=== PATIENT | female | born 1970 | race Caucasian/White ===

== ENCOUNTER 2020-05-24 08:58 | Emergency (ER) | payer OTHER, SELFPAY ==
[2020-05-24 08:59] VITALS: BP 192/127; PULSE 121; RESP 22; TEMP 37.3; O2SAT 96; BMI 30.4
--- NOTE | 2020-05-24 09:15 | XR_ITS ---
PROCEDURE: XR CHEST 2V CLINICAL HISTORY: SOB Shortness of breath, cough, smoker COMPARISON: No exams were available for comparison FINDINGS: The cardiomediastinal silhouette and pulmonary vascularity are within normal limits. The lungs are clear without infiltrates, suspicious nodules, or pleural effusions. No acute bony abnormalities. IMPRESSION: No acute findings. Dictated by: Rasta Wolf MD 05/24/2020 10:29 Rasta Wolf MD in [place] 05/24/2020 10:29
--- NOTE | 2020-05-24 09:21 | HMH.EDGENADL ---
ED Disposition Clinical Impression: Bronchitis, Poorly controlled diabetes mellitus Disposition: Home, Self-Care Condition on Discharge: Good Instructions: DI for Shortness of Breath Additional Instructions: You were seen on an emergency basis. It is very important that you follow up with your primary care provider and/or specialist as we discussed within 2 days. All labs and imaging were obtained and interpreted here to rule out life threatening emergencies, but your final results should be reviewed by your primary doctor at your follow up appointment. Please return to the emergency department if any of your symptoms worsen, or if they do not improve as we discussed. Prescriptions: Albuterol Sulfate [Albuterol Sulfate Hfa] 6.7 gm IH Q4-6H PRN #1 hfa.aer.ad PRN Reason: Shortness Of Breath Or Wheezing Prescription Printed Benzonatate [Tessalon Perle 100mg Cap*] 100 mg PO TID PRN #15 cap PRN Reason: Cough Prescription Printed Azithromycin [Z-William 250mg Tab] 250 mg PO DIRECTED #6 tab Prescription Printed Referrals: Mary Hair PA [Primary Care Provider] - - Critical Care Critical Care Time: No Attestation: On , the high probability of a clinically significant, sudden or life threatening deterioration of the following system(s) required my full and direct attention, intervention and personal management. The time I documented below is in addition to time spent performing reported procedures but includes the following listed in this critical care notation. Medical Decision Making - Medical Records Medical records reviewed: Yes: I reviewed the patient's medical records. - Mendoza Inquiry Pt receiving controlled substance: No Vital Signs: 05/24/20 08:59 05/24/20 10:26 Temperature 99.1 F Temperature Source Oral Pulse Rate [Radial] 121 H 87 Respiratory Rate 22 20 Blood Pressure [Right Arm] 192/127 H 158/99 H Blood Pressure Mean [Right Arm] 148 118 Blood Pressure Position [Right Arm] Sitting Sitting 02 Sat by Pulse Oximetry 96 96 Oxygen Delivery Method Room Air Room Air - Lab Data Lab results reviewed: Yes: I reviewed the patient's lab results. Lab Results 05/24/20 09:40: WBC 8.7, RBC 4.63, Hgb 14.4, Hct 41.4, MCV 89.3, MCH 31.1, MCHC 34.9, RDW 13.5, Plt Count 197, MPV 9.9, Neut % (Auto) 55.5, Lymph % (Auto) 37.2, [place] % (Auto) 3.6, Eos % (Auto) 2.9, Baso % (Auto) 0.7, Neut # (Auto) 4.8, Lymph # (Auto) 3.3, [place] # (Auto) 0.3, Eos # (Auto) 0.3, Baso # (Auto) 0.1 05/24/20 09:40: Sodium 140, Potassium 4.0, Chloride 107, Carbon Dioxide 25, Anion Gap 12.0, BUN 12, Creatinine 0.50 L, Estimated Creat Clear 169, Estimated GFR 130, Est GFR ( Amer) 157, Glucose 224 H, Calcium 9.5, Troponin I < 0.01 05/24/20 09:40: NT-Pro-B Natriuret Pep 64.3 05/24/20 09:40: D-Dimer 0.42 05/24/20 09:40: Total Bilirubin 0.2, Direct Bilirubin 0.1, Conjugated Bilirubin 0.0, Indirect Bilirubin 0.1, Unconjugated Bilirubin 0.2, AST 30, ALT 25, Alkaline Phosphatase 106, Total Protein 7.2, Albumin 4.1 Result diagrams: 05/24/20 09:40 05/24/20 09:40 Orders (Tests/Meds): ORDERS Category Date Time Status Covid-19 Nasal PCR ([facility]) Routine Lab 05/24/20 10:07 Received Troponin I Q3H Lab 05/24/20 12:15 Ordered Troponin I Q3H Lab 05/24/20 15:15 Ordered Medical Decision Narrative: 50-year-old female with heart disease, diabetes, hypertension presenting with 1 week history of cough, dyspnea and chest pain. Nontoxic, afebrile, hemodynamically stable, oxygenating well on room air. Chest x-ray negative for acute disease. EKG is normal. Troponin is undetectable. And her symptoms are a week long, so she does not require a second troponin here for rule out as her symptoms have been constant. CBC is within normal limits. CMP is nonactionable. proBNP is within normal limits. D-dimer is normal. This is not a pulmonary embolism or CHF exacerbation. No indication of pneumonia. PCR for Covid is pending. Pressure improved
--- NOTE | 2020-05-24 09:51 | ECG_ITS ---
APPROVED REPORT Exam: Resting ECG HR:93 bpm ECG Measurements Heart Rate 93 AXES OH 164 P 71 QRSd 98 QRS 61 QT 366 T 65 QTc 455 Conclusion Normal sinus rhythm Normal ECG Electronically signed by : Boby Montanez, 05/25/2020 17:01:51
[2020-05-24 09:53] LABS: Basophils # 0.1 K/mm3 (0-0.2); Basophils % 0.7 % (0.1-2.0); Eosinophils # 0.3 K/mm3 (0.0-0.4); Eosinophils % 2.9 % (0.1-12.0); Hematocrit 41.4 % (37.0-47.0); Hemoglobin 14.4 g/dL (12.2-16.2); Lymphocytes # 3.3 K/mm3 (0.7-4.5); Lymphocytes % 37.2 % (10-50); Mean Corpuscular HGB Conc 34.9 g/dL (31.8-35.4); Mean Corpuscular Hemoglobin 31.1 pg (27.0-31.2); Mean Corpuscular Volume 89.3 fl (81-99); Mean Platelet Volume 9.9 fl (7.4-10.4); Monocytes # 0.3 K/mm3 (0.1-1.0); Monocytes % 3.6 % (1.7-9.3); Neutrophils # 4.8 K/mm3 (1.8-7.8); Neutrophils % 55.5 % (37.0-80.0); Platelet Count 197 K/mm3 (142-424); Red Blood Count 4.63 M/mm3 (4.20-5.40); Red Cell Distribution Width 13.5 % (11.5-17.5); Sodium 140 mmol/L (136-145); White Blood Count 8.7 K/mm3 (4.8-10.8)
[2020-05-24 09:56] LABS: Blood Urea Nitrogen 12 mg/dl (7-17); Carbon Dioxide 25 mmol/L (22.0-30.0); Creatinine Clearance Estimated 169 mL/min (50-200); Estimated Glomerular Filt Rate 130 ml/min (>60); GFR (African American) 157 ML/MIN (>60)
[2020-05-24 09:57] LABS: Alanine Aminotransferase 25 U/L (12-78); Albumin Level 4.1 g/dl (3.5-5.0); Alkaline Phosphatase 106 U/L (38-126); Aspartate Amino Transferase 30 U/L (14-36); Bilirubin,Direct 0.1 mg/dl (0.0-0.4); Bilirubin,Indirect 0.1 mg/dL (0.0-0.9); Bilirubin,Total 0.2 mg/dl (0.2-1.3); Bilirubin,Unconjugated 0.2 mg/dL (0.0-1.1); Calcium 9.5 mg/dl (8.4-10.2); Glucose 224 mg/dl (74-100); Total Protein,Serum 7.2 g/dl (6.3-8.2)
[2020-05-24 10:02] LABS: D-Dimer 0.42 ug/mL (0.15-8.0)
[2020-05-24 10:08] LABS: NT Pro Brain Natriuretic Pep. 64.3 pg/mL (0-125)
[2020-05-24 10:09] LABS: Troponin I < 0.01 ng/ml (0.00-0.034)
[2020-05-24 10:18] LABS: Chloride 107 mmol/L (98-107)
[2020-05-24 10:26] VITALS: BP 158/99; PULSE 87; RESP 20; O2SAT 96
[2020-05-24 11:09] VITALS: BP 159/99; PULSE 100; RESP 18; TEMP 36.6; O2SAT 96
== END 2020-05-24 11:10 | disposition home or self-care (01) ==
PROVIDERS: Emergency Provider Physician Assistant; PCP Nurse Practitioner Family
DX: Z20.828 Contact with and (suspected) exposure to other viral communicable diseases (principal); J20.9 Acute bronchitis, unspecified; E11.65 Type 2 diabetes mellitus with hyperglycemia; I10 Essential (primary) hypertension; F17.210 Nicotine dependence, cigarettes, uncomplicated
CPT/HCPCS: 71046; 80048; 80076; 83880; 84484; 85025; 85378; 93005; 99283; U0003

== ENCOUNTER 2020-08-27 09:56 | Emergency (ER) | payer OTHER, SELFPAY ==
[2020-08-27 09:57] VITALS: BP 128/92; PULSE 93; RESP 20; TEMP 36.7; O2SAT 98; BMI 30.5
--- NOTE | 2020-08-27 10:01 | XR_ITS ---
PROCEDURE: XR CHEST PORTABLE CLINICAL HISTORY: sob Shortness of breath COMPARISON: CR XR CHEST 2V from 05/24/2020 FINDINGS: The cardiomediastinal silhouette and pulmonary vascularity are within normal limits. The lungs are clear without infiltrates, suspicious nodules, or pleural effusions. No acute bony abnormalities. IMPRESSION: No acute findings. Dictated by: Rasta Wolf MD 08/27/2020 10:15 Rasta Wolf MD in [place] 08/27/2020 10:15
--- NOTE | 2020-08-27 10:12 | ECG_ITS ---
APPROVED REPORT Exam: Resting ECG HR:98 bpm ECG Measurements Heart Rate 98 AXES CO 142 P 72 QRSd 90 QRS 65 QT 348 T 55 QTc 444 Conclusion Normal sinus rhythm ST abnormality, possible digitalis effect Abnormal ECG Electronically signed by : Scotty León, 08/27/2020 20:07:28
[2020-08-27 10:32] VITALS: BP 132/100; PULSE 98; O2SAT 96
[2020-08-27 10:40] LABS: Basophils # 0.1 K/mm3 (0-0.2); Basophils % 0.6 % (0.1-2.0); Eosinophils # 0.2 K/mm3 (0.0-0.4); Eosinophils % 2.6 % (0.1-12.0); Hematocrit 44.1 % (37.0-47.0); Hemoglobin 14.6 g/dL (12.2-16.2); Lymphocytes # 3.1 K/mm3 (0.7-4.5); Lymphocytes % 35.8 % (10-50); Mean Corpuscular HGB Conc 33.2 g/dL (31.8-35.4); Mean Corpuscular Hemoglobin 30.2 pg (27.0-31.2); Mean Corpuscular Volume 91.2 fl (81-99); Mean Platelet Volume 10.1 fl (7.4-10.4); Monocytes # 0.3 K/mm3 (0.1-1.0); Monocytes % 3.6 % (1.7-9.3); Neutrophils # 4.9 K/mm3 (1.8-7.8); Neutrophils % 57.4 % (37.0-80.0); Platelet Count 167 K/mm3 (142-424); Red Blood Count 4.84 M/mm3 (4.20-5.40); Red Cell Distribution Width 13.6 % (11.5-17.5); White Blood Count 8.6 K/mm3 (4.8-10.8)
--- NOTE | 2020-08-27 10:51 | HMH.EDGENADL ---
ED Disposition Clinical Impression: Exposure to COVID-19 virus Disposition: Home, Self-Care Condition on Discharge: Good Instructions: DI for Chronic Obstructive Pulmonary Disease Additional Instructions: Return to the emergency department for fever, shortness of breath, inability to stay well-hydrated. Referrals: Mary Hair PA [Primary Care Provider] - Time of Disposition: 11:43 - Critical Care Critical Care Time: No Attestation: On 08/27/20, the high probability of a clinically significant, sudden or life threatening deterioration of the following system(s) required my full and direct attention, intervention and personal management. The time I documented below is in addition to time spent performing reported procedures but includes the following listed in this critical care notation. Medical Decision Making - Medical Records Medical records reviewed: Yes: I reviewed the patient's medical records. - Mendoza Inquiry Pt receiving controlled substance: No Vital Signs: 08/27/20 09:57 08/27/20 10:32 08/27/20 11:02 Temperature 98.1 F Temperature Source Oral Pulse Rate [Left Radial] 93 H 98 H 96 H Respiratory Rate 20 Blood Pressure [Right Arm] 128/92 H 132/100 H 142/105 H Blood Pressure Mean [Right Arm] 104 110 117 Blood Pressure Source [Right Arm] Automatic Cuff Automatic Cuff Automatic Cuff Blood Pressure Position [Right Arm] Sitting Sitting Sitting 02 Sat by Pulse Oximetry 98 96 96 Oxygen Delivery Method Room Air Room Air Room Air - Lab Data Lab results reviewed: Yes: I reviewed the patient's lab results. Lab Results 08/27/20 10:30: WBC 8.6, RBC 4.84, Hgb 14.6, Hct 44.1, MCV 91.2, MCH 30.2, MCHC 33.2, RDW 13.6, Plt Count 167, MPV 10.1, Neut % (Auto) 57.4, Lymph % (Auto) 35.8, [place] % (Auto) 3.6, Eos % (Auto) 2.6, Baso % (Auto) 0.6, Neut # (Auto) 4.9, Lymph # (Auto) 3.1, [place] # (Auto) 0.3, Eos # (Auto) 0.2, Baso # (Auto) 0.1 08/27/20 10:30: Sodium 138, Potassium 4.1, Chloride 108 H, Carbon Dioxide 23, Anion Gap 11.1, BUN 11, Creatinine 0.40 L, Estimated Creat Clear 212, Estimated GFR 168, Est GFR ( Amer) 204, Glucose 150 H, Calcium 10.3 H, Total Bilirubin 0.5, AST 31, ALT 25, Alkaline Phosphatase 106, Troponin I < 0.01, Total Protein 8.2, Albumin 4.6, Globulin 3.6 H, Albumin/Globulin Ratio 1.3 08/27/20 10:30: NT-Pro-B Natriuret Pep 24.5 Result diagrams: 08/27/20 10:30 08/27/20 10:30 Orders (Tests/Meds): ORDERS Category Date Time Status Covid-19 Nasal PCR ([facility]) Routine Lab 08/27/20 10:30 Received Troponin I Q3H Lab 08/27/20 13:15 Ordered Troponin I Q3H Lab 08/27/20 16:15 Ordered ECG Request by /Linda Stat Y 08/27/20 10:00 Ordered - Radiology Data #1 Image(s): Chest Image Reviewed: Yes I reviewed the patient's radiology results, Yes I reviewed the patient's radiology image Preliminary Findings: Abnormal Mild cardiomegaly without signs of pneumonia Medical Decision Narrative: 50y F initially presenting for shortness of breath but her true concern is possible Covid. Patient is in no acute distress on initial presentation. Her vital signs are unremarkable. She has no increased work of breathing. Routine labs are unremarkable. A BNP is pending based off chest x-ray read of cardiomegaly. Patient was Covid swab but this will take several hours to result. She will be called with these results. Patient is appropriate and stable for discharge home. She is encouraged to follow-up with her PCP in the next 3 to 5 days. General Adult HPI - General Chief complaint: Shortness of Breath/Dyspnea Stated complaint: sob, aches in neck Time Seen by Provider: 08/27/20 10:30 Mode of Arrival: Ambulatory Limitations: No Limitations Description of Symptoms (Recalled from ER Triage Doc. by RN): c/o soa and cough with yellow mucus for 2 weeks. Concerned she might have covid 19 due to exposure at work. - History of Present Illness HPI narrative: 50yo F with past medical history si
[2020-08-27 10:55] LABS: Chloride 108 mmol/L (98-107); Potassium 4.1 mmoL/L (3.5-5.1); Sodium 138 mmol/L (136-145)
[2020-08-27 10:57] LABS: Alanine Aminotransferase 25 U/L (12-78); Aspartate Amino Transferase 31 U/L (14-36); Blood Urea Nitrogen 11 mg/dl (7-17); Creatinine Clearance Estimated 212 mL/min (50-200); Estimated Glomerular Filt Rate 168 ml/min (>60); GFR (African American) 204 ML/MIN (>60)
[2020-08-27 10:58] LABS: Albumin Level 4.6 g/dl (3.5-5.0); Albumin/Globulin Ratio 1.3 (1.1-1.8); Alkaline Phosphatase 106 U/L (38-126); Anion Gap 11.1 mEq/L (5-15); Bilirubin,Total 0.5 mg/dl (0.2-1.3); Calcium 10.3 mg/dl (8.4-10.2); Carbon Dioxide 23 mmol/L (22.0-30.0); Globulin 3.6 g/dL (1.3-3.2); Glucose 150 mg/dl (74-100); Total Protein,Serum 8.2 g/dl (6.3-8.2)
[2020-08-27 11:02] VITALS: BP 142/105; PULSE 96; O2SAT 96
[2020-08-27 11:11] LABS: Troponin I < 0.01 ng/ml (0.00-0.034)
[2020-08-27 11:15] LABS: NT Pro Brain Natriuretic Pep. 24.5 pg/mL (0-125)
[2020-08-27 12:11] VITALS: BP 142/105; PULSE 96; RESP 20; TEMP 36.7; O2SAT 96
--- NOTE | 2020-08-27 13:31 | PC.NURSE ---
Pt given negative results, she called.
== END 2020-08-27 12:12 | disposition home or self-care (01) ==
PROVIDERS: Emergency Provider Family Medicine; PCP Nurse Practitioner Family
DX: Z20.822 Contact with and (suspected) exposure to COVID-19 (principal); R06.02 Shortness of breath; R05 Cough; J44.9 Chronic obstructive pulmonary disease, unspecified; F17.210 Nicotine dependence, cigarettes, uncomplicated
CPT/HCPCS: 71045; 80053; 83880; 84484; 85025; 93005; 99283; U0003

== ENCOUNTER 2021-10-14 09:16 | Emergency (ER) | payer OTHER, SELFPAY ==
[2021-10-14 09:30] VITALS: BP 129/92; PULSE 113; RESP 18; TEMP 36.7; O2SAT 97; BMI 30.5
[2021-10-14 09:43] VITALS: BP 129/92; PULSE 113; RESP 18; TEMP 36.7
--- NOTE | 2021-10-14 09:48 | HMH.EDUTC ---
[facility] [place] Disposition Clinical Impression: Encounter for laboratory testing for COVID-19 virus Sinusitis Qualifiers: Sinusitis location: unspecified location Chronicity: acute Recurrence: non-recurrent Qualified Code(s): J01.90 - Acute sinusitis, unspecified Disposition: Home, Self-Care Condition on Discharge: Good Instructions: DI for Sinusitis, Preventing the Spread of Coronavirus Discharge Instructions Additional Instructions: Drink plenty of fluids. Take tylenol or ibuprofen for pain or fever. Take the medications as directed. Follow up with your regular doctor. GO TO THE ER FOR ANY WORSENING SYMPTOMS Prescriptions: Promethazine/Dextromethorphan [Promethazine-Dm Syrup] 5 ml PO Q6HP PRN #240 ml PRN Reason: Cough Transmission Status: Received by [facility] Benzonatate [Benzonatate 100mg cap] 100 mg PO TIDP PRN #30 cap PRN Reason: Cough Transmission Status: Received by [facility] Azithromycin [Z-William 250mg Tab*] 250 mg PO UD DOSE PK #6 tab Transmission Status: Received by [facility] Cetirizine HCl [Zyrtec] 10 mg PO DAILY 30 Days #30 cap Transmission Status: Received by [facility] Referrals: Sushila Mario APRN [Primary Care Provider] - Time of Disposition: 10:04 Medical Decision Making - Medical Records Medical records reviewed: No: I reviewed the patient's medical records. - Mendoza Inquiry Pt receiving controlled substance: No Vital Signs: 10/14/21 09:30 10/14/21 09:43 Temperature 98.1 F 98.1 F Temperature Source Oral Pulse Rate 113 H Pulse Rate [Left] 113 H Respiratory Rate 18 18 Blood Pressure 129/92 H Blood Pressure [Right Arm] 129/92 H Blood Pressure Mean [Right Arm] 104 02 Sat by Pulse Oximetry 97 [facility] [place] HPI - General Stated complaint: covid test Time Seen by Provider: 10/14/21 09:48 Mode of Arrival: Ambulatory Source of Information: Patient Limitations: No Limitations Description of Symptoms (Recalled from Triage Doc. by RN): pt needs a covid test to start a new job. pt also c/o bilateral ear aches. HEENT Symptoms (Recalled from RN notes): Yes Resp Symptoms (Recalled from RN notes): No Skin Symptoms (Recalled from RN notes): No MS Symptoms (Recalled from RN notes): No Functional Status (Recalled from RN notes): wnl - History of Present Illness Provider Complaint: She is here to have a covid test before she can start her new job. She does c/o sinus congestion for the past 5 days. - Related Data Previous Rx's Medication Instructions Recorded Albuterol Sulfate [Albuterol 6.7 gm IH Q4-6H PRN #1 hfa.aer.ad 05/24/20 Sulfate Hfa] Azithromycin [Z-William 250mg Tab] 250 mg PO DIRECTED #6 tab 05/24/20 Benzonatate [Tessalon Perle 100mg 100 mg PO TID PRN #15 cap 05/24/20 Cap*] Azithromycin [Z-William 250mg Tab*] 250 mg PO UD DOSE PK #6 tab 10/14/21 Benzonatate [Benzonatate 100mg 100 mg PO TIDP PRN #30 cap 10/14/21 cap] Cetirizine HCl [Zyrtec] 10 mg PO DAILY 30 Days #30 cap 10/14/21 Promethazine/Dextromethorphan 5 ml PO Q6HP PRN #240 ml 10/14/21 [Promethazine-Dm Syrup] Allergies Allergy/AdvReac Type Severity Reaction Status Date / Time No Known Allergies Allergy Verified 05/24/20 09:11 - Worker's Comp Is this a Worker's Comp case?: No [facility] History - Hepatitis A Screen Drug use history?: No High risk sexual behaviors?: No History of sexually transmitted infection?: No Currently employed?: No Childcare worker?: No Do you have indoor plumbing?: Yes Do you have electricity?: Yes Attestation statement:: This patient has been screened for Hepatitis A risk factors. I have reviewed the patient's past medical history: Yes Medical History: Reports:: Chronic Obstructive Pulmonary Disease (COPD) - Social History Smoking Status: Current every day smoker Tobacco Type: cigarettes # Packs/Day (cigarettes): 2 Alcohol Intake: never Occupational Status: other Housing: other Household Members:
== END 2021-10-14 10:10 | disposition home or self-care (01) ==
PROVIDERS: Emergency Provider Nurse Practitioner Family; PCP Nurse Practitioner Family
DX: J01.90 Acute sinusitis, unspecified (principal); Z11.52 Encounter for screening for COVID-19; F17.210 Nicotine dependence, cigarettes, uncomplicated
CPT/HCPCS: 99212; C9803; G0463; U0003; U0005

== ENCOUNTER → 2022-02-23 10:23 | Outpatient (CLI) | payer OTHER, SELFPAY ==
--- NOTE | 2022-02-23 10:25 | CA_ITS ---
APPROVED REPORT EXAM: Comprehensive 2D, Doppler, and color-flow Echocardiogram Brand Advisor: Kiah Corbett, RCS, RVS Ht: 5 ft 4 in Wt: 196lbs BSA: 1.94 BP: 169/93 mmHg Indications: CP, SOB, COPD, Smoker, HTN, DM, HLD 2D Dimensions LVDd 5.22 cm LVEF (Visual) 48.40 % LVDs 3.94 cm LA Volume 52.50 mL Aortic Root 2.88 cm LA Volume Index 27.10 mL/m2 (M/F) 16-34 Left Atrium 3.09 cm LVOT 1.93 cm (M/F) 1.5-2.5 M-Mode Dimensions RVDd 2.62 cm (0.9-2.6) LA Diam 3.49 cm (1.9-4.0) LVDd 5.88 cm (3.5-5.7) Ao Diam 3.14 cm (2.0-3.7) LVDs 4.85 cm (3.5-5.7) IVSd 0.83 cm (0.6-1.1) PWd 0.83 cm (0.6-1.1) EF (Teich) 35.90% EPSs 1.41 cm FS 17.50% EDV (Teich) 171.90 mL TAPSE 1.87 (<1.7) ESV (Teich) 110.20 mL LV Diastology E Decel Time 167.00 (160-240 msec) E/A Ratio 0.80 MED E' 7.80 (< 7 cm/sec) MED A' 9.00 cm/s E'/MED E' Ratio 7.64 (>14) LAT E' 7.40 (<10 cm/sec) LAT A' 8.60 cm/s E/LAT E' Ratio 8.05 (>14) Aortic Valve LVOT Max 75.00 (70-110 cm/s) LVOT VTI 13.76 cm AoV Peak Lalo. 118.00 (50-130 cm/s) AO Peak GR. 5.60 mmHg AO Mean GR. 2.80 (<5 mmHg) AO VTI 21.75 (18-25 cm) SUMEET (VTI) 1.85 (2.5-4.5 cm2) Mitral Valve MV A Velocity 74.00 (40-130 cm/s) E/A Ratio 0.80 MV Decel. Time 167.00 (160-240 ms) MV Mean Gr. 1.20 (<2mmHg) MV PHT 50.00 ms Pulmonary Valve PV Peak Velocity 70.00 (50-150 cm/s) Left Ventricle Left atrium is mildly enlarged, left ventricle is normal size mild concentric left ventricular hypertrophy, estimated ejection fraction approximately 50%, with no regional wall motion abnormality, endocardial surfaces are poorly visualized. Grade 1 diastolic dysfunction seen without tissue Doppler evidence of atrial atrial pressure. Right Ventricle Right atrium and right ventricle are normal size and contractility. Aortic Valve Aortic valve is minimally thickened and fibrosed there is no aortic stenosis or aortic insufficiency. Mitral Valve Mitral valve is grossly normal, there is trace mitral regurgitation. Tricuspid Valve Tricuspid valve grossly normal, there is trace tricuspid regurgitation, tricuspid regurgitation jet velocity is inadequate for calculation of the right ventricular systolic pressure. Pulmonic Valve Pulmonic valve is poorly visualized. Great Vessels Aortic root is normal size. Inferior vena cava is normal size with normal inspiratory collapse. Pericardium No significant pericardial effusion noted. Conclusion 1. Mildly enlarged left atrium, normal left ventricular size, mild concentric left ventricular hypertrophy, estimated ejection fraction approximately 50% with no obvious regional wall motion abnormality, grade 1 diastolic dysfunction seen without tissue Doppler evidence of reduced left atrial pressure. 2. Trace mitral and tricuspid regurgitation. 3. No significant pericardial effusion noted . 4. Inferior vena cava is normal size with normal inspiratory collapse. Electronically signed by : Zane Peres MD 02/24/2022 06:12:58
== END ==
PROVIDERS: PCP Nurse Practitioner Family; Visit Provider Internal Medicine Cardiovascular Disease
DX: R06.00 Dyspnea, unspecified (principal); R07.9 Chest pain, unspecified; R55 Syncope and collapse; I10 Essential (primary) hypertension; I20.9 Angina pectoris, unspecified; E11.9 Type 2 diabetes mellitus without complications; E78.5 Hyperlipidemia, unspecified; J44.9 Chronic obstructive pulmonary disease, unspecified; R61 Generalized hyperhidrosis; Z72.0 Tobacco use
CPT/HCPCS: 93306

== ENCOUNTER 2022-02-25 07:40 | Day surgery (SDC) | payer OTHER, SELFPAY ==
[2022-02-25] VITALS (12 sets, daily range): BP systolic 113–184; BP diastolic 69–138; PULSE 86–101; RESP 17–18; O2SAT 91–99; BMI 33.6
--- NOTE | 2022-02-25 | IR_ITS ---
APPROVED REPORT Patient Location: Outpatient Community Development Manager: CHARISSE Espino RT (R) PROCEDURES Left heart catheterization Left ventriculogram Selective coronary angiogram FFR to the dominant right coronary Drug-eluting stent deployment to the mid and distal dominant right coronary INDICATION Coronary artery disease, Accelerated angina pectoris, Ischemic response to adenosine with an FFR index of 0.80 Informed consent was obtained prior to the procedure. COMPLICATIONS NONE Estimated Blood Loss: LESS THAN 10 ML TECHNIQUE One percent lidocaine used to anesthetize the right anterior aspect of the wrist. The right radial artery was accessed via the Seldinger technique. A 6 [place] sheath was placed in the right radial artery. 2.5 mg of verapamil, 800 mcg of nitroglycerin, 1mg Lidocaine and 5000 U Heparin were given through the arterial sheath. The papa catheter was also used to perform left heart catheterization, left ventriculogram and selective coronary angiogram. At the end the diagnostic angiogram therapeutic heparin was administered giving a therapeutic ACT and the guide catheter was placed in the right coronary artery followed by a Choice PT extra-support wire. A nevus FFR catheter was then equalized in the ostium and placed distally with infusion of adenosine. The FFR index dropped to 0.80. At this point a 3 mm x 38 mm resolute [place] stent was deployed at 16 javier reducing the stenosis. There was still an area that required postdilatation therefore the balloon was placed back and deployed at 22 javier further reducing the stenosis to 0%. SAIDA-3 flow was present before and after the procedure. At the end of procedure the apparatus was removed the sheath was removed and hemostasis was achieved using TR banding patient was transferred to the postop putting in stable addition ANGIOGRAPHIC RESULTS The left main artery Normal The left anterior descending artery Has a proximal smooth 10 to 20% stenosis followed by a hazy mid vessel 40% smooth stenosis at an area that is no greater than 2.5 mm in diameter. The remaining LAD is small but widely patent. The circumflex artery Nondominant normal The right coronary artery Is large and dominant with an ostial smooth 10 to 20% stenosis followed by mid vessel 40% stenosis followed by tandem 50 to 60% distal stenosis followed by an additional 30 to 40% stenosis The NEGRON ventriculogram reveals Preserved at 55% The left ventricular end-diastolic pressure 15 mmHg FFR index 0.80 in the right coronary IMPRESSION Ischemic response to adenosine involving the angiographically moderate disease dominant right coronary artery Successful stenting of the distal right coronary severe disease reduced to 0% with 1 drug-eluting stent Preserved ejection fraction Borderline elevated LVEDP Persistent moderate stenosis in the LAD system PLAN 1. Dual antiplatelet therapy 2. LDL of 55 to be achieved with high intensity statin 3. Cardiac rehabilitation 4. Avoidance of tobacco products 5. At this point I favor medical management of the LAD. Should patient continue to experience angina pectoris I would consider bringing her back to the lab and proceeding with FFR to the LAD. Revascularize the LAD would require stenting both the proximal and mid segment. The proximal segment is larger in diameter than the mid segment and there would also be crossing of a large first diagonal artery. While this is not prohibitive it is less than desirable and I favor medical management 6. Maximize antianginal medications Electronically signed by : Jordy Hall MD 02/25/2022 10:35:30
[2022-02-25 07:55] LABS: Coronavirus 19, PCR Not Detected (NotDetected); Influenza A, PCR Not Detected (NotDetected); Influenza B, PCR Not Detected (NotDetected)
[2022-02-25 08:09] LABS: Basophils # 0.1 K/mm3 (0-0.2); Basophils % 0.8 % (0.1-2.0); Eosinophils # 0.2 K/mm3 (0.0-0.4); Eosinophils % 2.3 % (0.1-12.0); Hematocrit 43.1 % (37.0-47.0); Lymphocytes # 2.7 K/mm3 (0.7-4.5); Lymphocytes % 33.4 % (10-50); Mean Corpuscular HGB Conc 32.4 g/dL (31.8-35.4); Mean Corpuscular Hemoglobin 31.1 pg (27.0-31.2); Mean Corpuscular Volume 96.1 fl (81-99); Mean Platelet Volume 10.3 fl (7.4-10.4); Monocytes # 0.4 K/mm3 (0.1-1.0); Monocytes % 4.3 % (1.7-9.3); Neutrophils # 4.9 K/mm3 (1.8-7.8); Neutrophils % 59.3 % (37.0-80.0); Platelet Count 204 K/mm3 (142-424); Red Blood Count 4.49 M/mm3 (4.20-5.40); Red Cell Distribution Width 13.3 % (11.5-17.5); White Blood Count 8.2 K/mm3 (4.8-10.8)
[2022-02-25 08:34] LABS: Chloride 111 mmol/L (98-107); Potassium 4.2 mmoL/L (3.5-5.1); Sodium 140 mmol/L (136-145)
[2022-02-25 08:36] LABS: Blood Urea Nitrogen 12 mg/dl (7-17); Creatinine Clearance Estimated 228 mL/min (50-200); Estimated Glomerular Filt Rate 167 ml/min (>60); GFR (African American) 202 ML/MIN (>60)
[2022-02-25 08:37] LABS: Alanine Aminotransferase 24 U/L (12-78); Albumin Level 4.2 g/dl (3.5-5.0); Alkaline Phosphatase 99 U/L (38-126); Anion Gap 10.2 mEq/L (5-15); Aspartate Amino Transferase 29 U/L (14-36); Bilirubin,Direct 0.1 mg/dl (0.0-0.4); Calcium 9.7 mg/dl (8.4-10.2); Carbon Dioxide 23 mmol/L (22.0-30.0); Cholesterol 211 mg/dl (140-200); Glucose 171 mg/dl (74-100); Triglycerides 209 mg/dl (30-150); VLDL Cholesterol 42 mg/dL (0-40)
[2022-02-25 08:38] LABS: Chol/HDL Ratio 3.6 (1-3.5); HDL Cholesterol 58 mg/dl (40-60); Magnesium 1.7 mg/dl (1.6-2.3)
[2022-02-25 08:43] LABS: Bilirubin,Total 0.1 mg/dl (0.2-1.3)
[2022-02-25 08:54] LABS: Free T4 (Free Thyroxine) 0.94 ng/dl (0.78-2.19)
[2022-02-25 09:09] LABS: Thyroid Stimulating Hormone 2.47 uIU/mL (0.465-4.68)
[2022-02-25 10:31] LABS: CATHL Activated Clotting Time 268 SEC (74-125)
--- NOTE | 2022-02-25 10:45 | SUR.PHASEII ---
Notified pt SO of POC and when she is able to to go home. Pt became very irate and cursed about how long he has to wait on her. Explained to patient that is our policy of recovery, pts SO continued to scream and curse and state Well Im sicker than her what am I suppose to do. Explained to him that if he is feeling unwell i can escort him to the ED, pt refused and stated he would be back and left.
--- NOTE | 2022-02-25 12:58 | SUR.PHASEII ---
Pt continues to use right arm to do things, educated multiple times not to use right arm or wrist d/t access site for the cath. Bruising noted to right wrist.
--- NOTE | 2022-02-25 13:01 | HMH.PHACLD ---
Karen Reed has received discharge medication counseling on the following medications: -BRILINTA (BLOOD THINNER, TWICE DAILY, BLEED/BRUISE RISK, BUMP HEAD = GO TO ER, MAY CAUSE SOB) -ASPIRIN (BLOOD THINNER, DAILY, BLEED/BRUISE RISK) -ATORVASTATIN -METOPROLOL -LISINOPRIL
[2022-02-26 09:57] LABS: Direct LDL Cholesterol 122 mg/dL (100-129)
== END 2022-02-25 13:12 | disposition home or self-care (01) ==
LOC: CATHLAB 07:43
PROVIDERS: Internal Medicine Cardiovascular Disease; PCP Nurse Practitioner Family; Visit Provider Internal Medicine
DX: I25.118 Atherosclerotic heart disease of native coronary artery with other forms of angina pectoris (principal); E11.9 Type 2 diabetes mellitus without complications; E78.5 Hyperlipidemia, unspecified; I10 Essential (primary) hypertension; J44.9 Chronic obstructive pulmonary disease, unspecified; Z79.84 Long term (current) use of oral hypoglycemic drugs; Z79.899 Other long term (current) drug therapy; Z20.822 Contact with and (suspected) exposure to COVID-19
CPT/HCPCS: 36415; 80048; 80061; 80076; 83735; 84439; 84443; 85025; 85347; 92928; 93458; 93571; 99152; C1725; C1769; C1876; C9600; C9803; J0153; J1644; Q9967; U0003; U0005

== ENCOUNTER 2022-03-15 19:12 | Observation (INO) | payer OTHER, SELFPAY ==
--- NOTE | 2022-03-15 19:05 | ECG_ITS ---
APPROVED REPORT Exam: Resting ECG HR:101 bpm ECG Measurements Heart Rate 101 AXES [place] 140 P 77 QRSd 97 QRS 72 QT 353 T 65 QTc 411 Conclusion SINUS TACHYCARDIA ABNORMAL RHYTHM ECG UNCONFIRMED REPORT Electronically signed by : Scotty León MD 03/16/2022 16:49:28
[2022-03-15 19:13] VITALS: BP 169/100; PULSE 105; RESP 163; TEMP 36.8; O2SAT 98; BMI 33.6
--- NOTE | 2022-03-15 19:20 | XR_ITS ---
PROCEDURE INFORMATION: Exam: XR Chest Exam date and time: 03/15/2022 7:34 PM Age: 52 years old Clinical indication: Pain; Chest pressure; Additional info: Cp TECHNIQUE: Imaging protocol: Radiologic exam of the chest. Views: 1 view. COMPARISON: CR XR CHEST PORTABLE 08/27/2020 10:18 AM FINDINGS: Lungs: No consolidation. Pleural spaces: No pneumothorax. Heart/Mediastinum: No cardiomegaly. Bones/joints: Widening of the right AC joint which appears stable. IMPRESSION: No acute findings.
--- NOTE | 2022-03-15 19:26 | PC.NURSE ---
patient assisted to bathroom, given warm blanket and ice chips
[2022-03-15 19:30] LABS: Basophils % 0.4 % (0.1-2.0); Eosinophils # 0.2 K/mm3 (0.0-0.4); Eosinophils % 1.9 % (0.1-12.0); Hematocrit 38.8 % (37.0-47.0); Hemoglobin 12.8 g/dL (12.2-16.2); Lymphocytes # 3.5 K/mm3 (0.7-4.5); Lymphocytes % 36.5 % (10-50); Mean Corpuscular HGB Conc 32.9 g/dL (31.8-35.4); Mean Corpuscular Hemoglobin 30.8 pg (27.0-31.2); Mean Corpuscular Volume 93.4 fl (81-99); Mean Platelet Volume 9.9 fl (7.4-10.4); Monocytes # 0.4 K/mm3 (0.1-1.0); Monocytes % 3.9 % (1.7-9.3); Neutrophils # 5.5 K/mm3 (1.8-7.8); Neutrophils % 57.4 % (37.0-80.0); Platelet Count 185 K/mm3 (142-424); Red Blood Count 4.15 M/mm3 (4.20-5.40); Red Cell Distribution Width 12.8 % (11.5-17.5); White Blood Count 9.5 K/mm3 (4.8-10.8)
[2022-03-15 19:33] LABS: Alanine Aminotransferase 33 U/L (12-78); Albumin/Globulin Ratio 1.4 (1.1-1.8); Alkaline Phosphatase 99 U/L (38-126); Anion Gap 11.8 mEq/L (5-15); Aspartate Amino Transferase 31 U/L (14-36); Blood Urea Nitrogen 16 mg/dl (7-17); Calcium 10.2 mg/dl (8.4-10.2); Carbon Dioxide 23 mmol/L (22.0-30.0); Chloride 111 mmol/L (98-107); Creatinine Clearance Estimated 152 mL/min (50-200); Estimated Glomerular Filt Rate 105 ml/min (>60); GFR (African American) 127 ML/MIN (>60); Globulin 2.8 g/dL (1.3-3.2); Glucose 184 mg/dl (74-100); Potassium 3.8 mmoL/L (3.5-5.1); Sodium 142 mmol/L (136-145); Total Protein,Serum 6.8 g/dl (6.3-8.2)
[2022-03-15 19:44] LABS: Bilirubin,Total < 0.1 mg/dl (0.2-1.3); Troponin I < 0.01 ng/ml (0.00-0.034)
--- NOTE | 2022-03-15 20:01 | ECG_ITS ---
APPROVED REPORT Exam: Resting ECG HR:91 bpm ECG Measurements Heart Rate 91 AXES TN 168 P 75 QRSd 96 QRS 69 QT 361 T 65 QTc 410 Conclusion SINUS RHYTHM MODERATE ST DEPRESSION [0.05+ mV ST DEPRESSION] ABNORMAL ECG UNCONFIRMED REPORT Electronically signed by : Scotty León MD 03/16/2022 16:49:06
--- NOTE | 2022-03-15 22:00 | PC.NURSE ---
Patient admitted to [address] Cabez[address] to Dr[address] Tobar.
--- NOTE | 2022-03-15 22:46 | PC.NURSE ---
report called to Zhanna
[2022-03-15 22:47] VITALS: BP 163/87; PULSE 89; RESP 18; TEMP 36.8; O2SAT 98
[2022-03-15 22:55] LABS: Coronavirus 19, PCR Not Detected (NotDetected); Influenza A, PCR Not Detected (NotDetected); Influenza B, PCR Not Detected (NotDetected)
--- NOTE | 2022-03-15 23:30 | HMH.EDCP ---
Discharge Plan Disposition Patient Disposition: Admitted as Observation Chief Complaint: Chest Pain Clinical Impressions Clinical Impression: Chest pain, COPD (chronic obstructive pulmonary disease), DM2 (diabetes mellitus, type 2), CAD (coronary artery disease), Angina at rest, Tobacco use, Obesity (BMI 30-39.9) Discharge ED Provider: Jayy Cabezas Chest Pain HPI General Chief Complaint: Chest Pain Stated Complaint: CP Time Seen by Provider: 03/15/22 21:30 Mode of Arrival: EMS Source of Information: Patient Limitations: No Limitations Description of Symptoms (Recalled from ER Triage Doc. by RN): to ed per squad pt c/o chest pain, sob pt with hx of stents 02/25/22 pt given 324mg asa and 1 nitro by squad which relieved pain. pt denies any c/o at present History of Present Illness HPI narrative: recent stents on 02/25 and doing ok and has been compliant with meds - pt with sev episode of pain tonight which was different from prev and pos relief with ntg per ems MD complaint: chest pain indicative of cardiac Onset (ago): hour(s) Duration: now resolved Activity at onset: during rest Pain location: left chest Severity: severe Quality: sharp Relieving factors: nitroglycerin Risk Factors for CAD: Hypertension, Family Hx of CAD, Diabetes and Smoking Treatments prior to or on arrival for Cardiac Chest Pain: nitroglycerin VICK Score for Non-Stemi Age of Patient: 50-59 years old Heart Rate: 90-109 bpm Systolic Blood Pressure: 160-199 mmHg Serum Creatinine: 0.40-0.79 mg/dl CHF [place] Class: I-No CHF Other Risk Factors: None Non-Stemi Risk Score: 70 Related Data Prior Cardiac Testing/Procedures: Stenting Home Medications Medication Instructions Recorded Confirmed aripiprazole 5 mg tablet 5 mg PO DAILY . 02/19/22 03/15/22 atorvastatin 40 mg tablet 40 mg PO DAILY High cholesterol 02/19/22 03/15/22 buspirone 10 mg tablet 10 mg PO DAILY . 02/19/22 03/15/22 cyanocobalamin (vitamin B-12) 1,000 mcg PO DAILY . 02/19/22 03/15/22 1,000 mcg tablet duloxetine 60 mg capsule,delayed 60 mg PO DAILY . 02/19/22 03/15/22 release fenofibrate 160 mg tablet 160 mg PO DAILY . 02/19/22 03/15/22 fenofibrate nanocrystallized 48 mg 48 mg PO DAILY . 02/19/22 03/15/22 tablet fluticasone propionate 50 50 mcg intranasal POSTTR Breathing 02/19/22 03/15/22 mcg/actuation nasal problems spray,suspension gabapentin 400 mg capsule 400 mg PO TID Pain 02/19/22 03/15/22 glipizide 10 mg tablet 10 mg PO DAILY Diabetes 02/19/22 03/15/22 lancets 33 gauge (MoniqueGopirenee Delelina #100 ea 02/19/22 03/15/22 Plus Lancet) lisinopril 30 mg tablet 30 mg PO DAILY High blood pressure 02/19/22 03/15/22 montelukast 10 mg tablet 10 mg PO DAILY Breathing problems 02/19/22 03/15/22 omeprazole 40 mg capsule,delayed 40 mg PO DAILY GERD 02/19/22 03/15/22 release quetiapine 50 mg tablet 50 mg PO DIRECTED sleep 02/19/22 03/15/22 thiamine mononitrate (vit B1) 100 100 mg PO DAILY Supplement 02/19/22 03/15/22 mg tablet bupropion HCl (smoking deter) 150 150 mg PO DAILY . 03/15/22 03/15/22 mg tablet,12 hr sustained-release(smoking deterrent) cetirizine 10 mg capsule 10 mg PO DAILY . 03/15/22 03/15/22 metoprolol succinate 100 mg 100 mg PO DAILY High blood pressure 03/15/22 03/15/22 tablet,extended release 24 hr (Toprol XL) nicotine 1 patch transdermal Q24H . 03/15/22 03/15/22 21mg/24hr-14mg/24hr-7mg/24hr daily transderm patches,sequentl Previous Rx's Medication Instructions Recorded albuterol sulfate 90 mcg/actuation 6.7 gm inhalation Q4-6H PRN 05/24/20 aerosol inhaler Shortness Of Breath Or Wheezing ##1 aspirin 81 mg chewable tablet 81 mg PO DAILY DAPT #30 tabs 03/10/22 nitroglycerin 0.4 mg sublingual 0.4 mg sublingual Q5M PRN chest 03/10/22 tablet pain #25 tabs ticagrelor 90 mg tablet 90 mg PO BID DAPT #60 tabs 03/10/22 Allergies Allergy/AdvReac Type Severity Reaction Status Date / Time Penicillins Allergy Mild Verified 03/05/22 13:06 Alejandre
[2022-03-15 23:41] LABS: Troponin I < 0.01 ng/ml (0.00-0.034)
[2022-03-16] VITALS (20 sets, daily range): BP systolic 98–172; BP diastolic 59–100; PULSE 76–101; RESP 15–20; TEMP 36.7–37.1; O2SAT 95–99
--- NOTE | 2022-03-16 | IR_ITS ---
APPROVED REPORT Patient Location: Inpatient Director Of Accounts Payable: CHARISSE Bower RT (R) PROCEDURES Left heart catheterization Left ventriculogram Selective coronary angiogram FFR to the LAD Drug-eluting stent deployment to the LAD Drug-eluting stent deployment to the first diagonal artery FFR to the circumflex artery Intravascular ultrasound of the right coronary Drug-eluting stent deployment to the ostial proximal dominant right coronary INDICATION Coronary artery disease, Recurrent and recalcitrant angina pectoris, Ischemic response to adenosine with FFR index of 0.80, Intravascular ultrasound evidence of ostial dissection involving the right coronary Informed consent was obtained prior to the procedure. COMPLICATIONS NONE Estimated Blood Loss: LESS THAN 10 ML TECHNIQUE One percent lidocaine used to anesthetize the right anterior aspect of the wrist. The right radial artery was accessed via the Seldinger technique. A 6 [place] sheath was placed in the right radial artery. 2.5 mg of verapamil, 800 mcg of nitroglycerin, 1mg Lidocaine and 5000 U Heparin were given through the arterial sheath. The papa catheter was also used to perform selective coronary angiogram. At the end the diagnostic angiogram therapeutic heparin was administered giving a therapeutic ACT. The guide catheter was placed in the left main artery followed by a Choice PT extra-support wire down the LAD. An FFR nevus catheter was advanced to the left main artery and equalized. The FFR catheter was then advanced and adenosine was infused per protocol. The FFR index dropped to 0.80 making this a hemodynamically significant lesion. A 3 mm x 38 mm resolute [place] stent was placed in the proximal to mid LAD and deployed at 15 javier. There was jailing of a large first diagonal artery therefore an additional wire was placed in the diagonal artery followed by 2 mm x 8 mm balloon opening the struts into the diagonal artery. A 2.25 x 12 mm resolute Jimmy stent was then placed in the ostium of the first diagonal artery and deployed at 20 javier. An additional 3 mm x 8 mm noncompliant balloon was then placed in the proximal portion of the LAD stent which was adjacent from the first diagonal artery and deployed at 20 javier to post dilate. SAIDA-3 flow was present down the LAD and diagonal artery before and after the procedure. At the end of this procedure the diagonal wire was placed into the circumflex artery where the FFR index was repeated. The FFR index dropped to 0.84 making this a hemodynamically insignificant lesion. The apparatus was removed. At this point the catheter was placed into the dominant right coronary artery. There was difficulty with the wire passing and it appeared to easily passed into a dissected area. Eventually the wire was prolapsed and advanced into the distal right coronary artery where an intravascular ultrasound probe was advanced. Although the MLA was greater than 4 mm??? the plaque burden exceeded 70% as calculated and measured as well as there appeared to be an ostial dissection. Because of this a 5 mm x 12 mm resolute [place] stent was deployed at 15 javier in the ostium of the right coronary reducing the stenosis to 0%. SAIDA-3 flow was present before and after the procedure. The end of the procedure the apparatus was removed the sheath was removed good hemostasis was achieved using TR banding patient was transferred to the postop putting in stable condition ANGIOGRAPHIC RESULTS The left main artery Normal The left anterior descending artery Has a proximal smooth 10 to 20% stenosis followed by a mid vessel concentric 40 to 50% stenosis followed by a long hazy 30 to 40% stenosis. A large first diagonal artery has a
--- NOTE | 2022-03-16 00:37 | PC.NURSE ---
PT ARRIVED TO FLOOR VIA W/C FROM ED W/STAFF [id number]
[2022-03-16 02:40] LABS: Troponin I < 0.01 ng/ml (0.00-0.034)
[2022-03-16 05:44] LABS: POC Glucose,Bedside 150 (70-110)
--- NOTE | 2022-03-16 07:46 | EXP.PHA.VTE ---
[facility] Pharmacy VTE Monitoring Patient Demographics Admission date: 03/15/22 Report Date: 03/16/22 Time: 07:46 Patient Allergies Penicillins Allergy (Mild, Verified 03/05/22 13:06) Sulfa (Sulfonamide Antibiotics) Allergy (Mild, Verified 03/05/22 13:06) isosorbide Adverse Reaction (Verified 03/05/22 13:08) headache Height: 1.63 m Weight: 88.904 kg Current Active Problems (Updated 03/16/22 @ 00:46 by Jayy Cabezas MD) Chest pain (Acute) Angina at rest (Acute) Tobacco use (Acute) Obesity (BMI 30-39.9) (Acute) CAD (coronary artery disease) (Chronic) DM2 (diabetes mellitus, type 2) (Chronic) COPD (chronic obstructive pulmonary disease) (Chronic) VTE Risk Labs: VTE Related Lab Results Hgb 12.8 g/dL (12.2-16.2) 03/15/22 19:13 Hct 38.8 % (37.0-47.0) 03/15/22 19:13 Plt Count 185 K/mm3 (142-424) 03/15/22 19:13 BUN 16 mg/dl (7-17) 03/15/22 19:13 Creatinine 0.60 mg/dl (0.52-1.04) 03/15/22 19:13 Estimated Creat Clear 152 mL/min (50-200) 03/15/22 19:13 Prophylaxis VTE Prophylaxis Ordered?: Yes Types of VTE Prophylaxis: TEDS Knee High Location of Applied Device: Bilateral Lower Extremeties
--- NOTE | 2022-03-16 08:40 | EXP.CARD.CON ---
History of Present Illness History of Present Illness Consult date: 03/16/22 Requesting physician: Krish Tobar Consult reason: chest pain Chief complaint: chest pain Additional Medical History:: Past medical hx CAD ANGIOGRAPHIC RESULTS- 02/25/2022 The left main artery Normal The left anterior descending artery Has a proximal smooth 10 to 20% stenosis followed by a hazy mid vessel 40% smooth stenosis at an area that is no greater than 2.5 mm in diameter.? The remaining LAD is small but widely patent. The circumflex artery Nondominant normal The right coronary artery Is large and dominant with an ostial smooth 10 to 20% stenosis followed by mid vessel 40% stenosis followed by tandem 50 to 60% distal stenosis followed by an additional 30 to 40% stenosis The NEGRON ventriculogram reveals Preserved at 55% The left ventricular end-diastolic pressure 15 mmHg FFR index 0.80 in the right coronary IMPRESSION Ischemic response to adenosine involving the angiographically moderate disease dominant right coronary artery Successful stenting of the distal right coronary severe disease reduced to 0% with 1 drug-eluting stent Preserved ejection fraction Borderline elevated LVEDP Persistent moderate stenosis in the LAD system PLAN 1. Dual antiplatelet therapy 2. LDL of 55 to be achieved with high intensity statin 3. Cardiac rehabilitation 4. Avoidance of tobacco products 5. At this point I favor medical management of the LAD.? Should patient continue to experience angina pectoris I would consider bringing her back to the lab and proceeding with FFR to the LAD.? Revascularize the LAD would require stenting both the proximal and mid segment.? The proximal segment is larger in diameter than the mid segment and there would also be crossing of a large first diagonal artery.? While this is not prohibitive it is less than desirable and I favor medical management 6. Maximize antianginal medications Echo 02/2022 Conclusion 1.? Mildly enlarged left atrium, normal left ventricular size, mild concentric left ventricular hypertrophy, estimated ejection fraction approximately 50% with no obvious regional wall motion abnormality, grade 1 diastolic dysfunction seen without tissue Doppler evidence of reduced left atrial pressure. 2.? Trace mitral and tricuspid regurgitation. 3.? No significant pericardial effusion noted . 4.? Inferior vena cava is normal size with normal inspiratory collapse. Current Smoker HTN HLD COPD History of present illness: 52 year old female with the above hx presented to ED with complaint of ongoing, progressive and worsening midsternal chest pressure since [facility] on 02/25/2022. Patient reports pain started again last night when she was sitting on bed at rest. Reports pain was an intense pressure 02/24 associated with soa. Last cath on 02/25/2022 patient received stent to distal RCA. Medical management was preferred for LAD at that time and if symptoms persist patient would be brought back to have FFR done to LAD. Upon presentation to ED, troponins were negative. EKG negative for acute stemi. Patient was admitted for C today. PFSH PFSH Medical History (Updated 03/16/22 @ 00:46 by Jayy Cabezas MD) Asthma CAD (coronary artery disease) Chest pain COPD (chronic obstructive pulmonary disease) Diaphoresis DM2 (diabetes mellitus, type 2) Dyspnea HLD (hyperlipidemia) HTN (hypertension) Near syncope Social History (Updated 03/16/22 @ 00:46 by Jayy Cabezas MD) Smoking Status: Former smoker alcohol intake: never current occupational status: unemployed Travel in the last 8 weeks: None household members: significant other and other housing: house Review of Systems Review of Systems Review of systems:: pertinent systems reviewed and negative unless documented below Constitutional Constitutional: Reports system reviewed and no additional complaints, except as documented *Cardiovascular Cardiovascular: Reports chest pain
--- NOTE | 2022-03-16 09:30 | EXP.HP ---
History of Present Illness *Admission Date: 03/15/22 *Reason for visit:: Chest Pain *History of present illness: 52 year old female with the above hx presented to ED with complaint of ongoing, progressive and worsening midsternal chest pressure since [facility] on 02/25/2022. Patient reports pain started again last night when she was sitting on bed at rest. Reports pain was an intense pressure 02/24 associated with soa. Last cath on 02/25/2022 patient received stent to distal RCA. Medical management was preferred for LAD at that time and if symptoms persist patient would be brought back to have FFR done to LAD. Upon presentation to ED, troponins were negative. EKG negative for acute stemi. Patient was admitted for [facility] today (Per Masood Hernandez APRN).? PFSH PFS Medical History Asthma CAD (coronary artery disease) Chest pain COPD (chronic obstructive pulmonary disease) Diaphoresis DM2 (diabetes mellitus, type 2) Dyspnea HLD (hyperlipidemia) HTN (hypertension) Near syncope Social History Smoking Status: Former smoker alcohol intake: never current occupational status: unemployed household members: significant other and other housing: house Review of Systems Constitutional Constitutional: Reports fatigue and Reports lethargy Eyes Eyes: Reports system reviewed and no additional complaints, except as documented, Denies blurry vision and Denies change in vision ENT Ears, Nose, Mouth, and Throat: Reports system reviewed and no additional complaints, except as documented, Denies epistaxis and Denies mouth pain *Cardiovascular Cardiovascular: Reports chest pain at rest *Respiratory Respiratory: Reports system reviewed and no additional complaints, except as documented *Gastrointestinal Gastrointestinal: Reports system reviewed and no additional complaints, except as documented, Denies coffee ground emesis and Denies constipation *Musculoskeletal Musculoskeletal: Reports system reviewed and no additional complaints, except as documented, Denies abnormal gait and Denies back pain *Neurologic Neurologic: Reports system reviewed and no additional complaints, except as documented, Denies abnormal gait and Denies confusion Psychiatric Psychiatric: Denies confusion Endocrine Endocrine: Reports fatigue Meds Home Medications and Allergies Home Medications Medication Instructions Recorded Confirmed Type aripiprazole 5 mg tablet 5 mg PO DAILY MOOD 02/19/22 03/15/22 History atorvastatin 40 mg tablet 40 mg PO DAILY High cholesterol 02/19/22 03/15/22 History buspirone 10 mg tablet 10 mg PO TID Anxiety 02/19/22 03/16/22 History cyanocobalamin (vitamin B-12) 1,000 mcg PO DAILY Supplement 02/19/22 03/15/22 History 1,000 mcg tablet duloxetine 60 mg capsule,delayed 60 mg PO DAILY MOOD 02/19/22 03/15/22 History release fenofibrate 160 mg tablet 160 mg PO DAILY TRIGLYCERIDES 02/19/22 03/15/22 History fluticasone propionate 50 1 spray intranasal DAILY Allergy 02/19/22 03/16/22 History mcg/actuation nasal symptoms spray,suspension gabapentin 400 mg capsule 400 mg PO TID Pain 02/19/22 03/15/22 History glipizide 10 mg tablet 10 mg PO BID Diabetes 02/19/22 03/16/22 History lisinopril 30 mg tablet 30 mg PO DAILY High blood pressure 02/19/22 03/15/22 History montelukast 10 mg tablet 10 mg PO PM Breathing problems 02/19/22 03/16/22 History omeprazole 40 mg capsule,delayed 40 mg PO DAILY GERD 02/19/22 03/15/22 History release quetiapine 50 mg tablet 50 mg PO HS MOOD 02/19/22 03/16/22 History thiamine mononitrate (vit B1) 100 100 mg PO DAILY Supplement 02/19/22 03/15/22 History mg tablet aspirin 81 mg chewable tablet 81 mg PO DAILY DAPT #30 tabs 03/10/22 03/15/22 Rx nitroglycerin 0.4 mg sublingual 0.4 mg sublingual Q5M PRN chest 03/10/22 03/15/22 Rx tablet pain #25 tabs ticagrelor 90 mg tablet 90 mg PO BID DAPT #60 tabs 03/10/22 03/15/22 Rx bupr
--- NOTE | 2022-03-16 10:27 | PC.NURSE ---
Pt down for heart cath at this time.
--- NOTE | 2022-03-16 10:56 | HMH.PHAINT1 ---
Pharmacy Intervention Comments: MEDICATION RECONCILIATION COMPLETED ON PATIENT USING EXTERNAL FILL HISTORY FROM PHARMACY AND LIST FROM CARDIOLOGY OFFICE. -MANUEL RED, [facility]
--- NOTE | 2022-03-16 14:09 | PC.NURSE ---
Rounded on pt and she has no c/o's at this time in re: to her stay. CB in reach.
[2022-03-16 16:51] LABS: POC Glucose,Bedside 191 (70-110)
--- NOTE | 2022-03-16 18:32 | PC.NURSE ---
TR band able to successfully be taken off with no complications. Gauze and tegaderm placed. Patient kept taking blood pressure cuff off despite education about keeping it on. VS stable, patient remained on room air and no complaints of chest pain.
[2022-03-16 20:24] LABS: POC Glucose,Bedside 175 (70-110)
[2022-03-17] VITALS: BP 140/84; PULSE 70; PULSE 80; RESP 16; TEMP 36.9; O2SAT 97
[2022-03-17 04:00] VITALS: BP 148/87; PULSE 70; PULSE 73; RESP 17; TEMP 37.3; O2SAT 98
--- NOTE | 2022-03-17 04:28 | PC.NURSE ---
PT HAS RESTED INTERMITTENTLY THIS SHIFT. REMAINS ALERT AND ORIENTED X4. INSPIRATORY RONCHI/COURSE CRACKELS BILATERALY. TOLERATING ROOM AIR WELL. AMBULATING INDEPENDENTLY IN ROOM. REMAINS NSR ON TELE. PT HAS VOICED HER DESIRE TO GO HOME. VSS. DRESSING IN PLACE ON RIGHT RADIAL CATH SITE. C/D/I. NO C/O N/V/D OR SOB. PT DOES SAY THAT HER RIGHT WRIST IS TENDER. CALL LEROY WITHIN REACH.
[2022-03-17 05:55] LABS: POC Glucose,Bedside 143 (70-110)
[2022-03-17 06:40] LABS: Basophils # 0.1 K/mm3 (0-0.2); Basophils % 0.6 % (0.1-2.0); Eosinophils # 0.2 K/mm3 (0.0-0.4); Eosinophils % 2.4 % (0.1-12.0); Hematocrit 38.1 % (37.0-47.0); Hemoglobin 12.1 g/dL (12.2-16.2); Lymphocytes # 3.1 K/mm3 (0.7-4.5); Lymphocytes % 37.2 % (10-50); Mean Corpuscular HGB Conc 31.7 g/dL (31.8-35.4); Mean Corpuscular Hemoglobin 30.2 pg (27.0-31.2); Mean Corpuscular Volume 95.2 fl (81-99); Mean Platelet Volume 10.2 fl (7.4-10.4); Monocytes # 0.5 K/mm3 (0.1-1.0); Monocytes % 5.6 % (1.7-9.3); Neutrophils # 4.5 K/mm3 (1.8-7.8); Neutrophils % 54.2 % (37.0-80.0); Platelet Count 187 K/mm3 (142-424); Red Blood Count 4.01 M/mm3 (4.20-5.40); Red Cell Distribution Width 13.2 % (11.5-17.5); White Blood Count 8.3 K/mm3 (4.8-10.8)
[2022-03-17 06:48] LABS: Chloride 108 mmol/L (98-107); Potassium 4.4 mmoL/L (3.5-5.1)
[2022-03-17 06:51] LABS: Blood Urea Nitrogen 9 mg/dl (7-17); Creatinine Clearance Estimated 183 mL/min (50-200); Estimated Glomerular Filt Rate 129 ml/min (>60); GFR (African American) 156 ML/MIN (>60); Sodium 139 mmol/L (136-145)
[2022-03-17 06:52] LABS: Anion Gap 10.4 mEq/L (5-15); Calcium 9.4 mg/dl (8.4-10.2); Carbon Dioxide 25 mmol/L (22.0-30.0); Glucose 155 mg/dl (74-100)
[2022-03-17 07:34] VITALS: BP 121/78; PULSE 76; RESP 18; TEMP 37.1; O2SAT 98
[2022-03-17 07:56] VITALS: RESP 19
[2022-03-17 08:00] VITALS: PULSE 90
--- NOTE | 2022-03-17 09:00 | EXP.CARD.PN ---
Subjective Subjective Date: 03/17/22 Time: 08:00 Principal diagnosis: unstable angina Interval history: S/p [facility] yesterday, see note below. Doing well, denies chest pain or soa. Patient ambulatory this am states felt great. No bleeding, swelling, or warmth present at radial site. TECHNIQUE One percent lidocaine used to anesthetize the right anterior aspect of the wrist. The right radial artery was accessed via the Seldinger technique.? A 6 [place] sheath was placed in the right radial artery. 2.5 mg of verapamil, 800 mcg of nitroglycerin, 1mg Lidocaine and 5000 U Heparin were given through the arterial sheath.? The papa catheter was also used to perform selective coronary angiogram.? At the end the diagnostic angiogram therapeutic heparin was administered giving a therapeutic ACT.? The guide catheter was placed in the left main artery followed by a Choice PT extra-support wire down the LAD.? An FFR nevus catheter was advanced to the left main artery and equalized.? The FFR catheter was then advanced and adenosine was infused per protocol.? The FFR index dropped to 0.80 making this a hemodynamically significant lesion.? A 3 mm x 38 mm resolute [place] stent was placed in the proximal to mid LAD and deployed at 15 javier.? There was jailing of a large first diagonal artery therefore an additional wire was placed in the diagonal artery followed by 2 mm x 8 mm balloon opening the struts into the diagonal artery.? A 2.25 x 12 mm resolute Jimmy stent was then placed in the ostium of the first diagonal artery and deployed at 20 javier.? An additional 3 mm x 8 mm noncompliant balloon was then placed in the proximal portion of the LAD stent which was adjacent from the first diagonal artery and deployed at 20 javier to post dilate.? SAIDA-3 flow was present down the LAD and diagonal artery before and after the procedure.? At the end of this procedure the diagonal wire was placed into the circumflex artery where the FFR index was repeated.? The FFR index dropped to 0.84 making this a hemodynamically insignificant lesion.? The apparatus was removed.? At this point the catheter was placed into the dominant right coronary artery.? There was difficulty with the wire passing and it appeared to easily passed into a dissected area.? Eventually the wire was prolapsed and advanced into the distal right coronary artery where an intravascular ultrasound probe was advanced. ?Although the MLA was greater than 4 mm??? the plaque burden exceeded 70% as calculated and measured as well as there appeared to be an ostial dissection.? Because of this a 5 mm x 12 mm resolute Jimmy stent was deployed at 15 javier in the ostium of the right coronary reducing the stenosis to 0%.? SAIDA-3 flow was present before and after the procedure.? The end of the procedure the apparatus was removed the sheath was removed good hemostasis was achieved using TR banding patient was transferred to the postop putting in stable condition? ANGIOGRAPHIC RESULTS The left main artery Normal The left anterior descending artery Has a proximal smooth 10 to 20% stenosis followed by a mid vessel concentric 40 to 50% stenosis followed by a long hazy 30 to 40% stenosis.? A large first diagonal artery has an ostial eccentric 90% stenosis The circumflex artery Is nondominant yet still large and has a long mid vessel 50 to 60% stenosis and a 3 mm segment The right coronary artery Is a large dominant and has an ostial hazy area which creates what appears to be a 50% stenosis.? The mid portion of the right coronary artery has a hazy area which on IVUS was widely patent with minimal luminal plaque.? The stent in the distal right coronary is widely patent The NEGRON ventriculogram reveals Not performed The left ventricular end-diastolic pressure Not measured IMPRESSION Severe two-vessel coronary disease as described above with successful stenting of the proximal to mid LAD with stents bifurcating off into the first large diagonal artery F
--- NOTE | 2022-03-17 11:18 | EXP.DC.SUM ---
General Admission date:: 03/16/22 Discharge date: 03/17/22 HPI HPI HPI: 52 year old female with the above hx presented to ED with complaint of ongoing, progressive and worsening midsternal chest pressure since [facility] on 02/25/2022. Patient reports pain started again last night when she was sitting on bed at rest. Reports pain was an intense pressure /10 associated with soa. Last cath on 02/25/2022 patient received stent to distal RCA. Medical management was preferred for LAD at that time and if symptoms persist patient would be brought back to have FFR done to LAD. Upon presentation to ED, troponins were negative. EKG negative for acute stemi. 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 Hospital Course Hospital Course Hospital Course: 03/16/2022 cardiac catheterization: ANGIOGRAPHIC RESULTS The left main artery Normal The left anterior descending artery Has a proximal smooth 10 to 20% stenosis followed by a mid vessel concentric 40 to 50% stenosis followed by a long hazy 30 to 40% stenosis.? A large first diagonal artery has an ostial eccentric 90% stenosis The circumflex artery Is nondominant yet still large and has a long mid vessel 50 to 60% stenosis and a 3 mm segment The right coronary artery Is a large dominant and has an ostial hazy area which creates what appears to be a 50% stenosis.? The mid portion of the right coronary artery has a hazy area which on IVUS was widely patent with minimal luminal plaque.? The stent in the distal right coronary is widely patent The NEGRON ventriculogram reveals Not performed The left ventricular end-diastolic pressure Not measured IMPRESSION Severe two-vessel coronary disease as described above with successful stenting of the proximal to mid LAD with stents bifurcating off into the first large diagonal artery FFR index of 0.84 involving a large nondominant circumflex artery Angiographic evidence of dissection in the ostial dominant right coronary with successful stenting reducing lesion to the 0% PLAN 1. Dual antiplatelet therapy 2. Add Imdur 30 mg daily 3. Aggressive medical management 4. LDL less than 55 but she at high intensity statin 5. Cardiac rehabilitation 6. Avoidance of tobacco products Electronically signed by : Jordy Hall MD Cardiology has seen and recommends: Assessment and Plan Assessment and Plan for All Diagnoses:: CAD with unstable angina ccs3 -[facility] yesterday, see note again -Continue Aspirin 81mg QD, Brilinta 90mg BID, Atorvastatin 40mg QD, Toprol 100mg QD HTN -Continue lisinopril 30mg QD and Toprol 100mg QD HLD -Continue atorvastatin 40mg QD and fenofribrate 160mg ? Current smoker -Reports trying to quit, currently wearing nicotine patch DM -Continue current treatment, add ozempic prior to dc home. cv stable for dc. Please send home on below cardiac meds. Office follow up in 2 week. Aspirin 81mg QD Brilinta 90mg BID Atrovastatin 40mg QD Toprol 100mg QD Lisinopril 30mg QD Atorvastatin 40mg QD Fenofibrate 160mg QD Ozempic 0.25mg SubQ once weekly x 4 weeks- dose will need increased afterwards. 52-year-old female patient sitting up in bed resting quietly with eyes open. She denies any chest pain or shortness of breath during the night. She will be discharged today, she is in agreement with this and will have follow-up appointments with PCP and cardiology scheduled. Exam Data for Last 24 hours Vital signs and Labs for Last 24 Hours: Temp Pulse Resp BP Pulse Ox 98.8 F 76 19 121/78 98 03/17/22 07:34 03/17/22 07:34 03/17/22 07:56 03/17/22 07:34 03/17/22 07:34 Laboratory Results - last 24 hr 03/16/22 16:42: POC Glucose 191 H 03/16/22 20:13: POC Glucose 175 H 03/17/22 05:45: POC Glucose 143 H 03/17/22 05:53: WBC 8.3, RBC 4.01 L, Hgb 12.1 L, Hct 38.1, MCV 95.2, MCH 30.2, MCHC 31.7 L, RDW 13.2, Plt Count 187, MPV 10.2, Neut % (Auto) 54.2, Lymph % (Auto) 37.2, [place] % (Auto) 5.6, Eos % (Auto) 2.4, Baso % (Auto) 0.6, Grisel
[2022-03-17 11:22] VITALS: BP 114/67; PULSE 71; RESP 17; TEMP 37; O2SAT 98
--- NOTE | 2022-03-17 13:53 | HMH.PHACL ---
[facility] Supervisor Composing Room Discharge Med Airline Flight Attendant: Karen Reed has received discharge medication counseling on the following medications: Patient is currently taking aspirin 81 mg daily, atorvastatin 40 mg HS, lisinopril 30 mg daily, metoprolol succinate 100 mg daily, and Brilinta 90 mg bid. No new cardiac meds started at time of discharge.
--- NOTE | 2022-03-18 13:44 | CARE MANAGER ---
CM called and spoke with Karen r/t post discharge status. Patient states that she is doing ok . She states that the pharmacy is supposed to deliver her new medication for DM today. She confirmed f/u appts, but inquired as to cardiac rehab. States that she requested cardiac rehab be transferred to [facility], but has not heard from them. I explained that if she didn't hear anything soon, she may need to call them or change back to [facility].
== END 2022-03-17 14:59 | disposition home or self-care (01) ==
LOC: ER 22:28 → 2ND 03-16 00:03
PROVIDERS: Emergency Medicine; Internal Medicine; Admitting Provider Emergency Medicine; Emergency Provider Emergency Medicine; PCP Nurse Practitioner Family; Visit Provider Family Medicine
DX: I25.110 Atherosclerotic heart disease of native coronary artery with unstable angina pectoris (principal); E78.5 Hyperlipidemia, unspecified; I10 Essential (primary) hypertension; E11.9 Type 2 diabetes mellitus without complications; F17.210 Nicotine dependence, cigarettes, uncomplicated; Z95.5 Presence of coronary angioplasty implant and graft; Z79.899 Other long term (current) drug therapy; J44.9 Chronic obstructive pulmonary disease, unspecified; Z79.84 Long term (current) use of oral hypoglycemic drugs; Z88.8 Allergy status to other drugs, medicaments and biological substances; Z20.822 Contact with and (suspected) exposure to COVID-19
CPT/HCPCS: 36415; 71045; 80048; 80053; 82962; 84484; 85025; 85347; 92928; 92978; 93005; 93458; 93571; 93572; 99152; 99153; 99285; C1725; C1769; C1874; C1876; C9600; C9803; G0378; J1644; Q9967; U0003; U0005

== ENCOUNTER 2022-07-29 11:39 | Emergency (ER) | payer OTHER, SELFPAY ==
--- NOTE | 2022-07-29 11:39 | ECG_ITS ---
APPROVED REPORT Exam: Resting ECG HR:110 bpm ECG Measurements Heart Rate [address] 128 P 74 QRSd 94 QRS 78 QT 319 T 49 QTc 384 Conclusion SINUS TACHYCARDIA MODERATE ST DEPRESSION [0.05+ mV ST DEPRESSION] ABNORMAL ECG UNCONFIRMED REPORT Electronically signed by : Scotty León MD 07/30/2022 10:08:43
[2022-07-29 11:49] VITALS: BP 135/98; PULSE 109; RESP 20; TEMP 37; O2SAT 97; BMI 30.5
[2022-07-29 11:53] VITALS: PULSE 109
--- NOTE | 2022-07-29 11:55 | XR_ITS ---
FINAL REPORT CLINICAL HISTORY: chest pain COMPARISON: March 15, 2022 FINDINGS: Two views of the chest were obtained. The heart size and pulmonary vascularity are within normal limits. The mediastinum is normal. No acute pulmonary abnormality is identified. There is no pneumothorax. The bony thorax is intact. IMPRESSION: No active cardiopulmonary disease. Reviewed, Interpreted and Dictated by Kirby Gutierrez III, MD Transcribed by Shaylee Chowdhury Authenticated and [facility]
[2022-07-29 12:10] LABS: Basophils # 0.1 K/mm3 (0-0.2); Basophils % 1.8 % (0.1-2.0); Chloride 105 mmol/L (98-107); Eosinophils # 0.1 K/mm3 (0.0-0.4); Eosinophils % 1.7 % (0.1-12.0); Hematocrit 46.6 % (37.0-47.0); Hemoglobin 14.8 g/dL (12.2-16.2); Lymphocytes # 2.4 K/mm3 (0.7-4.5); Lymphocytes % 34.1 % (10-50); Mean Corpuscular HGB Conc 31.8 g/dL (31.8-35.4); Mean Corpuscular Hemoglobin 30.6 pg (27.0-31.2); Mean Corpuscular Volume 96.1 fl (81-99); Mean Platelet Volume 10.3 fl (7.4-10.4); Monocytes # 0.3 K/mm3 (0.1-1.0); Monocytes % 4.6 % (1.7-9.3); Neutrophils # 4.1 K/mm3 (1.8-7.8); Neutrophils % 57.8 % (37.0-80.0); Platelet Count 210 K/mm3 (142-424); Potassium 4.1 mmoL/L (3.5-5.1); Red Blood Count 4.84 M/mm3 (4.20-5.40); Red Cell Distribution Width 13.5 % (11.5-17.5); Sodium 137 mmol/L (136-145); White Blood Count 7.1 K/mm3 (4.8-10.8)
[2022-07-29 12:13] LABS: Anion Gap 16.1 mEq/L (5-15); Blood Urea Nitrogen 15 mg/dl (7-17); Carbon Dioxide 20 mmol/L (22.0-30.0); Creatinine Clearance Estimated 166 mL/min (50-200); Estimated Glomerular Filt Rate 129 ml/min (>60); GFR (African American) 156 ML/MIN (>60)
[2022-07-29 12:14] LABS: Calcium 9.6 mg/dl (8.4-10.2); Glucose 274 mg/dl (74-100)
--- NOTE | 2022-07-29 12:31 | HMH.EDGENADL ---
Discharge Plan Disposition Patient Disposition: Home, Self-Care Condition: Good Prescriptions Prescriptions: New azithromycin 500 mg tablet 500 mg PO DAILY 3 Days Qty: 3 0RF No Action fenofibrate 160 mg tablet 160 mg PO DAILY montelukast 10 mg tablet 10 mg PO PM Label Comments: TAKE ONE TABLET BY MOUTH ONCE DAILY gabapentin 400 mg capsule 400 mg PO TID Label Comments: TAKE ONE CAPSULE BY MOUTH THREE TIMES DAILY quetiapine 50 mg tablet 50 mg PO HS glipizide 10 mg tablet 10 mg PO BID Label Comments: TAKE ONE TABLET BY MOUTH TWICE DAILY duloxetine 60 mg capsule,delayed release(DR/EC) 60 mg PO DAILY aripiprazole 5 mg tablet 5 mg PO DAILY fluticasone propionate 50 mcg/actuation spray,suspension 1 spray NS DAILY Label Comments: PLACE 1 spray in each nostril Nasally Once a day FOR 30 day(s) lisinopril 30 mg tablet 30 mg PO DAILY Label Comments: TAKE ONE TABLET BY MOUTH ONCE DAILY buspirone 10 mg tablet 10 mg PO TID Label Comments: take 1 tablet BY MOUTH THREE TIMES A DAY for ANXIETY omeprazole 40 mg capsule,delayed release(DR/EC) 40 mg PO DAILY Label Comments: TAKE 1 capsule 30 minutes before morning meal Once a day cyanocobalamin (vitamin B-12) 1,000 mcg tablet 1,000 mcg PO DAILY Label Comments: take 1 tablet Once a day for 30 days atorvastatin 40 mg tablet 40 mg PO DAILY Label Comments: take 1 tablet at bedtime Once a day for 30 day(s) thiamine mononitrate (vit B1) 100 mg tablet 100 mg PO DAILY Label Comments: TAKE ONE TABLET BY MOUTH ONCE DAILY ticagrelor 90 mg tablet 90 mg PO BID Qty: 60 11RF aspirin 81 mg tablet,chewable 81 mg PO DAILY Qty: 30 11RF escitalopram oxalate 10 mg tablet 10 mg PO DAILY metoprolol succinate [Toprol XL] 100 mg tablet extended release 24 hr 100 mg PO BID Qty: 60 5RF nitroglycerin 0.4 mg tablet, sublingual 0.4 mg SL Q5M PRN (Reason: chest pain) Qty: 25 0RF Rx Instructions: do not exceed 3 doses per episode Ozempic 0.25 mg or 0.5 mg(2 mg/1.5 mL) pen injector See Rx Instructions .ROUTE .COMPLEX Qty: 1.5 1RF Dose Instruction: INJECT 0.25 mg (0.2 mL) subcutaneously weekly for 4 doses Rx Instructions: INJECT 0.25 mg (0.2 mL) subcutaneously weekly for 4 doses bupropion HCl 150 mg tablet sustained-release 12 hr 150 mg PO DIRECTED Qty: 90 0RF isosorbide mononitrate 30 mg tablet extended release 24 hr 30 mg PO DAILY Qty: 30 2RF nicotine 21-14-7 mg/24 hr patch, TD daily, sequential 1 patch TD Q24H cetirizine 10 MG capsule 10 mg PO DAILY fluticasone propion-salmeterol [Advair Diskus] 250-50 mcg/dose blister with device 1 inh INHALATION BID Label Comments: inhale 1 puff Twice a day for 30 days trazodone 50 mg tablet 50 mg PO HSP PRN (Reason: Sleep) Label Comments: take 1 tablet by mouth once a day at bedtime as needed for 30 day(s) Clinical Impressions Clinical Impression: COPD (chronic obstructive pulmonary disease) Qualifiers: COPD type: COPD with acute exacerbation Qualified Code(s): J44.1 - Chronic obstructive pulmonary disease with (acute) exacerbation Discharge ED Provider: Kevin Ghosh General Adult HPI General Chief complaint: Chest Pain Stated complaint: chest pain Time Seen by Provider: 07/29/22 11:50 Mode of Arrival: Ambulatory Source of Information: Patient Limitations: No Limitations Description of Symptoms (Recalled from ER Triage Doc. by RN): pt to ed c/o shortness of air and left sided chest pain. pt states she has a hx of 3 cardiac srtents placed by dr blanca. pt states the pain is intermittent. History of Present Illness HPI narrative: This is a 52-year-old female with history of CAD status post stenting, currently on Brilinta, tachycardic syndrome on metoprolol, type 2 diabetes, COPD, hyperlipidemia
[2022-07-29 12:33] VITALS: BP 133/78; PULSE 90; RESP 20; O2SAT 98
[2022-07-29 12:34] LABS: Troponin I < 0.01 ng/ml (0.00-0.034)
[2022-07-29 12:51] LABS: D-Dimer 0.62 ug/mL (0.0-0.5)
[2022-07-29 12:52] LABS: ABG Base Excess -1.4 mmol/L (-2.4-2.3); ABG HCO3 22.9 mmhg (22.0-26.0); ABG Oxygen Saturation 97 % (90-100); ABG PCO2 35.2 mmhg (35.0-45.0); ABG PH 7.43 mmol/L (7.35-7.45); ABG PO2 85.2 mmhg (80-100)
[2022-07-29 12:54] LABS: Allen's Test acceptable; Oxygen room air %; Source Left Radial
[2022-07-29 12:55] LABS: NT Pro Brain Natriuretic Pep. 79.6 pg/mL (0-125)
[2022-07-29 13:48] VITALS: BP 150/72; PULSE 102; RESP 22; TEMP 37.2; O2SAT 95
== END 2022-07-29 13:48 | disposition home or self-care (01) ==
PROVIDERS: Emergency Provider Emergency Medicine; PCP Nurse Practitioner Family
DX: J44.1 Chronic obstructive pulmonary disease with (acute) exacerbation (principal); I25.10 Atherosclerotic heart disease of native coronary artery without angina pectoris; E11.9 Type 2 diabetes mellitus without complications; R07.89 Other chest pain; E78.5 Hyperlipidemia, unspecified; I10 Essential (primary) hypertension; F17.210 Nicotine dependence, cigarettes, uncomplicated
CPT/HCPCS: 71046; 80048; 82803; 83880; 84484; 85025; 85378; 93005; 96361; 96374; 99285

== ENCOUNTER 2022-09-01 09:54 | Emergency (ER) | payer OTHER, SELFPAY ==
[2022-09-01 09:55] VITALS: BP 155/100; PULSE 96; RESP 18; TEMP 36.8; O2SAT 98; BMI 34.0
--- NOTE | 2022-09-01 10:22 | PC.NURSE ---
DR LOPEZ AT BEDSIDE
--- NOTE | 2022-09-01 10:28 | PC.NURSE ---
ED MD AT BEDSIDE
--- NOTE | 2022-09-01 10:33 | HMH.EDGENADL ---
Discharge Plan Disposition Patient Disposition: Home, Self-Care Condition: Good Prescriptions Prescriptions: New doxycycline monohydrate 100 mg capsule 100 mg PO BID 10 Days Qty: 20 0RF tramadol 100 mg tablet 100 mg PO Q8H PRN (Reason: pain) Qty: 7 0RF No Action fenofibrate 160 mg tablet 160 mg PO DAILY montelukast 10 mg tablet 10 mg PO PM Label Comments: TAKE ONE TABLET BY MOUTH ONCE DAILY gabapentin 400 mg capsule 400 mg PO TID Label Comments: TAKE ONE CAPSULE BY MOUTH THREE TIMES DAILY quetiapine 50 mg tablet 50 mg PO HS glipizide 10 mg tablet 10 mg PO BID Label Comments: TAKE ONE TABLET BY MOUTH TWICE DAILY duloxetine 60 mg capsule,delayed release(DR/EC) 60 mg PO DAILY aripiprazole 5 mg tablet 5 mg PO DAILY fluticasone propionate 50 mcg/actuation spray,suspension 1 spray NS DAILY Label Comments: PLACE 1 spray in each nostril Nasally Once a day FOR 30 day(s) lisinopril 30 mg tablet 30 mg PO DAILY Label Comments: TAKE ONE TABLET BY MOUTH ONCE DAILY buspirone 10 mg tablet 10 mg PO TID Label Comments: take 1 tablet BY MOUTH THREE TIMES A DAY for ANXIETY omeprazole 40 mg capsule,delayed release(DR/EC) 40 mg PO DAILY Label Comments: TAKE 1 capsule 30 minutes before morning meal Once a day cyanocobalamin (vitamin B-12) 1,000 mcg tablet 1,000 mcg PO DAILY Label Comments: take 1 tablet Once a day for 30 days atorvastatin 40 mg tablet 40 mg PO DAILY Label Comments: take 1 tablet at bedtime Once a day for 30 day(s) thiamine mononitrate (vit B1) 100 mg tablet 100 mg PO DAILY Label Comments: TAKE ONE TABLET BY MOUTH ONCE DAILY ticagrelor 90 mg tablet 90 mg PO BID Qty: 60 11RF aspirin 81 mg tablet,chewable 81 mg PO DAILY Qty: 30 11RF escitalopram oxalate 10 mg tablet 10 mg PO DAILY metoprolol succinate [Toprol XL] 100 mg tablet extended release 24 hr 100 mg PO BID Qty: 60 5RF nitroglycerin 0.4 mg tablet, sublingual 0.4 mg SL Q5M PRN (Reason: chest pain) Qty: 25 0RF Rx Instructions: do not exceed 3 doses per episode bupropion HCl 150 mg tablet sustained-release 12 hr 150 mg PO DIRECTED Qty: 90 0RF isosorbide mononitrate 30 mg tablet extended release 24 hr 30 mg PO DAILY Qty: 30 2RF Ozempic 0.25 mg or 0.5 mg(2 mg/1.5 mL) pen injector See Rx Instructions .ROUTE .COMPLEX Qty: 1.5 1RF Dose Instruction: INJECT 0.25 mg (0.2 mL) subcutaneously weekly for 4 doses Rx Instructions: INJECT 0.25 mg (0.2 mL) subcutaneously weekly for 4 doses nicotine 21-14-7 mg/24 hr patch, TD daily, sequential 1 patch TD Q24H cetirizine 10 MG capsule 10 mg PO DAILY fluticasone propion-salmeterol [Advair Diskus] 250-50 mcg/dose blister with device 1 inh INHALATION BID Label Comments: inhale 1 puff Twice a day for 30 days trazodone 50 mg tablet 50 mg PO HSP PRN (Reason: Sleep) Label Comments: take 1 tablet by mouth once a day at bedtime as needed for 30 day(s) azithromycin 500 mg tablet 500 mg PO DAILY 3 Days Qty: 3 0RF Referrals Follow up/Referrals: Sushila Mario APRN [Primary Care Provider] - See instructions Activity Restrictions/Add. Instructions Additional Instructions/Restrictions: Apply warm compresses to the area 4-5 times daily. Return for fever worsening redness or other concerns. Clinical Impressions Clinical Impression: Folliculitis Instructions Patient Instructions: DI for Skin Abscess Discharge ED Provider: Kevin Navas General Adult HPI General Chief complaint: Skin/Abscess/Foreign Body Stated complaint: knot under left arm Time Seen by Provider: 09/01/22 10:18 Mode of Arrival: Ambulatory Source of Information: Patient Limitations: No Limitations Description of Symptoms (Recalled from ER Triage Doc. by RN): PT REPORTS RED LUMP TO
[2022-09-01 10:36] VITALS: BP 176/98; PULSE 105; RESP 17; TEMP 36.7; O2SAT 96
== END 2022-09-01 10:40 | disposition home or self-care (01) ==
PROVIDERS: Emergency Provider Emergency Medicine; PCP Nurse Practitioner Family
DX: L73.9 Follicular disorder, unspecified (principal); J45.909 Unspecified asthma, uncomplicated; I25.10 Atherosclerotic heart disease of native coronary artery without angina pectoris; J44.9 Chronic obstructive pulmonary disease, unspecified; I10 Essential (primary) hypertension; E11.9 Type 2 diabetes mellitus without complications; E78.5 Hyperlipidemia, unspecified; F17.210 Nicotine dependence, cigarettes, uncomplicated
CPT/HCPCS: 99283; 99284

== ENCOUNTER 2022-09-27 08:54 | Day surgery (SDC) | payer OTHER, SELFPAY ==
[2022-09-27] VITALS (15 sets, daily range): BP systolic 122–194; BP diastolic 75–117; PULSE 81–114; RESP 16–20; TEMP 36.8; O2SAT 94–98; BMI 33.6
--- NOTE | 2022-09-27 08:52 | ECG_ITS ---
APPROVED REPORT Exam: Resting ECG HR:113 bpm ECG Measurements Heart Rate 113 AXES MN 140 P 73 QRSd 97 QRS 71 QT 326 T 64 QTc 393 Conclusion SINUS TACHYCARDIA ABNORMAL RHYTHM ECG UNCONFIRMED REPORT Electronically signed by : Scotty León MD 09/27/2022 19:26:44
--- NOTE | 2022-09-27 09:03 | PC.NURSE ---
yuridia landa sent blood cultures to lab
--- NOTE | 2022-09-27 09:04 | HMH.EDGENADL ---
Discharge Plan Disposition Chief Complaint: Chest Pain Prescriptions Prescriptions: No Action fenofibrate 160 mg tablet 160 mg PO DAILY montelukast 10 mg tablet 10 mg PO PM Label Comments: TAKE ONE TABLET BY MOUTH ONCE DAILY gabapentin 400 mg capsule 400 mg PO TID Label Comments: TAKE ONE CAPSULE BY MOUTH THREE TIMES DAILY quetiapine 50 mg tablet 50 mg PO HS glipizide 10 mg tablet 10 mg PO BID Label Comments: TAKE ONE TABLET BY MOUTH TWICE DAILY duloxetine 60 mg capsule,delayed release(DR/EC) 60 mg PO DAILY aripiprazole 5 mg tablet 5 mg PO DAILY fluticasone propionate 50 mcg/actuation spray,suspension 1 spray NS DAILY Label Comments: PLACE 1 spray in each nostril Nasally Once a day FOR 30 day(s) lisinopril 30 mg tablet 30 mg PO DAILY Label Comments: TAKE ONE TABLET BY MOUTH ONCE DAILY buspirone 10 mg tablet 10 mg PO TID Label Comments: take 1 tablet BY MOUTH THREE TIMES A DAY for ANXIETY omeprazole 40 mg capsule,delayed release(DR/EC) 40 mg PO DAILY Label Comments: TAKE 1 capsule 30 minutes before morning meal Once a day cyanocobalamin (vitamin B-12) 1,000 mcg tablet 1,000 mcg PO DAILY Label Comments: take 1 tablet Once a day for 30 days atorvastatin 40 mg tablet 40 mg PO DAILY Label Comments: take 1 tablet at bedtime Once a day for 30 day(s) thiamine mononitrate (vit B1) 100 mg tablet 100 mg PO DAILY Label Comments: TAKE ONE TABLET BY MOUTH ONCE DAILY ticagrelor 90 mg tablet 90 mg PO BID Qty: 60 11RF aspirin 81 mg tablet,chewable 81 mg PO DAILY Qty: 30 11RF escitalopram oxalate 10 mg tablet 10 mg PO DAILY metoprolol succinate [Toprol XL] 100 mg tablet extended release 24 hr 100 mg PO BID Qty: 60 5RF nitroglycerin 0.4 mg tablet, sublingual 0.4 mg SL Q5M PRN (Reason: chest pain) Qty: 25 0RF Rx Instructions: do not exceed 3 doses per episode bupropion HCl 150 mg tablet sustained-release 12 hr 150 mg PO DIRECTED Qty: 90 0RF isosorbide mononitrate 30 mg tablet extended release 24 hr 30 mg PO DAILY Qty: 30 2RF Ozempic 0.25 mg or 0.5 mg(2 mg/1.5 mL) pen injector See Rx Instructions .ROUTE .COMPLEX Qty: 1.5 1RF Dose Instruction: INJECT 0.25 mg (0.2 mL) subcutaneously weekly for 4 doses Rx Instructions: INJECT 0.25 mg (0.2 mL) subcutaneously weekly for 4 doses nicotine 21-14-7 mg/24 hr patch, TD daily, sequential 1 patch TD Q24H cetirizine 10 MG capsule 10 mg PO DAILY fluticasone propion-salmeterol [Advair Diskus] 250-50 mcg/dose blister with device 1 inh INHALATION BID Label Comments: inhale 1 puff Twice a day for 30 days trazodone 50 mg tablet 50 mg PO HSP PRN (Reason: Sleep) Label Comments: take 1 tablet by mouth once a day at bedtime as needed for 30 day(s) azithromycin 500 mg tablet 500 mg PO DAILY 3 Days Qty: 3 0RF doxycycline monohydrate 100 mg capsule 100 mg PO BID 10 Days Qty: 20 0RF tramadol 100 mg tablet 100 mg PO Q8H PRN (Reason: pain) Qty: 7 0RF Referrals Follow up/Referrals: Provider,Referral, MD [Referring] - See instructions Discharge ED Provider: Ramírez Phillips General Adult HPI General Chief complaint: Chest Pain Stated complaint: chest pain Time Seen by Provider: 09/27/22 09:04 Mode of Arrival: Ambulatory Source of Information: Patient Limitations: No Limitations Description of Symptoms (Recalled from ER Triage Doc. by RN): pt to ED with intermitten SOB x 1 month and left arm numbness and midsternal chest pain that started last night. pt denies any pain at this time but has a cardiac history including 4 stents History of Present Illness HPI narrative: Patient is a 52-year-old female with known history of coronary artery disease followed by Dr. Hall presents today with dyspnea over the past month but chest pa
--- NOTE | 2022-09-27 09:06 | XR_ITS ---
FINAL REPORT TECHNIQUE: Single view chest CLINICAL HISTORY: dyspnea COMPARISON: 07/29/2022 FINDINGS: A single view of the chest was obtained. The heart and mediastinum are within normal limits. The lungs are clear. There is no pneumothorax. Osseous structures are unremarkable. IMPRESSION: No acute cardiopulmonary process. Reviewed, Interpreted and Dictated by Kirby Gutierrez III, MD Transcribed by Kaila Peterson Authenticated and [facility]
--- NOTE | 2022-09-27 09:13 | PC.NURSE ---
Dr Phillips speaking with Dr Hall
--- NOTE | 2022-09-27 09:13 | PC.NURSE ---
on the phone with cardiology
[2022-09-27 09:20] LABS: Basophils # 0.1 K/mm3 (0-0.2); Basophils % 1.4 % (0.1-2.0); Chloride 107 mmol/L (98-107); Eosinophils # 0.2 K/mm3 (0.0-0.4); Eosinophils % 2.7 % (0.1-12.0); Hematocrit 44.7 % (37.0-47.0); Hemoglobin 14.7 g/dL (12.2-16.2); Lymphocytes # 2.8 K/mm3 (0.7-4.5); Lymphocytes % 39.5 % (10-50); Mean Corpuscular HGB Conc 32.9 g/dL (31.8-35.4); Mean Corpuscular Hemoglobin 31.1 pg (27.0-31.2); Mean Corpuscular Volume 94.6 fl (81-99); Mean Platelet Volume 10.4 fl (7.4-10.4); Monocytes # 0.3 K/mm3 (0.1-1.0); Monocytes % 3.8 % (1.7-9.3); Neutrophils # 3.7 K/mm3 (1.8-7.8); Neutrophils % 52.5 % (37.0-80.0); Platelet Count 194 K/mm3 (142-424); Potassium 4.3 mmoL/L (3.5-5.1); Red Blood Count 4.73 M/mm3 (4.20-5.40); Red Cell Distribution Width 13.6 % (11.5-17.5); Sodium 137 mmol/L (136-145); White Blood Count 7.1 K/mm3 (4.8-10.8)
[2022-09-27 09:22] LABS: Blood Urea Nitrogen 15 mg/dl (7-17); Creatinine Clearance Estimated 228 mL/min (50-200); Estimated Glomerular Filt Rate 167 ml/min (>60); GFR (African American) 202 ML/MIN (>60)
[2022-09-27 09:23] LABS: Alanine Aminotransferase 29 U/L (12-78); Albumin Level 4.4 g/dl (3.5-5.0); Albumin/Globulin Ratio 1.5 (1.1-1.8); Alkaline Phosphatase 113 U/L (38-126); Anion Gap 11.3 mEq/L (5-15); Aspartate Amino Transferase 26 U/L (14-36); Bilirubin,Total 0.5 mg/dl (0.2-1.3); Calcium 9.3 mg/dl (8.4-10.2); Carbon Dioxide 23 mmol/L (22.0-30.0); Globulin 2.9 g/dL (1.3-3.2); Glucose 299 mg/dl (74-100); Total Protein,Serum 7.3 g/dl (6.3-8.2)
[2022-09-27 09:31] LABS: D-Dimer 0.65 ug/mL (0.0-0.5)
[2022-09-27 09:37] LABS: Activated Partial Thrombo Time 25.7 seconds (22.8-30.6); INR 0.89 (0.9-1.1); Prothrombin Time 9.7 seconds (10.1-12.5); Troponin I < 0.01 ng/ml (0.00-0.034)
--- NOTE | 2022-09-27 09:39 | PC.NURSE ---
khalif for cardiology is @ [facility]
--- NOTE | 2022-09-27 09:53 | IR_ITS ---
APPROVED REPORT Patient Location: Emergent Basket Turner: CHARISSE Santo RT (R) PROCEDURES Selective coronary angiogram Drug-eluting stent deployment to the mid LAD Drug-eluting stent deployment to the ostial proximal mid circumflex artery Bilateral selective renal angiography Catheter placed in the left subclavian artery Left subclavian artery selective angiogram INDICATION Unstable angina, Known coronary artery disease, New onset regional wall motion abnormality per ER physician, Malignant hypertension, Suspected renovascular hypertension, 50 mm gradient between intra-aortic pressure in left brachial artery suspect left subclavian artery stenosis Informed consent was obtained prior to the procedure. COMPLICATIONS None Estimated Blood Loss: Less than 10 mls TECHNIQUE One percent lidocaine used to anesthetize the right anterior aspect of the wrist. The right radial artery was accessed via the Seldinger technique. A 6 Taiwanese sheath was placed in the right radial artery. 2.5 mg of verapamil, 800 mcg of nitroglycerin, 1mg Lidocaine and 5000 U Heparin were given through the arterial sheath. The papa catheter was also used to perform selective coronary angiography. At the end the diagnostic angiogram therapeutic heparin was administered giving a therapeutic ACT and the guide catheter was placed in left main artery followed by Choice PT extra-support wire being placed down the LAD. A 3 mm x 12 mm resolute Morenci stent was deployed at 20 and then 22 javier within the mid LAD. Excellent angiograph results were obtained. The end of the procedure after SAIDA-3 flow was present before and after the procedure the wire was pulled back and placed in the circumflex artery where a 2.5 x 26 mm resolute Morenci stent was then deployed in the proximal through mid to distal segment and deployed at 20 javier. A 2.75 x 12 mm noncompliant balloon was then deployed at 22 javier at the proximal segment and mid segment to post dilate. At the end of the procedure there was a significant edge stenosis of the proximal segment which did not respond to 800 mcg of intracoronary nitroglycerin. A 2.75 x 15 mm resolute Morenci stent was then placed proximal to this for stent yet still overlapping it and deployed at 20 javier. The balloon was advanced and deployed at 20 and 22 javier. SAIDA-3 flow was present before and after the procedure. After achieving excellent angiographic results the apparatus was removed and the Poppa catheter was then placed in the left subclavian artery where selective left subclavian artery angiography was performed. Following this the bilateral selective renal angiography was performed using the same catheter. At the end the procedure the apparatus was removed the sheath was removed and hemostasis was achieved using TR banding patient was transferred to the postop putting in stable condition ANGIOGRAPHIC RESULTS The left main artery Normal The left anterior descending artery Has proximal 10 to 20% stenoses followed by a stent in the proximal to mid segment. The proximal portion is widely patent while the distal portion of the stent has a concentric hazy at least 70% stenosis. A large first diagonal artery bifurcates from the proximal LAD stent and also has a stent in its proximal segment which is widely patent and also free of in-stent restenosis The circumflex artery Is nondominant yet still large vessel with a proximal concentric 80% stenosis along a tortuous bend The right coronary artery Is a dominant vessel and has an ostial stent which is widely patent with minimal in-stent restenosis. The mid right coronary artery has a 30% stenosis followed by a distal stent which is widely patent with 30% concentric mid v
--- NOTE | 2022-09-27 10:20 | PC.NURSE ---
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
--- NOTE | 2022-09-27 10:49 | PC.NURSE ---
Patient wheeled to [facility] skilled labor by staff, per discussed and agreed plan, and ED registration notified
--- NOTE | 2022-09-27 10:51 | EXP.CARD.CON ---
History of Present Illness History of Present Illness Consult date: 09/27/22 Consult reason: chest pain Chief complaint: chest pain Additional Medical History:: 1. CAD A. [facility], 02/25/2022, ischemic response to adenosine involving angiographically moderate dominant RCA. Successful RICARDO to RCA. Persistent moderate stenosis in the LAD B. [facility], 03/16/2022, RICARDO to proximal to mid LAD with stents bifurcating off into the first large diagonal. RICARDO to ostial dominant RCA due to dissection. FFR index of 0.84 involving the large nondominant circumflex artery. 2. Diabetes mellitus type 2 3. COPD with continued tobacco use 4. Hyperlipidemia 5. Hypertension A. Echocardiogram, 02/24/2022, mild LAE, normal LV size, mild concentric LVH, EF 50% with no obvious regional wall motion abnormality, grade 1 DD, trace MR/TR History of present illness: Patient is a 52-year-old female with known history of coronary artery disease followed by Dr. Hall presents today with dyspnea over the past month but chest pain that began last night has been intermittent and currently experiencing chest pressure.? States that she has 4 stents in the past most recently was cath in [address] Hall.? From chart review that also when she had her most recent echo which showed no regional wall motion abnormalities and an ejection fraction of 50%.? Patient states her pain is substernal in nature and she does have some associated left arm numbness and she describes her discomfort as some mild pressure currently.? This morning she took an 81 mg baby aspirin is also on Brilinta and took that this morning.? Denies any lower extremity swelling any orthopnea or PND.? No fevers chills.? No recent immobilizations or unilateral leg swelling.? No history of PE or DVT. The above per SAMUEL Gipson MD. Patient was given additional aspirin and IV and oral metoprolol with improvement in chest discomfort. Bedside echocardiogram performed in the ER reportedly showed some septal hypokinesis which is new compared with prior echocardiogram from last year. Due to continued discomfort Dr. Hall was consulted for urgent consideration of cath. Blood pressure has been labile in the ER. Patient relates prior angina symptoms resolved after coronary stenting in February of last year. Symptoms have returned over the last 3 to 4 weeks including chest pain and shortness of breath. Initial troponin is normal and EKG shows sinus tachycardia with no acute ST segment changes. PFSH PFSH Disclaimer: The information contained in this section may have been updated after the patient was seen, as this information can be updated by other users. Medical History Asthma Bronchitis CAD (coronary artery disease) Chest pain COPD (chronic obstructive pulmonary disease) Diaphoresis DM2 (diabetes mellitus, type 2) Dyspnea Encounter for laboratory testing for COVID-19 virus Exposure to COVID-19 virus HLD (hyperlipidemia) HTN (hypertension) Near syncope Poorly controlled diabetes mellitus Sinusitis Typical angina Family History (Updated 09/01/22 @ 10:34 by Carole Soni RN) No significant family history Social History (Updated 09/01/22 @ 10:34 by Carole Soni RN) Smoking Status: Current every day smoker tobacco type: cigarettes packs per day: 1 alcohol intake: never current occupational status: unemployed Travel in the last 8 weeks: None household members: significant other and other housing: house Review of Systems Review of Systems Review of systems:: pertinent systems reviewed and negative unless documented below *Cardiovascular Cardiovascular: Reports chest pain and Reports dyspnea *Respiratory Respiratory: Reports dyspnea Exam Data for Last 24 hours Vital signs and Labs for Last 24 Hours: Temp Pulse Resp BP Pulse Ox 98.3 F 84 18 152/92 H 98 09/27/22 08:55 09/27/22 10:00 09/27/22 09:30 09/27/22 10:00 09/27/22 10:00 L
[2022-09-27 13:34] LABS: CATHL Activated Clotting Time 286 SEC (74-125)
--- NOTE | 2022-09-27 14:12 | HMH.PHACL ---
PHA Supervisor [employer] Discharge Med Director Motion Picture: Karen Reed has received discharge medication counseling on the following medications: -ASPIRIN (PATIENT PREVIOUSLY TAKING, NO QUESTIONS) -ATORVASTATIN (PATIENT PREVIOUSLY TAKING, NO QUESTIONS) -LISINOPRIL (PATIENT PREVIOUSLY TAKING, NO QUESTIONS) -METOPROLOL (PATIENT PREVIOUSLY TAKING, NO QUESTIONS) -BRILINTA (PATIENT PREVIOUSLY TAKING, NO QUESTIONS)
== END 2022-09-27 14:53 | disposition home or self-care (01) ==
LOC: ER 10:55 → CATHLAB 11:03
PROVIDERS: Emergency Provider Student in an Organized Health Care Education/Training Program; PCP Nurse Practitioner Family; Visit Provider Internal Medicine
DX: I25.110 Atherosclerotic heart disease of native coronary artery with unstable angina pectoris (principal); F17.210 Nicotine dependence, cigarettes, uncomplicated; R00.0 Tachycardia, unspecified; E11.9 Type 2 diabetes mellitus without complications; J44.1 Chronic obstructive pulmonary disease with (acute) exacerbation; E78.5 Hyperlipidemia, unspecified; I10 Essential (primary) hypertension; Z79.899 Other long term (current) drug therapy; Z79.84 Long term (current) use of oral hypoglycemic drugs
CPT/HCPCS: 36225; 36252; 71045; 80053; 84484; 85025; 85347; 85378; 85610; 85730; 92928; 93005; 93454; 99152; 99153; C1725; C1769; C1876; C9600; J1644; Q9967

== ENCOUNTER 2022-10-03 09:48 | Emergency (ER) | payer OTHER, SELFPAY ==
[2022-10-03] VITALS (9 sets, daily range): BP systolic 145–183; BP diastolic 79–109; PULSE 81–94; RESP 15–20; TEMP 36.6–36.8; O2SAT 95–100; BMI 27.3
--- NOTE | 2022-10-03 09:49 | ECG_ITS ---
APPROVED REPORT Exam: Resting ECG HR:89 bpm ECG Measurements Heart Rate 89 AXES WI 154 P 77 QRSd 102 QRS 76 QT 381 T 52 QTc 427 Conclusion SINUS RHYTHM NORMAL ECG UNCONFIRMED REPORT Electronically signed by : Scotty León MD 10/04/2022 17:29:10
--- NOTE | 2022-10-03 09:51 | HMH.EDGENADL ---
Discharge Plan Disposition Patient Disposition: Home, Self-Care Condition: Good Prescriptions Prescriptions: New ondansetron 4 mg tablet,disintegrating 4 mg PO Q8H PRN (Reason: nausea and vomiting) Qty: 7 0RF No Action fenofibrate 160 mg tablet 160 mg PO DAILY montelukast 10 mg tablet 10 mg PO PM Label Comments: TAKE ONE TABLET BY MOUTH ONCE DAILY gabapentin 400 mg capsule 400 mg PO TID Label Comments: TAKE ONE CAPSULE BY MOUTH THREE TIMES DAILY quetiapine 50 mg tablet 50 mg PO HS glipizide 10 mg tablet 10 mg PO BID Label Comments: TAKE ONE TABLET BY MOUTH TWICE DAILY duloxetine 60 mg capsule,delayed release(DR/EC) 60 mg PO DAILY aripiprazole 5 mg tablet 5 mg PO DAILY fluticasone propionate 50 mcg/actuation spray,suspension 1 spray NS DAILY Label Comments: PLACE 1 spray in each nostril Nasally Once a day FOR 30 day(s) lisinopril 30 mg tablet 30 mg PO DAILY Label Comments: TAKE ONE TABLET BY MOUTH ONCE DAILY buspirone 10 mg tablet 10 mg PO TID Label Comments: take 1 tablet BY MOUTH THREE TIMES A DAY for ANXIETY omeprazole 40 mg capsule,delayed release(DR/EC) 40 mg PO DAILY Label Comments: TAKE 1 capsule 30 minutes before morning meal Once a day cyanocobalamin (vitamin B-12) 1,000 mcg tablet 1,000 mcg PO DAILY Label Comments: take 1 tablet Once a day for 30 days atorvastatin 40 mg tablet 40 mg PO DAILY Label Comments: take 1 tablet at bedtime Once a day for 30 day(s) thiamine mononitrate (vit B1) 100 mg tablet 100 mg PO DAILY Label Comments: TAKE ONE TABLET BY MOUTH ONCE DAILY ticagrelor 90 mg tablet 90 mg PO BID Qty: 60 11RF aspirin 81 mg tablet,chewable 81 mg PO DAILY Qty: 30 11RF escitalopram oxalate 10 mg tablet 10 mg PO DAILY metoprolol succinate [Toprol XL] 100 mg tablet extended release 24 hr 100 mg PO BID Qty: 60 5RF bupropion HCl 150 mg tablet sustained-release 12 hr 150 mg PO DIRECTED Qty: 90 0RF isosorbide mononitrate 30 mg tablet extended release 24 hr 30 mg PO DAILY Qty: 30 2RF Ozempic 0.25 mg or 0.5 mg(2 mg/1.5 mL) pen injector See Rx Instructions .ROUTE .COMPLEX Qty: 1.5 1RF Dose Instruction: INJECT 0.25 mg (0.2 mL) subcutaneously weekly for 4 doses Rx Instructions: INJECT 0.25 mg (0.2 mL) subcutaneously weekly for 4 doses nitroglycerin 0.4 mg tablet, sublingual 0.4 mg SL Q5M PRN (Reason: chest pain) Qty: 25 0RF Rx Instructions: do not exceed 3 doses per episode nicotine 21-14-7 mg/24 hr patch, TD daily, sequential 1 patch TD Q24H cetirizine 10 MG capsule 10 mg PO DAILY fluticasone propion-salmeterol [Advair Diskus] 250-50 mcg/dose blister with device 1 inh INHALATION BID Label Comments: inhale 1 puff Twice a day for 30 days trazodone 50 mg tablet 50 mg PO HSP PRN (Reason: Sleep) Label Comments: take 1 tablet by mouth once a day at bedtime as needed for 30 day(s) azithromycin 500 mg tablet 500 mg PO DAILY 3 Days Qty: 3 0RF doxycycline monohydrate 100 mg capsule 100 mg PO BID 10 Days Qty: 20 0RF tramadol 100 mg tablet 100 mg PO Q8H PRN (Reason: pain) Qty: 7 0RF Referrals Follow up/Referrals: Provider,Referral, MD [Referring] - See instructions Activity Restrictions/Add. Instructions Additional Instructions/Restrictions: Zofran as needed for nausea. Follow-up with primary care provider this week, call tomorrow to make appointment. You have a small spot on your pancreas seen on the CT scan that you had today. Radiologist recommends repeat scanning every year for 5 years. Arrange this with your primary care provider. Clinical Impressions Clinical Impression: Shortness of breath, Nausea vomiting and diarrhea, Acute hyperglycemia Instructions Patient Instructions: DI for Shortness of Breath, DI for V
--- NOTE | 2022-10-03 10:00 | PC.NURSE ---
gave pt a remote and warm blanket,call light @ bs
--- NOTE | 2022-10-03 10:13 | PC.NURSE ---
pt given cup of coffee, and saloni mist per her request
[2022-10-03 10:20] LABS: Basophils # 0.1 K/mm3 (0-0.2); Eosinophils # 0.1 K/mm3 (0.0-0.4); Eosinophils % 0.9 % (0.1-12.0); Hematocrit 41.7 % (37.0-47.0); Hemoglobin 14.1 g/dL (12.2-16.2); Lymphocytes # 1.6 K/mm3 (0.7-4.5); Lymphocytes % 21.9 % (10-50); Mean Corpuscular HGB Conc 33.7 g/dL (31.8-35.4); Mean Corpuscular Hemoglobin 31.2 pg (27.0-31.2); Mean Corpuscular Volume 92.4 fl (81-99); Mean Platelet Volume 10.5 fl (7.4-10.4); Monocytes # 0.3 K/mm3 (0.1-1.0); Monocytes % 3.6 % (1.7-9.3); Neutrophils # 5.1 K/mm3 (1.8-7.8); Neutrophils % 72.6 % (37.0-80.0); Platelet Count 191 K/mm3 (142-424); Red Blood Count 4.52 M/mm3 (4.20-5.40); Red Cell Distribution Width 13.4 % (11.5-17.5); White Blood Count 7.1 K/mm3 (4.8-10.8)
[2022-10-03 10:24] LABS: Alanine Aminotransferase 32 U/L (12-78); Albumin Level 4.1 g/dl (3.5-5.0); Albumin/Globulin Ratio 1.5 (1.1-1.8); Alkaline Phosphatase 103 U/L (38-126); Anion Gap 12.9 mEq/L (5-15); Aspartate Amino Transferase 33 U/L (14-36); Bilirubin,Total 0.7 mg/dl (0.2-1.3); Blood Urea Nitrogen 12 mg/dl (7-17); Calcium 9.1 mg/dl (8.4-10.2); Carbon Dioxide 25 mmol/L (22.0-30.0); Chloride 99 mmol/L (98-107); Creatinine Clearance Estimated 280 mL/min (50-200); Estimated Glomerular Filt Rate 233 ml/min (>60); GFR (African American) 282 ML/MIN (>60); Globulin 2.7 g/dL (1.3-3.2); Glucose 255 mg/dl (74-100); Potassium 3.9 mmoL/L (3.5-5.1); Sodium 133 mmol/L (136-145); Total Protein,Serum 6.8 g/dl (6.3-8.2)
[2022-10-03 10:25] LABS: VBG Base Excess -2.5 mmol/L (-2.4-2.3); VBG HCO3 22.6 mmol/L (23-30); VBG Oxygen Saturation 96.1 % (50-70); VBG PCO2 39.1 mmol/L (35-51); VBG PH 7.38 mmol/L (7.31-7.41); VBG PO2 87.5 mmol/L (28-40); VBG Total CO2 23.8 mmol/L (23-27)
[2022-10-03 10:29] LABS: D-Dimer 0.77 ug/mL (0.0-0.5)
[2022-10-03 10:29] LABS: Coronavirus 19, PCR Not Detected (NotDetected); Influenza A, PCR Not Detected (NotDetected); Influenza B, PCR Not Detected (NotDetected)
[2022-10-03 10:30] LABS: Acetone, Serum (Rapid) None Detected (None Detect)
--- NOTE | 2022-10-03 10:30 | PC.NURSE ---
Answered call light patient needed to go to the bathroom. Patient walked back to bed hooked patient back up. Call light within reach
[2022-10-03 10:33] LABS: Lipase 418 U/L (23-300)
[2022-10-03 10:38] LABS: NT Pro Brain Natriuretic Pep. 181 pg/mL (0-125); Troponin I 0.02 ng/ml (0.00-0.034)
--- NOTE | 2022-10-03 10:39 | CT_ITS ---
PROCEDURE INFORMATION: Exam: CTA Chest With Contrast Exam date and time: 10/03/2022 11:05 AM Age: 52 years old Clinical indication: Shortness of breath; Additional info: SOA, elev d-dimer TECHNIQUE: Imaging protocol: Computed tomographic angiography of the chest with contrast. 3D rendering (Not supervised by radiologist): MIP and/or 3D reconstructed images were created by the technologist. Radiation optimization: All CT scans at this facility use at least one of these dose optimization techniques: automated exposure control; mA and/or kV adjustment per patient size (includes targeted exams where dose is matched to clinical indication); or iterative reconstruction. Contrast material: ISOVUE; Contrast volume: 70 ml; Contrast route: INTRAVENOUS (IV); REPORTING DATA: Count of CT and Cardiac NM exams in prior 12 months: This patient has received [address] and 0 known cardiac nuclear medicine studies in the 12 months prior to the current study. COMPARISON: CR XR CHEST PORTABLE 09/27/2022 9:34 AM FINDINGS: Pulmonary arteries: No evidence of filling defects to suggest pulmonary emboli. Aorta: Aorta is nonaneurysmal. Other arteries: Hyperattenuating material in the coronary tree likely a combination of vascular stents and atherosclerosis. Lungs: There are scattered pulmonary granulomas. No evidence of airspace opacity or interlobular septal thickening. There is a 5 mm right middle lobe nodule with possible punctate internal calcification (series 5, image 54). Pleural spaces: No pneumothorax. No pleural effusion. Heart: No cardiomegaly or pericardial effusion. The left atrial appendage is normal. Heart RV/LV ratio: The RV: LV ratio is less than 1. Lymph nodes: No evidence of retroperitoneal or mesenteric lymphadenopathy. No evidence of mediastinal or hilar lymphadenopathy. Pancreas: There is a 0.8 cm hypodensity in the distal pancreatic body. For follow-up recommendations, please refer to the separately dictated abdomen and pelvis CT report under a separate accession number. Bones/joints: Unremarkable. No acute fracture. Soft tissues: Unremarkable. IMPRESSION: 1. No pulmonary embolus. 2. No airspace or interstitial lung disease 3. There is a 5 mm right middle lobe nodule with possible punctate internal calcification (series 5, image 54). For patients at low risk (minimal or absent history of smoking and of other known risk factors), no routine follow-up is indicated. For patients at high risk (history of smoking or of other known risk factors), consider optional CT Chest at 12 months. (Reference: Estela) REFERENCES: Estela Ferreira, et al. Guidelines for Management of Incidental Pulmonary Nodules Detected on CT Images: From the Fleischner Society 2017. Radiology. 2017;284(1):228-243.
[2022-10-03 10:43] LABS: Microscopic, Urine URINE MICROSCOPIC (MICROSCOPIC)
[2022-10-03 10:47] LABS: Appearance,Urine CLEAR (Clear); Bilirubin,Urine Negative (Negative); Blood, Urine Negative (Negative); Color,Urine YELLOW (Yellow); Glucose,Urine (UA) 2+ (Negative); Ketones,Urine Negative (Negative); Leukocyte Esterase,Urine Negative (Negative); Nitrate,Urine Negative (Negative); PH,Urine 6.5 (5.0-8.5); Protein,Urine Negative (Negative); Specific Gravity, Urine <= 1.005 (1.005-1.030); Urobilinogen,Urine 0.2 EU/dl (0.2)
--- NOTE | 2022-10-03 10:57 | PC.NURSE ---
Patient going to CT
[2022-10-03 11:10] LABS: Bacteria,Urine Trace /lpf; Squamous Epithelial Cell,Urine Occasional #/hpf (0-5)
--- NOTE | 2022-10-03 11:11 | CT_ITS ---
PROCEDURE INFORMATION: Exam: CT Abdomen And Pelvis Without Contrast Exam date and time: 10/03/2022 11:21 AM Age: 52 years old Clinical indication: Abdominal pain; Generalized; Additional info: Elev lipase abdo pain TECHNIQUE: Imaging protocol: Computed tomography of the abdomen and pelvis without contrast. Radiation optimization: All CT scans at this facility use at least one of these dose optimization techniques: automated exposure control; mA and/or kV adjustment per patient size (includes targeted exams where dose is matched to clinical indication); or iterative reconstruction. REPORTING DATA: Count of CT and Cardiac NM exams in prior 12 months: This patient has received [address] and 0 known cardiac nuclear medicine studies in the 12 months prior to the current study. COMPARISON: CT ANGIO CHEST PE PROTOCOL 10/03/2022 11:05 AM FINDINGS: Lungs: Punctate right lower lobe granuloma. Lung bases are otherwise unremarkable. Liver: Hepatic steatosis noted. No focal hepatic lesions. Gallbladder and bile ducts: Gallbladder is distended without radiopaque cholelithiasis. No biliary ductal dilation. Pancreas: No peripancreatic fluid stranding. No main pancreatic ductal dilation. Subcentimeter hypodensity in the distal pancreas is better characterized on concurrent chest CT PE Spleen: No splenomegaly. Adrenal glands: The adrenal glands are normal. Kidneys and ureters: Nephrograms are symmetric. Excreted contrast material obscures the assessment for nonobstructive nephrolithiasis. No hydroureteronephrosis on either side. No solid lesions Stomach and bowel: No bowel wall thickening or distention. Appendix: A normal appendix is identified. Intraperitoneal space: There is no evidence of free intraperitoneal or pelvic fluid. Vasculature: Hyperattenuating material in the coronary tree likely a combination of vascular stents and atherosclerosis. Aorta is nonaneurysmal. Lymph nodes: No evidence of retroperitoneal or mesenteric lymphadenopathy. Urinary bladder: Urinary bladder is unremarkable. Reproductive: Status post bilateral tubal ligation. Bones/joints: No acute osseous abnormality. Soft tissues: Unremarkable. IMPRESSION: 1. No acute abnormality in the abdomen or pelvis. However, in cases of mild pancreatitis the pancreas might be normal. 2. Subcentimeter hypodensity in the distal pancreatic body, statistically a side branch IPMN. Reimaging every 1 year for 5 years is recommended. (Reference: Edi, 2017) REFERENCES: Edi PONCE, et al. Management of Incidental Pancreatic Cysts: A White Paper of the ACR Incidental Findings Committee. J Am Gwyn Radiol. 2017;14(7):911-923.
--- NOTE | 2022-10-03 11:19 | PC.NURSE ---
Patient going to CT via wheelchair
--- NOTE | 2022-10-03 11:20 | PC.NURSE ---
pt to rad
--- NOTE | 2022-10-03 11:24 | PC.NURSE ---
pt arrived back from rad
--- NOTE | 2022-10-03 11:53 | PC.NURSE ---
pt resting in bed watching tv,call light @ bs
--- NOTE | 2022-10-03 12:32 | PC.NURSE ---
called for meal tray
== END 2022-10-03 12:55 | disposition home or self-care (01) ==
PROVIDERS: Emergency Provider Emergency Medicine; PCP Nurse Practitioner Family
DX: R07.9 Chest pain, unspecified (principal); R50.9 Fever, unspecified; R11.0 Nausea
CPT/HCPCS: 71275; 74176; 80053; 81001; 82009; 82803; 83690; 83880; 84484; 85025; 85378; 93005; 96360; 99285; C9803; Q9967; U0003; U0005

== ENCOUNTER 2022-12-14 09:11 | Emergency (ER) | payer OTHER, SELFPAY ==
[2022-12-14 09:12] VITALS: BP 170/103; PULSE 103; RESP 18; TEMP 36.7; O2SAT 99; BMI 34.0
--- NOTE | 2022-12-14 09:23 | PC.NURSE ---
DR LOPEZ AT BEDSIDE
--- NOTE | 2022-12-14 09:25 | XR_ITS ---
FINAL REPORT CLINICAL HISTORY: trauma, twisted left ankle COMPARISON: None FINDINGS: LEFT ANKLE: 3 views of the left ankle were obtained. There is an intramedullary hannah present in the distal tibia as well as a healed fracture deformity. There is no acute fracture or dislocation. The joint spaces are intact. Moderate soft tissue swelling is present. IMPRESSION: No acute fracture Reviewed, Interpreted and Dictated by Erick Rodirguez MD Transcribed by Josefa Roman Authenticated and [facility]
--- NOTE | 2022-12-14 09:29 | HMH.EDGENADL ---
Discharge Plan Disposition Patient Disposition: Home, Self-Care Condition: Good Prescriptions Prescriptions: No Action fenofibrate 160 mg tablet 160 mg PO DAILY montelukast 10 mg tablet 10 mg PO PM Label Comments: TAKE ONE TABLET BY MOUTH ONCE DAILY gabapentin 400 mg capsule 400 mg PO TID Label Comments: TAKE ONE CAPSULE BY MOUTH THREE TIMES DAILY quetiapine 50 mg tablet 50 mg PO HS glipizide 10 mg tablet 10 mg PO BID Label Comments: TAKE ONE TABLET BY MOUTH TWICE DAILY duloxetine 60 mg capsule,delayed release(DR/EC) 60 mg PO DAILY aripiprazole 5 mg tablet 5 mg PO DAILY fluticasone propionate 50 mcg/actuation spray,suspension 1 spray NS DAILY Label Comments: PLACE 1 spray in each nostril Nasally Once a day FOR 30 day(s) lisinopril 30 mg tablet 30 mg PO DAILY Label Comments: TAKE ONE TABLET BY MOUTH ONCE DAILY buspirone 10 mg tablet 10 mg PO TID Label Comments: take 1 tablet BY MOUTH THREE TIMES A DAY for ANXIETY omeprazole 40 mg capsule,delayed release(DR/EC) 40 mg PO DAILY Label Comments: TAKE 1 capsule 30 minutes before morning meal Once a day cyanocobalamin (vitamin B-12) 1,000 mcg tablet 1,000 mcg PO DAILY Label Comments: take 1 tablet Once a day for 30 days atorvastatin 40 mg tablet 40 mg PO DAILY Label Comments: take 1 tablet at bedtime Once a day for 30 day(s) thiamine mononitrate (vit B1) 100 mg tablet 100 mg PO DAILY Label Comments: TAKE ONE TABLET BY MOUTH ONCE DAILY sennosides-docusate sodium [Senna Plus] 8.6-50 mg tablet 1 tab-cap PO DAILY nicotine 21-14-7 mg/24 hr patch, TD daily, sequential 1 patch transdermal Q24H Qty: 56 0RF Rx Instructions: Start with the 21 mg Nicotine Patch for 14 Days 14 mg patch for 14 days 7 mg patch for 7 days lisinopril 40 mg tablet 40 mg PO DAILY Qty: 30 5RF ticagrelor 90 mg tablet 90 mg PO BID Qty: 60 11RF aspirin 81 mg tablet,chewable 81 mg PO DAILY Qty: 30 11RF escitalopram oxalate 10 mg tablet 10 mg PO DAILY bupropion HCl 150 mg tablet sustained-release 12 hr 150 mg PO DIRECTED Qty: 90 0RF isosorbide mononitrate 30 mg tablet extended release 24 hr 30 mg PO DAILY Qty: 30 2RF Ozempic 0.25 mg or 0.5 mg(2 mg/1.5 mL) pen injector See Rx Instructions .ROUTE .COMPLEX Qty: 1.5 1RF Dose Instruction: INJECT 0.25 mg (0.2 mL) subcutaneously weekly for 4 doses Rx Instructions: INJECT 0.25 mg (0.2 mL) subcutaneously weekly for 4 doses nitroglycerin 0.4 mg tablet, sublingual 0.4 mg SL Q5M PRN (Reason: chest pain) Qty: 25 0RF Rx Instructions: do not exceed 3 doses per episode metoprolol succinate 100 mg tablet extended release 24 hr See Rx Instructions .ROUTE .COMPLEX Qty: 60 5RF Dose Instruction: TAKE ONE TABLET BY MOUTH TWICE DAILY FOR hypertension Rx Instructions: TAKE ONE TABLET BY MOUTH TWICE DAILY FOR hypertension hydrochlorothiazide 12.5 mg tablet 12.5 mg PO DAILY Qty: 90 3RF nicotine 21-14-7 mg/24 hr patch, TD daily, sequential 1 patch TD Q24H cetirizine 10 MG capsule 10 mg PO DAILY fluticasone propion-salmeterol [Advair Diskus] 250-50 mcg/dose blister with device 1 inh INHALATION BID Label Comments: inhale 1 puff Twice a day for 30 days trazodone 50 mg tablet 50 mg PO HSP PRN (Reason: Sleep) Label Comments: take 1 tablet by mouth once a day at bedtime as needed for 30 day(s) doxycycline monohydrate 100 mg capsule 100 mg PO BID 10 Days Qty: 20 0RF tramadol 100 mg tablet 100 mg PO Q8H PRN (Reason: pain) Qty: 7 0RF ondansetron 4 mg tablet,disintegrating 4 mg PO Q8H PRN (Reason: nausea and vomiting) Qty: 7 0RF Referrals Follow up/Referrals: Sushila Mario APRN [Primary Care Provider] - See instructions Activity Restrictions/Add. Instructions
[2022-12-14 09:30] VITALS: BP 135/93; PULSE 99; O2SAT 98
--- NOTE | 2022-12-14 09:42 | PC.NURSE ---
PT TO XR
--- NOTE | 2022-12-14 09:46 | PC.NURSE ---
PT RETURNED FROM XR
[2022-12-14 10:00] VITALS: BP 137/85; PULSE 96; O2SAT 98
[2022-12-14 10:30] VITALS: BP 137/86; PULSE 94; O2SAT 98
--- NOTE | 2022-12-14 10:39 | PC.NURSE ---
contacted rad staff to check on status of xray order, rad staff reports she is checking on it.
--- NOTE | 2022-12-14 10:39 | PC.NURSE ---
pt ambulated to bathroom independently at this time. tolerated well
--- NOTE | 2022-12-14 10:42 | PC.NURSE ---
rad staff reports xrays are in locked status
--- NOTE | 2022-12-14 10:48 | PC.NURSE ---
pt updated at this time
--- NOTE | 2022-12-14 10:49 | PC.NURSE ---
Checked up nothing needed at this time
--- NOTE | 2022-12-14 11:03 | PC.NURSE ---
dr leonardo at bedside to update pt on poc
--- NOTE | 2022-12-14 11:07 | PC.NURSE ---
SAMUEL PRIETO at
[2022-12-14 11:13] VITALS: BP 136/78; PULSE 88; RESP 18; TEMP 36.6; O2SAT 98
== END 2022-12-14 11:14 | disposition home or self-care (01) ==
PROVIDERS: Emergency Provider Emergency Medicine; PCP Nurse Practitioner Family
DX: S93.402A Sprain of unspecified ligament of left ankle, initial encounter (principal); W01.0XXA Fall on same level from slipping, tripping and stumbling without subsequent striking against object, initial encounter; F17.210 Nicotine dependence, cigarettes, uncomplicated
CPT/HCPCS: 73600; 99283; 99284

== ENCOUNTER → 2023-02-09 12:49 | Outpatient (CLI) | payer OTHER, SELFPAY ==
--- NOTE | 2023-02-09 12:49 | US_ITS ---
FINAL REPORT CLINICAL HISTORY: sore throat-- smpoker COMPARISON: None FINDINGS: Thyroid ultrasound: The right thyroid gland measures 3.4 x 1.1 x 1.5 cm in size. There is a hypoechoic 7 mm nodule noted along the posterior surface of the mid right thyroid lobe. This could represent an exophytic nodule, a parathyroid gland, or a small lymph node. No other nodules are identified in the right lobe of the thyroid. The left lobe of the thyroid measures 2.8 x 1.4 x 1.6 cm in size. The echogenicity is normal and no masses are identified. The isthmus of the thyroid gland is normal in appearance and measures 3.5 mm in thickness. IMPRESSION: Hypoechoic 7 mm nodule along the posterior surface of the right mid thyroid gland. This could represent an exophytic nodule, a parathyroid gland, or a small lymph node. This is a TI-RADS 4 nodule, and by size criteria no follow-up is recommended at this time. Would correlate with parathyroid function tests if clinically indicated. Reviewed, Interpreted and Dictated by Barbara Salazar MD Transcribed by Josefa Roman Authenticated and [facility]
== END ==
PROVIDERS: PCP Nurse Practitioner Family; Visit Provider Nurse Practitioner
DX: E04.9 Nontoxic goiter, unspecified (principal); M54.2 Cervicalgia
CPT/HCPCS: 76536

== ENCOUNTER 2023-03-30 09:37 | Emergency (ER) | payer OTHER, SELFPAY ==
[2023-03-30] VITALS (8 sets, daily range): BP systolic 137–190; BP diastolic 87–160; PULSE 99–102; RESP 16–18; TEMP 36.7; O2SAT 97–99; BMI 33.6
--- NOTE | 2023-03-30 09:35 | ECG_ITS ---
APPROVED REPORT Exam: Resting ECG HR:104 bpm ECG Measurements Heart Rate 104 AXES AR 146 P 80 QRSd 101 QRS 70 QT 348 T 60 QTc 409 Conclusion SINUS TACHYCARDIA MODERATE ST DEPRESSION [0.05+ mV ST DEPRESSION] ABNORMAL ECG UNCONFIRMED REPORT Electronically signed by : Scotty León MD 04/01/2023 16:08:40
--- NOTE | 2023-03-30 09:42 | XR_ITS ---
FINAL REPORT CLINICAL HISTORY: Precordial chest pain COMPARISON: 09/27/2022 FINDINGS: A single portable view of the chest was obtained. The heart size and pulmonary vascularity are within normal limits. The mediastinum is within normal limits. No acute pulmonary abnormality is identified. The bony thorax is intact. IMPRESSION: No active cardiopulmonary disease. Reviewed, Interpreted and Dictated by Kirby Gutierrez III, MD Transcribed by Graciela Machado Authenticated and [facility]
--- NOTE | 2023-03-30 09:51 | PC.NURSE ---
pt reports after triage, has hx of pancreatitis, states has drank a 5th of fireball of the past 2 days, states this may have contributed to her drinking.
[2023-03-30 09:52] LABS: Basophils # 0.1 K/mm3 (0-0.2); Basophils % 0.8 % (0.1-2.0); Eosinophils # 0.2 K/mm3 (0.0-0.4); Hematocrit 50.5 % (37.0-47.0); Hemoglobin 16.3 g/dL (12.2-16.2); Lymphocytes # 2.3 K/mm3 (0.7-4.5); Mean Corpuscular HGB Conc 32.2 g/dL (31.8-35.4); Mean Corpuscular Hemoglobin 30.5 pg (27.0-31.2); Mean Corpuscular Volume 94.6 fl (81-99); Mean Platelet Volume 10.4 fl (7.4-10.4); Monocytes # 0.3 K/mm3 (0.1-1.0); Monocytes % 4.1 % (1.7-9.3); Neutrophils # 4.7 K/mm3 (1.8-7.8); Neutrophils % 62.1 % (37.0-80.0); Platelet Count 191 K/mm3 (142-424); Red Blood Count 5.34 M/mm3 (4.20-5.40); White Blood Count 7.5 K/mm3 (4.8-10.8)
--- NOTE | 2023-03-30 09:55 | PC.NURSE ---
rounded on patient; no other needs at this time. Call emery within reach
[2023-03-30 10:00] LABS: Alanine Aminotransferase 40 U/L (12-78); Albumin Level 4.8 g/dl (3.5-5.0); Albumin/Globulin Ratio 1.4 (1.1-1.8); Alkaline Phosphatase 135 U/L (38-126); Anion Gap 17.1 mEq/L (5-15); Aspartate Amino Transferase 33 U/L (14-36); Bilirubin,Total 0.6 mg/dl (0.2-1.3); Blood Urea Nitrogen 17 mg/dl (7-17); Carbon Dioxide 24 mmol/L (22.0-30.0); Chloride 101 mmol/L (98-107); Creatinine Clearance Estimated 181 mL/min (50-200); Estimated Glomerular Filt Rate 129 ml/min (>60); GFR (African American) 156 ML/MIN (>60); Globulin 3.4 g/dL (1.3-3.2); Glucose 393 mg/dl (74-100); Potassium 4.1 mmoL/L (3.5-5.1); Sodium 138 mmol/L (136-145); Total Protein,Serum 8.2 g/dl (6.3-8.2)
[2023-03-30 10:05] LABS: Lipase 210 U/L (23-300)
[2023-03-30 10:19] LABS: Troponin I < 0.01 ng/ml (0.00-0.034)
--- NOTE | 2023-03-30 10:38 | HMH.EDGENADL ---
Discharge Plan Disposition Patient Disposition: Home, Self-Care Chief Complaint: Chest Pain Prescriptions Prescriptions: No Action fenofibrate 160 mg tablet 160 mg PO DAILY montelukast 10 mg tablet 10 mg PO PM Patient Comments: TAKE ONE TABLET BY MOUTH ONCE DAILY gabapentin 400 mg capsule 400 mg PO TID Patient Comments: TAKE ONE CAPSULE BY MOUTH THREE TIMES DAILY quetiapine 50 mg tablet 50 mg PO HS glipizide 10 mg tablet 10 mg PO BID Patient Comments: TAKE ONE TABLET BY MOUTH TWICE DAILY duloxetine 60 mg capsule,delayed release(DR/EC) 60 mg PO DAILY aripiprazole 5 mg tablet 5 mg PO DAILY fluticasone propionate 50 mcg/actuation spray,suspension 1 spray NS DAILY Patient Comments: PLACE 1 spray in each nostril Nasally Once a day FOR 30 day(s) lisinopril 30 mg tablet 30 mg PO DAILY Patient Comments: TAKE ONE TABLET BY MOUTH ONCE DAILY buspirone 10 mg tablet 10 mg PO TID Patient Comments: take 1 tablet BY MOUTH THREE TIMES A DAY for ANXIETY omeprazole 40 mg capsule,delayed release(DR/EC) 40 mg PO DAILY Patient Comments: TAKE 1 capsule 30 minutes before morning meal Once a day cyanocobalamin (vitamin B-12) 1,000 mcg tablet 1,000 mcg PO DAILY Patient Comments: take 1 tablet Once a day for 30 days atorvastatin 40 mg tablet 40 mg PO DAILY Patient Comments: take 1 tablet at bedtime Once a day for 30 day(s) thiamine mononitrate (vit B1) 100 mg tablet 100 mg PO DAILY Patient Comments: TAKE ONE TABLET BY MOUTH ONCE DAILY sennosides-docusate sodium [Senna Plus] 8.6-50 mg tablet 1 tab-cap PO DAILY nicotine 21-14-7 mg/24 hr patch, TD daily, sequential 1 patch transdermal Q24H Qty: 56 0RF Rx Instructions: Start with the 21 mg Nicotine Patch for 14 Days 14 mg patch for 14 days 7 mg patch for 7 days lisinopril 40 mg tablet 40 mg PO DAILY Qty: 30 5RF ticagrelor 90 mg tablet 90 mg PO BID Qty: 60 11RF escitalopram oxalate 10 mg tablet 10 mg PO DAILY ranolazine 500 mg tablet extended release 12 hr 500 mg PO BID Qty: 60 3RF bupropion HCl 150 mg tablet sustained-release 12 hr 150 mg PO DIRECTED Qty: 90 0RF isosorbide mononitrate 30 mg tablet extended release 24 hr 30 mg PO DAILY Qty: 30 2RF Ozempic 0.25 mg or 0.5 mg(2 mg/1.5 mL) pen injector See Rx Instructions .ROUTE .COMPLEX Qty: 1.5 1RF Dose Instruction: INJECT 0.25 mg (0.2 mL) subcutaneously weekly for 4 doses Rx Instructions: INJECT 0.25 mg (0.2 mL) subcutaneously weekly for 4 doses metoprolol succinate 100 mg tablet extended release 24 hr See Rx Instructions .ROUTE .COMPLEX Qty: 60 5RF Dose Instruction: TAKE ONE TABLET BY MOUTH TWICE DAILY FOR hypertension Rx Instructions: TAKE ONE TABLET BY MOUTH TWICE DAILY FOR hypertension hydrochlorothiazide 12.5 mg tablet 12.5 mg PO DAILY Qty: 90 3RF aspirin 81 mg tablet,chewable 81 mg PO DAILY Qty: 30 11RF nitroglycerin 0.4 mg tablet, sublingual 0.4 mg SL Q5M PRN (Reason: chest pain) Qty: 25 0RF Rx Instructions: do not exceed 3 doses per episode nicotine 21-14-7 mg/24 hr patch, TD daily, sequential 1 patch TD Q24H cetirizine 10 MG capsule 10 mg PO DAILY fluticasone propion-salmeterol [Advair Diskus] 250-50 mcg/dose blister with device 1 inh INHALATION BID Patient Comments: inhale 1 puff Twice a day for 30 days trazodone 50 mg tablet 50 mg PO HSP PRN (Reason: Sleep) Patient Comments: take 1 tablet by mouth once a day at bedtime as needed for 30 day(s) doxycycline monohydrate 100 mg capsule 100 mg PO BID 10 Days Qty: 20 0RF tramadol 100 mg tablet 100 mg PO Q8H PRN (Reason: pain) Qty: 7 0RF ondansetron 4 mg tablet,disintegrating 4 mg PO Q8H PRN (Reason: nausea and vomiting) Qty: 7 0RF Referrals Follow up
[2023-03-30 10:50] LABS: T4 (Thyroxine) 13.7 ug/dl (5.53-11.0)
[2023-03-30 11:03] LABS: Thyroid Stimulating Hormone 1.67 uIU/mL (0.465-4.68)
--- NOTE | 2023-03-30 12:04 | PC.NURSE ---
rounded on patient, fixed IV and fluid drip. also answered call light multiple times.
== END 2023-03-30 12:14 | disposition home or self-care (01) ==
PROVIDERS: Emergency Provider Emergency Medicine; PCP Family Medicine
DX: R07.9 Chest pain, unspecified (principal); K29.70 Gastritis, unspecified, without bleeding; R00.0 Tachycardia, unspecified; I25.119 Atherosclerotic heart disease of native coronary artery with unspecified angina pectoris; J44.9 Chronic obstructive pulmonary disease, unspecified; E11.9 Type 2 diabetes mellitus without complications; I10 Essential (primary) hypertension; E78.5 Hyperlipidemia, unspecified; K86.1 Other chronic pancreatitis; J45.909 Unspecified asthma, uncomplicated; F17.210 Nicotine dependence, cigarettes, uncomplicated
CPT/HCPCS: 71045; 80053; 83690; 84436; 84443; 84484; 85025; 93005; 96361; 96374; 96375; 99285

== ENCOUNTER 2023-05-14 10:04 | Emergency (ER) | payer OTHER, SELFPAY ==
--- NOTE | 2023-05-14 10:10 | PC.NURSE ---
patient changed into gown for exam. Call emery within reach. Pillow and blanket given for comfort
--- NOTE | 2023-05-14 10:14 | PC.NURSE ---
Dr. Canas at [facility] for pt eval
[2023-05-14 10:22] VITALS: BP 131/93; PULSE 89; RESP 19; TEMP 36.6; O2SAT 96; BMI 34.3
--- NOTE | 2023-05-14 10:23 | HMH.EDGENADL ---
Discharge Plan Disposition Patient Disposition: Home, Self-Care Prescriptions Prescriptions: New clindamycin HCl 300 mg capsule 300 mg PO Q6H 7 Days Qty: 28 0RF No Action fenofibrate 160 mg tablet 160 mg PO DAILY montelukast 10 mg tablet 10 mg PO PM Patient Comments: TAKE ONE TABLET BY MOUTH ONCE DAILY gabapentin 400 mg capsule 400 mg PO TID Patient Comments: TAKE ONE CAPSULE BY MOUTH THREE TIMES DAILY quetiapine 50 mg tablet 50 mg PO HS glipizide 10 mg tablet 10 mg PO BID Patient Comments: TAKE ONE TABLET BY MOUTH TWICE DAILY duloxetine 60 mg capsule,delayed release(DR/EC) 60 mg PO DAILY aripiprazole 5 mg tablet 5 mg PO DAILY fluticasone propionate 50 mcg/actuation spray,suspension 1 spray NS DAILY Patient Comments: PLACE 1 spray in each nostril Nasally Once a day FOR 30 day(s) lisinopril 30 mg tablet 30 mg PO DAILY Patient Comments: TAKE ONE TABLET BY MOUTH ONCE DAILY buspirone 10 mg tablet 10 mg PO TID Patient Comments: take 1 tablet BY MOUTH THREE TIMES A DAY for ANXIETY omeprazole 40 mg capsule,delayed release(DR/EC) 40 mg PO DAILY Patient Comments: TAKE 1 capsule 30 minutes before morning meal Once a day cyanocobalamin (vitamin B-12) 1,000 mcg tablet 1,000 mcg PO DAILY Patient Comments: take 1 tablet Once a day for 30 days atorvastatin 40 mg tablet 40 mg PO DAILY Patient Comments: take 1 tablet at bedtime Once a day for 30 day(s) thiamine mononitrate (vit B1) 100 mg tablet 100 mg PO DAILY Patient Comments: TAKE ONE TABLET BY MOUTH ONCE DAILY sennosides-docusate sodium [Senna Plus] 8.6-50 mg tablet 1 tab-cap PO DAILY nicotine 21-14-7 mg/24 hr patch, TD daily, sequential 1 patch transdermal Q24H Qty: 56 0RF Rx Instructions: Start with the 21 mg Nicotine Patch for 14 Days 14 mg patch for 14 days 7 mg patch for 7 days lisinopril 40 mg tablet 40 mg PO DAILY Qty: 30 5RF escitalopram oxalate 10 mg tablet 10 mg PO DAILY ranolazine 500 mg tablet extended release 12 hr 500 mg PO BID Qty: 60 3RF bupropion HCl 150 mg tablet sustained-release 12 hr 150 mg PO DIRECTED Qty: 90 0RF isosorbide mononitrate 30 mg tablet extended release 24 hr 30 mg PO DAILY Qty: 30 2RF Ozempic 0.25 mg or 0.5 mg(2 mg/1.5 mL) pen injector See Rx Instructions .ROUTE .COMPLEX Qty: 1.5 1RF Dose Instruction: INJECT 0.25 mg (0.2 mL) subcutaneously weekly for 4 doses Rx Instructions: INJECT 0.25 mg (0.2 mL) subcutaneously weekly for 4 doses metoprolol succinate 100 mg tablet extended release 24 hr See Rx Instructions .ROUTE .COMPLEX Qty: 60 5RF Dose Instruction: TAKE ONE TABLET BY MOUTH TWICE DAILY FOR hypertension Rx Instructions: TAKE ONE TABLET BY MOUTH TWICE DAILY FOR hypertension hydrochlorothiazide 12.5 mg tablet 12.5 mg PO DAILY Qty: 90 3RF aspirin 81 mg tablet,chewable 81 mg PO DAILY Qty: 30 11RF nitroglycerin 0.4 mg tablet, sublingual 0.4 mg SL Q5M PRN (Reason: chest pain) Qty: 25 0RF Rx Instructions: do not exceed 3 doses per episode ticagrelor 90 mg tablet 90 mg PO BID Qty: 60 11RF nicotine 21-14-7 mg/24 hr patch, TD daily, sequential 1 patch TD Q24H cetirizine 10 MG capsule 10 mg PO DAILY fluticasone propion-salmeterol [Advair Diskus] 250-50 mcg/dose blister with device 1 inh INHALATION BID Patient Comments: inhale 1 puff Twice a day for 30 days trazodone 50 mg tablet 50 mg PO HSP PRN (Reason: Sleep) Patient Comments: take 1 tablet by mouth once a day at bedtime as needed for 30 day(s) doxycycline monohydrate 100 mg capsule 100 mg PO BID 10 Days Qty: 20 0RF tramadol 100 mg tablet 100 mg PO Q8H PRN (Reason: pain) Qty: 7 0RF ondansetron 4 mg tablet,disintegrating 4 mg PO Q8H PRN (Reason: nausea
[2023-05-14 10:53] VITALS: BP 131/93; PULSE 89; RESP 16; TEMP 36.6
== END 2023-05-14 10:54 | disposition home or self-care (01) ==
PROVIDERS: Emergency Provider Emergency Medicine; PCP Emergency Medicine
DX: L02.211 Cutaneous abscess of abdominal wall (principal); E11.9 Type 2 diabetes mellitus without complications; F17.210 Nicotine dependence, cigarettes, uncomplicated; J44.9 Chronic obstructive pulmonary disease, unspecified; I25.10 Atherosclerotic heart disease of native coronary artery without angina pectoris; I11.9 Hypertensive heart disease without heart failure; E78.5 Hyperlipidemia, unspecified; Z79.84 Long term (current) use of oral hypoglycemic drugs
CPT/HCPCS: 10060

== ENCOUNTER 2023-05-16 13:53 | Inpatient (IN) | payer OTHER, SELFPAY ==
[2023-05-16] VITALS (11 sets, daily range): BP systolic 104–130; BP diastolic 53–98; PULSE 66–90; RESP 14–26; TEMP 36.8; O2SAT 94–100; BMI 32.4
--- NOTE | 2023-05-16 13:51 | ECG_ITS ---
APPROVED REPORT Exam: Resting ECG HR:93 bpm ECG Measurements Heart Rate 93 AXES MI 162 P 88 QRSd 106 QRS 84 QT 364 T 74 QTc 415 Conclusion SINUS RHYTHM NORMAL ECG UNCONFIRMED REPORT Electronically signed by : Scotty León MD 05/16/2023 20:17:44
--- NOTE | 2023-05-16 14:01 | XR_ITS ---
FINAL REPORT CLINICAL HISTORY: SOA, orthopnea COMPARISON: 03/30/2023 FINDINGS: Two views of the chest were obtained. The heart size and pulmonary vascularity are within normal limits. The mediastinum is normal. No acute pulmonary abnormality is identified. There is no pneumothorax. The bony thorax is intact. IMPRESSION: No active cardiopulmonary disease. Reviewed, Interpreted and Dictated by Kirby Gutierrez III, MD Transcribed by Josefa Roman Authenticated and [facility]
[2023-05-16 14:16] LABS: Chloride 101 mmol/L (98-107); Potassium 3.7 mmoL/L (3.5-5.1); Sodium 136 mmol/L (136-145)
[2023-05-16 14:19] LABS: Alanine Aminotransferase 41 U/L (12-78); Albumin Level 4.9 g/dl (3.5-5.0); Albumin/Globulin Ratio 1.5 (1.1-1.8); Alkaline Phosphatase 110 U/L (38-126); Anion Gap 11.7 mEq/L (5-15); Aspartate Amino Transferase 39 U/L (14-36); Bilirubin,Total 0.4 mg/dl (0.2-1.3); Blood Urea Nitrogen 19 mg/dl (7-17); Calcium 9.8 mg/dl (8.4-10.2); Carbon Dioxide 27 mmol/L (22.0-30.0); Creatinine Clearance Estimated 145 mL/min (50-200); Estimated Glomerular Filt Rate 104 ml/min (>60); GFR (African American) 126 ML/MIN (>60); Globulin 3.2 g/dL (1.3-3.2); Total Protein,Serum 8.1 g/dl (6.3-8.2)
[2023-05-16 14:21] LABS: Glucose 416 mg/dl (74-100)
[2023-05-16 14:32] LABS: Troponin I 0.04 ng/ml (0.00-0.034)
[2023-05-16 14:36] LABS: Basophils % 0.6 % (0.1-2.0); Eosinophils # 0.2 K/mm3 (0.0-0.4); Eosinophils % 2.2 % (0.1-12.0); Hematocrit 47.5 % (37.0-47.0); Hemoglobin 16.2 g/dL (12.2-16.2); Lymphocytes # 3.1 K/mm3 (0.7-4.5); Mean Corpuscular HGB Conc 34.1 g/dL (31.8-35.4); Mean Corpuscular Hemoglobin 32.3 pg (27.0-31.2); Mean Corpuscular Volume 94.8 fl (81-99); Mean Platelet Volume 10.7 fl (7.4-10.4); Monocytes # 0.4 K/mm3 (0.1-1.0); Monocytes % 5.2 % (1.7-9.3); Neutrophils # 3.5 K/mm3 (1.8-7.8); Neutrophils % 49.1 % (37.0-80.0); Platelet Count 226 K/mm3 (142-424); Red Blood Count 5.01 M/mm3 (4.20-5.40); Red Cell Distribution Width 13.1 % (11.5-17.5); White Blood Count 7.1 K/mm3 (4.8-10.8)
--- NOTE | 2023-05-16 14:58 | HMH.EDGENADL ---
Discharge Plan Disposition Patient Disposition: Admitted Chief Complaint: Chest Pain Prescriptions Prescriptions: No Action fenofibrate 160 mg tablet 160 mg PO DAILY montelukast 10 mg tablet 10 mg PO PM Patient Comments: TAKE ONE TABLET BY MOUTH ONCE DAILY gabapentin 400 mg capsule 400 mg PO TID Patient Comments: TAKE ONE CAPSULE BY MOUTH THREE TIMES DAILY quetiapine 50 mg tablet 50 mg PO HS glipizide 10 mg tablet 10 mg PO BID Patient Comments: TAKE ONE TABLET BY MOUTH TWICE DAILY duloxetine 60 mg capsule,delayed release(DR/EC) 60 mg PO DAILY aripiprazole 5 mg tablet 5 mg PO DAILY fluticasone propionate 50 mcg/actuation spray,suspension 1 spray NS DAILY Patient Comments: PLACE 1 spray in each nostril Nasally Once a day FOR 30 day(s) lisinopril 30 mg tablet 30 mg PO DAILY Patient Comments: TAKE ONE TABLET BY MOUTH ONCE DAILY buspirone 10 mg tablet 10 mg PO TID Patient Comments: take 1 tablet BY MOUTH THREE TIMES A DAY for ANXIETY omeprazole 40 mg capsule,delayed release(DR/EC) 40 mg PO DAILY Patient Comments: TAKE 1 capsule 30 minutes before morning meal Once a day cyanocobalamin (vitamin B-12) 1,000 mcg tablet 1,000 mcg PO DAILY Patient Comments: take 1 tablet Once a day for 30 days atorvastatin 40 mg tablet 40 mg PO DAILY Patient Comments: take 1 tablet at bedtime Once a day for 30 day(s) thiamine mononitrate (vit B1) 100 mg tablet 100 mg PO DAILY Patient Comments: TAKE ONE TABLET BY MOUTH ONCE DAILY sennosides-docusate sodium [Senna Plus] 8.6-50 mg tablet 1 tab-cap PO DAILY nicotine 21-14-7 mg/24 hr patch, TD daily, sequential 1 patch transdermal Q24H Qty: 56 0RF Rx Instructions: Start with the 21 mg Nicotine Patch for 14 Days 14 mg patch for 14 days 7 mg patch for 7 days lisinopril 40 mg tablet 40 mg PO DAILY Qty: 30 5RF escitalopram oxalate 10 mg tablet 10 mg PO DAILY ranolazine 500 mg tablet extended release 12 hr 500 mg PO BID Qty: 60 3RF bupropion HCl 150 mg tablet sustained-release 12 hr 150 mg PO DIRECTED Qty: 90 0RF isosorbide mononitrate 30 mg tablet extended release 24 hr 30 mg PO DAILY Qty: 30 2RF Ozempic 0.25 mg or 0.5 mg(2 mg/1.5 mL) pen injector See Rx Instructions .ROUTE .COMPLEX Qty: 1.5 1RF Dose Instruction: INJECT 0.25 mg (0.2 mL) subcutaneously weekly for 4 doses Rx Instructions: INJECT 0.25 mg (0.2 mL) subcutaneously weekly for 4 doses metoprolol succinate 100 mg tablet extended release 24 hr See Rx Instructions .ROUTE .COMPLEX Qty: 60 5RF Dose Instruction: TAKE ONE TABLET BY MOUTH TWICE DAILY FOR hypertension Rx Instructions: TAKE ONE TABLET BY MOUTH TWICE DAILY FOR hypertension hydrochlorothiazide 12.5 mg tablet 12.5 mg PO DAILY Qty: 90 3RF aspirin 81 mg tablet,chewable 81 mg PO DAILY Qty: 30 11RF nitroglycerin 0.4 mg tablet, sublingual 0.4 mg SL Q5M PRN (Reason: chest pain) Qty: 25 0RF Rx Instructions: do not exceed 3 doses per episode ticagrelor 90 mg tablet 90 mg PO BID Qty: 60 11RF nicotine 21-14-7 mg/24 hr patch, TD daily, sequential 1 patch TD Q24H cetirizine 10 MG capsule 10 mg PO DAILY fluticasone propion-salmeterol [Advair Diskus] 250-50 mcg/dose blister with device 1 inh INHALATION BID Patient Comments: inhale 1 puff Twice a day for 30 days trazodone 50 mg tablet 50 mg PO HSP PRN (Reason: Sleep) Patient Comments: take 1 tablet by mouth once a day at bedtime as needed for 30 day(s) doxycycline monohydrate 100 mg capsule 100 mg PO BID 10 Days Qty: 20 0RF tramadol 100 mg tablet 100 mg PO Q8H PRN (Reason: pain) Qty: 7 0RF ondansetron 4 mg tablet,disintegrating 4 mg PO Q8H PRN (Reason: nausea and vomiting) Qty: 7 0RF clindamycin HCl 300 mg caps
--- NOTE | 2023-05-16 15:09 | ECG_ITS ---
APPROVED REPORT Exam: Resting ECG HR:79 bpm ECG Measurements Heart Rate 79 AXES NM 173 P 84 QRSd 105 QRS 80 QT 395 T 79 QTc 429 Conclusion SINUS RHYTHM NORMAL ECG UNCONFIRMED REPORT Electronically signed by : Scotty León MD 05/16/2023 20:16:55
--- NOTE | 2023-05-16 15:11 | CT_ITS ---
FINAL REPORT CLINICAL HISTORY: chest pain, SOA, presyncope COMPARISON: 10/03/2022 FINDINGS: Thin section axial CT images of the chest were obtained with contrast. 3D reformatted images were also obtained. This study was performed with techniques to keep radiation doses as low as reasonably achievable (ALARA). Individualized dose reduction techniques using automated exposure control or adjustment of mA and/or kV according to the patient's size were employed. There is no evidence of pulmonary embolism. There is no evidence of thoracic aortic aneurysm or dissection. There is no evidence of mediastinal or hilar mass or adenopathy. There is a right middle lobe nodule that was seen on the prior CTA of September 2022, which on today's examination measures 5 mm in size and is best seen on image #54, stable. Multiple calcified granulomas are present bilaterally. No new masses or nodules are visualized. No localized inflammatory process is seen within the lungs. Limited images of the upper abdomen are unremarkable. IMPRESSION: No evidence of pulmonary embolism. Previously noted right middle lobe nodule seen on the prior CTA of the chest in September 2022 is stable. No new masses or nodules are identified. Reviewed, Interpreted and Dictated by Kirby Gutierrez III, MD Transcribed by Josefa Roman Authenticated and [facility]
--- NOTE | 2023-05-16 15:45 | PC.NURSE ---
Rounded on patient; call light within reach of patient. nothing needed at this time
[2023-05-16 15:50] LABS: NT Pro Brain Natriuretic Pep. < 20.0 pg/mL (0-125)
--- NOTE | 2023-05-16 16:40 | PC.NURSE ---
Rounded on patient and family member. Warm blankets provided to both patient and family. Call light within reach of patient
--- NOTE | 2023-05-16 18:00 | PC.NURSE ---
MD EULALIO lima PO. Called for a diabetic tray for patient and regular tray for support person.
--- NOTE | 2023-05-16 18:19 | PC.NURSE ---
pt ambulated up to bathroom , no diarrhea but did give a urine sample
[2023-05-16 18:21] LABS: Troponin I 0.06 ng/ml (0.00-0.034)
--- NOTE | 2023-05-16 18:30 | PC.NURSE ---
Dietary @ [facility] with ernesto for patient and support person.
--- NOTE | 2023-05-16 18:35 | PC.NURSE ---
Rounded on patient call light within reach of patient
--- NOTE | 2023-05-16 18:37 | PC.NURSE ---
called HS for admission, HS states he needs to call me back in a minute
--- NOTE | 2023-05-16 19:33 | PC.NURSE ---
Attempted to call reports. Carlos COSME will call back
--- NOTE | 2023-05-16 19:59 | PC.NURSE ---
Patient arrived to floor via wheelchair at 20:00.
[2023-05-16 20:41] LABS: POC Glucose,Bedside 384 (70-110)
[2023-05-16 21:29] LABS: Troponin I 0.21 ng/ml (0.00-0.034)
--- NOTE | 2023-05-16 21:36 | EXP.HP ---
History of Present Illness *Admission Date: 05/16/23 *Reason for visit:: NSTEMI *History of present illness: 53 year old female presented to the ED for c/o SOB. She states that she has had progressive SOB that is worse with laying flat and intermittent CP located in the center of her chest for the past three months. She states that the SOB was worse today and that is why she presented to the ED. PMHX of CAD, HTN, HLD, COPD, DM, gastritis, anxiety, obesity, and tobacco abuse. Her ED workup is reviewed by me and reveals elevated troponins 0.04-0.06-0.21. I reviewed her EKG and reveals sinus rhythm with T wave inversions in leads V1 and v2 and her chest xray reveals normal cardiac silhouette. She was given ASA in the ED. Her last cardiac cath was 09/28/22. The ED physician spoke with the hospitalist team for further medical management. I admitted the pt to the medical surgical floor. I placed a cardiac consult for the morning. Upon receiving her third troponin, I consulted Dr. Hall, who plans to take pt to the cardiac parking lot laborer in the morning. She will receive sub q heparin, her home ticagrelor, and aspirin. [facility] Disclaimer: The information contained in this section may have been updated after the patient was seen, as this information can be updated by other users. Medical History (Updated 05/17/23 @ 08:39 by ALMA DELIA Jerry) Asthma Bronchitis CAD (coronary artery disease) Chest pain COPD (chronic obstructive pulmonary disease) Diaphoresis DM2 (diabetes mellitus, type 2) Dyspnea Encounter for laboratory testing for COVID-19 virus Enlarged thyroid Exposure to COVID-19 virus HLD (hyperlipidemia) HTN (hypertension) Near syncope Non-ST elevation IA (NSTEMI) Pancreatitis Poorly controlled diabetes mellitus Sinusitis Typical angina Family History Other No significant family history Social History (Updated 05/16/23 @ 21:28 by Leonor Machuca RN) Smoking Status: Current every day smoker tobacco type: cigarettes packs per day: 1 alcohol intake: never current occupational status: unemployed Travel in the last 8 weeks: None household members: significant other and other housing: house Review of Systems *Cardiovascular Cardiovascular: Reports dyspnea *Respiratory Respiratory: Reports dyspnea *Gastrointestinal Gastrointestinal: Reports system reviewed and no additional complaints, except as documented *Genitourinary Genitourinary: Reports system reviewed and no additional complaints, except as documented *Musculoskeletal Musculoskeletal: Reports system reviewed and no additional complaints, except as documented *Neurologic Neurologic: Reports system reviewed and no additional complaints, except as documented Meds Home Medications and Allergies Home Medications Medication Instructions Recorded Confirmed Type gabapentin 400 mg capsule 400 mg PO TID Pain 02/19/22 05/16/23 History trazodone 50 mg tablet 50 mg PO HSP PRN Sleep 03/16/22 05/16/23 History nicotine 1 patch transdermal Q24H #56 10/11/22 05/16/23 Rx 21mg/24hr-14mg/24hr-7mg/24hr daily patches transderm patches,sequentl sennosides 8.6 mg-docusate sodium 1 tab-cap PO NEEDED PRN 10/11/22 05/16/23 History 50 mg tablet (Senna Plus) constipatin ranolazine 500 mg tablet,extended 500 mg PO BID #60 tabs 02/02/23 05/16/23 Rx release,12 hr aspirin 81 mg chewable tablet 81 mg PO DAILY DAPT #30 tabs 03/15/23 05/16/23 Rx nitroglycerin 0.4 mg sublingual 0.4 mg sublingual Q5M PRN chest 03/15/23 05/16/23 Rx tablet pain #25 tabs ticagrelor 90 mg tablet 90 mg PO BID DAPT #60 tabs 04/22/23 05/16/23 Rx atorvastatin 80 mg tablet 80 mg PO HS 05/17/23 05/17/23 History cetirizine 10 mg tablet 10 mg PO DAILY 05/17/23 05/17/23 History cyanocobalamin (vitamin B-12) 1,000 mcg PO DAILY 05/17/23 05/17/23 History 1,000 mcg tablet empagliflozin 10 mg tablet 10 mg PO DAILY 05/17/23 05/17/23 History (Jardiance)
[2023-05-16 22:51] LABS: Hemoglobin A1C 10.8 % (4.0-6.0)
[2023-05-17] VITALS (24 sets, daily range): BP systolic 93–144; BP diastolic 44–84; PULSE 70–91; RESP 16–24; TEMP 36.1–36.8; O2SAT 93–99
--- NOTE | 2023-05-17 | IR_ITS ---
APPROVED REPORT Patient Location: Inpatient PROCEDURES Left heart catheterization Left ventriculogram Selective coronary angiogram INDICATION Acute non-ST elevation myocardial infarction, Known coronary disease Informed consent was obtained prior to the procedure. COMPLICATIONS None Estimated Blood Loss: Less than 10 ml TECHNIQUE One percent lidocaine was used to anesthetize the right groin. The right femoral artery was accessed via the Seldinger technique. A 4-Australian sheath was placed in the right femoral artery. The JL-4 and JR-4 catheter was also used to perform left heart catheterization left ventriculogram and selective coronary angiogram. At the end of the procedure the patient was transferred to the post-op holding area in stable condition for arterial sheath removal. ANGIOGRAPHIC RESULTS The left main artery Has an ostial 10 to 20% stenosis The left anterior descending artery Has a stent in the proximal to mid segment which the proximal portion of the stent is patent with mild to moderate in-stent restenosis however the midportion has a focal concentric 90% stenosis followed by an additional concentric 70% stenosis. The remaining LAD is widely patent. First diagonal artery has a stent which originates off the LAD. The stent is widely patent and has excellent distal transitioning into a moderate-sized first diagonal artery The circumflex artery Is nondominant and has an ostial concentric 70% stenosis followed by an additional 60% concentric stenosis The right coronary artery Is a dominant vessel and has a stent in the ostial segment which has 30 to 40% mostly eccentric in-stent restenosis. There is additional 20 to 30% mid vessel stenoses with a stent in the distal portion which is widely patent with mild diffuse concentric in-stent restenosis The NEGRON ventriculogram reveals Reduced ejection fraction estimated at 40% with anterior wall hypokinesis The left ventricular end-diastolic pressure 20 mmHg IMPRESSION Severe two-vessel coronary disease as described above Reduced ejection fraction with regional wall motion abnormality Evaded LVEDP PLAN 1. Recommend surgical revascularization 2. Avoidance of tobacco products 3. LDL less than 55 to be achieved with high intensity statin 4. Transfer to [facility] for coronary bypass surgery Electronically signed by : Jordy Hall MD 05/17/2023 13:52:50
[2023-05-17 06:27] LABS: Chloride 104 mmol/L (98-107)
[2023-05-17 06:28] LABS: Potassium 4.1 mmoL/L (3.5-5.1); Sodium 136 mmol/L (136-145)
[2023-05-17 06:30] LABS: Alanine Aminotransferase 33 U/L (12-78); Alkaline Phosphatase 105 U/L (38-126); Anion Gap 10.1 mEq/L (5-15); Aspartate Amino Transferase 32 U/L (14-36); Bilirubin,Total 0.3 mg/dl (0.2-1.3); Blood Urea Nitrogen 15 mg/dl (7-17); Carbon Dioxide 26 mmol/L (22.0-30.0); Creatinine Clearance Estimated 164 mL/min (50-200); Estimated Glomerular Filt Rate 129 ml/min (>60); GFR (African American) 156 ML/MIN (>60)
[2023-05-17 06:31] LABS: Albumin Level 4.1 g/dl (3.5-5.0); Albumin/Globulin Ratio 1.5 (1.1-1.8); Calcium 9.1 mg/dl (8.4-10.2); Globulin 2.8 g/dL (1.3-3.2); Glucose 231 mg/dl (74-100); Total Protein,Serum 6.9 g/dl (6.3-8.2)
[2023-05-17 06:33] LABS: POC Glucose,Bedside 268 (70-110)
[2023-05-17 06:58] LABS: Basophils % 0.6 % (0.1-2.0); Eosinophils # 0.1 K/mm3 (0.0-0.4); Eosinophils % 2.1 % (0.1-12.0); Hematocrit 42.2 % (37.0-47.0); Lymphocytes % 49.4 % (10-50); Mean Corpuscular HGB Conc 34.2 g/dL (31.8-35.4); Mean Corpuscular Hemoglobin 31.7 pg (27.0-31.2); Mean Corpuscular Volume 92.5 fl (81-99); Mean Platelet Volume 10.3 fl (7.4-10.4); Monocytes # 0.4 K/mm3 (0.1-1.0); Monocytes % 5.9 % (1.7-9.3); Neutrophils # 2.5 K/mm3 (1.8-7.8); Platelet Count 166 K/mm3 (142-424); Red Blood Count 4.56 M/mm3 (4.20-5.40); Red Cell Distribution Width 13.1 % (11.5-17.5)
[2023-05-17 07:01] LABS: Hemoglobin 14.4 g/dL (12.2-16.2)
--- NOTE | 2023-05-17 08:21 | HMH.PHAINT1 ---
Pharmacy Intervention Comments: HOME MEDICATION LIST VERIFIED USING LIST FROM OUTPATIENT PHARMACY
--- NOTE | 2023-05-17 08:28 | EXP.CARD.CON ---
History of Present Illness History of Present Illness Consult date: 05/17/23 Requesting physician: Janes Rocha Consult reason: shortness of breath Chief complaint: SOA, fatigue, NSTEMI Additional Medical History:: 1. CAD A. [facility], 02/25/2022, ischemic response to adenosine involving angiographically moderate dominant RCA. Successful RICARDO to RCA. Persistent moderate stenosis in the LAD B. [facility], 03/16/2022, RICARDO to proximal to mid LAD with stents bifurcating off into the first large diagonal. RICARDO to ostial dominant RCA due to dissection. FFR index of 0.84 involving the large nondominant circumflex artery. C. [facility], 09/27/2022, 1 RICARDO to mid LAD, 2 RICARDO to ostial proximal mid circumflex. Normal left subclavian artery. Normal renal arteries bilaterally. D. Non-STEMI, 05/16/2023 2. Diabetes mellitus type 2 A. Hemoglobin A1c 10.8, 05/16/2023 3. COPD with continued tobacco use A. CTA of the chest, 05/16/2023, no evidence of PE. Right middle lobe nodule stable compared to CT of the chest September 2022. 4. Hyperlipidemia A. Statin therapy 5. Hypertension A. Echocardiogram, 02/24/2022, mild LAE, normal LV size, mild concentric LVH, EF 50% with no obvious regional wall motion abnormality, grade 1 DD, trace MR/TR 6. Thyroid nodule A. Thyroid ultrasound, 02/09/2023, hypoechoic 7 mm nodule along the posterior surface of the right mid thyroid gland. History of present illness: 53 year old female presented to the ED for c/o SOB. She states that she has had progressive SOB that is worse with laying flat and intermittent CP located in the center of her chest for the past three months. She states that the SOB was worse today and that is why she presented to the ED. PMHX of CAD, HTN, HLD, COPD, DM, gastritis, anxiety, obesity, and tobacco abuse. Her ED workup is reviewed by me and reveals elevated troponins 0.04-0.06-0.21. I reviewed her EKG and reveals sinus rhythm with T wave inversions in leads V1 and v2 and her chest xray reveals normal cardiac silhouette. She was given ASA in the ED. Her last cardiac cath was 09/28/22. The ED physician spoke with the hospitalist team for further medical management. I admitted the pt to the medical surgical floor. I placed a cardiac consult for the morning. Upon receiving her third troponin, I consulted Dr. Hall, who plans to take pt to the cardiac lab tester in the morning. She will receive sub q heparin, her home ticagrelor, and aspirin. The above per OZZY [place] Above events confirmed with the patient. Symptoms are reminiscent to those that she had prior to stenting earlier this year. She does continue to smoke and her diabetes is poorly controlled with recent hemoglobin A1c of 10.8. Explained recommendation of proceeding with repeat cardiac catheterization today, risk, benefits and procedure explained that she agrees to proceed [facility] Disclaimer: The information contained in this section may have been updated after the patient was seen, as this information can be updated by other users. Medical History (Updated 05/17/23 @ 08:39 by ALMA DELIA Jerry) Asthma Bronchitis CAD (coronary artery disease) Chest pain COPD (chronic obstructive pulmonary disease) Diaphoresis DM2 (diabetes mellitus, type 2) Dyspnea Encounter for laboratory testing for COVID-19 virus Enlarged thyroid Exposure to COVID-19 virus HLD (hyperlipidemia) HTN (hypertension) Near syncope Non-ST elevation DC (NSTEMI) Pancreatitis Poorly controlled diabetes mellitus Sinusitis Typical angina Family History Other No significant family history Social History (Updated 05/16/23 @ 21:28 by Leonor Machuca RN) Smoking Status: Current every day smoker tobacco type: cigarettes packs per day: 1 alcohol intake: never current occupational status: unemployed Travel in the last 8 weeks: None household members: significant other and other housing: house Review of Systems Re
--- NOTE | 2023-05-17 08:34 | CA_ITS ---
APPROVED REPORT EXAM: Comprehensive 2D, Doppler, and color-flow Echocardiogram Relations Specialist: Taty López RT(R) Ht: 5 ft 4 in Wt: 188lbs BSA: 1.91 BP: 94/56 mmHg Indications: NSTEMI, CAD, hx stents, CP, COPD, smoker, DM, HTN, SOB, hyperlipidemia 2D Dimensions LVOT 2.06 cm (M/F) 1.5-2.5 LVEF (Snog's) 31.80 % F: 54 - 74 LV Volume 116.90 mL F: 46 - 106 LV Volume Index 61.20 mL/m2 F: 29 - 61 LA Volume 14.80 mL LA Volume Index 7.75 mL/m2 (M/F) 16-34 M-Mode Dimensions RVDd 2.53 cm (0.9-2.6) LA Diam 2.73 cm (1.9-4.0) LVDd 5.15 cm (3.5-5.7) Ao Diam 2.82 cm (2.0-3.7) LVDs 4.14 cm (3.5-5.7) IVSd 0.76 cm (0.6-1.1) PWd 0.76 cm (0.6-1.1) EF (Teich) 40.00% FS 19.60% EDV (Teich) 126.60 mL ESV (Teich) 75.90 mL LV Diastology E Decel Time 247.00 (160-240 msec) E/A Ratio 0.7 MED E' 6.30 (< 7 cm/sec) E'/MED E' Ratio 8.22 (>14) LAT E' 6.40 (<10 cm/sec) E/LAT E' Ratio 8.09 (>14) Mitral Valve MV E Max Lalo. 52.00 (40-130 cm/s) MV A Velocity 76.00 (40-130 cm/s) E/A Ratio 0.68 MV Decel. Time 247.00 (160-240 ms) MV PHT 72.00 ms Left Ventricle The left ventricle is normal size. Left ventricular systolic function is moderate to severely decreased. There is increased left ventricular wall thickness. There is near-akinesis of the septal and anteroseptal LV harrison. Grade 1 diastolic dysfunction is present. LVEF is 30%. Right Ventricle The right ventricle is normal size. Right ventricle is mildly hypokinetic. Atria The left atrium size is normal. The right atrium size is normal. There is no Doppler evidence of interatrial shunt. Aortic Valve The aortic valve opens well. There is no aortic valvular stenosis. No aortic regurgitation is present. Mitral Valve The mitral valve is normal in structure. No evidence of mitral valve stenosis. Trace mitral regurgitation. Tricuspid Valve The tricuspid valve leaflets are thin and pliable. Trace tricuspid regurgitation. There is insufficient TR jet to estimate RVSP. Pulmonic Valve The pulmonary valve is normal in structure. Trace pulmonic regurgitation. Great Vessels The aortic root is normal in size. The ascending aorta is normal in size. IVC is normal in size and collapses >50% with inspiration. Pericardium There is no pericardial effusion. Other Information Study Quality: Technically Difficult Conclusion This is a technically difficult study due to poor acoustic windows. Moderate to severe reduction in LV systolic function (LVEF 30%). Near-akinesis of the septal and anteroseptal LV harrison. Mild reduction in RV systolic function. No significant valvular stenosis or regurgitation. Electronically signed by : Ju Saeed MD 05/17/2023 11:33:21
[2023-05-17 08:51] LABS: Chol/HDL Ratio 3.5 (1-3.5); Cholesterol 102 mg/dl (140-200); HDL Cholesterol 29 mg/dl (40-60); Triglycerides 234 mg/dl (30-150); VLDL Cholesterol 47 mg/dL (0-40)
[2023-05-17 09:02] LABS: Direct LDL Cholesterol 51.42 mg/dL (100-129)
[2023-05-17 12:11] LABS: POC Glucose,Bedside 197 (70-110)
--- NOTE | 2023-05-17 16:23 | PC.NURSE ---
pt can stand at 1715. per cardiology, [facility]. pts vss,
--- NOTE | 2023-05-17 16:50 | PC.NURSE ---
pt used bedpan. pt ref v/s at this time. pt states the bp cuff must of fell off. its too tight, i just want to take a nap . pt also requesting to remove iv. educated pt on the need for the iv and frequent v/s post cath, pt cont to ref stating pt wants to nap. vss. dsg cdi to rt groin.
[2023-05-17 17:05] LABS: POC Glucose,Bedside 407 (70-110)
[2023-05-17 19:46] LABS: POC Glucose,Bedside 263 (70-110)
--- NOTE | 2023-05-17 23:13 | EXP.PN ---
Subjective *Date: 05/18/23 *Time: 07:58 Interval history: Patient was seen and evaluated at the bedside. denies chest pain, shortness of breath, nausea, vomiting, abdominal pain. Patient does not have any complaints at this time. feels better overall, waiting for cardiac cath Exam Data for Last 24 hours Vital signs and Labs for Last 24 Hours: Temp Pulse Resp BP Pulse Ox O2 Del Method 97.8 F 80 16 117/58 L 95 Room Air 05/17/23 20:25 05/17/23 21:25 05/17/23 21:25 05/17/23 21:25 05/17/23 21:25 05/17/23 21:25 Laboratory Results - last 24 hr 05/17/23 06:00: WBC 6.0, RBC 4.56, Hgb 14.4 D, Hct 42.2, MCV 92.5, MCH 31.7 H, MCHC 34.2, RDW 13.1, Plt Count 166 D, MPV 10.3, Neut % (Auto) 42.0, Lymph % (Auto) 49.4, [place] % (Auto) 5.9, Eos % (Auto) 2.1, Baso % (Auto) 0.6, Neut # (Auto) 2.5, Lymph # (Auto) 3.0, [place] # (Auto) 0.4, Eos # (Auto) 0.1, Baso # (Auto) 0.0, Sodium 136, Potassium 4.1, Chloride 104, Carbon Dioxide 26, Anion Gap 10.1, BUN 15, Creatinine 0.50 L, Estimated Creat Clear 164, Estimated GFR 129, Est GFR ( Amer) 156 D, Glucose 231 H D, Calcium 9.1, Magnesium 2.0, Total Bilirubin 0.3, AST 32, ALT 33, Alkaline Phosphatase 105, Troponin I 0.30 H, Total Protein 6.9, Albumin 4.1 D, Globulin 2.8, Albumin/Globulin Ratio 1.5, Triglycerides 234 H, Cholesterol 102 L, LDL Cholesterol Direct 51.42 L, VLDL Cholesterol 47 H, HDL Cholesterol 29 L, Cholesterol/HDL Ratio 3.5 05/17/23 06:26: POC Glucose 268 H 05/17/23 11:57: POC Glucose 197 H 05/17/23 16:40: POC Glucose 407 H* 05/17/23 19:39: POC Glucose 263 H I & O for Last 24 hours: Intake & Output 05/14/23 05/15/23 05/16/23 05/17/23 23:59 23:59 23:59 23:59 Intake Total 420 / 420 Output Total Balance 417 / 417 Weight 1.63 kg 80.91 kg Constitutional Constitutional: no acute distress *Routine HEENT Exam Head: Present normocephalic Eye: Present EOMI and PERRL ENT: Present mucous membranes moist *Routine Neck Exam Neck: Present supple; Absent lymphadenopathy *Routine Respiratory Exam Respiratory: Present CTA bilaterally *Routine Cardiovascular Exam Cardiovascular: Present RRR *Routine Abdominal Exam Abdominal: Present soft and normoactive bowel sounds; Absent tenderness *Routine Extremities Exam Extremities: Absent cyanosis, clubbing or edema *Routine Skin Exam Skin: Present warm; Absent rash *Routine Neurological Exam Neurological: Present alert and oriented X3 Assessment and Plan *Assessment and plan (1) Non-ST elevation [place] (NSTEMI): Status: Acute Category: Medical Code(s): I21.4 - Non-ST elevation (NSTEMI) myocardial infarction (2) Chest pain: Status: Acute Category: Medical Code(s): R07.9 - Chest pain, unspecified (3) Angina at rest: Status: Acute Category: Medical Code(s): I20.8 - Other forms of angina pectoris (4) Tobacco use: Status: Acute Category: Social Hx Code(s): Z72.0 - Tobacco use (5) Obesity (BMI 30-39.9): Status: Acute Category: Medical Code(s): E66.9 - Obesity, unspecified Plan Patient is a 33-year-old female who presented to hospital for shortness of breath. Patient has past medical history of CAD hypertension hyperlipidemia COPD, diabetes mellitus, tobacco use. Assessment Shortness of breath NSTEMI CAD COPD Diabetes mellitus Tobacco abuse Obesity Plan Plan for cardiac cath per cardiology Sliding scale Nicotine patch Aspirin, statin, Coreg HCTZ, Ranexa, Brilinta DVT prophylaxis-heparin Follow-up on cardiology recommendations postcardiac
--- NOTE | 2023-05-17 23:33 | PC.NURSE ---
PATIENT WOULD NOT KEEP BP AND OXIMETER ON. REMOVED FREQUENTLY. FROM 5PM TO 2200 EVERY 15-30 MINS PATIENT CALLED OUT TO SEE IF [facility] CALLED WITH AVAILABLE BED. WAS TOLD REPEATEDLY THAT HAS NOT CALLED AND SHE WOULD BE THE FIRST TO KNOW IF [facility] CALLED. PATIENT SAID SHE HAD THINGS TO DO AND BILLS TO PAY ETC....
[2023-05-18] VITALS (7 sets, daily range): BP systolic 96–151; BP diastolic 62–95; PULSE 64–96; RESP 18; TEMP 36.4–37; O2SAT 92–98; BMI 25.8
--- NOTE | 2023-05-18 02:45 | PC.NURSE ---
NPO AFTER MN
--- NOTE | 2023-05-18 03:39 | PC.NURSE ---
CONTINUES TO CALL OUT FREQUENTLY ABOUT [facility] BED AVAILABILITY. VSS/AFEBRILE. DRSG C/D/I TO R GROIN. NO CIRCULATION DEFICITS DETECTED. NPO INSTRUCTED.
[2023-05-18 05:01] LABS: POC Glucose,Bedside 294 (70-110)
--- NOTE | 2023-05-18 10:53 | EXP.CARD.PN ---
Subjective Subjective Date: 05/18/23 Time: 10:54 Principal diagnosis: CAD Interval history: 53-year-old white female in bed in no acute distress. She is anxious about going for CABG. Multiple questions answered by myself and Dr. Saeed. Exam Data for Last 24 hours Vital signs and Labs for Last 24 Hours: Temp Pulse Resp BP Pulse Ox O2 Del Method 97.5 F L 80 18 121/72 97 Room Air 05/18/23 07:41 05/18/23 08:00 05/18/23 07:41 05/18/23 07:41 05/18/23 07:41 05/18/23 08:00 Laboratory Results - last 24 hr 05/17/23 11:57: POC Glucose 197 H 05/17/23 16:40: POC Glucose 407 H* 05/17/23 19:39: POC Glucose 263 H 05/18/23 04:50: POC Glucose 294 H I & O for Last 24 hours: Intake & Output 05/15/23 05/16/23 05/17/23 05/18/23 11:59 11:59 11:59 11:59 Intake Total 870 / 870 Output Total 0 / 0 3 / 3 Balance 0 / 0 867 / 867 Weight 178 lb 6 oz 180 lb 8.655 oz Constitutional Constitutional: no acute distress *Routine Respiratory Exam Respiratory: Present CTA bilaterally *Routine Cardiovascular Exam Cardiovascular: Present RRR Progress Note: A&P Assessment and plan (1) Non-ST elevation OR (NSTEMI): Status: Acute (2) Chest pain: Status: Acute (3) Angina at rest: Status: Acute (4) Tobacco use: Status: Acute (5) Obesity (BMI 30-39.9): Status: Acute Assessment and Plan Assessment and Plan for All Diagnoses:: 1. Non-STEMI Left heart catheterization showed severe two-vessel CAD with recommendation for CABG continue aspirin, ranolazine, coreg and isosorbide Stop brilinta 2. Diabetes mellitus, poorly controlled Patient is on Jardiance Management per Dr. Garza 3. Hyperlipidemia LDL 51 Continue atorvastatin 4. Hypertension Meds switched to Coreg and Entresto Echo this admission shows EF 30% with near akinesis of the septal and anteroseptal LV harrison. 5. Tobacco use Continue nicotine patch 6. New onset cardiomyopathy, ischemic Medications changed to carvedilol, Entresto with addition of Aldactone. Will use Lasix as needed but clinically not in CHF. Chest x-ray negative for acute cardiopulmonary disease. CTA of the chest negative for PE 7. CAD RICARDO to RCA and LAD, 02/2022 RICARDO to mid LAD, 09/2022 Awaiting transfer to [facility] for CABG
[2023-05-18 11:47] LABS: POC Glucose,Bedside 501 (70-110)
[2023-05-18 12:02] LABS: Glucose,Random 389 mg/dL (74-100)
--- NOTE | 2023-05-18 14:25 | DIET.NUTRFU ---
RD visited patient today to review therapeutic diet, she requested handouts for cardiac and diabetic and seemed receptive when reviewed them. 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 For dinner she did request tossed salad/fresh fruit and RD had to encourage her to eat protein. Provided contact information for any followup questions.
--- NOTE | 2023-05-18 15:00 | PC.NURSE ---
CALLED [facility] FOR AN UPDATE ON PTS BED. PER [facility], THE PTS BED SHOULD BE READY WITHIN THE NEXT FEW HRS.
--- NOTE | 2023-05-18 17:07 | PC.NURSE ---
Addendum entered by Kathy Gerardo RN 05/18/23 18:11: atempted to give report again to [facility], [facility] unable to take report at this time. Original Note: called [facility] to give report. unable to take report at this time. left this nurses number and ext for call back.
[2023-05-18 17:10] LABS: POC Glucose,Bedside 287 (70-110)
--- NOTE | 2023-05-18 18:36 | EXP.DC.SUM ---
General Admission date:: 05/16/23 Discharge date: 05/18/23 HPI HPI HPI: 53 year old female presented to the ED for c/o SOB. She states that she has had progressive SOB that is worse with laying flat and intermittent CP located in the center of her chest for the past three months. She states that the SOB was worse today and that is why she presented to the ED. PMHX of CAD, HTN, HLD, COPD, DM, gastritis, anxiety, obesity, and tobacco abuse. Her ED workup is reviewed by me and reveals elevated troponins 0.04-0.06-0.21. I reviewed her EKG and reveals sinus rhythm with T wave inversions in leads V1 and v2 and her chest xray reveals normal cardiac silhouette. She was given ASA in the ED. Her last cardiac cath was 09/28/22. The ED physician spoke with the hospitalist team for further medical management. I admitted the pt to the medical surgical floor. I placed a cardiac consult for the morning. Upon receiving her third troponin, I consulted Dr. Hall, who plans to take pt to the cardiac geotechnical laboratory technician in the morning. She will receive sub q heparin, her home ticagrelor, and aspirin. Hospital Course Hospital Course Hospital Course: Patient was seen and evaluated at the bedside on the day of discharge. Patient is stable for discharge. Patient wishes to be discharged. All patient questions were answered and patient was given time to ask questions. Patient was discharged in stable condition. patient had cardiac cath, patient was noticed to have severe CAD, was recommended to transfer to [facility], patient is stable for discharge, patient agreed with the transfer process Exam Data for Last 24 hours Vital signs and Labs for Last 24 Hours: Temp Pulse Resp BP Pulse Ox O2 Del Method 97.8 F 90 18 151/95 H 97 Room Air 05/18/23 15:13 05/18/23 16:00 05/18/23 15:13 05/18/23 15:13 05/18/23 15:13 05/18/23 18:13 Laboratory Results - last 24 hr 05/17/23 19:39: POC Glucose 263 H 05/18/23 04:50: POC Glucose 294 H 05/18/23 11:27: POC Glucose 501 H* 05/18/23 11:30: Random Glucose 389 H 05/18/23 17:00: POC Glucose 287 H I & O for Last 24 hours: Intake & Output 05/15/23 05/16/23 05/17/23 05/18/23 23:59 23:59 23:59 23:59 Intake Total 420 / 870 1050 / 1050 Output Total 0 / 0 Balance 417 / 867 1050 / 1050 Weight 1.63 kg 80.91 kg 81.89 kg Constitutional Constitutional: no acute distress *Routine HEENT Exam Head: Present normocephalic Eye: Present EOMI and PERRL ENT: Present mucous membranes moist *Routine Neck Exam Neck: Present supple; Absent lymphadenopathy *Routine Respiratory Exam Respiratory: Present CTA bilaterally *Routine Cardiovascular Exam Cardiovascular: Present RRR *Routine Abdominal Exam Abdominal: Present soft and normoactive bowel sounds; Absent tenderness *Routine Extremities Exam Extremities: Absent cyanosis, clubbing or edema *Routine Skin Exam Skin: Present warm; Absent rash *Routine Neurological Exam Neurological: Present alert and oriented X3 Results Data Completed and Pending Labs on day of discharge: Labs from last 24 hours 05/18/23 05/18/23 05/18/23 17:00 11:30 11:27 POC Glucose 287 H 501 H* Random Glucose 389 H 05/18/23 05/17/23 04:50 19:39 POC Glucose 294 H 263 H Random Glucose DS: Diagnosis Discharge Diagnosis (1) Non-ST elevation RI (NSTEMI): Status: Acute Code(s): I21.4 - Non-ST elevation (NSTEMI) myocardial infarction (2) Elevated troponin: Status: Acute Code(s): R79.89 - Other specified abnormal findings of blood chemistry (3) DM2 (diabetes mellitus, type 2): Status: Chronic Code(s): E11.9 - Type 2 diabetes mellitus without complications Qualifiers: 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
--- NOTE | 2023-05-18 18:46 | PC.NURSE ---
gave report to adela at . ems notified for transport.
--- NOTE | 2023-05-18 19:16 | PC.NURSE ---
pt discharged off floor @19:13 via EMS
== END 2023-05-18 19:14 | disposition short-term general hospital (02) | DRG 281 ==
LOC: ER 18:34 → 2ND 19:35
PROVIDERS: Internal Medicine; Nurse Practitioner Critical Care Medicine; Physician Assistant; Admitting Provider Internal Medicine Adolescent Medicine; Emergency Provider Emergency Medicine; Visit Provider Internal Medicine Adolescent Medicine
PROC: 4A023N7 Measurement of Cardiac Sampling and Pressure, Left Heart, Percutaneous Approach (ICD-10-PCS; principal; 2023-05-17 12:30)
DX: I21.4 Non-ST elevation (NSTEMI) myocardial infarction (principal); T82.855A Stenosis of coronary artery stent, initial encounter; I25.10 Atherosclerotic heart disease of native coronary artery without angina pectoris; E11.65 Type 2 diabetes mellitus with hyperglycemia; I10 Essential (primary) hypertension; E78.5 Hyperlipidemia, unspecified; J44.9 Chronic obstructive pulmonary disease, unspecified; Z95.5 Presence of coronary angioplasty implant and graft; R07.9 Chest pain, unspecified; G89.29 Other chronic pain; Z79.84 Long term (current) use of oral hypoglycemic drugs; F17.210 Nicotine dependence, cigarettes, uncomplicated; F41.9 Anxiety disorder, unspecified; E66.9 Obesity, unspecified; Z68.26 Body mass index [BMI] 26.0-26.9, adult; Y83.1 Surgical operation with implant of artificial internal device as the cause of abnormal reaction of the patient, or of later complication, without mention of misadventure at the time of the procedure; Z79.899 Other long term (current) drug therapy
CPT/HCPCS: 36415; 71046; 71275; 80053; 80061; 82947; 82962; 83036; 83735; 83880; 84484; 85025; 93005; 93306; 93458; 99152; 99291; C1725; C1769; J1644; Q9967

== ENCOUNTER 2023-06-03 01:09 | Emergency (ER) | payer OTHER, SELFPAY ==
--- NOTE | 2023-06-03 01:23 | XR_ITS ---
PROCEDURE INFORMATION: Exam: XR Chest Exam date and time: 06/03/2023 1:23 AM Age: 53 years old Clinical indication: Pain; Left-sided; Prior surgery; Surgery date: <1 month; Surgery type: Cabg May 18; Additional info: Postop wound check, recent cabg, pain TECHNIQUE: Imaging protocol: Radiologic exam of the chest. Views: 2 views. COMPARISON: CT ANGIO CHEST PE PROTOCOL 05/16/2023 3:51 PM FINDINGS: Lungs: No evidence of acute pulmonary disease or infiltrates; lung pop appear clear. Pleural spaces: No evidence of pleural effusion, pneumothorax, or pleural thickening in the visualized pleural spaces. Heart/Mediastinum: There are surgical clips in the region of the mediastinum. Bones/joints: The patient is status post median sternotomy. Other findings: Eight no IMPRESSION: No dense parenchymal consolidation, pleural effusion, or pneumothorax.
[2023-06-03 01:25] VITALS: RESP 18; TEMP 37; O2SAT 97; BMI 32.4
--- NOTE | 2023-06-03 01:25 | HMH.EDGENADL ---
Discharge Plan Disposition Patient Disposition: Home, Self-Care Condition: Good Prescriptions Prescriptions: No Action gabapentin 400 mg capsule 400 mg PO TID Patient Comments: TAKE ONE CAPSULE BY MOUTH THREE TIMES DAILY sennosides-docusate sodium [Senna Plus] 8.6-50 mg tablet 1 tab-cap PO NEEDED PRN (Reason: constipatin) nicotine 21-14-7 mg/24 hr patch, TD daily, sequential 1 patch transdermal Q24H Qty: 56 0RF Rx Instructions: Start with the 21 mg Nicotine Patch for 14 Days 14 mg patch for 14 days 7 mg patch for 7 days ranolazine 500 mg tablet extended release 12 hr 500 mg PO BID Qty: 60 3RF aspirin 81 mg tablet,chewable 81 mg PO DAILY Qty: 30 11RF nitroglycerin 0.4 mg tablet, sublingual 0.4 mg SL Q5M PRN (Reason: chest pain) Qty: 25 0RF Rx Instructions: do not exceed 3 doses per episode ticagrelor 90 mg tablet 90 mg PO BID Qty: 60 11RF trazodone 50 mg tablet 50 mg PO HSP PRN (Reason: Sleep) Patient Comments: take 1 tablet by mouth once a day at bedtime as needed for 30 day(s) furosemide 40 mg tablet 40 mg PO DAILY acetaminophen 325 mg tablet 325 mg PO Q6 PRN (Reason: Pain (Scale Score 1-3)) hydrocodone-acetaminophen 5-325 mg tablet 1 tab PO Q6 PRN (Reason: Pain (Scale Score 4-6)) omeprazole 40 mg capsule,delayed release(DR/EC) 40 mg PO DAILY Patient Comments: TAKE 1 capsule 30 minutes before morning meal Once a day buspirone 10 mg tablet 10 mg PO DAILY insulin lispro 100 unit/mL insulin pen See Protocol SQ ACHS Protocol: Insulin Corrective Med-Dose Regimen Condition: Fingerstick Blood Glucose Dose/Route: Insulin Units Condition: 151-200 mg/dl Dose/Route: 2 units/SQ Condition: 201-250 mg/dl Dose/Route: 5 units/SQ Condition: 251-300 mg/dl Dose/Route: 8 units/SQ Condition: 301-350 mg/dl Dose/Route: 10 units/SQ Condition: 351-400 mg/dl Dose/Route: 12 units/SQ Condition: 401-450 mg/dl Dose/Route: 15 units/SQ Condition: > 450 mg/dl Dose/Route: CALL MD Protocol Text: Medium Intensity Sliding Scale Insulin tiotropium bromide [Spiriva with HandiHaler] 18 mcg capsule, w/inhalation device 18 mcg INHALATION POSTTR duloxetine 60 mg capsule,delayed release(DR/EC) 60 mg PO DAILY fenofibrate nanocrystallized 48 mg tablet 48 mg PO DAILY insulin glargine [Lantus Solostar U-100 Insulin] 100 unit/mL (3 mL) insulin pen See Rx Instructions .ROUTE .COMPLEX Rx Instructions: unknown Dulera 200-5 mcg/actuation HFA aerosol inhaler 1 puff INHALATION DAILY Brilinta 90 mg tablet 90 mg PO BID Patient Comments: take 1 tablet (90 MG) orally twice a day for DAPT guaifenesin [Mucus Relief ER] 600 mg tablet extended release 12hr 600 mg PO DAILY fluticasone propion-salmeterol [Advair Diskus] 250-50 mcg/dose blister with device 1 inh INHALATION BID atorvastatin 80 mg tablet 80 mg PO HS Patient Comments: Take 1 tablet every day by oral route. cetirizine 10 mg tablet 10 mg PO DAILY glipizide 10 mg tablet 10 mg PO BID cyanocobalamin (vitamin B-12) 1,000 mcg tablet 1,000 mcg PO DAILY olanzapine 10 mg tablet 10 mg PO HS omeprazole 40 mg capsule,delayed release(DR/EC) 40 mg PO DAILY lamotrigine 25 mg tablet 50 mg PO HS Patient Comments: Take two (2) tablets by mouth at bedtime fluoxetine 10 mg capsule 10 mg PO DAILY lisinopril-hydrochlorothiazide 20-25 mg tablet 1 tab PO DAILY Patient Comments: Take 1 tablet every day by oral route. Jardiance 10 mg tablet 10 mg PO DAILY Patient Comments: Take 1 tablet every day by oral route. Ozempic 2 mg/dose (8 mg/3 mL) pen injector 0.25 mg SQ WEEKLY metoprolol succinate 100 mg Tablet Extended Release 24 Hr 100 mg PO DAILY Qty: 3 0RF spironolactone 25 mg Tablet 25 mg PO
[2023-06-03 01:30] VITALS: BP 119/100; PULSE 96; RESP 18; TEMP 37; O2SAT 97
[2023-06-03 01:39] LABS: Basophils % 0.8 % (0.1-2.0); Eosinophils # 0.1 K/mm3 (0.0-0.4); Eosinophils % 2.4 % (0.1-12.0); Hematocrit 36.7 % (37.0-47.0); Hemoglobin 12.7 g/dL (12.2-16.2); Lymphocytes # 1.6 K/mm3 (0.7-4.5); Lymphocytes % 31.6 % (10-50); Mean Corpuscular HGB Conc 34.7 g/dL (31.8-35.4); Mean Corpuscular Volume 92.3 fl (81-99); Mean Platelet Volume 8.9 fl (7.4-10.4); Monocytes # 0.4 K/mm3 (0.1-1.0); Monocytes % 7.7 % (1.7-9.3); Neutrophils # 2.9 K/mm3 (1.8-7.8); Neutrophils % 57.5 % (37.0-80.0); Platelet Count 362 K/mm3 (142-424); Red Blood Count 3.98 M/mm3 (4.20-5.40); Red Cell Distribution Width 13.7 % (11.5-17.5)
[2023-06-03 01:40] LABS: Chloride 95 mmol/L (98-107); Potassium 3.4 mmoL/L (3.5-5.1); Sodium 131 mmol/L (136-145)
[2023-06-03 01:42] LABS: Blood Urea Nitrogen 17 mg/dl (7-17); Creatinine Clearance Estimated 174 mL/min (50-200); Estimated Glomerular Filt Rate 129 ml/min (>60); GFR (African American) 156 ML/MIN (>60)
[2023-06-03 01:43] LABS: Alanine Aminotransferase 35 U/L (12-78); Albumin Level 4.3 g/dl (3.5-5.0); Albumin/Globulin Ratio 1.2 (1.1-1.8); Alkaline Phosphatase 104 U/L (38-126); Anion Gap 12.4 mEq/L (5-15); Aspartate Amino Transferase 39 U/L (14-36); Bilirubin,Total 0.5 mg/dl (0.2-1.3); Calcium 9.3 mg/dl (8.4-10.2); Carbon Dioxide 27 mmol/L (22.0-30.0); Globulin 3.5 g/dL (1.3-3.2); Glucose 165 mg/dl (74-100); Total Protein,Serum 7.8 g/dl (6.3-8.2)
[2023-06-03 01:55] LABS: C-Reactive Protein 29.6 mg/L (0-4)
--- NOTE | 2023-06-03 02:13 | PC.NURSE ---
assisted to bathroom
[2023-06-03 02:24] LABS: Procalcitonin 0.156 ng/mL (0.0-2.0)
[2023-06-03 02:48] VITALS: BP 111/91; PULSE 78; RESP 18; TEMP 37
== END 2023-06-03 02:55 | disposition home or self-care (01) ==
PROVIDERS: Emergency Provider Emergency Medicine; PCP Emergency Medicine
DX: T81.30XA Disruption of wound, unspecified, initial encounter (principal); E87.1 Hypo-osmolality and hyponatremia; E87.6 Hypokalemia; I25.119 Atherosclerotic heart disease of native coronary artery with unspecified angina pectoris; E78.5 Hyperlipidemia, unspecified; E11.9 Type 2 diabetes mellitus without complications; J44.9 Chronic obstructive pulmonary disease, unspecified; Z48.812 Encounter for surgical aftercare following surgery on the circulatory system; Z79.4 Long term (current) use of insulin; Z95.5 Presence of coronary angioplasty implant and graft; Z87.891 Personal history of nicotine dependence
CPT/HCPCS: 71046; 80053; 84145; 85025; 86140; 99283

== ENCOUNTER 2023-06-10 09:45 | Emergency (ER) | payer OTHER, SELFPAY ==
--- NOTE | 2023-06-10 | ECG_ITS ---
APPROVED REPORT Exam: Resting ECG HR:107 bpm ECG Measurements Heart Rate 107 AXES IA 128 P 83 QRSd 105 QRS 87 QT 355 T 90 QTc 418 Conclusion SINUS TACHYCARDIA WITH OCCASIONAL VENTRICULAR PREMATURE COMPLEXES ST DEVIATION AND MODERATE T-WAVE ABNORMALITY, CONSIDER INFERIOR ISCHEMIA [-0.1+ mV T-WAVE IN II/aVF] ABNORMAL ECG UNCONFIRMED REPORT Electronically signed by : Scotty León MD 06/11/2023 12:41:06
[2023-06-10 09:46] VITALS: BP 165/101; PULSE 111; RESP 18; TEMP 36.6; O2SAT 98; BMI 34.0
[2023-06-10 09:51] VITALS: PULSE 111
--- NOTE | 2023-06-10 09:51 | XR_ITS ---
FINAL REPORT CLINICAL HISTORY: recent cardiac surgery concern for wire dehiscence COMPARISON: 05/16/2023 FINDINGS: Two views of the chest were obtained. The heart size and pulmonary vascularity are within normal limits. There is evidence of prior median sternotomy. There is no acute abnormality of the bony thorax. No acute pulmonary abnormality is identified. There is no pneumothorax. The bony thorax is intact. IMPRESSION: No active cardiopulmonary disease. No acute abnormality of the bony thorax identified. CT may be a more sensitive exam Reviewed, Interpreted and Dictated by Kirby Gutierrez III, MD Transcribed by Graciela Machado Authenticated and [facility]
--- NOTE | 2023-06-10 09:53 | PC.NURSE ---
Dr. Ghosh at BS for pt eval
--- NOTE | 2023-06-10 10:00 | PC.NURSE ---
Pt gone to RAD via wheelchair
--- NOTE | 2023-06-10 10:03 | PC.NURSE ---
pt returned from radiology.
--- NOTE | 2023-06-10 10:04 | PC.NURSE ---
Pt returned from RAD
--- NOTE | 2023-06-10 10:15 | HMH.EDGENADL ---
Discharge Plan Disposition Patient Disposition: Home, Self-Care Chief Complaint: Chest Pain Prescriptions Prescriptions: No Action gabapentin 400 mg capsule 400 mg PO TID Patient Comments: TAKE ONE CAPSULE BY MOUTH THREE TIMES DAILY sennosides-docusate sodium [Senna Plus] 8.6-50 mg tablet 1 tab-cap PO NEEDED PRN (Reason: constipatin) nicotine 21-14-7 mg/24 hr patch, TD daily, sequential 1 patch transdermal Q24H Qty: 56 0RF Rx Instructions: Start with the 21 mg Nicotine Patch for 14 Days 14 mg patch for 14 days 7 mg patch for 7 days ranolazine 500 mg tablet extended release 12 hr 500 mg PO BID Qty: 60 3RF aspirin 81 mg tablet,chewable 81 mg PO DAILY Qty: 30 11RF nitroglycerin 0.4 mg tablet, sublingual 0.4 mg SL Q5M PRN (Reason: chest pain) Qty: 25 0RF Rx Instructions: do not exceed 3 doses per episode ticagrelor 90 mg tablet 90 mg PO BID Qty: 60 11RF trazodone 50 mg tablet 50 mg PO HSP PRN (Reason: Sleep) Patient Comments: take 1 tablet by mouth once a day at bedtime as needed for 30 day(s) furosemide 40 mg tablet 40 mg PO DAILY acetaminophen 325 mg tablet 325 mg PO Q6 PRN (Reason: Pain (Scale Score 1-3)) hydrocodone-acetaminophen 5-325 mg tablet 1 tab PO Q6 PRN (Reason: Pain (Scale Score 4-6)) omeprazole 40 mg capsule,delayed release(DR/EC) 40 mg PO DAILY Patient Comments: TAKE 1 capsule 30 minutes before morning meal Once a day buspirone 10 mg tablet 10 mg PO DAILY insulin lispro 100 unit/mL insulin pen See Protocol SQ ACHS Protocol: Insulin Corrective Med-Dose Regimen Condition: Fingerstick Blood Glucose Dose/Route: Insulin Units Condition: 151-200 mg/dl Dose/Route: 2 units/SQ Condition: 201-250 mg/dl Dose/Route: 5 units/SQ Condition: 251-300 mg/dl Dose/Route: 8 units/SQ Condition: 301-350 mg/dl Dose/Route: 10 units/SQ Condition: 351-400 mg/dl Dose/Route: 12 units/SQ Condition: 401-450 mg/dl Dose/Route: 15 units/SQ Condition: > 450 mg/dl Dose/Route: CALL MD Protocol Text: Medium Intensity Sliding Scale Insulin tiotropium bromide [Spiriva with HandiHaler] 18 mcg capsule, w/inhalation device 18 mcg INHALATION POSTTR duloxetine 60 mg capsule,delayed release(DR/EC) 60 mg PO DAILY fenofibrate nanocrystallized 48 mg tablet 48 mg PO DAILY insulin glargine [Lantus Solostar U-100 Insulin] 100 unit/mL (3 mL) insulin pen See Rx Instructions .ROUTE .COMPLEX Rx Instructions: unknown Dulera 200-5 mcg/actuation HFA aerosol inhaler 1 puff INHALATION DAILY Brilinta 90 mg tablet 90 mg PO BID Patient Comments: take 1 tablet (90 MG) orally twice a day for DAPT guaifenesin [Mucus Relief ER] 600 mg tablet extended release 12hr 600 mg PO DAILY fluticasone propion-salmeterol [Advair Diskus] 250-50 mcg/dose blister with device 1 inh INHALATION BID atorvastatin 80 mg tablet 80 mg PO HS Patient Comments: Take 1 tablet every day by oral route. cetirizine 10 mg tablet 10 mg PO DAILY glipizide 10 mg tablet 10 mg PO BID cyanocobalamin (vitamin B-12) 1,000 mcg tablet 1,000 mcg PO DAILY olanzapine 10 mg tablet 10 mg PO HS omeprazole 40 mg capsule,delayed release(DR/EC) 40 mg PO DAILY lamotrigine 25 mg tablet 50 mg PO HS Patient Comments: Take two (2) tablets by mouth at bedtime fluoxetine 10 mg capsule 10 mg PO DAILY lisinopril-hydrochlorothiazide 20-25 mg tablet 1 tab PO DAILY Patient Comments: Take 1 tablet every day by oral route. Jardiance 10 mg tablet 10 mg PO DAILY Patient Comments: Take 1 tablet every day by oral route. Ozempic 2 mg/dose (8 mg/3 mL) pen injector 0.25 mg SQ WEEKLY metoprolol succinate 100 mg Tablet Extended Release 24 Hr 100 mg PO DAILY Qty: 3 0RF spironolactone 25 mg Tablet
[2023-06-10 10:30] VITALS: BP 155/78; PULSE 99; O2SAT 97
--- NOTE | 2023-06-10 10:51 | CT_ITS ---
FINAL REPORT TECHNIQUE: Axial images were obtained from the lung apex to the mid abdomen by computed tomography. Coronal reformatted images were obtained. This study was performed with techniques to keep radiation doses as low as reasonably achievable, (ALARA). Individualized dose reduction techniques using automated exposure control or adjustment of mA and/or kV according to the patient''s size were employed. CLINICAL HISTORY: concern for sternal wire movement COMPARISON: 05/16/2023 FINDINGS: There is no axillary adenopathy. There is no hilar or mediastinal adenopathy. Heart size is normal. Interval postoperative change from median sternotomy. There is no evidence of dehiscence of the sternum. There is a small amount of air and fluid in the anterior mediastinum consistent with postoperative change. There is no pericardial or pleural effusion. There is mild left lung atelectasis. No pneumothorax. There there are multiple small calcified granulomas. Limited images of the upper abdomen demonstrate no acute findings. IMPRESSION: No acute process. Postoperative change from median sternotomy with no acute abnormality. Reviewed, Interpreted and Dictated by Kirby Gutierrez III, MD Transcribed by Graciela Machado Authenticated and [facility]
--- NOTE | 2023-06-10 11:05 | PC.NURSE ---
pt returned from radiology.
[2023-06-10 11:30] VITALS: BP 137/95; PULSE 108; RESP 20; O2SAT 96
--- NOTE | 2023-06-10 11:34 | PC.NURSE ---
Dr. Ghosh at BS to update pt on POC
--- NOTE | 2023-06-10 11:37 | PC.NURSE ---
Spoke with Lilly in RAD to have images power shared to [facility]
[2023-06-10 11:49] VITALS: BP 137/95; PULSE 108; RESP 20; TEMP 36.6; O2SAT 96
== END 2023-06-10 11:50 | disposition home or self-care (01) ==
PROVIDERS: Emergency Provider Emergency Medicine
DX: R07.2 Precordial pain (principal); R07.1 Chest pain on breathing; T81.32XA Disruption of internal operation (surgical) wound, not elsewhere classified, initial encounter; R05.8 Other specified cough; J44.9 Chronic obstructive pulmonary disease, unspecified; I25.119 Atherosclerotic heart disease of native coronary artery with unspecified angina pectoris; I11.9 Hypertensive heart disease without heart failure; E11.9 Type 2 diabetes mellitus without complications; E78.5 Hyperlipidemia, unspecified; Z79.4 Long term (current) use of insulin; Z79.84 Long term (current) use of oral hypoglycemic drugs; Z79.85 Long-term (current) use of injectable non-insulin antidiabetic drugs; Z95.5 Presence of coronary angioplasty implant and graft; Z87.891 Personal history of nicotine dependence; R00.0 Tachycardia, unspecified; G89.18 Other acute postprocedural pain
CPT/HCPCS: 71046; 71250; 93005; 99285

== ENCOUNTER 2023-06-25 22:12 | Emergency (ER) | payer OTHER, SELFPAY ==
[2023-06-25 22:12] VITALS: BP 146/98; PULSE 107; RESP 18; TEMP 36.6; O2SAT 96; BMI 29.3
--- NOTE | 2023-06-25 22:12 | ECG_ITS ---
APPROVED REPORT Exam: Resting ECG HR:99 bpm ECG Measurements Heart Rate 99 AXES DE 128 P 153 QRSd 107 QRS 140 QT 367 T 149 QTc 424 Conclusion ECTOPIC ATRIAL RHYTHM POSSIBLE LEFT ATRIAL ENLARGEMENT [-0.1mV P-WAVE IN V1/V2] LEFT POSTERIOR FASCICULAR BLOCK [QRS AXIS > 109, INFERIOR Q] NONSPECIFIC ST & T-WAVE ABNORMALITY ABNORMAL ECG UNCONFIRMED REPORT Electronically signed by : Scotty León MD 06/26/2023 14:17:15
--- NOTE | 2023-06-25 22:14 | CT_ITS ---
PROCEDURE INFORMATION: Exam: CT Chest Without Contrast; Diagnostic Exam date and time: 06/25/2023 10:24 PM Age: 53 years old Clinical indication: Pain; Chest pressure; Additional info: Repeat acute cp S/P cabg, recent hardware failure TECHNIQUE: Imaging protocol: Diagnostic computed tomography of the chest without contrast. Radiation optimization: All CT scans at this facility use at least one of these dose optimization techniques: automated exposure control; mA and/or kV adjustment per patient size (includes targeted exams where dose is matched to clinical indication); or iterative reconstruction. REPORTING DATA: Count of CT and Cardiac NM exams in prior 12 months: This patient has received 4 known CTs and 0 known cardiac nuclear medicine studies in the 12 months prior to the current study. COMPARISON: CT CHEST WO CON 06/10/2023 11:01 AM FINDINGS: Lungs: Stable fissural based 5 mm right upper lobe nodule. This may contain a tiny central calcification. No consolidation or acute pulmonary finding. Small area of scarring anteromedial left upper lobe. Numerous small calcified granulomas are noted within both lungs. Pleural spaces: Unremarkable. No pneumothorax. No pleural effusion. Heart: Post CABG. No cardiomegaly. No pericardial effusion. Lymph nodes: Unremarkable. No enlarged lymph nodes. Vasculature: Unremarkable. No aortic aneurysm. Bones/joints: Evidence of prior median sternotomy. There is fracture of the posterior proximal loop of the superior most sternal wire similar to the prior CT. Soft tissues: There is stranding of the anterior mediastinal fat and overlying soft tissues along the median sternotomy consistent with recent surgery. The small focus of air noted within the anterior mediastinal soft tissues on the prior study has resolved. No discrete focal fluid collection is evident. IMPRESSION: 1. There are no acute findings within the chest. 2. Findings consistent with recent CABG. 3. Fracture of the posterior proximal loop of the superior sternal wire. 4. Stable fissural based right upper lobe nodule. Numerous calcified granulomata are present as well.
--- NOTE | 2023-06-25 22:18 | HMH.EDGENADL ---
Discharge Plan Disposition Patient Disposition: Home, Self-Care Condition: Good Prescriptions Prescriptions: No Action gabapentin 400 mg capsule 400 mg PO TID Patient Comments: TAKE ONE CAPSULE BY MOUTH THREE TIMES DAILY sennosides-docusate sodium [Senna Plus] 8.6-50 mg tablet 1 tab-cap PO NEEDED PRN (Reason: constipatin) nicotine 21-14-7 mg/24 hr patch, TD daily, sequential 1 patch transdermal Q24H Qty: 56 0RF Rx Instructions: Start with the 21 mg Nicotine Patch for 14 Days 14 mg patch for 14 days 7 mg patch for 7 days aspirin 81 mg tablet,chewable 81 mg PO DAILY Qty: 30 11RF nitroglycerin 0.4 mg tablet, sublingual 0.4 mg SL Q5M PRN (Reason: chest pain) Qty: 25 0RF Rx Instructions: do not exceed 3 doses per episode ticagrelor 90 mg tablet 90 mg PO BID Qty: 60 11RF ranolazine 500 mg tablet extended release 12 hr 500 mg PO BID Qty: 180 1RF trazodone 50 mg tablet 50 mg PO HSP PRN (Reason: Sleep) Patient Comments: take 1 tablet by mouth once a day at bedtime as needed for 30 day(s) furosemide 40 mg tablet 40 mg PO DAILY acetaminophen 325 mg tablet 325 mg PO Q6 PRN (Reason: Pain (Scale Score 1-3)) hydrocodone-acetaminophen 5-325 mg tablet 1 tab PO Q6 PRN (Reason: Pain (Scale Score 4-6)) omeprazole 40 mg capsule,delayed release(DR/EC) 40 mg PO DAILY Patient Comments: TAKE 1 capsule 30 minutes before morning meal Once a day buspirone 10 mg tablet 10 mg PO DAILY insulin lispro 100 unit/mL insulin pen See Protocol SQ ACHS Protocol: Insulin Corrective Med-Dose Regimen Condition: Fingerstick Blood Glucose Dose/Route: Insulin Units Condition: 151-200 mg/dl Dose/Route: 2 units/SQ Condition: 201-250 mg/dl Dose/Route: 5 units/SQ Condition: 251-300 mg/dl Dose/Route: 8 units/SQ Condition: 301-350 mg/dl Dose/Route: 10 units/SQ Condition: 351-400 mg/dl Dose/Route: 12 units/SQ Condition: 401-450 mg/dl Dose/Route: 15 units/SQ Condition: > 450 mg/dl Dose/Route: CALL MD Protocol Text: Medium Intensity Sliding Scale Insulin tiotropium bromide [Spiriva with HandiHaler] 18 mcg capsule, w/inhalation device 18 mcg INHALATION POSTTR duloxetine 60 mg capsule,delayed release(DR/EC) 60 mg PO DAILY fenofibrate nanocrystallized 48 mg tablet 48 mg PO DAILY insulin glargine [Lantus Solostar U-100 Insulin] 100 unit/mL (3 mL) insulin pen See Rx Instructions .ROUTE .COMPLEX Rx Instructions: unknown Dulera 200-5 mcg/actuation HFA aerosol inhaler 1 puff INHALATION DAILY Brilinta 90 mg tablet 90 mg PO BID Patient Comments: take 1 tablet (90 MG) orally twice a day for DAPT guaifenesin [Mucus Relief ER] 600 mg tablet extended release 12hr 600 mg PO DAILY fluticasone propion-salmeterol [Advair Diskus] 250-50 mcg/dose blister with device 1 inh INHALATION BID atorvastatin 80 mg tablet 80 mg PO HS Patient Comments: Take 1 tablet every day by oral route. cetirizine 10 mg tablet 10 mg PO DAILY glipizide 10 mg tablet 10 mg PO BID cyanocobalamin (vitamin B-12) 1,000 mcg tablet 1,000 mcg PO DAILY olanzapine 10 mg tablet 10 mg PO HS omeprazole 40 mg capsule,delayed release(DR/EC) 40 mg PO DAILY lamotrigine 25 mg tablet 50 mg PO HS Patient Comments: Take two (2) tablets by mouth at bedtime fluoxetine 10 mg capsule 10 mg PO DAILY lisinopril-hydrochlorothiazide 20-25 mg tablet 1 tab PO DAILY Patient Comments: Take 1 tablet every day by oral route. Jardiance 10 mg tablet 10 mg PO DAILY Patient Comments: Take 1 tablet every day by oral route. Ozempic 2 mg/dose (8 mg/3 mL) pen injector 0.25 mg SQ WEEKLY metoprolol succinate 100 mg Tablet Extended Release 24 Hr 100 mg PO DAILY Qty: 3 0RF spironolactone 25 mg Tablet 25 mg P
[2023-06-25 22:31] VITALS: BP 135/85; PULSE 95; RESP 249; O2SAT 97
[2023-06-25 22:35] LABS: Basophils # 0.1 K/mm3 (0-0.2); Basophils % 0.6 % (0.1-2.0); Eosinophils # 0.3 K/mm3 (0.0-0.4); Eosinophils % 3.6 % (0.1-12.0); Hematocrit 42.3 % (37.0-47.0); Hemoglobin 13.9 g/dL (12.2-16.2); Lymphocytes # 3.8 K/mm3 (0.7-4.5); Lymphocytes % 53.4 % (10-50); Mean Corpuscular Hemoglobin 31.5 pg (27.0-31.2); Mean Corpuscular Volume 95.5 fl (81-99); Mean Platelet Volume 10.2 fl (7.4-10.4); Monocytes # 0.4 K/mm3 (0.1-1.0); Monocytes % 6.2 % (1.7-9.3); Neutrophils # 2.5 K/mm3 (1.8-7.8); Platelet Count 221 K/mm3 (142-424); Red Blood Count 4.43 M/mm3 (4.20-5.40); Red Cell Distribution Width 14.6 % (11.5-17.5); White Blood Count 7.1 K/mm3 (4.8-10.8)
[2023-06-25 22:37] LABS: MANUAL DIFFERENTIAL MANUAL DIFFERENTIAL (MANUAL DIFF)
[2023-06-25 22:38] LABS: Alanine Aminotransferase 26 U/L (12-78); Albumin Level 4.5 g/dl (3.5-5.0); Albumin/Globulin Ratio 1.4 (1.1-1.8); Alkaline Phosphatase 103 U/L (38-126); Anion Gap 18.4 mEq/L (5-15); Aspartate Amino Transferase 35 U/L (14-36); Bilirubin,Total 0.3 mg/dl (0.2-1.3); Blood Urea Nitrogen 19 mg/dl (7-17); Calcium 9.3 mg/dl (8.4-10.2); Carbon Dioxide 15 mmol/L (22.0-30.0); Chloride 107 mmol/L (98-107); Creatinine Clearance Estimated 157 mL/min (50-200); Estimated Glomerular Filt Rate 129 ml/min (>60); GFR (African American) 156 ML/MIN (>60); Globulin 3.2 g/dL (1.3-3.2); Glucose 299 mg/dl (74-100); Potassium 4.4 mmoL/L (3.5-5.1); Sodium 136 mmol/L (136-145); Total Protein,Serum 7.7 g/dl (6.3-8.2)
[2023-06-25 22:50] LABS: Eosinophils % 3 % (0-3); Lymphocytes % 57 % (10-50); Macrocytosis 1+; Monocytes % 7 % (2-9); Neutrophils % 33 % (42-76); Platelet Estimate Normal; Total Cells Counted 100
[2023-06-25 22:56] LABS: T4 (Thyroxine) 11.6 ug/dl (5.53-11.0)
[2023-06-25 22:58] LABS: Troponin I < 0.01 ng/ml (0.00-0.034)
[2023-06-25 23:00] VITALS: BP 115/70; PULSE 92; RESP 21; O2SAT 97
[2023-06-25 23:09] LABS: Thyroid Stimulating Hormone 1.21 uIU/mL (0.465-4.68)
[2023-06-25 23:30] VITALS: BP 112/72; PULSE 89; RESP 19; O2SAT 93
--- NOTE | 2023-06-25 23:35 | PC.NURSE ---
Rounded on patient; call light within reach of patient
[2023-06-26] VITALS (9 sets, daily range): BP systolic 100–119; BP diastolic 55–79; PULSE 87–99; RESP 16–24; TEMP 36.8; O2SAT 94–96
--- NOTE | 2023-06-26 00:10 | PC.NURSE ---
Rounded on patient call light within reach of patient
--- NOTE | 2023-06-26 00:52 | PC.NURSE ---
Handed off report to Evette COSME
--- NOTE | 2023-06-26 02:57 | PC.NURSE ---
pt ambulates to bathroom and received dr vargas. pt attempted to call boyfriend but no answer
--- NOTE | 2023-06-26 05:55 | PC.NURSE ---
attempted to contact boy friend x3, unable to make contact
== END 2023-06-26 06:30 | disposition home or self-care (01) ==
PROVIDERS: Emergency Provider Emergency Medicine; PCP Emergency Medicine
DX: R07.9 Chest pain, unspecified (principal); F10.90 Alcohol use, unspecified, uncomplicated; I11.9 Hypertensive heart disease without heart failure; I25.119 Atherosclerotic heart disease of native coronary artery with unspecified angina pectoris; E11.9 Type 2 diabetes mellitus without complications; E78.5 Hyperlipidemia, unspecified; F17.210 Nicotine dependence, cigarettes, uncomplicated; J44.9 Chronic obstructive pulmonary disease, unspecified; Z79.4 Long term (current) use of insulin; Z79.84 Long term (current) use of oral hypoglycemic drugs; Z79.85 Long-term (current) use of injectable non-insulin antidiabetic drugs
CPT/HCPCS: 71250; 80053; 84436; 84443; 84484; 85007; 85025; 93005; 96374; 96375; 99285; J2405

== ENCOUNTER 2023-07-21 11:06 | Outpatient (CLI) | payer OTHER, SELFPAY ==
--- NOTE | 2023-07-21 11:10 | XR_ITS ---
FINAL REPORT CLINICAL HISTORY: Shortness of breath. Left sided chest pain. Concern for fluid. Open heart sx May 2023. COMPARISON: 06/10/2023 FINDINGS: Two views of the chest were obtained. The heart size and pulmonary vascularity are within normal limits. Prior median sternotomy. No acute pulmonary abnormality is identified. There is no pneumothorax. The bony thorax is intact. IMPRESSION: No active cardiopulmonary disease. Reviewed, Interpreted and Dictated by Kirby Gutierrez III, MD Transcribed by Graciela Machado Authenticated and [facility]
== END 2023-07-21 23:59 ==
LOC: RAD 11:06
PROVIDERS: PCP Emergency Medicine; Visit Provider Internal Medicine
DX: I25.10 Atherosclerotic heart disease of native coronary artery without angina pectoris (principal); I42.9 Cardiomyopathy, unspecified; I50.20 Unspecified systolic (congestive) heart failure; R06.00 Dyspnea, unspecified; R94.31 Abnormal electrocardiogram [ECG] [EKG]; Z72.0 Tobacco use
CPT/HCPCS: 71046

== ENCOUNTER 2023-08-11 10:52 | Outpatient (CLI) | payer OTHER, SELFPAY ==
--- NOTE | 2023-08-11 11:32 | CT_ITS ---
FINAL REPORT TECHNIQUE: The patient was injected with IV contrast. Axial images were obtained through the chest in a PE protocol. 3-D reconstruction images were also performed. Individualized dose reduction techniques using automated exposure control or adjustment of the MA and/or KV according to patient's size were employed. CLINICAL HISTORY: tachycardia, chest pain, dyspnea COMPARISON: 06/25/2023 CT chest FINDINGS: There are postoperative changes from prior median sternotomy. Pulmonary artery vasculature is suboptimally opacified. No definite pulmonary artery filling defects are identified to suggest PE. There is no axillary adenopathy. There is no hilar or mediastinal adenopathy. The heart size is normal. There is no pericardial or pleural effusion. There are moderate changes of centrilobular emphysema. Scattered calcified granulomas are noted. Limited images of the upper abdomen demonstrate the stomach is distended with ingested material. IMPRESSION: No definite pulmonary embolism identified on this suboptimal exam. Reviewed, Interpreted and Dictated by Erick Rodriguez MD Transcribed by Graciela Machado Authenticated and [facility]
[2023-08-11 11:39] LABS: Basophils # 0.1 K/mm3 (0-0.2); Eosinophils # 0.1 K/mm3 (0.0-0.4); Eosinophils % 2.2 % (0.1-12.0); Hematocrit 41.7 % (37.0-47.0); Hemoglobin 13.8 g/dL (12.2-16.2); Lymphocytes # 2.1 K/mm3 (0.7-4.5); Lymphocytes % 38.4 % (10-50); Mean Corpuscular Hemoglobin 31.5 pg (27.0-31.2); Mean Corpuscular Volume 95.5 fl (81-99); Mean Platelet Volume 9.7 fl (7.4-10.4); Monocytes # 0.3 K/mm3 (0.1-1.0); Monocytes % 5.2 % (1.7-9.3); Neutrophils # 2.9 K/mm3 (1.8-7.8); Neutrophils % 53.2 % (37.0-80.0); Platelet Count 176 K/mm3 (142-424); Red Blood Count 4.37 M/mm3 (4.20-5.40); White Blood Count 5.5 K/mm3 (4.8-10.8)
[2023-08-11 11:57] LABS: Chloride 107 mmol/L (98-107); Potassium 4.5 mmoL/L (3.5-5.1); Sodium 138 mmol/L (136-145)
[2023-08-11 11:59] LABS: Blood Urea Nitrogen 18 mg/dl (7-17); Estimated Glomerular Filt Rate 87 ml/min (>60); GFR (African American) 106 ML/MIN (>60)
[2023-08-11 12:00] LABS: Alanine Aminotransferase 30 U/L (12-78); Albumin Level 3.7 g/dl (3.5-5.0); Alkaline Phosphatase 134 U/L (38-126); Anion Gap 10.5 mEq/L (5-15); Aspartate Amino Transferase 26 U/L (14-36); Calcium 9.8 mg/dl (8.4-10.2); Carbon Dioxide 25 mmol/L (22.0-30.0); Cholesterol 172 mg/dl (140-200); Glucose 360 mg/dl (74-100); Magnesium 1.7 mg/dl (1.6-2.3); Total Protein,Serum 6.3 g/dl (6.3-8.2); Triglycerides 398 mg/dl (30-150); VLDL Cholesterol 80 mg/dL (0-40)
[2023-08-11 12:01] LABS: HDL Cholesterol 58 mg/dl (40-60)
[2023-08-11 12:12] LABS: Bilirubin,Direct 0.1 mg/dl (0.0-0.4); Bilirubin,Indirect 0.1 mg/dL (0.0-0.9); Bilirubin,Total 0.2 mg/dl (0.2-1.3); Bilirubin,Unconjugated 0.1 mg/dL (0.0-1.1)
[2023-08-11 12:18] LABS: Direct LDL Cholesterol 83.84 mg/dL (100-129)
--- NOTE | 2023-08-11 12:19 | CA_ITS ---
APPROVED REPORT EXAM: Comprehensive 2D, Doppler, and color-flow Echocardiogram Manager Of International: Kristen Melgoza CRT Ht: 5 ft 4 in Wt: 179lbs BSA: 1.87 BP: 152/103 mmHg Indications: CP,CM, EF 30% 05/09, CABG 06/09, STENTS, SOB, DM, HTN,HLD, SMOKER 2D Dimensions EF AP4 65.50 % GL Strain -18.5 % M-Mode Dimensions RVDd 2.74 cm (0.9-2.6) LA Diam 3.37 cm (1.9-4.0) LVDd 6.04 cm (3.5-5.7) LVDs 4.71 cm (3.5-5.7) IVSd 1.25 cm (0.6-1.1) PWd 0.68 cm (0.6-1.1) EF (Teich) 43.70% FS 22.00% EDV (Teich) 182.80 mL TAPSE 1.32 (<1.7) ESV (Teich) 102.90 mL LV Diastology E Decel Time 90 (160-240 msec) E/A Ratio 0.81 MED A' 10.10 cm/s LAT A' 11.60 cm/s Aortic Valve AO Peak GR. 7.90 mmHg Mitral Valve MV A Velocity 83.0 (40-130 cm/s) E/A Ratio 0.81 Pulmonary Valve PV Peak Velocity 161.0 (50-150 cm/s) Tricuspid Valve TR P. Velocity 183.00 cm/s RAP Estimate 10.00 mmHg RVSP 23.30 mmHg Left Ventricle The left ventricle is normal size. The left ventricular systolic function is normal. The left ventricular ejection fraction is within the normal range. There is normal left ventricular wall thickness. There is normal LV segmental wall motion. The left ventricular diastolic function is normal. LVEF is 55%. Right Ventricle The right ventricle is normal size. The right ventricular systolic function is normal. Atria The left atrium size is normal. The right atrium size is normal. There is no Doppler evidence of interatrial shunt. Aortic Valve The aortic valve opens well. There is no aortic valvular stenosis. No aortic regurgitation is present. Mitral Valve The mitral valve is normal in structure. No evidence of mitral valve stenosis. Mild mitral regurgitation. Tricuspid Valve The tricuspid valve leaflets are thin and pliable. Trace tricuspid regurgitation. There is insufficient TR jet to estimate RVSP. Pulmonic Valve The pulmonary valve is normal in structure. Trace pulmonic regurgitation. Great Vessels The aortic root is normal in size. The ascending aorta is normal in size. IVC is normal in size and collapses >50% with inspiration. Pericardium There is no pericardial effusion. Other Information Study Quality: Adequate Conclusion Normal biventricular systolic function. Mild MR. Electronically signed by : Ju Saeed MD 08/12/2023 19:38:40
[2023-08-11 12:20] LABS: Free T4 (Free Thyroxine) 1.25 ng/dl (0.78-2.19)
[2023-08-11] MEDS: 0.9 % SODIUM CHLORIDE 50 ML VIAL IV (12:20)
[2023-08-11] MEDS: IOPAMIDOL-370 (76%);100ML BOTTLE 70 ML IV (12:20)
[2023-08-11 12:31] LABS: Thyroid Stimulating Hormone 1.48 uIU/mL (0.465-4.68)
== END 2023-08-11 23:59 ==
PROVIDERS: PCP Emergency Medicine; Visit Provider Nurse Practitioner
DX: R06.00 Dyspnea, unspecified (principal); R07.9 Chest pain, unspecified; R94.31 Abnormal electrocardiogram [ECG] [EKG]; R00.0 Tachycardia, unspecified; I42.8 Other cardiomyopathies; I50.20 Unspecified systolic (congestive) heart failure; I25.10 Atherosclerotic heart disease of native coronary artery without angina pectoris; Z72.0 Tobacco use
CPT/HCPCS: 36415; 71275; 80048; 80061; 80076; 83735; 84439; 84443; 85025; 93306; Q9967

== ENCOUNTER 2023-09-23 07:45 | Day surgery (SDC) | payer OTHER, SELFPAY ==
[2023-09-23] VITALS (21 sets, daily range): BP systolic 104–164; BP diastolic 57–100; PULSE 63–89; RESP 16–20; TEMP 36.4–36.6; O2SAT 95–98
--- NOTE | 2023-09-23 07:04 | IR_ITS ---
APPROVED REPORT Patient Location: Outpatient [place]: CHARISSE Bower RT (R) PROCEDURES Right heart catheterization Left heart catheterization Left ventriculogram Selective coronary angiogram Left internal mammary angiography Selective engagement of the saphenous vein graft to the circumflex artery INDICATION Pulmonary hypertension, Dyspnea, Coronary artery disease, History of coronary bypass surgery, Worsening angina pectoris, Informed consent was obtained prior to the procedure. COMPLICATIONS NONE Estimated Blood Loss: LESS THAN 10 ML TECHNIQUE One percent lidocaine was used to anesthetize the right groin. The right femoral artery was accessed via the Seldinger technique. A 5-Telugu and 7 maori sheath was placed in the right femoral artery and vein respectfully. A 7 Telugu sheath was introduced and a [place] catheter was floated using hemodynamic waveforms in the pulmonary artery, right ventricle , and right atrium. Saturations were obtained in the pulmonary artery and the right atrium. The JR-4 and JL-4 catheter was also used to perform left heart catheterization, left ventriculography and selective coronary angiogram. The JR4 catheter was used to perform left internal mammary angiography as well as selective engagement of the saphenous vein graft to the obtuse marginal artery. At the end of the procedure the patient was transferred to the post-op holding area in stable condition for arterial sheath removal. ANGIOGRAPHIC RESULTS The left main artery Is small but patent The left anterior descending artery Is proximally patent and then has severe mid vessel subtotal occlusions. Competitive flow is identified from the left internal mammary artery. The LAD does give rise to a small to medium sized patent diagonal artery with a mid vessel 80% stenosis however the vessel is smaller than 2 mm in diameter The circumflex artery Is occluded at mid vessel The right coronary artery Is dominant and has a stent in the ostial segment which is widely patent with minimal in-stent restenosis. The entire vessel has diffuse 20 to 30% calcified stenoses The NEGRON ventriculogram reveals Preserved at 55% with mild anterior and inferior hypokinesis The left ventricular end-diastolic pressure 17 mmHg [place] to LAD patent Saphenous to small first obtuse marginal artery patent Right atrial pressure 14 mmHg Pulmonary artery pressure 35/20 mmHg Pulmonary occlusion pressure 16 mmHg Hemoglobin 16.4 Right atrial saturation 79% Pulmonary artery saturation 79% Aortic saturation 100% IMPRESSION Coronary artery disease as described above Regional wall motion abnormality with preserved ejection fraction Mild pulmonary hypertension Elevated left-sided filling pressures consistent with diastolic dysfunction PLAN 1. Medical management for coronary disease 2. Patient would likely benefit from increased diuresis 3. Aggressive risk factor modification Electronically signed by : Jordy Hall MD 09/23/2023 10:57:21
[2023-09-23 08:23] LABS: Basophils # 0.1 K/mm3 (0-0.2); Basophils % 0.9 % (0.1-2.0); Eosinophils # 0.2 K/mm3 (0.0-0.4); Eosinophils % 1.4 % (0.1-12.0); Hematocrit 49.8 % (37.0-47.0); Hemoglobin 16.4 g/dL (12.2-16.2); Lymphocytes # 3.6 K/mm3 (0.7-4.5); Lymphocytes % 31.8 % (10-50); Mean Corpuscular HGB Conc 32.9 g/dL (31.8-35.4); Mean Corpuscular Hemoglobin 31.8 pg (27.0-31.2); Mean Corpuscular Volume 96.9 fl (81-99); Mean Platelet Volume 9.7 fl (7.4-10.4); Monocytes # 0.6 K/mm3 (0.1-1.0); Monocytes % 5.8 % (1.7-9.3); Neutrophils # 6.7 K/mm3 (1.8-7.8); Neutrophils % 60.1 % (37.0-80.0); Platelet Count 247 K/mm3 (142-424); Red Blood Count 5.14 M/mm3 (4.20-5.40); Red Cell Distribution Width 14.3 % (11.5-17.5); White Blood Count 11.2 K/mm3 (4.8-10.8)
[2023-09-23 08:34] LABS: Anion Gap 14.8 mEq/L (5-15); Blood Urea Nitrogen 16 mg/dl (7-17); Calcium 9.9 mg/dl (8.4-10.2); Carbon Dioxide 24 mmol/L (22.0-30.0); Chloride 100 mmol/L (98-107); Creatinine Clearance Estimated 161 mL/min (50-200); Estimated Glomerular Filt Rate 129 ml/min (>60); GFR (African American) 156 ML/MIN (>60); Glucose 249 mg/dl (74-100); Potassium 3.8 mmoL/L (3.5-5.1); Sodium 135 mmol/L (136-145)
[2023-09-23] MEDS: 0.9 % SODIUM CHLORIDE 500 ML 25 ML IV (09:42)
[2023-09-23] MEDS: HEPARIN 1,000 UNITS/500ML NS (CATH LAB) 3000 UNIT IV (09:42)
[2023-09-23] MEDS: LIDOCAINE 1% 10ML MDV 20 ML IJ (09:42)
[2023-09-23] MEDS: diphenhydrAMINE 50MG/ML VIAL 50 MG IV (09:42)
[2023-09-23] MEDS: MIDAZOLAM HCL 1MG/1ML 5ML VIAL 1 MG IV (10:16)
[2023-09-23] MEDS: FENTANYL 100MCG/2ML VIAL 50 MCG IV (10:16)
[2023-09-23] MEDS: IOPAMIDOL-370 (76%);100ML BOTTLE 40 ML IV (10:42)
[2023-09-23 10:45] LABS: CATHL Arterial O2 SAT 79.1 % (90-100)
== END 2023-09-23 14:21 | disposition home or self-care (01) ==
PROVIDERS: PCP Emergency Medicine; Visit Provider Internal Medicine
DX: I25.118 Atherosclerotic heart disease of native coronary artery with other forms of angina pectoris (principal); F17.210 Nicotine dependence, cigarettes, uncomplicated; I27.20 Pulmonary hypertension, unspecified; Z95.1 Presence of aortocoronary bypass graft; Z79.899 Other long term (current) drug therapy; Z79.4 Long term (current) use of insulin; I50.23 Acute on chronic systolic (congestive) heart failure; I25.5 Ischemic cardiomyopathy; I11.0 Hypertensive heart disease with heart failure; E11.9 Type 2 diabetes mellitus without complications
CPT/HCPCS: 80048; 82810; 85025; 93461; 99152; C1725; C1769; C1894; J1644; Q9967

== ENCOUNTER 2023-11-28 20:57 | Emergency (ER) | payer OTHER, SELFPAY ==
[2023-11-28] VITALS (8 sets, daily range): BP systolic 89–138; BP diastolic 43–78; PULSE 105–112; RESP 18–27; TEMP 36.7; O2SAT 93–96; BMI 25.7
--- NOTE | 2023-11-28 21:01 | ECG_ITS ---
APPROVED REPORT Exam: Resting ECG HR:104 bpm ECG Measurements Heart Rate 104 AXES ID 155 P 70 QRSd 106 QRS 64 QT 361 T 76 QTc 422 Conclusion SINUS TACHYCARDIA NONSPECIFIC T-WAVE ABNORMALITY ABNORMAL RHYTHM ECG UNCONFIRMED REPORT Electronically signed by : SARA WELLS, 11/28/2023 23:50:48
--- NOTE | 2023-11-28 21:14 | PC.NURSE ---
pt voided 450 ml
--- NOTE | 2023-11-28 21:44 | ED_ITS ---
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 infection. Patient is not requiring oxygen and ambulates with good oxygen saturation. Patient did report feelings of depression to me, however she adamantly denies suicidal or homicidal ideation. She is appropriate for discharge at this time. No prescriptions are necessary. Patient was given instructions on symptomatic management, follow up instructions, and return precautions for the emergency department. Patient indicated understanding and was discharged in stable condition. I was consulted by the GENET, and we discussed the complexity of problems being addressed. I approved the treatment and management plan for this patient's care in the emergency department, thus performing a substantial portion of the medical decision making. Marry Dotson MD
--- NOTE | 2023-11-28 22:00 | XR_ITS ---
PROCEDURE INFORMATION: Exam: XR Chest Exam date and time: 11/28/2023 10:06 PM Age: 53 years old Clinical indication: Dyspnea TECHNIQUE: Imaging protocol: Radiologic exam of the chest. Views: 1 view. COMPARISON: CT ANGIO CHEST PE PROTOCOL 08/11/2023 12:07 PM FINDINGS: Lungs: Unremarkable. No consolidation. Pleural spaces: Unremarkable. No pleural effusion. No pneumothorax. Heart/Mediastinum: Midline sternotomy. No cardiomegaly. Bones/joints: Unremarkable. IMPRESSION: No acute findings.
[2023-11-28 22:10] LABS: Microscopic, Urine URINE MICROSCOPIC (MICROSCOPIC)
[2023-11-28 22:13] LABS: Appearance,Urine CLEAR (Clear); Bilirubin,Urine Negative (Negative); Blood, Urine Negative (Negative); Color,Urine YELLOW (Yellow); Glucose,Urine (UA) 3+ (Negative); Ketones,Urine Negative (Negative); Leukocyte Esterase,Urine Negative (Negative); Nitrate,Urine Negative (Negative); PH,Urine 5.5 (5.0-8.5); Protein,Urine Negative (Negative); Urobilinogen,Urine 0.2 EU/dl (0.2)
[2023-11-28 22:13] LABS: Basophils # 0.1 K/mm3 (0-0.2); Basophils % 1.3 % (0.1-2.0); Chloride 108 mmol/L (98-107); Eosinophils # 0.2 K/mm3 (0.0-0.4); Eosinophils % 2.6 % (0.1-12.0); Hematocrit 42.8 % (37.0-47.0); Hemoglobin 14.1 g/dL (12.2-16.2); Lymphocytes # 3.8 K/mm3 (0.7-4.5); Lymphocytes % 46.8 % (10-50); Mean Platelet Volume 10.7 fl (7.4-10.4); Monocytes # 0.4 K/mm3 (0.1-1.0); Monocytes % 4.5 % (1.7-9.3); Neutrophils # 3.7 K/mm3 (1.8-7.8); Neutrophils % 44.8 % (37.0-80.0); Platelet Count 209 K/mm3 (142-424); Red Blood Count 4.41 M/mm3 (4.20-5.40); Red Cell Distribution Width 13.6 % (11.5-17.5); Sodium 140 mmol/L (136-145); White Blood Count 8.2 K/mm3 (4.8-10.8)
[2023-11-28 22:14] LABS: Potassium 4.4 mmoL/L (3.5-5.1)
[2023-11-28 22:16] LABS: Alanine Aminotransferase 25 U/L (12-78); Albumin Level 4.2 g/dl (3.5-5.0); Albumin/Globulin Ratio 1.4 (1.1-1.8); Alkaline Phosphatase 92 U/L (38-126); Anion Gap 19.4 mEq/L (5-15); Aspartate Amino Transferase 40 U/L (14-36); Bilirubin,Total 0.6 mg/dl (0.2-1.3); Blood Urea Nitrogen 19 mg/dl (7-17); Calcium 9.6 mg/dl (8.4-10.2); Carbon Dioxide 17 mmol/L (22.0-30.0); Creatinine Clearance Estimated 99 mL/min (50-200); Estimated Glomerular Filt Rate 87 ml/min (>60); GFR (African American) 106 ML/MIN (>60); Glucose 243 mg/dl (74-100); Lipase 220 U/L (23-300); Total Protein,Serum 7.2 g/dl (6.3-8.2)
[2023-11-28 22:17] LABS: Magnesium 2.2 mg/dl (1.6-2.3)
[2023-11-28] MEDS: LACTATED RINGERS 1000ML 1,000 ML 999 ML IV (22:17)
[2023-11-28 22:18] LABS: Prothrombin Time 9.8 seconds (10.1-12.5)
[2023-11-28] MEDS: DEXAMETHASONE 4MG/ML 5ML MDV 10 MG IV (22:18)
[2023-11-28] MEDS: KETOROLAC 30MG/ML VIAL 15 MG IV (22:18)
[2023-11-28] MEDS: ACETAMINOPHEN 1,000MG/100ML VIAL 1000 MG IV (22:18)
[2023-11-28 22:25] LABS: Benzodiazepines Screen,Urine Negative ng/ml (<200)
[2023-11-28] MEDS: IPRATROPIUM/ALBUTEROL 3 ML NEB IH (22:25)
[2023-11-28 22:26] LABS: Amphetamine/Metha Screen,Urine Negative ng/ml (<1000); Barbiturates Screen,Urine Negative ng/ml (<200)
[2023-11-28 22:28] LABS: Bacteria,Urine Trace /lpf; Cannabinoid Screen,Urine Negative ng/ml (<50); Cocaine Screen,Urine Negative ng/ml (<300); Yeast,Urine 1+ /lpf
[2023-11-28 22:29] LABS: Methadone Screen,Urine Negative ng/ml (<300)
[2023-11-28 22:29] LABS: Troponin I < 0.01 ng/ml (0.00-0.034)
[2023-11-28 22:30] LABS: Opiate Screen,Urine Negative ng/ml (<300)
[2023-11-28 22:31] LABS: Phencyclidine Screen,Urine Negative ng/ml (<25)
[2023-11-28 22:32] LABS: Ethyl Alcohol 206 mg/dl (0-10)
[2023-11-28 22:44] LABS: D-Dimer 0.32 ug/mL (0.0-0.5)
[2023-11-28 22:45] LABS: Lactic Acid 3.7 mmol/L (0.7-2.1)
--- NOTE | 2023-11-28 23:18 | PC.NURSE ---
rt at bedside
[2023-11-28] MEDS: IPRATROPIUM/ALBUTEROL 3 ML NEB 6 ML IH (23:20)
--- NOTE | 2023-11-28 23:33 | PC.NURSE ---
pt tolerated ambulation well
[2023-11-28] MEDS: FLUCONAZOLE 100MG TABLET 200 MG PO (23:46)
== END 2023-11-28 23:50 | disposition home or self-care (01) ==
PROVIDERS: Physician Assistant; Emergency Provider Emergency Medicine
DX: R07.9 Chest pain, unspecified (principal); R06.02 Shortness of breath; R00.0 Tachycardia, unspecified; F10.929 Alcohol use, unspecified with intoxication, unspecified; F39 Unspecified mood [affective] disorder; F41.1 Generalized anxiety disorder; E11.65 Type 2 diabetes mellitus with hyperglycemia; I11.9 Hypertensive heart disease without heart failure; I25.119 Atherosclerotic heart disease of native coronary artery with unspecified angina pectoris; E78.5 Hyperlipidemia, unspecified; F17.210 Nicotine dependence, cigarettes, uncomplicated; J44.9 Chronic obstructive pulmonary disease, unspecified; Z79.4 Long term (current) use of insulin; Z79.84 Long term (current) use of oral hypoglycemic drugs; Z95.1 Presence of aortocoronary bypass graft; Y90.7 Blood alcohol level of 200-239 mg/100 ml
CPT/HCPCS: 71045; 80053; 80307; 81001; 83605; 83690; 83735; 84484; 85025; 85378; 85610; 93005; 96361; 96374; 96375; 99285; J0131

== ENCOUNTER 2024-01-30 11:30 | Outpatient (CLI) | payer OTHER, SELFPAY ==
[2024-01-30 12:11] LABS: Basophils # 0.1 K/mm3 (0-0.2); Basophils % 0.8 % (0.1-2.0); Eosinophils # 0.3 K/mm3 (0.0-0.4); Eosinophils % 4.2 % (0.1-12.0); Hematocrit 44.1 % (37.0-47.0); Hemoglobin 14.2 g/dL (12.2-16.2); Lymphocytes # 2.5 K/mm3 (0.7-4.5); Mean Corpuscular HGB Conc 32.2 g/dL (31.8-35.4); Mean Corpuscular Hemoglobin 32.1 pg (27.0-31.2); Mean Corpuscular Volume 99.6 fl (81-99); Mean Platelet Volume 10.1 fl (7.4-10.4); Monocytes # 0.3 K/mm3 (0.1-1.0); Neutrophils # 3.1 K/mm3 (1.8-7.8); Platelet Count 215 K/mm3 (142-424); Red Blood Count 4.42 M/mm3 (4.20-5.40); Red Cell Distribution Width 13.5 % (11.5-17.5); White Blood Count 6.1 K/mm3 (4.8-10.8)
[2024-01-30 12:43] LABS: Alanine Aminotransferase 21 U/L (12-78); Alkaline Phosphatase 82 U/L (38-126); Anion Gap 9.5 mEq/L (5-15); Aspartate Amino Transferase 24 U/L (14-36); Bilirubin,Indirect 0.3 mg/dL (0.0-0.9); Bilirubin,Total 0.3 mg/dl (0.2-1.3); Bilirubin,Unconjugated 0.4 mg/dL (0.0-1.1); Blood Urea Nitrogen 20 mg/dl (7-17); Calcium 10.1 mg/dl (8.4-10.2); Carbon Dioxide 26 mmol/L (22.0-30.0); Chloride 110 mmol/L (98-107); Chol/HDL Ratio 3.5 (1-3.5); Cholesterol 188 mg/dl (140-200); Estimated Glomerular Filt Rate 75 ml/min (>60); GFR (African American) 90 ML/MIN (>60); Glucose 165 mg/dl (74-100); HDL Cholesterol 53 mg/dl (40-60); Potassium 4.5 mmoL/L (3.5-5.1); Sodium 141 mmol/L (136-145); Total Protein,Serum 6.8 g/dl (6.3-8.2); Triglycerides 379 mg/dl (30-150); VLDL Cholesterol 76 mg/dL (0-40)
[2024-01-30 12:54] LABS: Direct LDL Cholesterol 89.86 mg/dL (100-129)
[2024-01-30 12:59] LABS: Free T4 (Free Thyroxine) 1.03 ng/dl (0.78-2.19)
[2024-01-30 13:14] LABS: Thyroid Stimulating Hormone 1.65 uIU/mL (0.465-4.68)
== END 2024-01-30 23:59 | disposition home or self-care (01) ==
LOC: LAB 11:31
PROVIDERS: PCP Emergency Medicine; Visit Provider Nurse Practitioner
DX: R00.0 Tachycardia, unspecified (principal); I50.20 Unspecified systolic (congestive) heart failure; R94.31 Abnormal electrocardiogram [ECG] [EKG]; I25.5 Ischemic cardiomyopathy; I25.10 Atherosclerotic heart disease of native coronary artery without angina pectoris; R06.00 Dyspnea, unspecified; R07.9 Chest pain, unspecified; I50.23 Acute on chronic systolic (congestive) heart failure; Z72.0 Tobacco use
CPT/HCPCS: 36415; 80048; 80061; 80076; 83735; 84439; 84443; 85025

== ENCOUNTER 2024-02-13 09:17 | Outpatient (CLI) | payer OTHER, SELFPAY ==
[2024-02-13 09:53] LABS: Basophils # 0.1 K/mm3 (0-0.2); Basophils % 0.9 % (0.1-2.0); Eosinophils # 0.2 K/mm3 (0.0-0.4); Eosinophils % 1.8 % (0.1-12.0); Hematocrit 46.7 % (37.0-47.0); Hemoglobin 15.7 g/dL (12.2-16.2); Lymphocytes # 2.1 K/mm3 (0.7-4.5); Lymphocytes % 25.8 % (10-50); Mean Corpuscular HGB Conc 33.6 g/dL (31.8-35.4); Mean Corpuscular Hemoglobin 31.8 pg (27.0-31.2); Mean Corpuscular Volume 94.6 fl (81-99); Mean Platelet Volume 9.5 fl (7.4-10.4); Monocytes # 0.4 K/mm3 (0.1-1.0); Monocytes % 5.1 % (1.7-9.3); Neutrophils # 5.5 K/mm3 (1.8-7.8); Neutrophils % 66.4 % (37.0-80.0); Platelet Count 242 K/mm3 (142-424); Red Blood Count 4.94 M/mm3 (4.20-5.40); Red Cell Distribution Width 13.6 % (11.5-17.5); White Blood Count 8.3 K/mm3 (4.8-10.8)
[2024-02-13 10:19] LABS: Albumin Level 4.4 g/dl (3.5-5.0); Chloride 107 mmol/L (98-107); Sodium 140 mmol/L (136-145)
[2024-02-13 10:20] LABS: Potassium 3.6 mmoL/L (3.5-5.1)
[2024-02-13 10:22] LABS: Alanine Aminotransferase 27 U/L (12-78); Alkaline Phosphatase 97 U/L (38-126); Amylase 95 U/L (30-110); Anion Gap 13.6 mEq/L (5-15); Aspartate Amino Transferase 23 U/L (14-36); Bilirubin,Indirect 0.4 mg/dL (0.0-0.9); Bilirubin,Total 0.4 mg/dl (0.2-1.3); Bilirubin,Unconjugated 0.4 mg/dL (0.0-1.1); Blood Urea Nitrogen 9 mg/dl (7-17); Calcium 10.3 mg/dl (8.4-10.2); Carbon Dioxide 23 mmol/L (22.0-30.0); Estimated Glomerular Filt Rate 104 ml/min (>60); GFR (African American) 126 ML/MIN (>60); Glucose 151 mg/dl (74-100); Magnesium 1.8 mg/dl (1.6-2.3); Total Protein,Serum 7.1 g/dl (6.3-8.2)
[2024-02-13 10:33] LABS: NT Pro Brain Natriuretic Pep. 480 pg/mL (0-125)
[2024-02-13 10:39] LABS: Free T4 (Free Thyroxine) 1.55 ng/dl (0.78-2.19)
[2024-02-13 10:54] LABS: Thyroid Stimulating Hormone 3.87 uIU/mL (0.465-4.68)
[2024-02-13 11:00] LABS: Lipase 1080 U/L (23-300)
== END 2024-02-13 23:59 | disposition home or self-care (01) ==
LOC: LAB 09:23
PROVIDERS: PCP Emergency Medicine; Visit Provider Physician Assistant
DX: R06.00 Dyspnea, unspecified (principal); R11.2 Nausea with vomiting, unspecified; R00.0 Tachycardia, unspecified; R94.31 Abnormal electrocardiogram [ECG] [EKG]; I25.5 Ischemic cardiomyopathy; Z72.0 Tobacco use; R07.9 Chest pain, unspecified; I50.23 Acute on chronic systolic (congestive) heart failure; I25.10 Atherosclerotic heart disease of native coronary artery without angina pectoris; K21.9 Gastro-esophageal reflux disease without esophagitis
CPT/HCPCS: 36415; 80048; 80076; 82150; 83690; 83735; 83880; 84439; 84443; 85025

== ENCOUNTER 2024-02-14 09:12 | Emergency (ER) | payer OTHER, SELFPAY ==
[2024-02-14] VITALS (8 sets, daily range): BP systolic 113–151; BP diastolic 75–90; PULSE 88–109; RESP 18–20; TEMP 36.6–36.7; O2SAT 94–97; BMI 30.9
--- NOTE | 2024-02-14 09:21 | CT_ITS ---
FINAL REPORT TECHNIQUE: After the administration of intravenous contrast, axial images were obtained through the abdomen and pelvis by computed tomography. The study was performed with techniques to keep radiation dose as low as reasonably achievable, (ALARA). Individual dose reduction techniques using automated exposure control or adjustment of mA and/or kV according to the patient's size were employed. CLINICAL HISTORY: abd pain, hx pancreatitis, eval for choledocho COMPARISON: 02/13/2024 FINDINGS: Abdomen: The lung bases are clear. The liver parenchyma is homogeneous. There is mild hepatomegaly. The gallbladder is present. There is mild perihepatic inflammation, may be due to mild pancreatitis. This is less evident than previous exam. There is a 1.3 cm cystic focus in the tail of the pancreas well seen on image 27 of series 3. Stable since previous exam 1 day prior. The spleen, adrenals and kidneys appear unremarkable. The aorta is normal in caliber. There is no free fluid or adenopathy. Pelvis: The appendix is not identified. The urinary bladder is incompletely distended. Streak artifact is seen from coils in the fallopian tubes bilaterally. There is no free fluid or adenopathy. IMPRESSION: Interval improvement in the pancreatic inflammation consistent with resolving pancreatitis. Cystic focus in the tail of the pancreas which could be related to pseudocyst, epithelial cyst, or cystic neoplasm. Recommend follow-up in 6 months. Reviewed, Interpreted and Dictated by Erick Rodriguez MD Transcribed by Erin Leach Authenticated and [facility]
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
[2024-02-14 09:27] LABS: Microscopic, Urine URINE MICROSCOPIC (MICROSCOPIC)
[2024-02-14 09:30] LABS: Appearance,Urine CLEAR (Clear); Bilirubin,Urine Negative (Negative); Blood, Urine Negative (Negative); Color,Urine YELLOW (Yellow); Glucose,Urine (UA) 3+ (Negative); Ketones,Urine Negative (Negative); Leukocyte Esterase,Urine TRACE (Negative); Nitrate,Urine Negative (Negative); Protein,Urine Negative (Negative); Specific Gravity, Urine 1.015 (1.005-1.030); Urobilinogen,Urine 0.2 EU/dl (0.2)
--- NOTE | 2024-02-14 09:30 | PC.NURSE ---
pt to ct scan
[2024-02-14] MEDS: MORPHINE 4MG/ML SYRINGE 4 MG IV (09:32)
[2024-02-14] MEDS: LACTATED RINGERS 1000ML 1,000 ML 999 ML IV (09:33)
[2024-02-14] MEDS: ONDANSETRON 4MG/2ML VIAL 4 MG IV (09:33)
[2024-02-14] MEDS: IOPAMIDOL-370 (76%);100ML BOTTLE 75 ML IV (09:37)
[2024-02-14] MEDS: SODIUM CHLORIDE 0.9% 10ML SYR (RAD ONLY) 10 ML IV (09:37)
[2024-02-14 09:38] LABS: Basophils # 0.1 K/mm3 (0-0.2); Basophils % 1.2 % (0.1-2.0); Eosinophils # 0.2 K/mm3 (0.0-0.4); Eosinophils % 2.3 % (0.1-12.0); Hemoglobin 15.4 g/dL (12.2-16.2); Lymphocytes # 2.8 K/mm3 (0.7-4.5); Lymphocytes % 32.1 % (10-50); Mean Corpuscular HGB Conc 33.5 g/dL (31.8-35.4); Mean Corpuscular Hemoglobin 31.8 pg (27.0-31.2); Mean Platelet Volume 9.3 fl (7.4-10.4); Monocytes # 0.3 K/mm3 (0.1-1.0); Monocytes % 3.9 % (1.7-9.3); Neutrophils # 5.2 K/mm3 (1.8-7.8); Neutrophils % 60.5 % (37.0-80.0); Platelet Count 244 K/mm3 (142-424); Red Blood Count 4.84 M/mm3 (4.20-5.40); Red Cell Distribution Width 13.8 % (11.5-17.5); White Blood Count 8.6 K/mm3 (4.8-10.8)
[2024-02-14 09:40] LABS: Albumin Level 4.3 g/dl (3.5-5.0); Chloride 108 mmol/L (98-107); Potassium 3.8 mmoL/L (3.5-5.1); Sodium 141 mmol/L (136-145)
--- NOTE | 2024-02-14 09:42 | PC.NURSE ---
pt back to room via wheelchair from ct scan
[2024-02-14 09:43] LABS: Alanine Aminotransferase 25 U/L (12-78); Albumin/Globulin Ratio 1.4 (1.1-1.8); Alkaline Phosphatase 94 U/L (38-126); Anion Gap 10.8 mEq/L (5-15); Aspartate Amino Transferase 26 U/L (14-36); Bilirubin,Total 0.4 mg/dl (0.2-1.3); Blood Urea Nitrogen 11 mg/dl (7-17); Calcium 10.1 mg/dl (8.4-10.2); Carbon Dioxide 26 mmol/L (22.0-30.0); Creatinine Clearance Estimated 137 mL/min (50-200); Estimated Glomerular Filt Rate 104 ml/min (>60); GFR (African American) 126 ML/MIN (>60); Glucose 157 mg/dl (74-100); Total Protein,Serum 7.3 g/dl (6.3-8.2)
[2024-02-14 09:44] LABS: Lactic Acid 0.9 mmol/L (0.7-2.1); Lipase 404 U/L (23-300)
[2024-02-14 09:54] LABS: Bacteria,Urine Trace /lpf; RBC,Urine Occasional #/hpf (0-3); WBC,Urine 20-50 #/hpf (0-3)
--- NOTE | 2024-02-14 11:44 | PC.NURSE ---
Calling radiology to check on state of ct scan results. There is a preliminary read and is sending it to us.
--- NOTE | 2024-02-14 11:51 | PC.NURSE ---
Dr. Dotson given prelim report
== END 2024-02-14 12:11 | disposition home or self-care (01) ==
PROVIDERS: Emergency Provider Emergency Medicine; PCP Emergency Medicine
DX: R10.13 Epigastric pain (principal); K85.90 Acute pancreatitis without necrosis or infection, unspecified; K86.1 Other chronic pancreatitis; K86.2 Cyst of pancreas; B96.89 Other specified bacterial agents as the cause of diseases classified elsewhere; R11.2 Nausea with vomiting, unspecified; E78.5 Hyperlipidemia, unspecified; Z95.1 Presence of aortocoronary bypass graft; F17.210 Nicotine dependence, cigarettes, uncomplicated; E11.9 Type 2 diabetes mellitus without complications; Z79.4 Long term (current) use of insulin; Z79.84 Long term (current) use of oral hypoglycemic drugs; J44.9 Chronic obstructive pulmonary disease, unspecified; I11.9 Hypertensive heart disease without heart failure; I25.119 Atherosclerotic heart disease of native coronary artery with unspecified angina pectoris
CPT/HCPCS: 74177; 80053; 81001; 83605; 83690; 85025; 87086; 96361; 96374; 96375; 99285; J2270; J2405; J7120; Q9967

== ENCOUNTER 2024-03-20 09:34 | Emergency (ER) | payer OTHER, SELFPAY ==
[2024-03-20 09:35] VITALS: BP 170/104; PULSE 100; RESP 18; TEMP 36.8; O2SAT 99; BMI 30.7
--- NOTE | 2024-03-20 09:35 | ECG_ITS ---
APPROVED REPORT Exam: Resting ECG HR:94 bpm ECG Measurements Heart Rate 94 AXES RI 140 P 74 QRSd 102 QRS 57 QT 348 T 53 QTc 400 Conclusion SINUS RHYTHM POSSIBLE LEFT ATRIAL ENLARGEMENT [-0.1mV P-WAVE IN V1/V2] BORDERLINE ECG Electronically signed by : GERRY SEO, 03/20/2024 16:26:50
--- NOTE | 2024-03-20 09:41 | XR_ITS ---
FINAL REPORT CLINICAL HISTORY: Nonspecific chest pain COMPARISON: 11/28/2023 FINDINGS: A single portable view of the chest was obtained. The heart size and pulmonary vascularity are within normal limits. Median sternotomy wires are present; otherwise, the mediastinum is within normal limits. No acute pulmonary abnormality is identified. The bony thorax is intact. IMPRESSION: No active cardiopulmonary disease. Reviewed, Interpreted and Dictated by Kirby Gutierrez III, MD Transcribed by Candy Bond Authenticated and [facility]
--- NOTE | 2024-03-20 09:49 | PC.NURSE ---
Dr. Augustine at [facility] for patient eval
[2024-03-20 09:50] LABS: Basophils # 0.1 K/mm3 (0-0.2); Basophils % 0.8 % (0.1-2.0); Eosinophils # 0.2 K/mm3 (0.0-0.4); Eosinophils % 2.3 % (0.1-12.0); Hematocrit 45.7 % (37.0-47.0); Hemoglobin 14.6 g/dL (12.2-16.2); Lymphocytes # 2.7 K/mm3 (0.7-4.5); Lymphocytes % 39.2 % (10-50); Mean Corpuscular Hemoglobin 30.9 pg (27.0-31.2); Mean Corpuscular Volume 96.7 fl (81-99); Mean Platelet Volume 10.7 fl (7.4-10.4); Monocytes # 0.3 K/mm3 (0.1-1.0); Monocytes % 4.9 % (1.7-9.3); Neutrophils # 3.6 K/mm3 (1.8-7.8); Neutrophils % 52.8 % (37.0-80.0); Platelet Count 176 K/mm3 (142-424); Red Blood Count 4.73 M/mm3 (4.20-5.40); Red Cell Distribution Width 13.6 % (11.5-17.5); White Blood Count 6.8 K/mm3 (4.8-10.8)
--- NOTE | 2024-03-20 09:51 | PC.NURSE ---
portable cxr at [facility]
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
--- NOTE | 2024-03-20 09:54 | PC.NURSE ---
PT ASSISTED TO BR
[2024-03-20 09:59] LABS: Alanine Aminotransferase 28 U/L (12-78); Albumin Level 4.2 g/dl (3.5-5.0); Albumin/Globulin Ratio 1.3 (1.1-1.8); Alkaline Phosphatase 111 U/L (38-126); Anion Gap 9.9 mEq/L (5-15); Aspartate Amino Transferase 30 U/L (14-36); Bilirubin,Total 0.8 mg/dl (0.2-1.3); Blood Urea Nitrogen 11 mg/dl (7-17); Calcium 9.9 mg/dl (8.4-10.2); Carbon Dioxide 24 mmol/L (22.0-30.0); Chloride 107 mmol/L (98-107); Creatinine Clearance Estimated 204 mL/min (50-200); Estimated Glomerular Filt Rate 166 ml/min (>60); GFR (African American) 201 ML/MIN (>60); Globulin 3.3 g/dL (1.3-3.2); Glucose 225 mg/dl (74-100); Lipase 144 U/L (23-300); Potassium 3.9 mmoL/L (3.5-5.1); Sodium 137 mmol/L (136-145); Total Protein,Serum 7.5 g/dl (6.3-8.2)
[2024-03-20 10:09] LABS: D-Dimer 0.52 ug/mL (0.0-0.5)
[2024-03-20] MEDS: ASPIRIN 81MG CHEWABLE TABLET 324 MG PO (10:12)
[2024-03-20] MEDS: BELLADONNA ALKALOIDS 60 ML ML PO (10:12)
[2024-03-20] MEDS: ACETAMINOPHEN 500MG TAB 1000 MG PO (10:12)
[2024-03-20] MEDS: IPRATROPIUM/ALBUTEROL 3 ML NEB IH (10:12)
[2024-03-20 10:17] LABS: Troponin I < 0.01 ng/ml (0.00-0.034)
[2024-03-20 10:18] VITALS: BP 156/101; PULSE 84; RESP 19; O2SAT 100
--- NOTE | 2024-03-20 10:26 | PC.NURSE ---
Covid/flu swab sent to lab
[2024-03-20 10:27] LABS: Coronavirus 19, PCR Not Detected (NotDetected); Influenza A, PCR Not Detected (NotDetected); Influenza B, PCR Not Detected (NotDetected)
--- NOTE | 2024-03-20 10:45 | PC.NURSE ---
DR SEO AT BEDSIDE TO UPDATE PT
[2024-03-20 10:53] VITALS: BP 162/99; PULSE 84; RESP 16; TEMP 36.6; O2SAT 100
== END 2024-03-20 10:53 | disposition home or self-care (01) ==
PROVIDERS: Emergency Provider Emergency Medicine; PCP Emergency Medicine
DX: J44.0 Chronic obstructive pulmonary disease with (acute) lower respiratory infection (principal); J44.1 Chronic obstructive pulmonary disease with (acute) exacerbation; J18.9 Pneumonia, unspecified organism; R07.89 Other chest pain; I11.0 Hypertensive heart disease with heart failure; I50.20 Unspecified systolic (congestive) heart failure; I25.110 Atherosclerotic heart disease of native coronary artery with unstable angina pectoris; E11.9 Type 2 diabetes mellitus without complications; E78.5 Hyperlipidemia, unspecified; I25.2 Old myocardial infarction; R68.84 Jaw pain; F17.210 Nicotine dependence, cigarettes, uncomplicated; Z79.4 Long term (current) use of insulin
CPT/HCPCS: 71045; 80053; 83690; 84484; 85025; 85378; 87636; 93005; 99285; J7620

== ENCOUNTER 2024-05-15 00:05 | Emergency (ER) | payer OTHER, SELFPAY ==
[2024-05-15 00:05] VITALS: BP 136/92; PULSE 117; RESP 18; TEMP 37.1; O2SAT 95; BMI 30.5
--- NOTE | 2024-05-15 00:18 | XR_ITS ---
PROCEDURE INFORMATION: Exam: XR Left Foot Exam date and time: 05/15/2024 12:18 AM Age: 54 years old Clinical indication: Pain; Foot; Left; Additional info: Fall pain TECHNIQUE: Imaging protocol: Radiologic exam of the left foot. Views: 3 or more views. COMPARISON: CR XR ANKLE LT MIN 3V 05/15/2024 12:18 AM FINDINGS: Bones/joints: Medial and lateral malleolar fractures. No additional fracture or dislocation. No aggressive osseous lesion. Soft tissues: Soft tissues otherwise within normal limits. IMPRESSION: Medial and lateral malleolar fractures.
--- NOTE | 2024-05-15 00:18 | XR_ITS ---
PROCEDURE INFORMATION: Exam: XR Left Tibia and Fibula Exam date and time: 05/15/2024 12:18 AM Age: 54 years old Clinical indication: Pain; Lower leg; Left; Additional info: Fall, ankle pain TECHNIQUE: Imaging protocol: Radiologic exam of the left tibia and fibula. Views: 2 views. COMPARISON: CR XR ANKLE LT MIN 3V 05/15/2024 12:18 AM FINDINGS: Bones/joints: Old fibular fracture. Surgical hardware in the tibia. Partially visualized medial and lateral malleolar fracture. Soft tissues: Normal. IMPRESSION: Partially visualized medial and lateral malleolar fracture.
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
--- NOTE | 2024-05-15 00:18 | XR_ITS ---
PROCEDURE INFORMATION: Exam: XR Left Ankle Exam date and time: 05/15/2024 12:18 AM Age: 54 years old Clinical indication: Pain; Ankle; Left; Additional info: Fall, ankle pain TECHNIQUE: Imaging protocol: Radiologic exam of the left ankle. Views: 3 or more views. COMPARISON: CR XR ANKLE LT 2V 12/14/2022 9:33 AM FINDINGS: Bones/joints: Surgical hardware traverses the tibia with an intramedullary hannah and screws. There is an acute appearing fracture of the medial malleolus with slight displacement. There is a nondisplaced fracture of the lateral malleolus. No additional fracture or dislocation. No aggressive osseous lesion. Soft tissues: There is diffuse soft tissue swelling. Soft tissues otherwise within normal limits. IMPRESSION: 1. There is an acute appearing fracture of the medial malleolus with slight displacement. 2. There is a nondisplaced fracture of the lateral malleolus.
[2024-05-15 01:00] VITALS: PULSE 101; O2SAT 96
[2024-05-15] MEDS: KETOROLAC 30MG/ML VIAL 30 MG IM (01:15)
[2024-05-15] MEDS: ACETAMINOPHEN 500MG TAB 1000 MG PO (01:15)
[2024-05-15 02:00] VITALS: BP 120/73; PULSE 111; O2SAT 96
[2024-05-15] MEDS: FENTANYL 100MCG/2ML VIAL 100 MCG IV (02:54)
--- NOTE | 2024-05-15 03:14 | XR_ITS ---
PROCEDURE INFORMATION: Exam: XR Left Ankle Exam date and time: 05/15/2024 3:19 AM Age: 54 years old Clinical indication: Pain; Ankle; Left; Additional info: Post splint TECHNIQUE: Imaging protocol: Radiologic exam of the left ankle. Views: 3 or more views. COMPARISON: CR XR ANKLE LT MIN 3V 05/15/2024 12:18 AM FINDINGS: Bones/joints: Status post ORIF of the tibia. The ankle is now splinted. No significant interval changes identified. Soft tissues: Normal. IMPRESSION: Status post ORIF of the tibia. The ankle is now splinted. No significant interval changes identified.
[2024-05-15 06:27] VITALS: BP 138/66; PULSE 102; RESP 16; TEMP 36.9; O2SAT 96
== END 2024-05-15 06:30 | disposition home or self-care (01) ==
PROVIDERS: Emergency Provider Emergency Medicine
DX: S82.842A Displaced bimalleolar fracture of left lower leg, initial encounter for closed fracture (principal); M25.572 Pain in left ankle and joints of left foot; W01.0XXA Fall on same level from slipping, tripping and stumbling without subsequent striking against object, initial encounter; Y93.89 Activity, other specified; Y92.9 Unspecified place or not applicable
CPT/HCPCS: 29515; 73590; 73610; 73630; 96372; 96374; 99283; J1885; J3010

== ENCOUNTER 2024-05-17 13:04 | Outpatient (CLI) | payer OTHER, SELFPAY ==
--- NOTE | 2024-05-17 13:06 | CT_ITS ---
PROCEDURE INFORMATION: Exam: CT Left Lower Extremity, Ankle Exam date and time: 05/17/2024 1:08 PM Age: 54 years old Clinical indication: Pain; Ankle; Left; Additional info: FX f/u TECHNIQUE: Imaging protocol: CT of the left lower extremity without contrast was performed. Exam focused on the ankle. Radiation optimization: All CT scans at this facility use at least one of these dose optimization techniques: automated exposure control; mA and/or kV adjustment per patient size (includes targeted exams where dose is matched to clinical indication); or iterative reconstruction. COMPARISON: CR XR ANKLE LT MIN 3V 05/15/2024 3:19 AM FINDINGS: Bones/joints: The screws through the distal tibia. . Comminuted minimally displaced fracture in the distal fibula is in good alignment. Soft tissues: Soft tissue swelling. Splint in place IMPRESSION: 1. The screws through the distal tibia. . 2. Comminuted minimally displaced fracture in the distal fibula is in good alignment.
== END 2024-05-17 23:59 | disposition home or self-care (01) ==
LOC: RAD 13:05
PROVIDERS: PCP Physician Assistant Surgical; Visit Provider Physician Assistant Surgical
DX: S82.842A Displaced bimalleolar fracture of left lower leg, initial encounter for closed fracture (principal)
CPT/HCPCS: 73700

== ENCOUNTER 2024-05-21 08:47 | Emergency (ER) | payer OTHER, SELFPAY ==
[2024-05-21 08:49] VITALS: BP 164/94; PULSE 113; RESP 20; TEMP 36.6; O2SAT 98; BMI 30.7
[2024-05-21 09:09] VITALS: BP 165/90; PULSE 105; RESP 18; TEMP 36.6; O2SAT 98
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
== END 2024-05-21 09:10 | disposition home or self-care (01) ==
PROVIDERS: Emergency Provider Emergency Medicine; PCP Emergency Medicine
DX: Z00.8 Encounter for other general examination (principal); M25.572 Pain in left ankle and joints of left foot; M79.675 Pain in left toe(s)
CPT/HCPCS: 99281

== ENCOUNTER 2024-05-25 18:42 | Emergency (ER) | payer OTHER, SELFPAY ==
[2024-05-25] VITALS (8 sets, daily range): BP systolic 111–175; BP diastolic 62–113; PULSE 98–111; RESP 17–26; TEMP 37.2–37.3; O2SAT 94–98; BMI 30.7
--- NOTE | 2024-05-25 18:33 | ECG_ITS ---
APPROVED REPORT Exam: Resting ECG HR:110 bpm ECG Measurements Heart Rate 110 AXES NE 149 P 67 QRSd 103 QRS 78 QT 353 T 87 QTc 418 Conclusion SINUS TACHYCARDIA Electronically signed by : EMELIA SERNA, 05/26/2024 15:04:55
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
--- NOTE | 2024-05-25 18:51 | XR_ITS ---
PROCEDURE INFORMATION: Exam: XR Chest Exam date and time: 05/25/2024 6:59 PM Age: 54 years old Clinical indication: Cough and shortness of breath; Additional info: SOA cough TECHNIQUE: Imaging protocol: Radiologic exam of the chest. Views: 1 view. COMPARISON: No relevant prior studies available. FINDINGS: Lungs: Unremarkable. No consolidation. Pleural spaces: Unremarkable. No pleural effusion. No pneumothorax. Heart/Mediastinum: Unremarkable. No cardiomegaly. Bones/joints: Sternotomy wires in place. Otherwise unremarkable. IMPRESSION: No acute findings.
[2024-05-25 19:00] LABS: Basophils % 0.5 % (0.1-2.0); Eosinophils # 0.1 K/mm3 (0.0-0.4); Eosinophils % 1.6 % (0.1-12.0); Hematocrit 41.8 % (37.0-47.0); Hemoglobin 14.4 g/dL (12.2-16.2); Lymphocytes # 1.1 K/mm3 (0.7-4.5); Mean Corpuscular HGB Conc 34.4 g/dL (31.8-35.4); Mean Corpuscular Hemoglobin 31.7 pg (27.0-31.2); Mean Platelet Volume 9.6 fl (7.4-10.4); Monocytes # 0.4 K/mm3 (0.1-1.0); Monocytes % 4.9 % (1.7-9.3); Neutrophils # 5.9 K/mm3 (1.8-7.8); Platelet Count 188 K/mm3 (142-424); Red Blood Count 4.54 M/mm3 (4.20-5.40); White Blood Count 7.4 K/mm3 (4.8-10.8)
[2024-05-25 19:06] LABS: Activated Partial Thrombo Time 26.9 seconds (22.8-30.6)
--- NOTE | 2024-05-25 19:16 | PC.NURSE ---
RT notified of vbg order and blood in the lab
[2024-05-25] MEDS: METHYLPREDNISOLONE SOD SUCC 125MG VIAL 125 MG IV (19:19)
[2024-05-25] MEDS: DOXYCYCLINE HYCL 100 MG TABLET PO (19:19)
[2024-05-25 19:22] LABS: Chloride 106 mmol/L (98-107)
[2024-05-25 19:23] LABS: Albumin Level 4.1 g/dl (3.5-5.0); Potassium 3.8 mmoL/L (3.5-5.1); Sodium 135 mmol/L (136-145)
[2024-05-25 19:25] LABS: Blood Urea Nitrogen 12 mg/dl (7-17); Creatinine Clearance Estimated 272 mL/min (50-200); Estimated Glomerular Filt Rate 231 ml/min (>60); GFR (African American) 279 ML/MIN (>60)
[2024-05-25 19:26] LABS: Alanine Aminotransferase 24 U/L (12-78); Albumin/Globulin Ratio 1.2 (1.1-1.8); Alkaline Phosphatase 110 U/L (38-126); Anion Gap 7.8 mEq/L (5-15); Aspartate Amino Transferase 25 U/L (14-36); Bilirubin,Total 0.6 mg/dl (0.2-1.3); Calcium 9.9 mg/dl (8.4-10.2); Carbon Dioxide 25 mmol/L (22.0-30.0); Globulin 3.3 g/dL (1.3-3.2); Glucose 190 mg/dl (74-100); Total Protein,Serum 7.4 g/dl (6.3-8.2)
[2024-05-25 19:28] LABS: Lactate Venous 1.8 mmol/L (0.4-2.0); VBG HCO3 21.9 mmol/L (23-30); VBG Oxygen Saturation 97.5 % (50-70); VBG PH 7.45 mmol/L (7.31-7.41); VBG PO2 93.1 mmol/L (28-40); VBG Total CO2 22.9 mmol/L (23-27)
[2024-05-25 19:33] LABS: D-Dimer 0.81 ug/mL (0.0-0.5)
[2024-05-25] MEDS: IPRATROPIUM/ALBUTEROL 3 ML NEB 9 ML IH (19:36)
[2024-05-25 19:37] LABS: NT Pro Brain Natriuretic Pep. 87.2 pg/mL (0-125)
[2024-05-25 19:50] LABS: Troponin I < 0.01 ng/ml (0.00-0.034)
--- NOTE | 2024-05-25 19:57 | CT_ITS ---
PROCEDURE INFORMATION: Exam: CTA Chest With Contrast Exam date and time: 05/25/2024 8:24 PM Age: 54 years old Clinical indication: Shortness of breath; Additional info: SOA, acute, new dimer TECHNIQUE: Imaging protocol: Computed tomographic angiography of the chest with contrast. Exam focused on the arteries. 3D rendering (Not supervised by radiologist): MIP and/or 3D reconstructed images were created by the technologist. Radiation optimization: All CT scans at this facility use at least one of these dose optimization techniques: automated exposure control; mA and/or kV adjustment per patient size (includes targeted exams where dose is matched to clinical indication); or iterative reconstruction. Contrast material: ISOVUE; Contrast volume: 70 ml; Contrast route: INTRAVENOUS (IV); COMPARISON: CT ANGIO CHEST PE PROTOCOL 08/11/2023 12:07 PM FINDINGS: Pulmonary arteries: Study limited by poor contrast opacification of the pulmonary arteries. No evidence of pulmonary embolus. Aorta: Unremarkable. No aortic aneurysm. No aortic dissection. Lungs: Stable calcified and partially calcified nodules compatible with a benign granulomas in the right mid lung. No active pulmonary infiltrate. Pleural spaces: Unremarkable. No pneumothorax. No pleural effusion. Heart: Unremarkable. No cardiomegaly. No pericardial effusion. Lymph nodes: Unremarkable. No enlarged lymph nodes. Bones/joints: Old post sternotomy changes noted. Mild degenerative disc changes throughout the thoracic spine. No vertebral body compression or acute fracture. Soft tissues: Unremarkable. IMPRESSION: Limited study as described. No definite evidence of pulmonary embolus or other acute abnormality in the chest. Stable chronic findings as noted.
[2024-05-25] MEDS: IOPAMIDOL-370 (76%);100ML BOTTLE 70 ML IV (20:25)
[2024-05-25] MEDS: 0.9 % SODIUM CHLORIDE 50 ML VIAL IV (20:25)
[2024-05-25] MEDS: SODIUM CHLORIDE 0.9% 10ML SYR (RAD ONLY) 10 ML IV (20:25)
== END 2024-05-25 22:13 | disposition home or self-care (01) ==
PROVIDERS: Emergency Provider Emergency Medicine; PCP Emergency Medicine
DX: J44.1 Chronic obstructive pulmonary disease with (acute) exacerbation (principal); R06.02 Shortness of breath; R06.00 Dyspnea, unspecified; R05.9 Cough, unspecified; Z72.0 Tobacco use
CPT/HCPCS: 71045; 71275; 80053; 82803; 83880; 84484; 85025; 85378; 85730; 93005; 96374; 99285; J2919; J7620; Q9967

== ENCOUNTER 2024-05-31 12:55 | Outpatient (CLI) | payer OTHER, SELFPAY ==
--- NOTE | 2024-05-31 12:59 | XR_ITS ---
FINAL REPORT CLINICAL HISTORY: fx on 05/17, no surgery from this fx. COMPARISON: None FINDINGS: LEFT ANKLE: Three views of the left ankle were obtained. Postoperative change is present in the distal tibia with an intramedullary hannah. There is a healed distal tibial fracture noted. There is cast material overlying the ankle and foot. There is an oblique subacute fracture of the distal fibular metaphysis. There is a nondisplaced fracture of the inferior medial malleolus of uncertain age. The joint spaces and mortise are otherwise intact. There is no soft tissue abnormality. IMPRESSION: Oblique subacute fracture of the distal fibular metaphysis. Nondisplaced fracture of the inferior medial malleolus of uncertain age. Postoperative change with an intramedullary hannah in the distal tibia, with a healed distal tibial fracture noted. Reviewed, Interpreted and Dictated by Kirby Gutierrez III, MD Transcribed by Josefa Roman Authenticated and [facility]
== END 2024-05-31 23:59 | disposition home or self-care (01) ==
LOC: RAD 12:56
PROVIDERS: PCP Emergency Medicine; Visit Provider Orthopaedic Surgery
DX: M25.572 Pain in left ankle and joints of left foot (principal)
CPT/HCPCS: 73610

== ENCOUNTER 2024-06-21 11:58 | Outpatient (CLI) | payer OTHER, SELFPAY ==
--- NOTE | 2024-06-21 12:02 | XR_ITS ---
FINAL REPORT CLINICAL HISTORY: Left ankle fx COMPARISON: 05/31/2024 FINDINGS: LEFT ANKLE: Three views of the left ankle were obtained. A cast is present, which obscures bony detail. There is postoperative change of an intramedullary hannah, which is stable since the prior exam of 05/31. The joint spaces and mortise are intact. There is no soft tissue abnormality. IMPRESSION: Stable examination, with an intramedullary hannah in the distal tibia. No acute bony abnormality identified. Reviewed, Interpreted and Dictated by Kirby Gutierrez III, MD Transcribed by Josefa Roman Authenticated and [facility]
== END 2024-06-21 23:59 | disposition home or self-care (01) ==
LOC: RAD 11:59
PROVIDERS: Visit Provider Orthopaedic Surgery
DX: M25.572 Pain in left ankle and joints of left foot (principal)
CPT/HCPCS: 73610

== ENCOUNTER 2024-06-25 11:13 | Emergency (ER) | payer OTHER, SELFPAY ==
[2024-06-25 11:14] VITALS: BP 155/95; PULSE 112; RESP 18; TEMP 36.7; O2SAT 98; BMI 30.7
--- NOTE | 2024-06-25 11:19 | XR_ITS ---
FINAL REPORT CLINICAL HISTORY: LEFT ANKLE PAIN COMPARISON: None FINDINGS: Two views of the left tibia/fibula were obtained. There are postoperative changes of the tibia with an intramedullary hannah present. A lucency in the distal lateral fibula metaphysis is worrisome for nondisplaced fracture. There is irregularity of the medial meniscus, also worrisome for nondisplaced fracture. There are chronic fractures of the proximal fibula and distal tibia. Mild degenerative changes are seen in the knee and ankle. There is no acute soft tissue abnormality. IMPRESSION: Findings worrisome for fractures of the lateral fibular metaphysis and medial malleolus. Reviewed, Interpreted and Dictated by Kirby Gutierrez III, MD Transcribed by Graciela Machado Authenticated and [facility]
[2024-06-25] MEDS: ACETAMINOPHEN 500MG TAB 1000 MG PO (11:23)
[2024-06-25] MEDS: IBUPROFEN 600 MG TABLET PO (11:24)
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
[2024-06-25 13:15] VITALS: BP 160/100; PULSE 90; RESP 18; TEMP 36.7; O2SAT 97
== END 2024-06-25 13:15 | disposition home or self-care (01) ==
PROVIDERS: Emergency Provider Student in an Organized Health Care Education/Training Program
DX: M25.572 Pain in left ankle and joints of left foot (principal)
CPT/HCPCS: 73590; 99283

== ENCOUNTER 2024-07-26 12:47 | Outpatient (CLI) | payer OTHER, SELFPAY ==
--- NOTE | 2024-07-26 12:50 | XR_ITS ---
FINAL REPORT CLINICAL HISTORY: Left Ankle Fx COMPARISON: 06/25/2024 FINDINGS: LEFT ANKLE Three views demonstrate an IM hannah securing a healed fracture deformity of the distal tibial diaphysis. There is narrowing of the lateral ankle mortise. Healed fracture deformity is seen of an oblique fracture of the distal fibula. There is moderate soft tissue edema about the ankle. IMPRESSION: IM hannah distal tibial diaphysis. Healed fracture deformity lateral malleolus. Narrowing of the lateral ankle mortise. Reviewed, Interpreted and Dictated by Erick Rodriguez MD Transcribed by Graciela Machado Authenticated and [facility]
== END 2024-07-26 23:59 | disposition home or self-care (01) ==
LOC: RAD 12:48
PROVIDERS: PCP Emergency Medicine; Visit Provider Orthopaedic Surgery
DX: M25.572 Pain in left ankle and joints of left foot (principal)
CPT/HCPCS: 73610

== ENCOUNTER 2024-09-11 07:21 | Day surgery (SDC) | payer OTHER, SELFPAY ==
[2024-09-11] VITALS (19 sets, daily range): BP systolic 103–155; BP diastolic 59–95; PULSE 59–102; RESP 16–20; O2SAT 93–97; BMI 30.7
--- NOTE | 2024-09-11 07:11 | IR_ITS ---
APPROVED REPORT Patient Location: Outpatient Male Infertility Specialist: Jayy Burleson, RT (R) PROCEDURES Left heart catheterization Left ventriculogram Selective coronary angiogram Selective engagement into the left internal mammary artery to the LAD Selective engagement of the saphenous vein graft to the obtuse marginal artery INDICATION Coronary artery disease, History of coronary bypass surgery, Worsening angina pectoris, Informed consent was obtained prior to the procedure. COMPLICATIONS NONE Estimated Blood Loss: LESS THAN 10 ML TECHNIQUE One percent lidocaine used to anesthetize the right groin. The right femoral artery was accessed via the Seldinger technique and a 5 Greek sheath was placed in the right femoral artery. A JL 4, JR4 catheter were used to perform left heart catheterization, left ventriculogram selective coronary angiography as well as selective engagement of the solitary vein graft and the left internal mammary artery. At the end of the procedure the patient was transferred to the postop holding area in stable condition for sheath removal. ANGIOGRAPHIC RESULTS The left main artery Normal The left anterior descending artery Is a stent in the proximal segment which originates from the left main artery. Proximally the stent is patent. It then gives rise to a large bifurcating first diagonal artery. Distal to the first diagonal artery there is 70 to 80% in-stent restenosis within the stents. Competitive flow from the left internal mammary artery is identified. The large bifurcating diagonal artery has proximal 20 and 30% stenosis and otherwise is patent The circumflex artery Nondominant proximally occluded The right coronary artery Is large and dominant has a stent in the ostial proximal segment which is mild 30% concentric in-stent restenosis. The remaining mid and distal vessel are widely patent with diffuse 20% stenoses The NEGRON ventriculogram reveals Preserved at 50 to 55% The left ventricular end-diastolic pressure 10 mmHg MARROQUIN to LAD widely patent Saphenous to obtuse marginal artery has a proximal 20 to 30% graft stenosis IMPRESSION Patent coronary arteries as described above Preserved ejection fraction Normal coronary arteries PLAN 1. Medical management 2. Risk factor modification Electronically signed by : Jordy Hall MD 09/11/2024 10:19:53
[2024-09-11 08:21] LABS: Basophils % 0.2 % (0.1-2.0); Eosinophils % 0.1 % (0.1-12.0); Hematocrit 42.1 % (37.0-47.0); Hemoglobin 14.5 g/dL (12.2-16.2); Lymphocytes # 1.3 K/mm3 (0.7-4.5); Lymphocytes % 10.1 % (10-50); Mean Corpuscular HGB Conc 34.4 g/dL (31.8-35.4); Mean Corpuscular Hemoglobin 30.9 pg (27.0-31.2); Mean Corpuscular Volume 89.8 fl (81-99); Mean Platelet Volume 10.8 fl (7.4-10.4); Monocytes # 0.3 K/mm3 (0.1-1.0); Monocytes % 2.2 % (1.7-9.3); Neutrophils # 10.9 K/mm3 (1.8-7.8); Neutrophils % 86.6 % (37.0-80.0); Platelet Count 273 K/mm3 (142-424); Red Blood Count 4.69 M/mm3 (4.20-5.40); Red Cell Distribution Width 13.3 % (11.5-17.5); White Blood Count 12.5 K/mm3 (4.8-10.8)
[2024-09-11 08:24] LABS: Chloride 105 mmol/L (98-107); Sodium 141 mmol/L (136-145)
[2024-09-11 08:25] LABS: Potassium 4.1 mmoL/L (3.5-5.1)
[2024-09-11 08:27] LABS: Blood Urea Nitrogen 17 mg/dl (7-17); Creatinine Clearance Estimated 163 mL/min (50-200); Estimated Glomerular Filt Rate 128 ml/min (>60); GFR (African American) 155 ML/MIN (>60)
[2024-09-11 08:28] LABS: Anion Gap 17.1 mEq/L (5-15); Calcium 10.3 mg/dl (8.4-10.2); Carbon Dioxide 23 mmol/L (22.0-30.0); Glucose 260 mg/dl (74-100)
[2024-09-11] MEDS: diphenhydrAMINE 50MG/ML VIAL 50 MG IV (09:36)
[2024-09-11] MEDS: HEPARIN 1,000 UNITS/500ML NS (CATH LAB) 3000 UNIT IV (09:37)
[2024-09-11] MEDS: LIDOCAINE 1% 10ML MDV 20 ML IJ (09:37)
[2024-09-11] MEDS: 0.9 % SODIUM CHLORIDE 500 ML 25 ML IV (09:37)
[2024-09-11] MEDS: FENTANYL 100MCG/2ML VIAL 50 MCG IV (09:38)
[2024-09-11] MEDS: MIDAZOLAM HCL 1MG/ML 5ML VIAL 1 MG IV (09:38)
[2024-09-11] MEDS: IOPAMIDOL-370 (76%);100ML BOTTLE 50 ML IV (13:21)
== END 2024-09-11 13:08 | disposition home or self-care (01) ==
PROVIDERS: PCP Emergency Medicine; Visit Provider Internal Medicine
DX: I25.110 Atherosclerotic heart disease of native coronary artery with unstable angina pectoris (principal); I11.0 Hypertensive heart disease with heart failure; E11.9 Type 2 diabetes mellitus without complications; I25.2 Old myocardial infarction; Z95.1 Presence of aortocoronary bypass graft; R06.02 Shortness of breath; Z79.4 Long term (current) use of insulin; Z79.899 Other long term (current) drug therapy; F17.210 Nicotine dependence, cigarettes, uncomplicated; J44.9 Chronic obstructive pulmonary disease, unspecified
CPT/HCPCS: 80048; 85025; 93459; 99152; C1725; C1769; C1894; J1200; J1644; J3010; Q9967

== ENCOUNTER 2024-10-21 13:22 | Emergency (ER) | payer OTHER, SELFPAY ==
[2024-10-21 13:39] VITALS: BP 196/106; PULSE 105; RESP 20; TEMP 36.6; O2SAT 98; BMI 30.7
[2024-10-21 14:00] VITALS: BP 180/99; PULSE 90; RESP 20; TEMP 36.6; O2SAT 96
[2024-10-21 14:02] VITALS: BP 196/106; PULSE 80; RESP 20; TEMP 36.8; O2SAT 96
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
--- OUTSIDE RECORDS SUMMARY | 2024-10-25 20:01 | XMS_ITS | Continuity of Care Document ---
Author Organization Formerly [facility]. If a dditional information is needed, contact Health Information Management at [phone] [place] [address] Phone Care Team Providers Care Thai Masseur Name Role Phone Unavailable Unavailable Unavailable Unavailable Unavailable Unavailable Unavailable Unavailable Unavailable Problems Acute exacerbation of chroni c obstructive pulmonary disease Onset:08-May-2021 Dwaine Leon Status:Acute Hyperglycemia Onset:08-May-2021 Dwaine Leon Status:Acute Functional Status Functional finding 08-May-2021 Functional finding 08-May-2021 Functional finding 08-May-2021 Allergies and Adverse Reactions moxifloxacin HCl From Avelox (Allergy) Onset: 08-May-2021 Reaction:face swelling Penicillins(Allergy) Onset: 08-May-2021 Reaction:FACIAL SWELLING Sulfa (Sulfonamide Antibioti cs)(Allergy) Onset: 08-May-2021 Reaction:face swelling carisoprodol(Allergy) Onset: 08-May-2021 Reaction:Anaphylaxis carisoprodol(Allergy) Onset: 03-Oct-2014 Reaction:Anaphylaxis moxifloxacin HCl From Avelox (Allergy) Onset: 22-May-2013 Reaction:face swelling Penicillins(Allergy) Onset: 22-May-2013 Reaction:FACIAL SWELLING Sulfa (Sulfonamide Antibioti cs)(Allergy) Onset: 22-May-2013 Reaction:face swelling Medications azithromycin 250 MG Oral Tab let;250 MG ORAL Daily Start:08-May-2021 Comments:250 mg PO DAILY predniSONE 20 MG Oral Tablet ;3 TAB ORAL Daily Start:08-May-2021 Comments:3 tab PO DAILY ProAir;2 PUFF Inhalation Q6H Start:08-May-2021 Comments:2 puff INHALATION Q6H As Needed for Wheezing Trulicity;0.75 MG subcut Onc e Start:08-May-2021 Comments:0.75 mg SUBCUT ONCE [place] [id number];1 - 2 ORAL Every 6 Hours as Needed Start:03-Oct-2014 Comments:1 - 2 TAB PO Q6H PRN As Needed for Pain / Cramps [place] [id number];1 - 2 ORAL Every 6 Hours as Needed Start:03-Oct-2014 Status:Aborted Comments:1 - 2 TAB PO Q6H PRN As Needed for Pain / Cramps [id number];10 M G ORAL Daily Start:22-May-2013 Comments:10 MG PO DAILY [id number];20 M G ORAL Daily Start:22-May-2013 Comments:20 MG PO DAILY [id number];400 MG ORAL Three Times a Day Start:22-May-2013 Comments:400 MG PO TID Albuterol Sulfate [id number];2 PUFF INHALATION As Needed Start:22-May-2013 Comments:2 PUFF INH PRN As Needed for ASTHMA
--- OUTSIDE RECORDS SUMMARY | 2024-10-25 20:01 | XMS_ITS | Continuity of Care Document ---
Author Organization [facility] Address [address] [place] [address] Care Team Providers Care Level Vial Sealer Name Role Phone ART WALKER Primary Care Provider Assessment Encounter Date Assessment Date Assessment LastModified by Organization Details LastModified Time 10/16/2024 10/16/2024 Medicaid first pair of aids, difficulty with test reliability, very interested in amplification ?? LEFT RIGHT Aids ??Widex Moment 330 sheer Li Widex Moment 330 Sheer Li?? Fit Date ??10/16/2024 10/16/2024?? Warranty Expiration ??10/17/2027 10/17/2027?? L&D ? Filters ??cerustop cerustop?? Receivers ??2M 2M?? Domes ??medium open ??small tulip Hearing aid and service end date ??Medicaid Medicaid?? Karen returned today to be fit with Widex Moment 330 behind the ear hearing aids bilaterally. Aids are fit to audiogram and patient comfort with the volume control enabled. Aided testing indicates excellent aided benefit. Of note, she turned the hearing aids down before leaving the clinic. Data logging will be investigated at her follow up. Counseled on care, use, charging, insertion, and removal. Karen is able to insert, remove, charge, and maintain the aids without assistance. Proper use and expectations were discussed today. We also discussed warranty period, trial period, included services, and loss and damage policy. Karen is scheduled to return for the real world customization of the hearing aids. Not available 10/17/2024 09:27:08 Plan of Treatment Reminders Order Date Submit Date Provider Last Modified By Organization Details Last Modified Time Details Appointments OV EST 15 02/12/ 025 08:30AM Art Walker MD Not available Not available Not available Lab None record ed. Referral None record ed. Procedures None record ed. Surgeries None record ed. Imaging None record ed. Medication Orders None record ed. Patient TargetsNo targets recorded. Patient InstructionsNo instructions recorded. Reason for Referral None Reported. Problems Name Problem SNOMED Code Status Onset Date Resolution Date Notes Provider Name and Address Organization Details Recorded Time Mixed conductive AND sensorineural hearing loss 57549058 Active 2024 JORGE OLIVARES MD [address] [place] [address], [address], [place], [address] , [place] [facility] [place] & [place] 5 11:54:42 History of polyp of colon 927056678 Active 2022 Karolyn Pardini null, [place] [facility] [place] & [place] 3 09:16:45 Acute pancreatitis 977195100 Active Karolyn Pardini [place] [facility] [place] & [place] 3 09:16:15 Gastroenterit is 39044823 Active Karolyn Pard[place] [facility] [place] & [place] 3 09:16:18 Nausea, vomiting and diarrhea 4424224 Active Karolyn Pardini null, [place] [facility] & [place] 3 09:15:06 Alcohol intoxication 24146802 Active Karolyn Pardini null, [place] [facility] [place] & [place] 3 09:14:59 Pancreatitis 57038703 Active Karolyn Pardini null, [place] [facility] & [place] 3 09:15:12 Hyperlipidemi a 85774604 Active 2022 Karolyn Pardini null[place] [facility] & [place] 3 09:15:23 Mixed anxiety and depressive disorder 475535167 Active 2022 Karolyn Pardini null, [place] [facility] [place] & [place] 3 09:15:30 Essential hypertension 06510995 Active 2022 Karolyn Henry [place] [facility] [place] & [place] 3 09:15:41 Coronary arteriosclero sis 40027646 Active 2022 Karolyn Henry null, [place] [facility] & [place] 3 09:16:52 Uncontrolled type 2 diabetes mellitus 369387508 Active 2023 Art Walker MD [address] [place] [address], [id number] [facility] [place] [facility] & [place] 4 08:25:22 Problem Notes None recorded. Procedures Surgical History Date Name Laterality Status Provider Name and Address Organization Details Recorded Time 2022 Cabg vein two completed Karolyn Henry [place] [facility] [place] & [place] 4 09:35:36 2014 colonoscopy completed Carole Ruiz [place] [facility] [place] & [place] 3 08:10:15 2014 colonoscopy completed Caroleher Ruiz [place] [facility] [place] & [place] 3 08:10:27 2013 colonoscopy completed Carole Ruiz [place] [facility] [place] & [place] 3 08:01:59 esophagogastroduodenoscopy completed Carole Ruiz [place] [facility] [place] & [place] 3 08:02:13 section completed Carole Ruiz [place] [facility] [place] & [place] 3 08:02:21 Tubal Ligation completed Carole Ruiz [place] [facility] [place] & [place] 3 08:04:11 arthroscopic repair of rotator cuff completed Caroleher Ruiz [place] [facility] [place] & [place] 3 08:05:34 placement of stent i n cardiac conduit completed Karolyn Henry [place] [facility] [place] & [place] 3 09:17:11 repair of stress incontinence by suprapubic sling completed Neida Poe [place] [facility] [place] & [place] 4 12:18:43 Imaging Results None recorded. Procedure Notes None recorded. Medical Equipment None Reported. Allergies Allergen ID Allergen Name Allergen Category Reaction Reaction Severity Criticality Documentation Date Start Date Code Code System Note Provider Name and Address Organization Details Recorded Time [id number] varenicli ne Not available other severe high 11/03/2023 46407 2 RxNorm psych osis, SI, [facility] 08:36[facility]33 08121 Product containin g penicilli n (product) medicatio n Not available Not available Not available 04/25/2023 27255 8001 SNOMED Other react ions and sever ities : 'Anap hylax is due to subst ance' . Carole mesa [facility] 3 07:46:16 16038 Substance with sulfonami de structure and antibacte rial mechanism of action (substanc e) medicatio n Not available Not available Not available 04/25/2023 33452 8003 SNOMED Other react ions and sever ities : 'Adve rse react ion to subst ance' . Carole mesa [facility] 3 07:46:16 37677 carisopro dol medicatio n Not available Not available Not available 04/25/2023 2101 RxNorm Other react ions and sever ities : 'Adve rse react ion to subst ance' . Carole mesa [facility] 3 07:46:16 41122 moxifloxa ilya medicatio n Not available Not available Not available 04/25/2023 01500 2 RxNorm Other react ions and sever ities : 'Anap hylax is due to subst ance' . Carole mesa [facility] 3 07:46:16 Medications Name Sig Start Date Stop Date Status Note LastModified by Organization Details LastModified Time quetiapine 25 mg tablet 50 mg by oral route. 11/10 completed Not Available Not Available Not Available furosemide 40 mg tablet take 1 tablet(40 mg) orally daily 2024 active Not Available Not Available Not Avai lable atorvastati n 40 mg tablet take 1 tablet(40 Milligram ) BY MOUTH AT BEDTIME 11/02 completed Not Available Not Available Not Available methocarbam ol 500 mg tablet Take 1 tablet (500 mg total) by mouth 3 (three) times a day if needed for muscle spasms. 04/22 completed Not Available Not Available Not Available buspirone 5 mg tablet Take one (1) tablet by mouth twice a day 05/10 completed Not Available Not Available Not Available bupropion HCl SR 150 mg tablet,12 hr sustained-r elease Take 150 mg by oral route. 05/10 completed Not Available Not Available Not Available promethazin e-DM 6.25 mg-15 mg/5 mL oral syrup Take 5 mL( 1 TEASPOONF UL) every 4 hours by oral route. 05/10 completed Not Available Not Available Not Available atorvastati n 80 mg tablet take 1 tablet(80 mg) orally at bedtime nightly active Not Available Not Available No t Available venlafaxine ER 37.5 mg capsule,ext ended release 24 hr Take 37.5 mg by oral route. 05/10 completed Not Available Not Available Not Available acetaminoph en 325 mg tablet 650 mg by oral route. active Not Available Not Available No t Available doxycycline hyclate 100 mg capsule Take 1 capsule twice a day by oral route for 10 days. 05/10 completed Not Available Not Available Not Available nicotine 14 mg/24 hr daily transdermal patch apply PATCH daily FOR 14 DAYS AFTER finishing THE 21 MG box 04/22 completed Not Available Not Available Not Available ipratropium 0.5 mg-albutero l 3 mg (2.5 mg base)/3 mL nebulizatio n soln Inhale 3 mL 4 times a day by nebulizat ion route as needed. 2024 active Not Available Not Available Not Avai lable bumetanide 2 mg tablet take 1 tablet(2 mg) orally daily 08/15 completed Not Available Not Available Not Available clindamycin HCl 300 mg capsule TAKE 1 CAPSULE BY MOUTH EVERY 6 HOURS FOR 7 DAYS 08/02 completed Not Available Not Available Not Available albuterol sulfate 2.5 mg/3 mL (0.083 %) solution for nebulizatio n 2.5 mg by inhalatio n route. 11/10 completed Not Available Not Available Not Available loperamide 2 mg capsule Take 2 mg by oral route. 05/10 completed Not Available Not Available Not Available trazodone 50 mg tablet take 1 tablet(50 Milligram ) BY MOUTH AT BEDTIME NEEDED for INSOMNIA, SLEEP active Not Available Not Available No t Available cetirizine 10 mg tablet TAKE ONE TABLET BY MOUTH ONCE DAILY 11/02 completed Not Available Not Available Not Available Stool Softener 100 mg capsule take 1 capsule(1 00 Milligram ) BY MOUTH TWICE A DAY for CONSTIPAT ION active Not Available Not Available No t Available azithromyci n 250 mg tablet TAKE ONE TABLET BY MOUTH ONCE DAILY FOR FOUR DAYS active Not Available Not Available No t Available ibuprofen 800 mg tablet TAKE 1 TABLET(80 0 mg) orally three times a day for pain 08/15 completed Not Available Not Available Not Available Glucagon Emergency Kit 1 mg solution for injection active Not Available Not Available No t Available metoprolol tartrate 100 mg tablet Take 1 tablet by oral route. 05/10 completed Not Available Not Available Not Available fluconazole 150 mg tablet Take 1 tablet by mouth every day for 3 days. active Not Available Not Available No t Available metoprolol succinate ER 50 mg tablet,exte nded release 24 hr take 1 tablet(50 Milligram ) BY MOUTH ONCE DAILY for HYPERTENS ION active Not Available Not Available No t Available hydrocodone 5 mg-acetamin ophen 325 mg tablet take 1 tab orally every 4 hours As Needed for fracture pain 08/15 completed Not Available Not Available Not Available lorazepam 2 mg/mL injection solution 2 mg by injection route. 11/10 completed Not Available Not Available Not Available glipizide ER 10 mg tablet, extended release 24 hr Take 10 mg by oral route. 08/02 completed Not Available Not Available Not Available meloxicam 15 mg tablet Take 1 tablet (15 mg total) by mouth 1 (one) time each day. 04/22 completed Not Available Not Available Not Available naltrexone 50 mg tablet Take one (1) tablet by mouth at bedtime 04/22 completed Not Available Not Available Not Available ondansetron HCl 4 mg tablet TAKE ONE TABLET BY MOUTH EVERY 8 HOURS NEEDED FOR NAUSEA AND VOMITING 02/22 completed Not Available Not Available Not Available glipizide 10 mg tablet take 1 tablet(10 Milligram ) BY MOUTH TWICE A DAY WITH MEALS for HYPERGLYC EMIA 02/22 completed Not Available Not Available Not Available prednisone 20 mg tablet TAKE ONE TABLET BY MOUTH DAILY FOR FIVE DAYS 08/15 completed Not Available Not Available Not Available isosorbide mononitrate ER 30 mg tablet,exte nded release 24 hr Take 30 mg by oral route. 05/10 completed Not Available Not Available Not Available sennosides 8.6 mg-docusate sodium 50 mg tablet 2 tablets by oral route. 11/10 completed Not Available Not Available Not Available metoprolol succinate ER 100 mg tablet,exte nded release 24 hr Take 100 mg by oral route. 11/02 completed Not Available Not Available Not Available gabapentin 400 mg capsule TAKE ONE CAPSULE BY MOUTH THREE TIMES DAILY 2024 active Not Available Not Available Not Avai lable olanzapine 5 mg tablet TAKE 1 TABLET(5 mg) orally every day at bedtime 08/15 completed Not Available Not Available Not Available pantoprazol e 40 mg intravenous solution 40 mg by intraven. route. 11/10 completed Not Available Not Available Not Available cyanocobala min (vit B-12) 1,000 mcg tablet take 1 tablet by mouth once a day 02/22 completed Not Available Not Available Not Available thiamine HCl (vitamin B1) 100 mg tablet take 1 tablet(10 0 Milligram ) BY MOUTH ONCE DAILY 02/22 completed Not Available Not Available Not Available olanzapine 10 mg tablet TAKE ONE TABLET BY MOUTH DAILY AT BEDTIME 08/02 completed Not Available Not Available Not Available Aspir-Low 81 mg tablet,yoni yed release Take 81 mg by oral route. 05/10 completed Not Available Not Available Not Available divalproex 500 mg tablet,yoni yed release take 1 tablet(50 0 Milligram ) BY MOUTH TWICE A DAY active Not Available Not Available No t Available ciprofloxac in 500 mg tablet TAKE ONE TABLET BY MOUTH TWICE DAILY FOR INFECTION 08/02 completed Not Available Not Available Not Available omeprazole 40 mg capsule,del ayed release TAKE 1 capsule 30 minutes before morning meal Once a day 02/22 completed Not Available Not Available Not Available tramadol 50 mg tablet TAKE TWO TABLETS BY MOUTH EVERY EIGHT HOURS NEEDED FOR PAIN 04/22 completed Not Available Not Available Not Available spironolact one 25 mg tablet take 1 tablet(25 mg) orally daily 2024 active Not Available Not Available Not Avai lable hydralazine 20 mg/mL injection solution 10 mg by injection route. 11/10 completed Not Available Not Available Not Available guaifenesin 200 mg tablet take 1 tablet(20 0 mg) orally four times a day As Needed for congestio n 08/02 completed Not Available Not Available Not Available lamotrigine 25 mg tablet Take two (2) tablets by mouth at bedtime 04/28 completed Not Available Not Available Not Available potassium chloride 20 mEq/15 mL oral liquid 20 milliequi valents by oral route. 11/10 completed Not Available Not Available Not Available risperidone 2 mg tablet TAKE ONE TABLET BY MOUTH TWICE DAILY WITH FOOD active Not Available Not Available No t Available ofloxacin 0.3 % ear drops INSTILL 10 DROPS INTO AFFECTED EAR(S) BY OTIC ROUTE ONCE DAILY 04/22 completed Not Available Not Available Not Available prednisolon e acetate 1 % eye drops,suspe nsion INSTILL ONE DROP BY INTO AFFECTED EYE(S) FOUR TIMES DAILY DIRECTED 04/22 completed Not Available Not Available Not Available magnesium oxide 400 mg (241.3 mg magnesium) tablet TAKE ONE TABLET BY MOUTH DAILY EVERY MORNING TIL GONE 04/22 completed Not Available Not Available Not Available temazepam 15 mg capsule 15 mg by oral route. 10/07 completed Not Available Not Available Not Available Pulmicort 0.5 mg/2 mL suspension for nebulizatio n 0.5 mg by inhalatio n route. 11/10 completed Not Available Not Available Not Available nicotine (polacrilex ) 4 mg gum CHEW 1 piece for 30 minute as needed Mouth/Thr oat EVERY 2 TO 4 HOURS 04/22 completed Not Available Not Available Not Available dicyclomine 20 mg tablet TAKE 1/2 TABLET BY MOUTH EVERY SIX HOURS NEEDED for ABDOMINAL CRAMPS 05/03 completed Not Available Not Available Not Available Humalog U-100 Insulin 100 unit/mL subcutaneou s solution 1 unt by sub-q route. 11/10 completed Not Available Not Available Not Available OneToDraker Ultra Test strips Check blood sugar TWICE DAILY 08/15 completed Not Available Not Available Not Available benzonatate 100 mg capsule TAKE ONE CAPSULE BY MOUTH EVERY 8 HOURS NEEDED active Not Available Not Available No t Available doxycycline monohydrate 100 mg capsule TAKE ONE CAPSULE BY MOUTH TWICE DAILY FOR FIVE DAYS 08/15 completed Not Available Not Available Not Available insulin aspart U-100 100 unit/mL subcutaneou s solution inject 100 UNITS PER DAY THROUGH VGO active Not Available Not Available No t Available cephalexin 500 mg capsule Take 1 capsule every 6 hours by oral route. 08/02 completed Not Available Not Available Not Available Humulin R Regular U-100 Insulin 100 unit/mL injection solution 5 unts by injection route. 11/10 completed Not Available Not Available Not Available pantoprazol e 40 mg tablet,yoni yed release take 1 tablet(40 mg) orally daily active Not Available Not Available No t Available nystatin 100,000 unit/gram topical cream apply 1 Applicati on TOPICAL TWICE A DAY Apply to bilateral breast area 08/02 completed Not Available Not Available Not Available dexamethaso ne 4 mg tablet TAKE ONE TABLET BY MOUTH EVERY TWELVE HOURS 11/02 completed Not Available Not Available Not Available buspirone 10 mg tablet Take 10 mg by oral route. 02/22 completed Not Available Not Available Not Available Gentle Laxative (bisacodyl) 5 mg tablet,yoni yed release Take 2 tablets by oral route as directed for 1 day as directed for bowel prep. 04/22 completed Not Available Not Available Not Available lisinopril 10 mg tablet TAKE 1 TABLET(10 Milligram ) BY MOUTH ONCE DAILY for HYPERTENS ION active Not Available Not Available No t Available prednisone 50 mg tablet TAKE 1 Tablet BY MOUTH ONCE DAILY 04/22 completed Not Available Not Available Not Available promethazin e 25 mg tablet TAKE 1 Tablet BY MOUTH EVERY SIX HOURS NEEDED for NAUSEA/VO MITING 04/22 completed Not Available Not Available Not Available ibuprofen 400 mg tablet take 1 tablet(40 0 mg) orally every 6 hours As Needed for pain 08/15 completed Not Available Not Available Not Available Advair Diskus 250 mcg-50 mcg/dose powder for inhalation inhale 1 puff Twice a day for 30 days 08/15 completed Not Available Not Available Not Available metoprolol tartrate 50 mg tablet 100 mg by oral route. 10/07 completed Not Available Not Available Not Available nicotine 21 mg/24 hr daily transdermal patch APPLY ONE PATCH DAILY EACH MORNING AND REMOVE AT BEDTIME DIRECTED 08/02 completed Not Available Not Available Not Available potassium chloride 20 mEq/L in 0.9 % sodium chloride intravenous 1000 mL by intraven. route. 11/10 completed Not Available Not Available Not Available fluoxetine 10 mg capsule TAKE ONE CAPSULE BY MOUTH DAILY EVERY MORNING 08/02 completed Not Available Not Available Not Available nitroglycer in 0.4 mg sublingual tablet take 1 tablet(0. 4 MG) sublingua lly every 5 minutes As Needed for chest pain; do not exceed 3 doses per episode active Not Available Not Available No t Available lisinopril 30 mg tablet Take 30 mg by oral route. 05/03 completed Not Available Not Available Not Available lisinopril 20 mg-hydrochl orothiazide 25 mg tablet TAKE ONE TABLET BY MOUTH DAILY 02/22 completed Not Available Not Available Not Available aspirin 81 mg chewable tablet chew and swallow 1 tablet(81 MG) orally daily for DAPT 2024 active Not Available Not Available Not Avai lable bumetanide 1 mg tablet TAKE ONE TABLET BY MOUTH DAILY 08/15 completed Not Available Not Available Not Available folic acid 1 mg tablet take 1 tablet BY MOUTH ONCE DAILY 02/22 completed Not Available Not Available Not Available montelukast 10 mg tablet Take 10 mg by oral route. 05/10 completed Not Available Not Available Not Available alcohol swabs USE as directed to check sugar 3 times daily active Not Available Not Available No t Available hydrochloro thiazide 25 mg tablet 12.5 mg by oral route. 11/10 completed Not Available Not Available Not Available mupirocin 2 % topical ointment apply 1 Applicati on TOPICAL TWICE A DAY apply to chest wall open area 08/02 completed Not Available Not Available Not Available ziprasidone 40 mg capsule Take one (1) capsule by mouth twice a day 04/22 completed Not Available Not Available Not Available mirtazapine 15 mg tablet take 1 tablet BY MOUTH AT BEDTIME active Not Available Not Available No t Available polyethylen e glycol 3350 17 gram/dose oral powder DISSOLVE 1 CAPFUL(17 Grams) IN 8 OUNCES OF LIQUID AND DRINK ONCE DAILY NEEDED for CONSTIPAT ION active Not Available Not Available No t Available methylpredn isolone 4 mg tablets in a dose pack TAKE DIRECTED DAILY ON package FOR SIX DAYS active Not Available Not Available No t Available lisinopril 40 mg tablet take 1 tablet(40 mg) orally daily 01/01 completed Not Available Not Available Not Available ondansetron 4 mg disintegrat ing tablet DISSOLVE ONE TABLET ON TONGUE EVERY EIGHT HOURS NEEDED FOR NAUSEA AND VOMITING 04/22 completed Not Available Not Available Not Available cefdinir 300 mg capsule TAKE ONE CAPSULE BY MOUTH TWICE DAILY FOR 10 DAYS 10/06 completed Not Available Not Available Not Available fluticasone propionate 50 mcg/actuati on nasal spray,suspe nsion USE 1 spray in each nostril Nasally Once a day active Not Available Not Available No t Available doxycycline hyclate 100 mg tablet 08/15 completed Not Available Not Available Not Available dicyclomine 10 mg capsule Take 10 mg by oral route. 08/15 completed Not Available Not Available Not Available loratadine 10 mg tablet 10 mg by oral route. 11/10 completed Not Available Not Available Not Available risperidone 0.5 mg tablet TAKE 1 TABLET BY MOUTH TWICE A DAY for BIPOLAR DISORDER 11/02 completed Not Available Not Available Not Available nicotine 7 mg/24 hr daily transdermal patch apply ONE PATCH DAILY FOR SEVEN DAYS AFTER finishing THE 14 MG box 05/03 completed Not Available Not Available Not Available Ventolin HFA 90 mcg/actuati on aerosol inhaler inhale 2 puffs INHALATIO N route every 4 hours As needed active Not Available Not Available No t Available oxycodone 5 mg tablet take 1 tablet(5 mg) orally every 8 hours As Needed for pain 08/15 completed Not Available Not Available Not Available hydroxyzine pamoate 25 mg capsule TAKE 1 CAPSULE(2 5 mg) orally three times a day As Needed for for increased anxiety 02/22 completed Not Available Not Available Not Available insulin lispro (U-100) 100 unit/mL subcutaneou s pen 08/15 completed Not Available Not Available Not Available dextrose 50 % in water (D50W) intravenous syringe 50 mL by intraven. route. 11/10 completed Not Available Not Available Not Available hydromorpho ne 1 mg/mL injection syringe 1 mg by injection route. 11/10 completed Not Available Not Available Not Available azithromyci n 500 mg tablet TAKE ONE TABLET BY MOUTH DAILY FOR THREE DAYS 10/06 completed Not Available Not Available Not Available escitalopra m 10 mg tablet Take 10 mg by oral route. 05/10 completed Not Available Not Available Not Available Novolog FlexPen U-100 Insulin aspart 100 unit/mL (3 mL) subcutaneou s Inject 15 Units under the skin into the appropria te area as directed 3 (Three) Times a Day With Meals. 08/15 completed Not Available Not Available Not Available aripiprazol e 5 mg tablet Take 5 mg by oral route. 02/22 completed Not Available Not Available Not Available metoprolol tartrate 25 mg tablet 08/02 completed Not Available Not Available Not Available Mag-Al Plus 200 mg-200 mg-20 mg/5 mL oral suspension 30 mL by oral route. 10/06 completed Not Available Not Available Not Available Spiriva with HandiHaler 18 mcg and inhalation capsules 11/02 completed Not Available Not Available Not Available nitrofurant oin monohydrate /macrocryst als 100 mg capsule take 1 capsule(1 00 Milligram ) BY MOUTH TWICE A DAY for UTI active Not Available Not Available No t Available duloxetine 30 mg capsule,del ayed release 60 mg by oral route. 11/10 completed Not Available Not Available Not Available duloxetine 60 mg capsule,del ayed release TAKE ONE CAPSULE BY MOUTH DAILY 11/02 completed Not Available Not Available Not Available BD Ultra-Fine Mini Pen Needle 31 gauge x 3/16 use as directed with insulin pen 08/15 completed Not Available Not Available Not Available [facility] 100,000 unit/gram topical powder APPLY TO THE AFFECTED AREA(S) BY TOPICAL ROUTE 2 TIMES PER DAY 08/02 completed Not Available Not Available Not Available fenofibrate 160 mg tablet Take 160 mg by oral route. 05/10 completed Not Available Not Available Not Available ranolazine ER 500 mg tablet,exte nded release,12 hr take 1 tablet(50 0 mg) orally twice a day active Not Available Not Available No t Available varenicline tartrate 0.5 mg (11)-1 mg (42) tablets in a dose pack USE DIRECTED ON package 02/22 completed Not Available Not Available Not Available BD Ultra-Fine Original Pen Needle 29 gauge x 1/2 USE DIRECTED DAILY 08/15 completed Not Available Not Available Not Available Monoject Prefill Advanced 0.9 % Sodium Chloride injection syringe 10 mL by injection route. 11/10 completed Not Available Not Available Not Available quetiapine 50 mg tablet Take 50 mg by oral route. 05/10 completed Not Available Not Available Not Available fenofibrate nanocrystal lized 48 mg tablet take 1 tablet(48 mg) orally daily 02/22 completed Not Available Not Available Not Available Januvia 100 mg tablet TAKE 1 TABLET BY MOUTH ONCE DAILY diabetis ,home med 04/22 completed Not Available Not Available Not Available ondansetron HCl (PF) 4 mg/2 mL injection solution 4 mg by injection route. 11/10 completed Not Available Not Available Not Available hydrochloro thiazide 12.5 mg tablet Take 12.5 mg by oral route. 05/10 completed Not Available Not Available Not Available Lantus Solostar U-100 Insulin 100 unit/mL (3 mL) subcutaneou s pen Inject 50 Units under the skin into the appropria te area as directed Daily. 08/15 completed Not Available Not Available Not Available famotidine (PF) 20 mg/2 mL intravenous solution 20 mg by intraven. route. 10/06 completed Not Available Not Available Not Available fenofibrate 54 mg tablet TAKE 1 TABLET BY MOUTH ONCE DAILY 2024 active Not Available Not Available Not Avai lable Stool Softener 100 mg tablet 08/02 completed Not Available Not Available Not Available Mucus Relief ER 600 mg tablet, extended release 08/02 completed Not Available Not Available Not Available Dulera 200 mcg-5 mcg/actuati on HFA aerosol inhaler 11/02 completed Not Available Not Available Not Available thiamine mononitrate (vitamin B1) 100 mg tablet take 1 tablet BY MOUTH ONCE DAILY 02/22 completed Not Available Not Available Not Available Brilinta 90 mg tablet take 1 tablet(90 MG) orally twice a day for DAPT 2024 active Not Available Not Available Not Avai lable labetalol 20 mg/4 mL (5 mg/mL) intravenous syringe 10 mg by intraven. route. 11/10 completed Not Available Not Available Not Available V-GO 40 device Use 1 each Daily. active Not Available Not Available No t Available morphine 2 mg/mL intravenous syringe 2 mg by intraven. route. 10/07 completed Not Available Not Available Not Available Jardiance 10 mg tablet take 1 tablet(10 mg) orally daily 08/15 completed Not Available Not Available Not Available Jardiance 25 mg tablet Take 1 tablet by mouth Daily. active Not Available Not Available No t Available Trulicity 0.75 mg/0.5 mL subcutaneou s pen injector use 1 injection once a week Subcutane ous for 30 days 10/08 completed Not Available Not Available Not Available Vraylar 1.5 mg capsule take 1 capsule(1 .5 Milligram ) BY MOUTH ONCE DAILY for BIPOLAR DISORDER 08/02 completed Not Available Not Available Not Available Ozempic 0.25 mg or 0.5 mg (2 mg/1.5 mL) subcutaneou s pen injector medicatio n:Ozempic (0.25 or 0.5 MG/DOSE) Subcutane ous Solution Pen-injec tor 2 MG/1.5ML dose:0.0 route:GONSALES BCUT freq uency:QWE EK 05/03 completed Not Available Not Available Not Available Dexcom G6 In Flight Refueling Manager 08/02 completed Not Available Not Available Not Available Dexcom G6 Transmitter device 08/02 completed Not Available Not Available Not Available OneTouch Delica Plus Lancet 33 gauge Check blood sugar TWICE DAILY 08/15 completed Not Available Not Available Not Available FreeStyle Carlee 2 Sensor kit Use 1 each Every 14 (Fourteen ) Days. active Not Available Not Available No t Available FreeStyle Carlee 2 [place] Use 1 each 1 (One) Time for 1 dose. active Not Available Not Available No t Available Hycodan 5 mg-1.5 mg/5 mL (5 mL) oral solution Take 5 mL 4 times a day by oral route as needed. 05/10 completed Not Available Not Available Not Available Ozempic 1 mg/dose (4 mg/3 mL) subcutaneou s pen injector Inject 1 mg every week by subcutane ous route. 08/02 completed Not Available Not Available Not Available Flowflex COVID-19 Antigen Home Test kit 10/06 completed Not Available Not Available Not Available Ozempic 2 mg/dose (8 mg/3 mL) subcutaneou s pen injector Inject 2 mg every week by subcutane ous route. 08/02 completed Not Available Not Available Not Available Ozempic 0.25 mg or 0.5 mg (2 mg/3 mL) subcutaneou s pen injector INJECT 0.25 mg (0.2 mL) subcutane ously weekly for 4 doses 04/22 completed Not Available Not Available Not Available FreeStyle Carlee 3 Plus Sensor device Use Every 14 (Fourteen ) Days. 08/15 completed Not Available Not Available Not Available Vitals None Recorded Social History Question Answer Notes LastModified by Organizat ion Details LastModified Time Tobacco Smoking Status Current Every Day Smoker [place]ole [place], [place] - [facility] - [place] & [place] 04/25/2023 08:13:12 Do You Have An Advance Directive? No Information n ot available 02/23/2024 What Is Your Level Of Alcohol Consumption? Heavy Information not available 02/23/2024 Do You Wear A Helmet When Biking? Yes Information not available 02/23/2024 Are You Blind Or Do You Have Difficulty Seeing? No Information n ot available 02/23/2024 What Is Your Level Of Caffeine Consumption? Moderate Information not available 02/23/2024 In The 14 Days Before Symptom Onset, Have You Had Close Contact With A Laboratory-confirm ed COVID-19 While That Case Was Ill? No Information n ot available 02/23/2024 In The 14 Days Before Symptom Onset, Have You Had Close Contact With A Person Who Is Under Investigation For COVID-19 While That Person Was Ill? No Information not available 02/23/2024 Have You Been To An Area Known To Be High Risk For COVID-19? No Information not available 02/23/2024 Are You Currently Employed? No Information not available 02/23/2024 Are You Deaf Or Do You Have Serious Difficulty Hearing? No Information not available 02/23/2024 What Type Of Diet Are You Following? REGULAR Information n ot available 02/23/2024 Have You Processed Blood Or Body Fluids From An Ebola Virus Disease Patient Without Appropriate PPE? No Information not available 02/23/2024 Do You Reside In Or Have You Traveled To An Area Where Ebola Virus Transmission Is Active? No Information not available 02/23/2024 Have There Been Any Changes To Your Family Or Social Situation? No Information no t available 02/23/2024 What Is The Fluoride Status Of Your Home? Unknown Information not available 02/23/2024 Are There Any Guns Present In Your Home? No Information not available 02/23/2024 Have You Recently Or Are You Planning To Travel To An Area With Zika Virus? No Information not available 02/23/2024 Do You Use Insect Repellent Routinely? No Information not available 02/23/2024 Do You Have A Medical Power Of Deputy Director Of Finance? No Information not available 02/23/2024 What Is Your Current Pack Years? 30ormorepacky ears Information not available 02/23/2024 Do You Have Any Pets? No Information not available 02/23/2024 What Is Your Relationship Status? Single Information not available 02/23/2024 Do You Use Your Seat Belt Or Car Seat Routinely? Yes Information not available 02/23/2024 Do You Have Smoke And Carbon Monoxide Detectors In Your Home? Yes Information not available 02/23/2024 Are You Passively Exposed To Smoke? Yes Information no t available 02/23/2024 How Much Tobacco Do You Smoke? 0.5 PPD [email or web address] Information not available 04/25/2023 Do You Feel Stressed (tense, Restless, Nervous, Or Anxious, Or Unable To Sleep At Night)? [id number] Information not available 02/23/2024 Do You Use Any Illicit Or Recreational Drugs? Yes Information not available 02/23/2024 Do You Use Sunscreen Routinely? Yes Information not available 02/23/2024 Has Tobacco Cessation Counseling Been Provided? No Information not available 09/28/2024 Are You Currently In School? No Information not available 02/23/2024 Do You Or Have You Ever Used Any Other Forms Of Tobacco Or Nicotine? No Information not available 09/28/2024 Sex: Unknown Functional Status Question Answer Note LastModified by Organizat ion Details LastModified Time Do you have difficulty walking or climbing stairs? No Information not available 02/23/2024 Do you have transportation difficulties? No Information not available 02/23/2024 Are you able to walk? YESWOREST Information not available 02/23/2024 Do you have difficulty doing errands alone? No Information not available 02/23/2024 Are you able to care for yourself? Yes Information not available 02/23/2024 Do you have difficulty dressing or bathing? No Information not available 02/23/2024 What is your exercise level? None Information not available 02/23/2024 Mental Status Question Answer Note LastModified by Organization D etails LastModified Time Do you have difficulty concentrating, remembering or making decisions? No Information no t available 02/23/2024 Family History Relationship Description Onset Age of this Age Resolved Age Notes LastModified by Organization Details LastModified Time Mother Mother lupus, HTN, Cancer [email or web address] Not available 04/25/2023 08:13:46 Mother Hypertensive disorder [email or web address] Not available 2023 12:20:07 Mother Heart disease [email or web address] Not available 2023 12:27:54 Mother Malignant tumor of colon [email or web address] Not available 2023 12:27:38 Mother Lupus erythematosu s [email or web address] Not available 2023 12:19:58 Mother Malignant neoplastic disease [email or web address] Not available 2023 12:17:18 Mother Alcohol abuse [email or web address] Not available 2023 12:21:54 Mother Diabetes mellitus [email or web address] Not available 2023 12:28:21 Father Father aneury sm Not available 04/25/2023 08:14:10 Father Aneurysm [email or web address] Not available 02/13/2024 12:17:34 Father Alcohol abuse [email or web address] Not available 2023 12:21:54 Maternal Aunt Diabetes mellitus [email or web address] Not available 2023 12:28:18 Unspecified Relation Disorder of thyroid gland [email or web address] Not available 2023 12:21:08 Brother Alcohol abuse [email or web address] Not available 2023 12:21:54 Medical History Condition Response Diabetes Y Anxiety Disorder Y Allergies/Hayfever Y ADD/ADHD Y Other Y Reflux/GERD Y Hypertension Y Depression Y Asthma Y Gynecological HistoryNo gynecological history recorded. Obstetrics History GPAL:G 0 P 0 0 0 0 Immunizations Vaccine Type Date Status Note Provider Nam e and Address Organization Details Recorded Time COVID-19, mRNA, LNP-S, PF, 30 mcg/0.3 mL dose 1 completed Not Available [facility] 11/15/2022 12:39:02 COVID-19, mRNA, LNP-S, PF, 30 mcg/0.3 mL dose 1 completed Not Available [facility] 11/15/2022 12:39:02 pneumococcal polysaccharide PPV23 1 completed Not Available [facility] 11/15/2022 12:39:02 Td(adult) unspecified formulation 7 completed Not Available [facility] 11/15/2022 12:39:02 Influenza, split virus, trivalent, preservative 1 completed Not Available [facility] 11/15/2022 12:39:02 Past Encounters Encounter ID Performer Location Encounter Start Date Encounter Closed Date Diagnosis/Indication Diagnosis SNOMED-CT Code Diagnosis ICD10 Code Diagnosis Note [id number] JORGE OLIVARES MD [facility] ENT [address] [place] [address] 10/01/2024 11:00:57 10/01/2024 11:52:27 Mixed conductive AND sensorineural hearing loss 03364140 H90.A31 - Audiogram was reviewed and explained to the patient. Small conductive component on the right likely secondary to prior tympanopla sty. - Causes of sensorineu ral hearing loss were discussed with the patient- Recommend MRI for further evaluation of asymmetry to evaluate for possible retrocochl ear causes - The treatment options include observatio n vs hearing aids. - Cleared for hearing aids evaluation - Hearing protection measures were discussed. - Recommend follow-up audiogram in 1 year. [id number] KAYLA RAMÍREZ [facility] ENT [address] [place] [address] 10/01/2024 11:47:44 10/01/2024 11:47:53 Mixed conductive AND sensorineural hearing loss 40798179 H90.A31 [id number] KAYLA RAMÍREZ [facility] ENT [address] [place] [address] 10/03/2024 09:31:30 10/03/2024 09:54:22 Mixed conductive AND sensorineural hearing loss [id number] H90.A31 [id number] KAYLA RAMÍREZ [facility] ENT [address] [place] [address] 10/16/2024 08:00:31 10/16/2024 08:48:12 Mixed conductive AND sensorineural hearing loss [id number] H90.A31 Health Concerns Section Related Observation LastModified by Organization Detai ls LastModified Time None Recorded Concern Status LastModified by Organization Details LastModified Time None Recorded Payers Encounter Date Sequence Insurance Name Policy Number Policy Javier Covered Member ID Javier Member ID Guarantor Name 10/16/2024 [address] [employer] [facility] (MEDICAID HMO) Karen Reed [id number] Karen Reed OBGyn Episode No OBEpisode recorded.
--- OUTSIDE RECORDS SUMMARY | 2024-10-25 20:01 | XMS_ITS | Continuity of Care Document ---
Author Organization [facility] Kowalski [facility] ENT Address [address] [place] [address] Care Team Providers [employer] Consultant Name Role Phone ART WALKER Primary Care Provider Assessment Encounter Date Assessment Date Assessment LastModified by Organization Details LastModified Time 10/01/2024 10/01/2024 Karen is in today for a comprehensive hearing evaluation due to concerns about hearing loss. She has a history of middle ear surgery right. Type Ad tympanogram left indicating normal middle ear pressure and increased middle ear compliance left. A seal could not be maintained on the right ear. Audiogram completed today is scanned into the chart. Testing completed with good reliability indicates a speech bilingual receptionist threshold at 25 dBHL left and at 60 dB HL right. There is a disagreement between the SRT and HAND MITER OPERATOR indicating a functional component to the air conduction thresholds. The pure tone audiogram is of poor reliability. Karen is interested in hearing aids. A reliable audiogram need to be recorded before hearing aids can be programmed. She is scheduled to return for a repeat exam. Not available 10/03/2024 08:21:15 Plan of Treatment Reminders Order Date Submit Date Provider Last Modified By Organization Details Last Modified Time Details Appointments OV EST 15 025 08:30AM Art Walker MD Not available [...] Time Mixed conductive AND sensorineural hearing loss 82805430 Active 2024 JORGE OLIVARES MD [address], [address], [place], [address] , [place] 5 11:54:42 History of polyp of colon 950613861 Active 2022 Karolyn Pardini [place] 3 09:16:45 Acute pancreatitis 392772772 Active Karolyn Pard[place] 3 09:16:15 Gastroenterit is 39314946 Active Karolyn Pard[place] 3 09:16:18 Nausea, vomiting and diarrhea 1207865 Active Karolyn Pard[place] 3 09:15:06 Alcohol intoxication 69310162 Active Karolyn Pard[place] 3 09:14:59 Pancreatitis 38513788 Active Karolyn Pard[place] 3 09:15:12 Hyperlipidemi a 10882045 Active 2022 Karolyn Pard[place] 3 09:15:23 Mixed anxiety and depressive disorder 143766945 Active 2022 Karolyn Pard[place] 3 09:15:30 Essential hypertension 34924904 Active 2022 Karolyn Pard[place] 3 09:15:41 Coronary arteriosclero sis 49376124 Active 2022 Karolyn Pardini [place] 3 09:16:52 Uncontrolled type 2 diabetes mellitus 613159619 Active 2023 Art Walker MD [address] [place], [address] [facility] [place] - [facility] & [place] 4 08:25:22 Problem Notes None recorded. Procedures Surgical History Date Name Laterality Status Provider Name and Address Organization Details Recorded Time 2022 Cabg vein two completed Karolyn CAPUTO - [facility] & [place] 4 09:35:36 2014 colonoscopy completed Carole CAPUTO - [facility] - [place] & [place] 3 08:10:15 2014 colonoscopy completed Carole Ruiz [place] - [facility] - [place] & [place] 3 08:10:27 2013 colonoscopy completed Carole CAPUTO - [facility] - [place] & [place] 3 08:01:59 esophagogastroduodenoscopy completed Carole CAPUTO - [facility] & [place] 3 08:02:13 section completed Carole CAPUTO - [facility] - [place] & [place] 3 08:02:21 Tubal Ligation completed Carole CAPUTO - [facility] & [place] 3 08:04:11 arthroscopic repair of rotator cuff completed Carole CAPUTO - [facility] & [place] 3 08:05:34 placement of stent i n cardiac conduit completed Karolyn CAPUTO - [facility] & [place] 3 09:17:11 repair of stress incontinence by suprapubic sling completed Neida Poe [place] - [facility] & [place] 4 12:18:43 Imaging Results None recorded. Procedure Notes None recorded. Medical Equipment None Reported. Allergies Allergen ID Allergen Name Allergen Category Reaction Reaction Severity Criticality Documentation Date Start Date Code Code System Note Provider Name and Address Organization Details Recorded Time [id number] varenicli ne Not available other severe high 11/03/2023 25870 2 RxNorm psych osis, SI, Karolyn Henry null, [place] [facility] - [place] & [place] 4 08:36:33 66478 Product containin g penicilli n (product) medicatio n Not available Not available Not available 04/25/2023 12024 8001 SNOMED Other react ions and sever ities : 'Anap hylax is due to subst ance' . [place] Farfan [facility] & [place] 3 07:46:16 79355 Substance with sulfonami de structure and antibacte rial mechanism of action (substanc e) medicatio n Not available Not available Not available 04/25/2023 95062 8003 SNOMED Other react ions and sever ities : 'Adve rse react ion to subst ance' . [place] [facility] & [place] 3 07:46:16 38029 carisopro dol medicatio n Not available Not available Not available 04/25/2023 2101 RxNorm Other react ions and sever ities : 'Adve rse react ion to subst ance' . [place] Farfan [facility] & [place] 3 07:46:16 43318 moxifloxa ilya medicatio n Not available Not available Not available 04/25/2023 58531 2 RxNorm Other react ions and sever ities : 'Anap hylax is due to subst ance' . [place] Farfan [facility] & [place] 3 07:46:16 Medications Name Sig Start Date [...] Not Available Not Available Not Available OneTouch Ultra Test strips Check blood sugar TWICE [...] completed Not Available Not Available Not Available Nyamyc 100,000 unit/gram topical powder APPLY TO THE [...] Available Not Available Not Available Dexcom G6 Welder Pipe Making 08/02 completed Not Available Not Available Not Available Dexcom G6 Transmitter device 08/02 completed Not Available Not Available Not Available OneTouch Delica Plus Lancet 33 gauge Check blood sugar TWICE DAILY 08/15 completed Not Available Not Available Not Available FreeStyle Carlee 2 Sensor kit Use 1 each Every 14 (Fourteen ) Days. active Not Available Not Available No t Available FreeStyle Carlee 2 [place] Use 1 each 1 (One) Time for [...] Not Available Not Available Not Available Vitals Date Recorded Body height Body mass index (BMI) Body weight Body temperature Oxygen saturation Oxygen saturation in Arterial blood by Pulse oximetry Provider Name and Address Organization Details Last Updated DateTime 5 162.56 cm 33.6 kg/m2 68712.1 g 97.6 [degF] 99 % 99 % Elizabeth ANGLIN [facility] & [place] 11:08:53 Social History Question Answer Notes LastModified by Organizat ion Details LastModified Time Tobacco Smoking Status Current Every Day Smoker [place] Farfan [facility] & [place] 04/25/2023 08:13:12 Do You Have An Advance [...] Do You Have A Medical Power Of Xerox Machine Assembler? No Information not available 02/23/2024 What Is [...] Much Tobacco Do You Smoke? 0.5 PPD [email or web address] Information not available 04/25/2023 Do You Feel Stressed (tense, Restless, Nervous, Or Anxious, Or Unable To Sleep At Night)? [id number] Information not available 02/23/2024 Do You Use [...] LastModified Time Mother Mother lupus, HTN, Cancer [email or web address] Not available 04/25/2023 08:13:46 Mother Hypertensive disorder [...] available 2023 12:28:21 Father Father aneury sm [email or web address] Not available 04/25/2023 08:14:10 Father Aneurysm [email or web address] Not available 02/13/2024 12:17:34 Father Alcohol abuse [email or web address] Not available 2023 12:21:54 Maternal Aunt Diabetes mellitus [email or web address] Not available 2023 12:28:18 Unspecified Relation Disorder of thyroid gland [email or web address] Not available 2023 12:21:08 Brother Alcohol abuse [email or web address] Not available 2023 12:21:54 Medical History Condition Response Allergies/Hayfever Y Anxiety Disorder Y ADD/ADHD Y Diabetes Y Other Y Reflux/GERD Y Hypertension Y Depression Y Asthma Y Gynecological HistoryNo gynecological history recorded. Obstetrics History GPAL:G 0 P 0 0 0 0 Immunizations Vaccine Type Date Status Note Provider Nam e and Address Organization Details Recorded Time COVID-19, mRNA, LNP-S, PF, 30 mcg/0.3 mL dose 1 completed Not Available [facility] 11/15/2022 12:39:02 COVID-19, mRNA, LNP-S, PF, 30 mcg/0.3 mL dose 1 completed Not Available [facility] 11/15/2022 12:39:02 pneumococcal polysaccharide PPV23 1 completed Not Available [facility] 11/15/2022 12:39:02 Td(adult) unspecified formulation 7 completed Not Available [facility] 11/15/2022 12:39:02 Influenza, split virus, trivalent, preservative 1 completed Not Available [facility] 11/15/2022 12:39:02 Past Encounters Encounter ID Performer Location Encounter Start Date Encounter Closed Date Diagnosis/Indication Diagnosis SNOMED-CT Code Diagnosis ICD10 Code Diagnosis Note [id number] JORGE OLIVARES MD [facility] [address] [facility] [place] [address] 10/01/2024 11:00:57 10/01/2024 11:52:27 Mixed conductive AND sensorineural hearing loss [id number] H90.A31 - Audiogram was reviewed and explained [...] - Recommend follow-up audiogram in 1 year. [id number] KAYLA RAMÍREZ [facility] [address] [facility] [place] [address] 10/01/2024 11:47:44 10/01/2024 11:47:53 Mixed conductive AND sensorineural hearing loss [id number] H90.A31 Health Concerns Section Related Observation LastModified by Organization Detai ls LastModified Time None Recorded Concern Status LastModified by Organization Details LastModified Time None Recorded Payers Encounter Date Sequence Insurance Name Policy Number Policy Javier Covered Member ID Javier Member ID Guarantor Name 10/01/2024 1 [facility] (MEDICAID HMO) Karen Reed [id number] Karen Reed Notes Date Note Type Note Provider Name and Address Organization Details Recorded Time 10/01/2024 text/html Patient presents to clinic for evaluation and management of hearing loss. She has had issues with hearing in her right ear for several years. Feels that hearing loss has worsened since that time. She is not able to use the phone in her right ear. Does have a history of tympanoplasty in her right ear several years ago. Also has a history of PE tubes as a child. JORGE OLIVARES MD [address] [place] [address], [address], [place], [address], [place] [facility] - [place] & [place] 10/01/2024 11:56:18 OBGyn Episode No OBEpisode recorded.
--- OUTSIDE RECORDS SUMMARY | 2024-10-25 20:02 | XMS_ITS | Continuity of Care Document ---
Author Organization [facility] Address [address] [place] [address] Care Team Providers Care Panel Machine Operator Name Role Phone ART WALKER Primary Care Provider [phone] Assessment Encounter Date Assessment Date Assessment LastModified by Organization Details LastModified Time 10/22/2024 10/22/2024 Medicaid first pair of aids, difficulty with test reliability, very interested in amplification ?? LEFT RIGHT Aids ??Widex Moment 330 sheer Li Widex Moment 330 Sheer Li?? Fit Date ??10/16/2024 10/16/2024?? Warranty Expiration ??10/17/2027 10/17/2027?? L&D ? Filters ??cerustop cerustop?? Receivers ??2M 2M?? Domes ??medium open ??small tulip Hearing aid and service end date ??Medicaid Medicaid?? Karen walked in today reporting a hearing aid problem. She reported the earbud on one of them feel off and she is concerned it is in her ear. The difference in the earbuds confused her; they are both present and accounted for. Instructed on proper care and maintenance including changing the filter. I changed one and she changed one. Scheduled to return or return as needed if problems arise. Not available 10/22/2024 15:33:10 Plan of Treatment Reminders Order Date Submit [...] Time Mixed conductive AND sensorineural hearing loss 74665808 Active 2024 JORGE OLIVARES MD [address] [place] [address], [address], [place], [address] , [place] [facility] [place] & [place] 5 11:54:42 History of polyp of colon 294284211 Active 2022 Karolyn Pardini null, [place] [facility] [place] & [place] 3 09:16:45 Acute pancreatitis 470268196 Active Karolyn Pard[place] [facility] [place] 3 09:16:15 Gastroenterit is 80317679 Active Karolyn Pard[place] [facility] [place] 3 09:16:18 Nausea, vomiting and diarrhea 0148623 Active Karolyn Pard[place] [facility] [place] 3 09:15:06 Alcohol intoxication 35984348 Active Karolyn Pard[place] [facility] [place] 3 09:14:59 Pancreatitis 31289170 Active Karolyn Pardini null, [place] [facility] [place] 3 09:15:12 Hyperlipidemi a 91144718 Active 2022 Karolyn Pardini null, [place] [facility] [place] [facility] & [place] 3 09:15:23 Mixed anxiety and depressive disorder 659033188 Active 2022 Karolyn Pardini null, [place] [facility] [place] [facility] & [place] 3 09:15:30 Essential hypertension 85744790 Active 2022 Karolyn Pardini null, [place] [facility] [place] [facility] & [place] 3 09:15:41 Coronary arteriosclero sis 28093260 Active 2022 Karolyn Pardini null, [place] [facility] [place] & [place] 3 09:16:52 Uncontrolled type 2 diabetes mellitus 305949325 Active 2023 Art Walker MD [address] [place] [address], [id number] , [place] [facility] [place] & [place] 4 08:25:22 Problem Notes None recorded. Procedures Surgical History Date Name Laterality Status Provider Name and Address Organization Details Recorded Time 2022 Cabg vein two completed Karolyn Alcoceri [place] [facility] [place] & [place] 4 09:35:36 2014 colonoscopy completed Caroleher Ruiz [place] [facility] [place] & [place] 3 08:10:15 2014 colonoscopy completed Carole Ruiz [place] [facility] [place] & [place] 3 08:10:27 2013 colonoscopy completed Carole Ruiz [place] [facility] [place] & [place] 3 08:01:59 esophagogastroduodenoscopy [place] Carole Ruiz [place] [facility] [place] & [place] 3 08:02:13 section completed Carole Ruiz [place] [facility] [place] & [place] 3 08:02:21 Tubal Ligation completed Carole Ruiz [place] [facility] [place] & [place] 3 08:04:11 arthroscopic repair of rotator cuff completed Carole Ruiz [place] [facility] [place] & [place] 3 08:05:34 placement of stent i n cardiac conduit completed Karolyn Alcoceri [place] [facility] [place] & [place] 3 09:17:11 repair of stress incontinence by suprapubic sling completed Neida Poe [place] [facility] [place] & [place] 4 12:18:43 Imaging Results None recorded. Procedure Notes None recorded. Medical Equipment None Reported. Allergies Allergen ID Allergen Name Allergen Category Reaction Reaction Severity Criticality Documentation Date Start Date Code Code System Note Provider Name and Address Organization Details Recorded Time 297030 varenicli ne Not available other severe high 11/03/2023 47922 2 RxNorm psych osis, SI, Karolyn Pardini bonita [facility] 4 08:36:33 20041 Product containin g penicilli n (product) medicatio n Not available Not available Not available 04/25/2023 89972 8001 SNOMED Other react ions and sever ities : 'Anap hylax is due to subst ance' . [place] [facility] 3 07:46:16 53873 Substance with sulfonami de structure and antibacte rial mechanism of action (substanc e) medicatio n Not available Not available Not available 04/25/2023 95784 8003 SNOMED Other react ions and sever ities : 'Adve rse react ion to subst ance' . [place] [facility] 3 07:46:16 55694 carisopro dol medicatio n Not available Not available Not available 04/25/2023 2101 RxNorm Other react ions and sever ities : 'Adve rse react ion to subst ance' . [place] [facility] 3 07:46:16 80126 moxifloxa ilya medicatio n Not available Not available Not available 04/25/2023 37259 2 RxNorm Other react ions and sever ities : 'Anap hylax is due to subst ance' . [place] [facility] 3 07:46:16 Medications Name Sig Start [...] completed Not Available Not Available Not Available [facility] 100,000 unit/gram topical powder APPLY TO THE [...] Available Not Available Not Available Dexcom G6 Adobe Flex Developer 08/02 completed Not Available Not Available Not Available Dexcom G6 Transmitter device 08/02 completed Not Available Not Available Not Available OneTouch Delica Plus Lancet 33 gauge Check blood sugar TWICE DAILY 08/15 completed Not Available Not Available Not Available FreeStyle Carlee 2 Sensor kit Use 1 each Every 14 (Fourteen ) Days. active Not Available Not Available No t Available FreeStyle Carlee 2 Fleming Use 1 each 1 (One) Time for [...] Status Current Every Day Smoker Carole mesa, [place] - [facility] - [place] & [place] 04/25/2023 08:13:12 Do You Have An Advance [...] Do You Have A Medical Power Of Cost Accounting Manager? No Information not available 02/23/2024 What Is [...] Much Tobacco Do You Smoke? 0.5 PPD [email or web address] Information not available 04/25/2023 Do You Feel Stressed (tense, Restless, Nervous, Or Anxious, Or Unable To Sleep At Night)? [id number] Information not available 02/23/2024 Do You Use [...] LastModified Time Mother Mother lupus, HTN, Cancer [email or web address] Not available 04/25/2023 08:13:46 Mother Hypertensive disorder [...] available 2023 12:28:21 Father Father aneury sm [email or web address] Not available 04/25/2023 08:14:10 Father Aneurysm [email or web address] Not available 02/13/2024 12:17:34 Father Alcohol abuse [email or web address] Not available 2023 12:21:54 Maternal Aunt Diabetes mellitus [email or web address] Not available 2023 12:28:18 Unspecified Relation Disorder of thyroid gland [email or web address] Not available 2023 12:21:08 Brother Alcohol abuse [email or web address] Not available 2023 12:21:54 Medical History Condition Response Diabetes Y ADD/ADHD Y Anxiety Disorder Y Allergies/Hayfever Y Other Y Reflux/GERD Y Hypertension Y Depression Y Asthma Y Gynecological HistoryNo gynecological history recorded. Obstetrics History GPAL:G 0 P 0 0 0 0 Immunizations Vaccine Type Date Status Note Provider Nam e and Address Organization Details Recorded Time COVID-19, mRNA, LNP-S, PF, 30 mcg/0.3 mL dose 1 completed Not Available [facility] 11/15/2022 12:39:02 COVID-19, mRNA, LNP-S, PF, 30 mcg/0.3 mL dose 1 completed Not Available [facility] 11/15/2022 12:39:02 pneumococcal polysaccharide PPV23 1 completed Not Available [facility] 11/15/2022 12:39:02 Td(adult) unspecified formulation 7 completed Not Available [facility] 11/15/2022 12:39:02 Influenza, split virus, trivalent, preservative 1 completed Not Available [facility] 11/15/2022 12:39:02 Past Encounters Encounter ID Performer Location Encounter Start Date Encounter Closed Date Diagnosis/Indication Diagnosis SNOMED-CT Code Diagnosis ICD10 Code Diagnosis Note [id number] JORGE OLIVARES MD [facility] [address] [place], [place] [address] 10/01/2024 11:00:57 10/01/2024 11:52:27 Mixed conductive AND sensorineural hearing loss 89906059 H90.A31 - Audiogram was reviewed and explained [...] - Recommend follow-up audiogram in 1 year. [id number] KAYLA RAMÍREZ [facility] [address] [place], [place] [address] 10/01/2024 11:47:44 10/01/2024 11:47:53 Mixed conductive AND sensorineural hearing loss [id number] H90.A31 [id number] KAYLA RAMÍREZ [facility] [address] [place], [place] [address] 10/03/2024 09:31:30 10/03/2024 09:54:22 Mixed conductive AND sensorineural hearing loss 57324790 H90.A31 [id number] KAYLA RAMÍREZ [facility] [address] [place], [place] [address] 10/16/2024 08:00:31 10/16/2024 08:48:12 Mixed conductive AND sensorineural hearing loss [id number] H90.A31 [id number] KAYLA RAMÍREZ [facility] [address] [place], [place] [address] 10/22/2024 09:55:09 10/22/2024 10:25:00 Mixed conductive AND sensorineural hearing loss 01922146 H90.A31 Health Concerns Section Related Observation LastModified by Organization Detai ls LastModified Time None Recorded Concern Status LastModified by Organization Details LastModified Time None Recorded Payers Encounter Date Sequence Insurance Name Policy Number Policy Javier Covered Member ID Javier Member ID Guarantor Name 10/22/2024 1 [employer] [facility] (MEDICAID HMO) Karen Reed [id number] Karen Reed OBGyn Episode No OBEpisode recorded.
--- OUTSIDE RECORDS SUMMARY | 2024-10-25 20:02 | XMS_ITS | Data Portability ---
Author Organization [place] - [facility] LINNETTE Kowalski ADMIN Address [address] [place] [id number] Care Team Providers Care Home Management Supervisor Name Role Phone ART WALKER Primary Care Provider [phone] Assessment Encounter Date Assessment Date Assessment LastModified by Organization Details LastModified Time 10/01/2024 10/01/2024 Audiogram: 10/01/24 Audiogram was personally reviewed with the patient demonstrating the following: Left ear with moderate SNHL. Right ear with profound upsloping to severe mixed hearing loss. Type Ad tympanogram on the left, could not maintain seal on the right. WRS 68% at 70 dB on the right and 84% at 45 dB on the left. [email or web address] Not available 10/01/2024 11:54:28 10/01/2024 10/01/2024 Karen is in today for [...] completed with good reliability indicates a speech receptionist scheduler threshold at 25 dBHL left and at 60 dB HL right. There is a disagreement between the SRT and TEXTILE ENGRAVER indicating a functional component to the air conduction thresholds. The pure tone audiogram is of poor reliability. Karen is interested in hearing aids. A reliable audiogram need to be recorded before hearing aids can be programmed. She is scheduled to return for a repeat exam. Not available 10/03/2024 08:21:15 10/03/2024 10/03/2024 Karen is in for a repeat hearing evaluation due to poor reliability of the last exam. Audiogram completed today is scanned into the chart. Testing completed with good reliability indicates a mild hearing loss left and a moderate hearing loss right. Speech testing completed is consistent with the exam from Tuesday and the pure tone thresholds today. This exam is considered to be of good reliability. Karen is noticing enough difficulty with her hearing that she would like to proceed with utilizing her Medicaid insurance benefit for hearing aids. Widex Moment 330 sheer behind the ear hearing aids were ordered for Karen. She can be called to schedule her fitting when her aids come in. Not available 10/05/2024 10:46:38 10/16/2024 10/16/2024 Medicaid first pair of aids, [...] the hearing aids. Not available 10/17/2024 09:27:08 10/22/2024 10/22/2024 Medicaid first pair of aids, [...] Modified Time Details Appointments OV EST 15 2024 08:30A M Art Walker MD Not available Not available Not available Lab creatini ne, serum or plasma 2024 025 [facility] (Lab Registration) , [address] [place] [address] [place], [address], 10/08/2024 04:16:00 Referral None recorded . Procedures None recorded . Surgeries None recorded . Imaging MRI, brain + internal auditory canal, w/wo contrast 2024 025 [facility] (Central Scheduling), [address] [place] [address] [place], [address], 10/08/2024 04:16:00 Medication Orders None recorded . Patient TargetsNo targets recorded. Patient InstructionsNo instructions recorded. Reason for Referral None Reported. Results Created Date Observation Date Name Description Value Unit Range Abnormal Flag Note LastModifiedBy Organization Detail LastModifiedTime Result Notes None recorded. Problems Name Problem SNOMED Code Status Onset Date Resolution Date Notes Provider Name and Address Organization Details Recorded Time Mixed conductive AND sensorineural hearing loss 80991318 Active 2024 JORGE OLIVARES MD [address] [place] [address], [address], [place], [address] , [facility] & [place] 03/17/202 5 11:54:42 History of polyp of colon 327559999 Active 2022 Karolyn Pardini null, [place] - [facility] - [facility] & [place] 3 09:16:45 Acute pancreatitis 284345446 Active Karolyn Pardini null, [place] - [facility] - [facility] & [place] 3 09:16:15 Gastroenterit is 27325993 Active Karolyn Pardini null, [place] - [facility] - [facility] & [place] 3 09:16:18 Nausea, vomiting and diarrhea 4935021 Active Karolyn Pardini null, [place] - [facility] - [place] & [place] 3 09:15:06 Alcohol intoxication 19259027 Active Karolyn Pardini null, [place] - [facility] - [facility] & [place] 3 09:14:59 Pancreatitis 41055811 Active Karolyn Pardini null, [place] - [facility] - [facility] & [place] 3 09:15:12 Hyperlipidemi a 81814558 Active 2022 Karolyn Pardini null, [place] - [facility] - [place] & [place] 3 09:15:23 Mixed anxiety and depressive disorder 263794412 Active 2022 Karolyn Pardini null, [place] - [facility] - [facility] & [place] 3 09:15:30 Essential hypertension 25012516 Active 2022 Karolyn Pardini null, [place] - [facility] - [facility] & [place] 3 09:15:41 Coronary arteriosclero sis 61345638 Active 2022 Karolyn Pardini null, [place] - [facility] - [place] & [place] 3 09:16:52 Uncontrolled type 2 diabetes mellitus 725509123 Active 2023 Art Walker MD [address] [place] [address], [id number] , [place] - [facility] - [place] & [place] 4 08:25:22 Problem Notes None recorded. Procedures Surgical History Date Name Laterality Status Provider Name and Address Organization Details Recorded Time 2022 Cabg vein two completed Karolyn CAPUTO - [facility] & [place] 4 09:35:36 2014 colonoscopy completed Carole CAPUTO - [facility] - [place] & [place] 3 08:10:15 2014 colonoscopy completed Carole CAPUTO - [facility] - [place] & [place] 3 08:10:27 2013 colonoscopy completed Carole CAPUTO - [facility] - [place] & [place] 3 08:01:59 esophagogastroduodenoscopy completed Carole CAPUTO - [facility] - [place] & [place] 3 08:02:13 section completed Carole CAPUTO - [facility] & [place] 3 08:02:21 Tubal Ligation completed Carole CAPUTO - [facility] & [place] 3 08:04:11 arthroscopic repair of rotator cuff completed Carole CAPUTO - [facility] & [place] 3 08:05:34 placement of stent i n cardiac conduit completed Karolyn CAPUTO - [facility] & [place] 3 09:17:11 repair of stress incontinence by suprapubic sling completed Neida Lui [place] - [facility] & [place] 4 12:18:43 Imaging Results None recorded. Procedure Notes None recorded. Medical Equipment None Reported. Allergies Allergen ID Allergen Name Allergen Category Reaction Reaction Severity Criticality Documentation Date Start Date Code Code System Note Provider Name and Address Organization Details Recorded Time 909500 varenicli ne Not available other severe high 11/03/2023 23355 2 RxNorm psych osis, SI, Karolyn [place], [place] - [facility] & [place] 4 08:36:33 42673 Product containin g penicilli n (product) medicatio n Not available Not available Not available 04/25/2023 68928 8001 SNOMED Other react ions and sever ities : 'Anap hylax is due to subst ance' . Carole Joseph [place], [place] - [facility] - [facility] 3 07:46:16 34024 Substance with sulfonami de structure and antibacte rial mechanism of action (substanc e) medicatio n Not available Not available Not available 04/25/2023 83620 8003 SNOMED Other react ions and sever ities : 'Adve rse react ion to subst ance' . [place] Farfan [facility] 3 07:46:16 18330 carisopro dol medicatio n Not available Not available Not available 04/25/2023 2101 RxNorm Other react ions and sever ities : 'Adve rse react ion to subst ance' . PAT[place] Farfan [facility] 3 07:46:16 77116 moxifloxa ilya medicatio n Not available Not available Not available 04/25/2023 52193 2 RxNorm Other react ions and sever ities : 'Anap hylax is due to subst ance' . [place] Farfan [facility] 3 07:46:16 Medications Name Sig Start [...] Ultra-Fine Mini Pen Needle 31 gauge x 16 use as directed with insulin pen 08/15 [...] Available Not Available Not Available Dexcom G6 Sfdc Architect 08/02 completed Not Available Not Available Not Available Dexcom G6 Transmitter device 08/02 completed Not Available Not Available Not Available OneTouch Delica Plus Lancet 33 gauge Check blood sugar TWICE DAILY 08/15 completed Not Available Not Available Not Available FreeStyle Carlee 2 Sensor kit Use 1 each Every 14 (Fourteen ) Days. active Not Available Not Available No t Available FreeStyle Carlee 2 Crawley Use 1 each 1 (One) Time for [...] completed Not Available Not Available Not Available Silicon Cloud Carlee 3 Plus Sensor device Use Every 14 (Fourteen ) Days. 08/15 completed Not Available Not Available Not Available Vitals Date Recorded Body height Body mass index (BMI) Body weight Body temperature Oxygen saturation Oxygen saturation in Arterial blood by Pulse oximetry Provider Name and Address Organization Details Last Updated DateTime 5 162.56 cm 33.6 kg/m2 64345.1 g 97.6 [degF] 99 % 99 % Elizabeth De Leon [facility] & [place] 11:08:53 Social History Question Answer Notes LastModified by Organizat ion Details LastModified Time Tobacco Smoking Status Current Every Day Smoker Carole Joseph [place], [facility] & [place] 04/25/2023 08:13:12 Do You Have An Advance [...] Do You Have A Medical Power Of Costume Shop Manager? No Information not available 02/23/2024 What [...] Much Tobacco Do You Smoke? 0.5 PPD [email or web address] Information not available 04/25/2023 Do You Feel Stressed (tense, Restless, Nervous, Or Anxious, Or Unable To Sleep At Night)? [id number] Information not available 02/23/2024 Do You Use [...] LastModified Time Mother Mother lupus, HTN, Cancer Not available 04/25/2023 08:13:46 Mother Hypertensive disorder [...] mcg/0.3 mL dose 1 completed Not Available [facility] 11/15/2022 12:39:02 COVID-19, mRNA, LNP-S, PF, 30 mcg/0.3 mL dose 1 completed Not Available [facility] 11/15/2022 12:39:02 pneumococcal polysaccharide PPV23 1 completed Not Available [facility] 11/15/2022 12:39:02 Td(adult) unspecified formulation 7 completed Not Available [facility] 11/15/2022 12:39:02 Influenza, split virus, trivalent, preservative 1 completed Not Available [facility] 11/15/2022 12:39:02 Past Encounters Encounter ID Performer Location Encounter Start Date Encounter Closed Date Diagnosis/Indication Diagnosis SNOMED-CT Code Diagnosis ICD10 Code Diagnosis Note [id number] Sushila Mario APRN [facility] [address] [place] [address] 10/06/2022 08:29:10 10/06/2022 11:15:30 Coronary arteriosclerosis 73856679 I25.10 I10 keep appts with Dr Hi cronin medication s as prescribed blood drawn in the right AC by Park Pimentel CMA, patient tolerated well. Diabetic p eripheral neuropathy 849088220 E11.42 UDS and NIKHIL today Uncontroll ed type 2 diabetes mellitus 792368793 E11.65 take medication s as prescribed awaiting [id number] forced diet and lifestyle changesdai ly foot checkyearl y eye examfollow up every 3 months Nausea and vomiting 1693 1999 R11.2 R19.7 K82.9 ordering HIDA scan Screening mammography 24 353222 Z12.31 ordered Screening for malignant neoplasm of colon 509271654 Z12.11 referral sent Constipation 11307038 K5 9.00 [id number] Sushila Mario APRN [facility] [address] [place] [address] 01/13/2023 11:17:29 01/13/2023 14:09:22 Acute exacerbation of chronic obstructive pulmonary disease 703976270 J44.1 Cough The patient presents {{history of chronic cough dry cough wet cough*}}. The patient's condition is {{stable i mproved wo rsening* i mproving u nchanged}} . Based on the findings today we will {{not begin begi n* increas e decrease change di scontinue} } medication therapy. Reviewed symptomati c care instructio ns, the expected course of these illnesses and explained that coughing can persist for some time. Provided precaution s for signs of worsening disease and instructio ns on contacting us if symptoms worsen. Acute otit is externa of right ear 1645814881 538626 H60.501 use drops as prescribed increase water intakemoni tor for worsening symptoms Hyperglyce radha due to type 2 diabetes mellitus 0267854269 57726 E11.65 take medication s as prescribed awaiting [id number] forced diet and lifestyle changesdai ly foot checkyearl y eye examfollow up every 3 monthsbloo d drawn in the right AC by Zo Crystal CMA, patient tolerated well. [id number] Art Walker MD [facility] [address] [place] [address] 04/22/2023 09:00:49 04/22/2023 09:28:58 Acute bronchitis 25349379 J20.9 Will treat patient with antibiotic s and steroids. She has also been given a sample pack of Trelegy. She has been instructed to follow-up in 2 weeks at that time we can figure out how well she is doing. [id number] Art Walker MD [facility] [address] [place] [address] 04/28/2023 08:05:56 04/28/2023 08:38:41 Acute bronchitis 81816593 J20.9 Patient is still on antibiotic s. She needs to continue her antibiotic s and steroids as ordered. Should her symptoms not get any better she may require a pulmonolog y referral. Screening for malignant neoplasm of breast 843251210 Z12.39 Patient is due for mammo. Type 2 ja betes mellitus 47528820 E11.9 Will check patient's lab work today and call her with results. Changes will be made over the phone as needed. Hyperlipidemia 55812892 E78.5 Will check her lipid panel today she is currently taking atorvastat in Essential hypertension 43468136 I10 patient to continue with the current regimen. She states she has not taken her medication s this morning. Her blood pressure is normally controlled per patient. Vitamin B1 2 deficiency (non anemic) 72824923 E53.8 Patient reports a history of vitamin-D deficiency will check her levels today. [id number] Art Walker MD [place] [address] [address] [place] [address] 05/03/2023 08:54:22 05/03/2023 09:13:24 Standard chest X-ray abnormal 972458530 R93.89 will repeat chest x-ray with nipple markers Type 2 ja betes mellitus 74176680 E11.9 Will check patient's lab work today and call her with results. Changes will be made over the phone as needed. Hyperlipidemia 35221848 E78.5 Will check her lipid panel today she is currently taking atorvastat in we Will increase her dose to 80 mg Essential hypertension 61363019 I10 Patient's blood pressure is elevated. She states she has not taken her medication s today. she also admits to being noncomplia nt. I will change her to lisinopril /HCTZ. Acute bronchitis 0888617 2 J20.9 continue with current therapy Disorder o f respiratory system 99378905 J98.9 [id number] Art Walker MD [address] [place] [address] 05/10/2023 10:45:25 05/10/2023 11:03:13 Increased frequency of urination 356725335 R35.0 patient's urine is clear. She is been encouraged to drink plenty of fluid. Her increased frequency may be attributed to the fact that she was recently started on lisinopril / HCTZ. Candidiasis of skin 4988 3006 B37.2 Will treat this Type 2 ja betes mellitus 16011578 E11.9 will increase patient's ozempic [id number] Art Walker MD [address] [place] [address] 08/02/2023 09:18:47 08/02/2023 10:16:54 Coronary arteriosclerosis 07184694 I25.10 patient is status post CABG. She is to continue to follow-up with her cardiologi st. Will refill her Ranexa as requested. Chronic ob structive pulmonary disease 95334288 J44.9 Patient continues to wheeze. We have provided her with a nebulizer. Suicidal thoughts 337216 6 R45.851 patient appears to be in remission at this time. She is following up with Behavioral Health. [id number] Art Walker MD [place] [address] [address] [place] [address] 11/03/2023 08:17:10 11/03/2023 08:40:04 Uncontrolled type 2 diabetes mellitus 397715677 E11.65 Patient's last A1c was over 11. We have had extensive discussion s regarding the importance of controllin g her blood sugar. She is currently on insulin,ja rdiance and glipizide. Will check her A1c today. Coronary arteriosclerosis 35629849 I25.10 patient is status post CABG. She is to continue to follow-up with her cardiologi st. Will refill her Ranexa as requested. Essential hypertension 29055526 I10 she is currently on lisinopril /HCTZ. Tobacco de pendence syndrome 31224833 F17.200 Continues to smoke. Her Chantix has been stopped due to suicide ideation [id number] Art Walker MD [address] [place] [address] 02/23/2024 09:52:44 02/23/2024 10:26:15 Uncontrolled type 2 diabetes mellitus 932080603 E11.65 Patient to follow-up with endocrinol ogy. Alcohol abuse 13222479 F 10.10 patient has a long history of chronic alcohol abuse. I have suggested we get her into a long-term rehab. She states that she can not do that right nowwe havereferr ed her to [id number] Art Walker MD [facility] [address] [facility] [place] [address] 08/15/2024 11:38:09 08/15/2024 12:12:44 Uncontrolled type 2 diabetes mellitus 716163440 E11.65 patient is currently seeing endocrinol ogy. Cigarette smoker 5282935 7 F17.210 Patient continues to smoke. She is due for a low-dose CT scan today. Hyperlipidemia 90290930 E78.5 Will check her lipid panel today she is currently taking atorvastat in we Will increase her dose to 80 mg Thyroid di sorder screening 155015194 Z13.29 Candidiasis of vagina 72 860319 B37.31 [id number] JORGE OLIVARES MD [facility] [address] [facility] [address] 10/01/2024 11:00:57 10/01/2024 11:52:27 Mixed conductive AND sensorineural hearing loss 33421732 H90.A31 - Audiogram was reviewed and explained [...] - Recommend follow-up audiogram in 1 year. [id number] KAYLA RAMÍREZ [facility] [address] [place] [address] 10/01/2024 11:47:44 10/01/2024 11:47:53 Mixed conductive AND sensorineural hearing loss 38331071 H90.A31 [id number] KAYLA RAMÍREZ [facility] [address] [place] [address] 10/03/2024 09:31:30 10/03/2024 09:54:22 Mixed conductive AND sensorineural hearing loss 72643182 H90.A31 [id number] KAYLA RAMÍREZ [facility] [address] [place] [address] 10/16/2024 08:00:31 10/16/2024 08:48:12 Mixed conductive AND sensorineural hearing loss 61764352 H90.A31 [id number] KAYLA RAMÍREZ [facility] [address] [place] [address] 10/22/2024 09:55:09 10/22/2024 10:25:00 Mixed conductive AND sensorineural hearing loss 27116885 H90.A31 Health Concerns Section Related Observation LastModified by Organization Detai ls LastModified Time None Recorded Concern Status LastModified by Organization Details LastModified Time None Recorded Advance Directives Directive N: Payers Encounter Date Sequence Insurance Name Policy Number Policy Javier Covered Member ID Javier Member ID Guarantor Name 10/01/2024 1 [employer] [facility] (MEDICAID HMO) Karen Reid Derek [id number] Karen Reid Derek 10/01/2024 1 [employer] [facility] (MEDICAID HMO) Karen Reid Derek [id number] Karen Reid Derek 10/03/2024 1 [employer] [facility] (MEDICAID HMO) Karen Reid Derek [id number] Karen Reid Derek 10/16/2024 1 [employer] [facility] (MEDICAID HMO) Karen Reid Derek [id number] Karen Reed 10/22/2024 1 [facility] (MEDICAID HMO) Karen Reed [id number] Karen Reed Notes Date Note Type Note [...] tubes as a child. JORGE OLIVARES MD [address] [place] [address], [address], [place], [address], [facility] - [place] & [place] 10/01/2024 11:56:18 OBGyn Episode No OBEpisode recorded.
--- OUTSIDE RECORDS SUMMARY | 2024-10-25 20:02 | XMS_ITS | Continuity of Care Document ---
Author Organization [facility] Carter Kowalski [facility] ENT Address [address] [place] [address] Care Team Providers Care Learning Support Assistant Name Role Phone ART WALKER Primary Care Provider [phone] Assessment Encounter Date Assessment Date Assessment LastModified by Organization Details LastModified Time 10/03/2024 10/03/2024 Karen is in for a [...] aids come in. Not available 10/05/2024 10:46:38 Plan of Treatment Reminders Order Date Submit [...] Time Mixed conductive AND sensorineural hearing loss 83065062 Active 2024 JORGE OLIVARES MD [address], [address], [place], [address] , [place] & [place] 5 11:54:42 History of polyp of colon 749028190 Active 2022 Karolyn Pardini null, [place] 3 09:16:45 Acute pancreatitis 574376750 Active Karolyn Pardini [place] 3 09:16:15 Gastroenterit is 68831153 Active Karolyn [place]ard[place] 3 09:16:18 Nausea, vomiting and diarrhea 8677596 Active Karolyn [place]ard[place] 3 09:15:06 Alcohol intoxication 00010924 Active Karolyn [place]ard[place] 3 09:14:59 Pancreatitis 16600021 Active Karolyn Pard[place] 3 09:15:12 Hyperlipidemi a 14451190 Active 2022 Karolyn Pardini [place] 3 09:15:23 Mixed anxiety and depressive disorder 569609562 Active 2022 Karolyn [place] 3 09:15:30 Essential hypertension 66848962 Active 2022 Karolyn Pardini [place] 3 09:15:41 Coronary arteriosclero sis 41831199 Active 2022 Karolyn Pardini [place] 3 09:16:52 Uncontrolled type 2 diabetes mellitus 036135916 Active 2023 Art Walker MD [address] [facility], [place], [address] , [place] 4 08:25:22 Problem Notes None recorded. Procedures Surgical History Date Name Laterality Status Provider Name and Address Organization Details Recorded Time 2022 Cabg vein two completed Karolyn CAPUTO [facility] & [place] 4 09:35:36 2014 colonoscopy completed Carole CAPUTO LINNETTE [facility] & [place] 3 08:10:15 2014 colonoscopy [facility] [place] 3 08:10:27 2013 colonoscopy [facility] [place] 3 08:01:59 esophagogastroduodenoscopy completed Carole CAPUTO [facility] & [place] 3 08:02:13 section completed Carole CAPUTO [facility] & [place] 3 08:02:21 Tubal Ligation completed Carole CAPUTO [facility] & [place] 3 08:04:11 arthroscopic repair of rotator cuff completed Carole CAPUTO [facility] & [place] 3 08:05:34 placement of stent i n cardiac conduit completed Karolyn CAPUTO [facility] & [place] 3 09:17:11 repair of stress incontinence by suprapubic sling completed Neida Poe [facility] & [place] 4 12:18:43 Imaging Results None recorded. Procedure Notes None recorded. Medical Equipment None Reported. Allergies Allergen ID Allergen Name Allergen Category Reaction Reaction Severity Criticality Documentation Date Start Date Code Code System Note Provider Name and Address Organization Details Recorded Time 510653 varenicli ne Not available other severe high 11/03/2023 84666 2 RxNorm psych osis, SI, Karolyn Henry null, PATITO Lawrence [facility] & [place] 4 08:36:33 16802 Product containin g penicilli n (product) medicatio n Not available Not available Not available 04/25/2023 01123 8001 SNOMED Other react ions and sever ities : 'Anap hylax is due to subst ance' . PATITO Farfan [facility] 3 07:46:16 14968 Substance with sulfonami de structure and antibacte rial mechanism of action (substanc e) medicatio n Not available Not available Not available 04/25/2023 39632 8003 SNOMED Other react ions and sever ities : 'Adve rse react ion to subst ance' . PATITO Farfan [facility] & [place] 3 07:46:16 31543 carisopro dol medicatio n Not available Not available Not available 04/25/2023 2101 RxNorm Other react ions and sever ities : 'Adve rse react ion to subst ance' . Carole mesa [facility] 3 07:46:16 57751 moxifloxa ilya medicatio n Not available Not available Not available 04/25/2023 71153 2 RxNorm Other react ions and sever ities : 'Anap hylax is due to subst ance' . Carole mesa [facility] 3 07:46:16 Medications Name Sig Start Date [...] Ultra-Fine Mini Pen Needle 31 gauge x 316 use as directed with insulin pen 08/15 [...] Available Not Available Not Available Dexcom G6 Ticket Chopper Assembler 08/02 completed Not Available Not Available Not Available Dexcom G6 Transmitter device 08/02 completed Not Available Not Available Not Available OneTouch Delica Plus Lancet 33 gauge Check blood sugar TWICE DAILY 08/15 completed Not Available Not Available Not Available FreeStyle Carlee 2 Sensor kit Use 1 each Every 14 (Fourteen ) Days. active Not Available Not Available No t Available FreeStyle Carlee 2 Cranberry Use 1 each 1 (One) Time for [...] completed Not Available Not Available Not Available [employer] Carlee 3 Plus Sensor device Use Every 14 (Fourteen ) Days. 08/15 completed Not Available Not Available Not Available Vitals None Recorded Social History Question Answer Notes LastModified by Organizat ion Details LastModified Time Tobacco Smoking Status Current Every Day Smoker Carole Ruiz [facility], [place] - [facility] & [place] 04/25/2023 08:13:12 Do You Have An Advance [...] Do You Have A Medical Power Of President [employer]? No Information not available 02/23/2024 What Is [...] Much Tobacco Do You Smoke? 0.5 PPD Information not available 04/25/2023 Do You Feel Stressed (tense, Restless, Nervous, Or Anxious, Or Unable To Sleep At Night)? [id number] Information not available 02/23/2024 Do You Use [...] available 2023 12:28:21 Father Father aneury sm [email or web address] Not available 04/25/2023 08:14:10 Father Aneurysm [email or web address] Not available 02/13/2024 12:17:34 Father Alcohol abuse [email or web address] Not available 2023 12:21:54 Maternal Aunt Diabetes mellitus [email or web address] Not available 2023 12:28:18 Unspecified Relation Disorder of thyroid gland [email or web address] Not available 2023 12:21:08 Brother Alcohol abuse [email or web address] Not available 2023 12:21:54 Medical History Condition Response ADD/ADHD Y Diabetes Y Anxiety Disorder Y Allergies/Hayfever Y Other Y Reflux/GERD Y Hypertension Y Depression Y Asthma Y Gynecological HistoryNo gynecological history recorded. Obstetrics History GPAL:G 0 P 0 0 0 0 Immunizations Vaccine Type Date Status Note Provider Nam e and Address Organization Details Recorded Time COVID-19, mRNA, LNP-S, PF, 30 mcg/0.3 mL dose 1 completed Not Available [facility] 11/15/2022 12:39:02 COVID-19, mRNA, LNP-S, PF, 30 mcg/0.3 mL dose 1 completed Not Available [facility] 11/15/2022 12:39:02 pneumococcal polysaccharide PPV23 1 completed Not Available [facility] 11/15/2022 12:39:02 Td(adult) unspecified formulation 7 completed Not Available [facility] 11/15/2022 12:39:02 Influenza, split virus, trivalent, preservative 1 completed Not Available [facility] 11/15/2022 12:39:02 Past Encounters Encounter ID Performer Location Encounter Start Date Encounter Closed Date Diagnosis/Indication Diagnosis SNOMED-CT Code Diagnosis ICD10 Code Diagnosis Note [id number] JORGE OLIVARES MD [facility] [address] [facility] [address] 10/01/2024 11:00:57 10/01/2024 11:52:27 Mixed conductive AND sensorineural hearing loss 12269336 H90.A31 - Audiogram was reviewed and explained [...] - Recommend follow-up audiogram in 1 year. [id number] KAYLA RAMÍREZ [facility] [address] [place] [address] 10/01/2024 11:47:44 10/01/2024 11:47:53 Mixed conductive AND sensorineural hearing loss 50846224 H90.A31 [id number] KAYLA RAMÍREZ [facility] [address] [place] [address] 10/03/2024 09:31:30 10/03/2024 09:54:22 Mixed conductive AND sensorineural hearing loss 36693700 H90.A31 Health Concerns Section Related Observation LastModified by Organization Detai ls LastModified Time None Recorded Concern Status LastModified by Organization Details LastModified Time None Recorded Payers Encounter Date Sequence Insurance Name Policy Number Policy Javier Covered Member ID Javier Member ID Guarantor Name 10/03/2024 1 [employer] [facility] (MEDICAID HMO) Karen Reed [id number] Karen Reed OBGyn Episode No OBEpisode recorded.
--- OUTSIDE RECORDS SUMMARY | 2024-10-25 20:02 | XMS_ITS | Continuity of Care Document ---
Author Organization [facility] Address [address] [place] [address] Care Team Providers Care Garage Attendant Name Role Phone ART WALKER Primary Care Provider [phone] Assessment Encounter Date Assessment Date Assessment LastModified [...] 84% at 45 dB on the left. [email or web address] Not available 10/01/2024 11:54:28 Plan of Treatment Reminders Order Date Submit Date Provider Last Modified By Organization Details Last Modified Time Details Appointments OV EST 15 2024 08:30A Jeanette Walker MD Not available Not available Not available Lab creatini ne, serum or plasma 2024 025 [facility] (Lab Registration) , [address] [place] [address] [place], [address], 10/08/2024 04:16:00 Referral None recorded . Procedures None recorded . Surgeries None recorded . Imaging MRI, brain + internal auditory canal, w/wo contrast 2024 025 [facility] (Central Scheduling), [address] [place] [address] [place], [address], 10/08/2024 04:16:00 Medication Orders None recorded . Patient TargetsNo targets recorded. Patient InstructionsNo instructions recorded. Reason for Referral None Reported. Problems Name Problem SNOMED Code Status Onset Date Resolution Date Notes Provider Name and Address Organization Details Recorded Time Mixed conductive AND sensorineural hearing loss 76335432 Active 2024 JORGE OLIVARES MD [address] [place] [address], [address], [place], [address] , [place] 5 11:54:42 History of polyp of colon 423777945 Active 2022 Karolyn Pard[place] null[place] 3 09:16:45 Acute pancreatitis 155904949 Active Karolyn [place]ard[place] 3 09:16:15 Gastroenterit is 75208546 Active Karolyn [place] 3 09:16:18 Nausea, vomiting and diarrhea 5672028 Active Karolyn [place] 3 09:15:06 Alcohol intoxication 67830181 Active Karolyn [place] 3 09:14:59 Pancreatitis 44662561 Active Karolyn [place] 3 09:15:12 Hyperlipidemi a 54414918 Active 2022 Karolyn [place] 3 09:15:23 Mixed anxiety and depressive disorder 348813415 Active 2022 Karolyn [place] 3 09:15:30 Essential hypertension 30451083 Active 2022 Karolyn [place] 3 09:15:41 Coronary arteriosclero sis 02931469 Active 2022 Karolyn [place] 3 09:16:52 Uncontrolled type 2 diabetes mellitus 621603745 Active 2023 Art Walker MD [address] [place] [address], [place], [address] , [place] & [place] 4 08:25:22 Problem Notes None recorded. Procedures Surgical History Date Name Laterality Status Provider Name and Address Organization Details Recorded Time 2022 Cabg vein two completed Karolyn Yawonofrei [place] [facility] - [place] & [place] 4 09:35:36 2014 colonoscopy completed Carole Ruiz [place] - [facility] - [place] & [place] 3 08:10:15 2014 colonoscopy completed Carole Ruiz [place] & [place] 3 08:10:27 2013 colonoscopy completed Carole Ruiz [place] & [place] 3 08:01:59 esophagogastroduodenoscopy completed Caroleher Ruiz [place] & [place] 3 08:02:13 section completed Carole Ruiz [place] & [place] 3 08:02:21 Tubal Ligation completed Caroleher Ruiz [place] & [place] 3 08:04:11 arthroscopic repair of rotator cuff completed Caroleher Ruiz [place] - [place] & [place] 3 08:05:34 placement of stent i n cardiac conduit completed Karolyn Alcoceri [place] [facility] & [place] 3 09:17:11 repair of stress incontinence by suprapubic sling completed Neida Poe [place] - [facility] - [place] & [place] 4 12:18:43 Imaging Results None recorded. Procedure Notes None recorded. Medical Equipment None Reported. Allergies Allergen ID Allergen Name Allergen Category Reaction Reaction Severity Criticality Documentation Date Start Date Code Code System Note Provider Name and Address Organization Details Recorded Time 041885 varenicli ne Not available other severe high 11/03/2023 74904 2 RxNorm psych osis, SI, Karolyncassy Alcoceri bonita [facility] 4 08:36:33 45565 Product containin g penicilli n (product) medicatio n Not available Not available Not available 04/25/2023 47617 8001 SNOMED Other react ions and sever ities : 'Anap hylax is due to subst ance' . PATITO Farfan [facility] & [place] 3 07:46:16 01532 Substance with sulfonami de structure and antibacte rial mechanism of action (substanc e) medicatio n Not available Not available Not available 04/25/2023 45931 8003 SNOMED Other react ions and sever ities : 'Adve rse react ion to subst ance' . PATITO Farfan [facility] & [place] 3 07:46:16 37751 carisopro dol medicatio n Not available Not available Not available 04/25/2023 2101 RxNorm Other react ions and sever ities : 'Adve rse react ion to subst ance' . PATITO Farfan [facility] & [place] 3 07:46:16 28136 moxifloxa ilya medicatio n Not available Not available Not available 04/25/2023 49976 2 RxNorm Other react ions and sever ities : 'Anap hylax is due to subst ance' . Carole mesa [facility] & [place] 3 07:46:16 Medications Name Sig Start Date [...] completed Not Available Not Available Not Available [facility] 100,000 unit/gram topical powder APPLY TO THE [...] Available Not Available Not Available Dexcom G6 Cargo Agent 08/02 completed Not Available Not Available Not Available Dexcom G6 Transmitter device 08/02 completed Not Available Not Available Not Available OneTouch Delica Plus Lancet 33 gauge Check blood sugar TWICE DAILY 08/15 completed Not Available Not Available Not Available FreeStyle Carlee 2 Sensor kit Use 1 each Every 14 (Fourteen ) Days. active Not Available Not Available No t Available FreeStyle Carlee 2 [place] Use 1 each 1 (One) Time for [...] and Address Organization Details Last Updated DateTime 162.56 cm 33.6 kg/m2 25550.1 g 97.6 [degF] 99 % 99 % Elizabeth ANGLIN [facility] & [place] 11:08:53 Social History Question Answer Notes LastModified by Organizat ion Details LastModified Time Tobacco Smoking Status Current Every Day Smoker PATITO Farfan [facility] & [place] 04/25/2023 08:13:12 Do You Have An Advance [...] Do You Have A Medical Power Of Bladder Changer? No Information not available 02/23/2024 What Is [...] Much Tobacco Do You Smoke? 0.5 PPD [email or web address] Information not available 04/25/2023 Do You Feel Stressed (tense, Restless, Nervous, Or Anxious, Or Unable To Sleep At Night)? [id number] Information not available 02/23/2024 Do You Use [...] LastModified Time Mother Mother lupus, HTN, Cancer [email or web address] Not available 04/25/2023 08:13:46 Mother Hypertensive disorder [...] available 2023 12:28:21 Father Father aneury sm [email or web address] Not available 04/25/2023 08:14:10 Father Aneurysm [email or web address] [...] mcg/0.3 mL dose 1 completed Not Available [facility] 11/15/2022 12:39:02 COVID-19, mRNA, LNP-S, PF, 30 mcg/0.3 mL dose 1 completed Not Available [facility] 11/15/2022 12:39:02 pneumococcal polysaccharide PPV23 1 completed Not Available [facility] 11/15/2022 12:39:02 Td(adult) unspecified formulation 7 completed Not Available [facility] 11/15/2022 12:39:02 Influenza, split virus, trivalent, preservative 1 completed Not Available [facility] 11/15/2022 12:39:02 Past Encounters Encounter ID Performer Location Encounter Start Date Encounter Closed Date Diagnosis/Indication Diagnosis SNOMED-CT Code Diagnosis ICD10 Code Diagnosis Note [id number] JORGE OLIVARES MD [facility] [address] [employer] [address] 10/01/2024 11:00:57 10/01/2024 11:52:27 Mixed conductive AND sensorineural hearing loss [id number] H90.A31 - Audiogram was reviewed and explained [...] - Recommend follow-up audiogram in 1 year. [id number] KAYLA RAMÍREZ [facility] [address] [employer], [place] [address] 10/01/2024 11:47:44 10/01/2024 11:47:53 Mixed conductive AND sensorineural hearing loss 99564865 H90.A31 Health Concerns Section Related Observation LastModified by Organization Detai ls LastModified Time None Recorded Concern Status LastModified by Organization Details LastModified Time None Recorded Payers Encounter Date Sequence Insurance Name Policy Number Policy Javier Covered Member ID Javier Member ID Guarantor Name 10/01/2024 1 [facility] (MEDICAID HMO) Karen Reed [id number] Karen Reed Notes Date Note Type Note [...] tubes as a child. JORGE OLIVARES MD [address] [place] [address], [address], [place], [address], [facility] - [facility] - [place] & [place] 10/01/2024 11:56:18 OBGyn Episode No OBEpisode recorded.
== END 2024-10-21 14:03 | disposition home or self-care (01) ==
PROVIDERS: Emergency Provider Emergency Medicine; PCP Emergency Medicine
DX: H92.02 Otalgia, left ear (principal); F17.210 Nicotine dependence, cigarettes, uncomplicated
CPT/HCPCS: 99281

== ENCOUNTER 2025-02-26 08:25 | Emergency (ER) | payer OTHER, SELFPAY ==
[2025-02-26] VITALS (9 sets, daily range): BP systolic 108–242; BP diastolic 63–151; PULSE 88–109; RESP 14–19; TEMP 36.9; O2SAT 91–97; BMI 30.7
--- OUTSIDE RECORDS SUMMARY | 2025-02-26 08:33 | XMS_ITS | Continuity of Care Document ---
Author Organization formerly [facility]. If a dditional information is needed, contact Health Information Management at [phone] Address [address] [place] [address] Phone Care Team Providers Care Surface Mount Technology Operator Name Role Phone Unavailable Unavailable Unavailable Unavailable [...] Onc e Start:08-May-2021 Comments:0.75 mg SUBCUT ONCE [place] 6-170_IGIW-1977-AOM;1 - 2 ORAL Every 6 Hours as Needed Start:03-Oct-2014 Comments:1 - 2 TAB PO Q6H PRN As Needed for Pain / Cramps [place] 8-034_NYYU-3619-AOM;1 - 2 ORAL Every 6 Hours as Needed Start:03-Oct-2014 Status:Aborted Comments:1 - 2 TAB PO Q6H PRN As Needed for Pain / Cramps Saljfaevaw_QAPU-182-OLW;10 M G ORAL Daily Start:22-May-2013 Comments:10 MG PO DAILY PriLOSEC_OMEP20CA54-AOM;20 M G ORAL Daily Start:22-May-2013 Comments:20 MG PO DAILY Neurontin_GABA400C16-AOM;400 MG ORAL Three Times a Day Start:22-May-2013 Comments:400 MG PO TID Albuterol Sulfate Hfa_ALBU18 HF-AOM;2 PUFF INHALATION As Needed Start:22-May-2013 Comments:2 PUFF INH PRN As Needed for ASTHMA
--- OUTSIDE RECORDS SUMMARY | 2025-02-26 08:44 | XMS_ITS | Encounter Summary ---
Author Organization [facility] Address [address] [place] [address] Care Team Providers Care General Utility Machine Operator Name Role Phone Art Lorenz MD Primary Care Provider [phone] Encounter Details Date Type Department Care Team (Late st Contact Info) Description 01/04/2025 Telephone [facility] ENDOCRINOLOGY [address] [facility] [address] [place] [address] Devan Dickinson MD [address] [place] [address] Social History Tobacco Use Types Packs/Day Years Used Date Smoking Tobacco: Every Day Cigarettes Passive Smoke Exposure: Current Smokeless Tobacco: Never Alcohol Use Standard Drinks/Week Comments Yes 5 (1 standard drink = 0.6 oz pur e alcohol) Comments Unknown Sex and Gender Information Value Date Recorded Sex Assigned at Not on file Legal Sex Female 1:42 PM EDT Gender Identity Not on file Sexual Orientation Not on file documented as of this encounter Miscellaneous Notes * Telephone Encounter - Tamie Hair MA - 01/08/2025 11:11 AM EDT Called and left message for patient to contact nakia for replacement sensors if they do not work, and if refills needed just call us . * Telephone Encounter - Nicolas Price RegSched Rep - 01/04/2025 8:38 AM EDT Pt called states she put a new sensor on this morning and sensor is not found pt has free style nakia 2 pt has scanned sensor like 20 time. documented in this encounter Plan of Treatment Not on file documented as of this encounter Visit Diagnoses Not on filedocumented in this encounter Care Teams General Utility Machine Operator Relationship Specialty Start Date End Date Art Lorenz MD [address] [place] [address] PCP - General Emergency Medicine 01/03/24 documented as of this encounter
--- OUTSIDE RECORDS SUMMARY | 2025-02-26 08:44 | XMS_ITS | Clinical Summary ---
Author Organization [facility] Address [address] [place] [address] Care Team Providers Care Content Producer Name Role Phone Art Lorenz MD Primary Care Provider Allergies Active Allergy Reactions Criticality Noted Date Comments Moxifloxacin Hives,Unknown (See Comments) Low 11/19 Penicillins Unknown (See Comments) Low 11/19/2012 Sulfa Antibiotics Anaphylaxis High 09/13/2023 Varenicline Other (See Comments) High 01/03/2024 Medications fluticasone (FLONASE) 50 MCG/ACT nasal sprayIndication s:Other seasonal allergic rhinitis USE 1 spray in each nostril Nasally Once a day 48 g 3 4 Active aspirin 81 MG chewable tablet Chew 1 tablet Daily. 4 Active lisinopril (PRINIVIL,ZESTR IL) 10 MG tablet Take 1 tablet by mouth Daily. Active Lantus SoloStar 100 UNIT/ML injection pen Inject 50 Units under the skin into the appropriate area as directed Daily. 45 mL 3 4 Active empagliflozin (Jardiance) 25 MG tablet tablet Take 1 tablet by mouth Daily. 90 tablet 3 4 Active NovoLOG FlexPen 100 UNIT/ML solution pen-injector sc penIndications: Type 2 diabetes mellitus with hyperglycemia, with long-term current use of insulin Inject 15 Units under the skin into the appropriate area as directed 3 (Three) Times a Day With Meals. 30 mL 3 5 Active Ventolin HFA 108 (90 Base) MCG/ACT inhaler As Needed. 4 Active Alcohol Swabs pads USE as directed to check sugar 3 times daily 4 Active fenofibrate (TRICOR) 54 MG tablet Take 1 tablet by mouth Daily. 5 Active gabapentin (NEURONTIN) 400 MG capsule Take 1 capsule by mouth 3 (Three) Times a Day. 5 Active OneTouch Ultra Test test strip 1 each by Other route As Needed. 5 Active ibuprofen (ADVIL,MOTRIN) 800 MG tablet Take 1 tablet by mouth Every 6 (Six) Hours As Needed. 4 Active B-D UF III MINI PEN NEEDLES 31G X 5 MM misc 5 Active metoprolol succinate XL (TOPROL-XL) 50 MG 24 hr tablet Take 1 tablet by mouth Daily. 5 Active mirtazapine (REMERON) 15 MG tablet Take 1 tablet by mouth Every Night. 5 Active ranolazine (RANEXA) 500 MG 12 hr tablet Take 1 tablet by mouth 2 (Two) Times a Day. 4 Active risperiDONE (risperDAL) 2 MG tablet Take 1 tablet by mouth 2 (Two) Times a Day. 4 Active Brilinta 90 MG tablet tablet Take 1 tablet by mouth 2 (Two) Times a Day. 5 Active atorvastatin (LIPITOR) 80 MG tablet Take 1 tablet by mouth Daily. 5 Active Continuous Glucose Sensor (FreeStyle Nakia 2 Sensor) miscIndications :Type 2 diabetes mellitus with hyperglycemia, with long-term current use of insulin Use 1 each Every 14 (Fourteen) Days. 2 each 5 Active Insulin Aspart (novoLOG) 100 UNIT/ML injectionIndica tions:Type 2 diabetes mellitus with hyperglycemia, with long-term current use of insulin inject 100 UNITS PER DAY THROUGH VGO 30 mL 3 5 Active Insulin Disposable Pump (V-Go 40) 40 UNIT/24HR kitIndications: Type 2 diabetes mellitus with hyperglycemia, with long-term current use of insulin Use 1 each Daily. 1 kit 5 5 Active Active Problems Problem Noted Date Diagnosed Date Type 2 diabetes mellitus wit h hyperglycemia, with long-term current use of insulin 01/03/2024 Overview (07/20/2024): CANNOT TAKE GLP1 DUE TO 4 EPISODES OF PANCREATITIS HAD BAD DIARRHEA WITH METFORMIN CANNOT TAKE JILLIAN DUE TO HEART DISEASE Assessment & Plan (07/20/2024 10:29 AM EST): WORSE A1C UP TO 10.8 PLAN : CONTNUE CURRENT RX FOR NOW. CHANGE TO NAKIA 2 SINCS IT HAS A READER AND CHANGE TO VGO ONCE SHE IS TRAINED Assessment & Plan (04/04/2024 9:52 AM EDT): Deteriorated due to the steroids given for pneumonia. 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 Plan : restrict daily carb intake to under 150 grams Gradually build up to get 150 minutes per week of physical activity Stop sfu and use prandial insulin in addition to basal insulin and stay on jardiance for cardioprotection. Treat yeast infection Encounters Date Type Department Care Team Description 01/04/2025 Telephone [facility] [address] [facility] [address] [place] [address] Devan Dickinson MD 12/11/2024 Refill [facility] [address] [facility] [address] [address] [place] [address] Devan Dickinson MD Type 2 diabetes mellitus with hyperglycemia, with long-term current use of insulin from Last 3 Months Family History Medical History Relation Name Comments Diabetes type II Maternal Aunt Diabetes type II Mother Relation Name Status Comments Maternal Aunt Mother Social History Tobacco Use Types Packs/Day Years Used Date Smoking Tobacco: Every Day Cigarettes Passive Smoke Exposure: Current Smokeless Tobacco: Never Tobacco Cessation:Ready to Q uit: Not Asked; Counseling Given: Not Answered Alcohol Use Standard Drinks/Week Comments Yes 5 (1 standard drink = 0.6 oz pur e alcohol) Comments Unknown Sex and Gender Information Value Date Recorded Sex Assigned at Not on file Legal Sex Female 1:42 PM EDT Gender Identity Not on file Sexual Orientation Not on file Last Filed Vital Signs Vital Sign Reading Time Taken Comments Blood Pressure 130/84 07/20/2024 9:55 AM EST Pulse 116 07/20/2024 9:55 AM EST Temperature - - Respiratory Rate - - Oxygen Saturation 98% 07/20/2024 9:55 AM EST Inhaled Oxygen Concentration - - Weight 80.7 kg (178 lb) 07/20/2024 9:55 AM EST Height 162.6 cm (5' 4 ) 07/20/2024 9:55 AM EST Body Mass Index 30.55 07/20/2024 9:55 AM EST Plan of Treatment Health Maintenance Due Date Last Done Comments Annual Gynecologic Pelvic an d Breast Exam 1969 DIABETIC EYE EXAM 1979 URINE MICROALBUMIN-CREATININ E RATIO (uACR) 1979 Hepatitis B (1 of 3 - 19+ 3- dose series) 02/12/1988 PAP SMEAR 1990 TDAP/TD VACCINES (1 - Tdap) 03/29/2007 03/28/2007 MAMMOGRAM 2009 COLOGUARD 2014 COLON CANCER SCREENING 5 YEA R SIGMOIDOSCOPY 2014 CT COLONOGRAPHY 2014 FECAL OCCULT BLOOD TEST 2014 FIT Testing (1 year) 2014 ZOSTER VACCINE (1 of 2) 2019 Pneumococcal Vaccine 50+ (2 of 2 - PCV) 05/05/2022 05/05/2021 ANNUAL PHYSICAL 12/02/2023 COVID-19 Vaccine (3 - 2023-2 5 season) 2024 10/14/2020, 09/13/2020 DIABETIC FOOT EXAM 01/02/2025 01/03/2024, 01/03/2024 HEMOGLOBIN A1C 01/17/2025 07/20/2024, 03/18, 01/03/2024, Additional history exists COLONOSCOPY 03/31/2025 03/31/2015, 03/18, 09/27/2014, Additional history exists COLORECTAL CANCER SCREENING 03/31/2025 INFLUENZA VACCINE 04/17/2025 04/15/2021 HEPATITIS C SCREENING Completed 11/24/2022 Procedures Procedure Name Priority Date/Time Associated Diagnosis Comments POCT GLYCOSYLATED HEMOGLOBIN (HGB A1C) Routine 07/20/2024 10:10 AM EST Type 2 diabetes mellitus with hyperglycemia, with long-term current use of insulin from Last 3 Months or Most Recently Relevant to Health Maintenance Results * (ABNORMAL) POC Glycosylated Hemoglobin (Hb A1C) (07/20/2024 10:10 AM EST) Hemoglobin A1C 10.8(A) 4.5 - 5.7 % [facility] Lot Number [id number] [facility] Expiration Date 04/27/2026 [facility] Blood 07/20/2024 10:1 0 AM EST Devan Dickinson MD POINT OF CARE TEST ORD ERABLES Final Result [facility]
[address] [place] [address], from Last 3 Months or Most Recently Relevant to Health Maintenance Insurance Care Teams Content Producer Relationship Specialty Start Date End Date Art Lorenz MD [address] [place] [address] PCP - General Emergency Medicine 01/03/24
--- NOTE | 2025-02-26 08:45 | CT_ITS ---
FINAL REPORT TECHNIQUE: Thin section axial images are obtained through the abdomen and pelvis after intravenous contrast. Reconstruction images were obtained from the axial data. Exam was performed using dose reduction techniques. This study was performed with techniques to keep radiation doses as low as reasonably achievable (ALARA). Individualized dose reduction techniques using automated exposure control or adjustment of mA and/or kV according to the patient's size were employed. CLINICAL HISTORY: 2 months diarrhea, lower abd pain COMPARISON: 02/14/2024 FINDINGS: LUNG BASES: There are calcified and noncalcified nodules present at the lung bases, which are stable since the prior exam. Heart size is normal. LIVER: Fatty infiltration of the liver is present. No focal lesion. GALLBLADDER/BILIARY SYSTEM: Gallbladder is present. No gallstones. No biliary dilatation. SPLEEN: Unremarkable. PANCREAS: There is a small hypodense lesion in the tail of the pancreas measuring 10 mm in size, nonspecific and is stable since the prior CT. ADRENALS: Unremarkable. KIDNEYS/URETERS/BLADDER: No hydronephrosis, renal mass, or renal stone. Unremarkable urinary bladder. GI TRACT: No small bowel obstruction or dilatation. There are a few nonspecific fluid-filled small bowel loops in the lower abdomen. Normal appendix. No acute colon abnormality. PELVIC ORGANS: Note is made of pelvic floor descent. The uterus is present. LYMPH NODES/RETROPERITONEUM/MESENTERY: No lymphadenopathy. No abdominal aortic aneurysm. ABDOMINAL WALL: The abdominal wall is intact. FREE FLUID: No ascites. BONES: No acute osseous abnormality. IMPRESSION: There are a few nonspecific fluid-filled small bowel loops in the lower abdomen, that may represent mild enteritis. Fatty infiltration of the liver. Reviewed, Interpreted and Dictated by Magdalena Bledsoe MD Transcribed by Josefa Roman Authenticated and [facility]
--- OUTSIDE RECORDS SUMMARY | 2025-02-26 08:45 | XMS_ITS | Encounter Summary ---
Author Organization Healthcare Address [address] [place] [address] Care Team Providers Care Associate Loan Officer Name Role Phone Art Lorenz MD Primary Care Provider [phone] Jordy Hall MD Unavailable [phone] Encounter Details Date Type Department Care Team (Late st Contact Info) Description 06/10/2023 Orders Only External Location [address] [place] [address] Provider, External Social History Tobacco Use Types Packs/Day Years Used Date Smoking Tobacco: Every Day Cigarettes Smokeless Tobacco: Never Alcohol Use Standard Drinks/Week Comments Yes 0 (1 standard drink = 0.6 oz pur e alcohol) 5th or more per day Humiliation, Afraid, Rape, and Kick questionnair e Answer Date Recorded Within the last year, have y ou been afraid of your partner or ex-partner? No 05/19/2023 Within the last year, have y ou been humiliated or emotionally abused in other ways by your partner or ex-partner? No Within the last year, have y ou been kicked, hit, slapped, or otherwise physically hurt by your partner or ex-partner? No 05/19/2023 Within the last year, have y ou been raped or forced to have any kind of sexual activity by your partner or ex-partner? No 05/19/2023 Hunger Vital Sign Answer Date Recorded Within the past 12 months, y ou worried that your food would run out before you got the money to buy more. Never true 05/19/20 23 Within the past 12 months, t he food you bought just didn't last and you didn't have money to get more. Never true 05/19/2023 PRAPARE - Transportation Answer Date Re corded In the past 12 months, has l ack of transportation kept you from medical appointments or from getting medications? No 08/2022 In the past 12 months, has l ack of transportation kept you from meetings, work, or from getting things needed for daily living? No 05/19/2023 Housing Stability Vital Sign Answer Thad e Recorded In the last 12 months, was t here a time when you were not able to pay the mortgage or rent on time? No 05/19/2023 In the last 12 months, how many places have you lived? 1 05/19/2023 In the last 12 months, was t here a time when you did not have a steady place to sleep or slept in a [facility] (including now)? No 05/19/2023 CAGE ASSESSMENT Answer Date Recorded Cage unable to access Not on file 05/18/2023 Cage max number of drinks Not on file 2022 Cage Beverages a week Not on file 05/18/2023 Have you ever felt you should CUT down on your d rinking? 0 05/18/2023 Have you been ANNOYED by people criticizing your drinking? 0 05/18/2023 Have you felt GUILTY about your drinking? 0 05/18/2023 Have you had a drink first t torsten in the morning (EYE-VEHICLE CARE SPECIALIST) to steady your nerves or to get rid of a hangover? 0 05/18/2023 CAGE Questionnaire Score 0 023 Utilities Answer Date Recorded In the past 12 months has th e electric, gas, oil, or water company threatened to shut off services in your home? No 05/19/2023 Comments No Sex and Gender Information Value Date Recorded Sex Assigned at Not on file Legal Sex Female 8:18 PM EDT Gender Identity Not on file Sexual Orientation Not on file documented as of this encounter Plan of Treatment Not on file documented as of this encounter Procedures Procedure Name Priority Date/Time Associated Diagnosis Comments XR OUTSIDE IMAGES 06/10/2023 9:51 AM EST documented in this encounter Results * XR OUTSIDE IMAGES (06/10/2023 9:51 AM EST) Anatomical Region Laterality Modality Radiographic Alyssa ging 06/10/2023 9:51 AM EST us External Provider IMG XR PROCEDURES Final Result documented in this encounter Visit Diagnoses Not on filedocumented in this encounter Additional Health Concerns Assessment Noted Time A fall risk assessment has been complete d for the patient 12/21/2021 9:40 AM EDT A Body Mass Index follow-up plan has been documented for the patient 05/28/2023 12:52 PM EST documented as of this encounter Care Teams Associate Loan Officer Relationship Specialty Start Date End Date Art Lorenz MD [address] [facility] [address] [address] PCP - General 05/19/23 Jordy Hall MD [address] [facility] [address] [place] [address] Cardiology 05/19/23 documented as of this encounter
--- OUTSIDE RECORDS SUMMARY | 2025-02-26 08:45 | XMS_ITS | Encounter Summary ---
Author Organization Healthcare Address [address] [place] [address] Care Team Providers Care Security Project Manager Name Role Phone Shelbi Sushila Franklin APRN Primary Care Provider Art Lorenz MD Primary Care Provider Jordy Hall MD Unavailable [phone] Encounter Details Date Type Department Care Team (Late st Contact Info) Description 11/24/2022 Lab Requisition [facility] [address] [place] [id number] Irene [place], [place] [address] [place] [address] Routine general medical examination at a health care facility Social History Tobacco Use Types Packs/Day Years Used Date Smoking Tobacco: Every Day Cigarettes Smokeless Tobacco: Never Alcohol Use Standard Drinks/Week Comments Yes 0 (1 standard drink = 0.6 oz pur e alcohol) 5th or more per day CAGE ASSESSMENT Answer Date Recorded Cage unable to access Not on file 11/23/2022 Maximum number of drinks you had on a given occasion in the last month? 5 or more drinks 11/23/2022 How many alcoholic Beverages do you typically drink in a week? 15 or more per week 11/23/2022 Have you ever felt you shoul d CUT down on your drinking? 1 11/23/2022 Have you been ANNOYED by peo ple criticizing your drinking? 1 11/23/2022 Have you felt GUILTY about your drinking? 1 11/23/2022 Have you had a drink first t torsten in the morning (EYE-CHARGER OPERATOR) to steady your nerves or to get rid of a hangover? 1 11/23/2022 CAGE Questionnaire Score 4 023 Comments Unknown Sex and Gender Information Value Date Recorded Sex Assigned at Not on file Legal Sex Female 8:18 PM EDT Gender Identity Not on file Sexual Orientation Not on file documented as of this encounter Plan of Treatment Not on file documented as of this encounter Procedures Procedure Name Priority Date/Time Associated Diagnosis Comments ACUTE HEPATITIS PANEL Routine 11/24/2022 6:57 AM EDT Routine general medical examination at a health care facility [ICD-10-CM] CBC WITH AUTO DIFFERENTIAL Routine 11/24/2022 6:57 AM EDT Routine general medical examination at a health care facility [ICD-10-CM] HCG, QUANTITATIVE Routine 11/24/2022 6:5 7 AM EDT Routine general medical examination at a health care facility [ICD-10-CM] TSH Routine 11/24/2022 6:57 AM EDT Routine general medical examination at a health care facility [ICD-10-CM] HEMOGLOBIN A1C Routine 11/24/2022 6:57 AM EDT Routine general medical examination at a health care facility [ICD-10-CM] LIPID PROFILE, PLASMA Routine 11/24/2022 6:57 AM EDT Routine general medical examination at a health care facility [ICD-10-CM] COMPREHENSIVE METABOLIC PANEL, PLASMA Routine 11/24/2022 6:57 AM EDT Routine general medical examination at a health care facility [ICD-10-CM] documented in this encounter Results * TSH (11/24/2022 6:57 AM EDT) Thyroid Stimulating Hormone, Plasma 1.68 0.40 - 4.20 uIU/mL 11/24/2022 10:03 AM EDT [facility] Blood Venous blood specimen / Unknown Venipuncture / Unknown 11/24/2022 6:57 AM EDT 11/24/2022 7:35 AM EDT Narrative [facility] - 11/24/2022 10:03 AM EDT Trimester Specific Ranges TSH ( IU/mL) 1st Trimester 0.1 - 3.0 2nd Trimester 0.19 - 4.06 3rd Trimester 0.3 - 3.7 Irene Hester [place] LAB BLOOD ORDERABLES Final R esult Performing Organization Address [facility] de Phone Number [facility] [address] [place] [address] * hCG, Total Beta, Quantitative, Plasma (11/24/2022 6:57 AM EDT) hCG, Total Beta <1 <5 mIU/mL 11/24/2022 10:03 AM EDT [facility] Blood Venous blood specimen / Unknown Venipuncture / Unknown 11/24/2022 6:57 AM EDT 11/24/2022 7:35 AM EDT Narrative [facility] - 11/24/2022 10:03 AM EDT Patients: Normal Range Premenopausal Female < 5 mIU/mL Male < 3 mIU/mL Postmenopausal Female < 8 mIU/mL The Graciela Elecsys hCG+beta assay is standardized to the 4th IS for Chorionic Gonadotropin. The combination of the specific monoclonal antibodies used in this assay recognizes the holo-hormone, nicked forms of hCG, the Beta-core Fragment and the free beta-subunit. Elevated hCG concentrations not associated with are found in patients with gestational trophoblastic disease and choriocarcinoma as well as germ cell, ovarian, bladder, pancreas, stomach, lung and liver tumors. Performed by the Graciela electrochemiluminescent immunoassay which is traceable to the 4th International Standard for hCG (NIBSC 75/589). Results obtained with different test methods or kits cannot be used interchangeably. Irene FLANNERY LAB BLOOD ORDERABLES Final R esult Performing Organization Address [facility] Co de Phone Number [facility] [address] [place] [address] * CBC and Differential (11/24/2022 6:57 AM EDT) WBC Count 6.46 3.70 - 10.30 10*3/uL LAB HEMATOLOGY METHOD 11/24/2022 9:27 AM EDT [facility] RBC Count 4.42 3.90 - 5.20 10*6/uL LAB HEMATOLOGY METHOD 11/24/2022 9:27 AM EDT [facility] HGB 13.4 11.2 - 15.7 g/dL LAB HEMATOLOGY METHOD 11/24/2022 9:27 AM EDT [facility] HCT 41.5 34.0 - 45.0 % LAB HEMATOLOGY METHOD 11/24/2022 9:27 AM EDT [facility] Platelet Count 214 155 - 369 10*3/uL LAB HEMATOLOGY METHOD 11/24/2022 9:27 AM EDT [facility] MCV 94 79 - 98 fL LAB HEMATOLOGY METHOD 11/24/2022 9:27 AM EDT [facility] MCH 30.3 26.0 - 32.0 pg LAB HEMATOLOGY METHOD 11/24/2022 9:27 AM EDT [facility] MCHC 32.3 30.7 - 35.5 g/dL LAB HEMATOLOGY METHOD 11/24/2022 9:27 AM EDT [facility] RDW 12.8 11.5 - 14.5 % LAB HEMATOLOGY METHOD 11/24/2022 9:27 AM EDT [facility] MPV 12.0 8.8 - 12.5 fL LAB HEMATOLOGY METHOD 11/24/2022 9:27 AM EDT [facility] nRBC 0.0 <=0.0 per 100 WBCs LAB HEMATOLOGY METHOD 11/24/2022 9:27 AM EDT [facility] Differential Type Automated LAB HEMATOLOGY METHOD 11/24/2022 9:27 AM EDT [facility] Neutrophils % 47.0 % LAB HEMATOLOGY METHOD 11/24/2022 9:27 AM EDT [facility] Lymphocytes % 43.0 % LAB HEMATOLOGY METHOD 11/24/2022 9:27 AM EDT [facility] Monocytes % 7.0 % LAB HEMATOLOGY METHOD 11/24/2022 9:27 AM EDT [facility] Eosinophils % 2.0 % LAB HEMATOLOGY METHOD 11/24/2022 9:27 AM EDT [facility] Basophils % 1.0 % LAB HEMATOLOGY METHOD 11/24/2022 9:27 AM EDT [facility] Immature Granulocytes % 0.0 % LAB HEMATOLOGY METHOD 11/24/2022 9:27 AM EDT [facility] Neutrophils Absolute 3.07 1.60 - 6.10 10*3/uL LAB HEMATOLOGY METHOD 11/24/2022 9:27 AM EDT [facility] Lymphocytes Absolute 2.79 1.20 - 3.90 10*3/uL LAB HEMATOLOGY METHOD 11/24/2022 9:27 AM EDT [facility] Monocytes Absolute 0.42 0.30 - 0.90 10*3/uL LAB HEMATOLOGY METHOD 11/24/2022 9:27 AM EDT [facility] Eosinophils Absolute 0.14 0.00 - 0.50 10*3/uL LAB HEMATOLOGY METHOD 11/24/2022 9:27 AM EDT [facility] Basophils Absolute 0.03 0.00 - 0.10 10*3/uL LAB HEMATOLOGY METHOD 11/24/2022 9:27 AM EDT [facility] Immature Granulocytes Absolute 0.01 0.00 - 0.06 10*3/uL LAB HEMATOLOGY METHOD 11/24/2022 9:27 AM EDT [facility] Blood Venous blood specimen / Unknown Venipuncture / Unknown 11/24/2022 6:57 AM EDT 11/24/2022 7:08 AM EDT Narrative [facility] - 11/24/2022 9:27 AM EDT Therapeutic decision making should be based on absolute values, rather than percentages. Irene FLANNERY LAB BLOOD ORDERABLES Final R esult [facility] [address] [place] [id number] * (ABNORMAL) Hemoglobin A1c (11/24/2022 6:57 AM EDT) Hemoglobin A1c 10.1(H) <5.7 % 11/24/2022 10:59 AM EDT [facility] Blood Venous blood specimen / Unknown Venipuncture / Unknown 11/24/2022 6:57 AM EDT 11/24/2022 7:09 AM EDT Narrative [facility] - 11/24/2022 10:59 AM EDT HA1C Interpretive Data: Diagnosis of Diabetes: Diabetic > or = 6.5% Pre-diabetic 5.7 to 6.4% Non-diabetic < or = 5.6% Glycemic Targets for Type I and Type II Diabetics: Non- Adults <7.0% Adults <6.0% Children and Adolescents <7.5% Source: [place] [employer]. Standards of medical care in diabetes,2017. Diabetes Care.2017:40 (suppl 1):S1-S135. HbA1c assay performed by an ion-exchange chromatography method that is certified traceable to the DCCT. Irene FLANNERY LAB BLOOD ORDERABLES Final R esult [facility] [address] [place] [address] * (ABNORMAL) Lipid panel (11/24/2022 6:57 AM EDT) Cholesterol, Plasma 114 <200 mg/dL 11/24/2022 10:03 AM EDT [facility] Comment: Cholesterol Reference Range (age >17 years): Desirable <200 mg/dL Borderline 200 to 239 mg/dL Undesirable >239 mg/dL HDL 47(L) >=50 mg/dL 11/24/2022 10:03 AM EDT [facility] Comment: HDL Cholesterol Reference Ranges (age >17 years): Female, acceptable > or = 50 mg/dL Male, acceptable > or = 40 mg/dL Triglycerides, Plasma 148 <150 mg/dL 11/24/2022 10:03 AM EDT [facility] Comment: Triglyceride Reference Range (age >17 years): Desirable: <150 mg/dL Borderline high: 150 to 199 mg/dL High: 200 to 499 mg/dL Very high: >499 mg/dL Increased risk of pancreatitis: >1000 mg/dL Cholesterol/HDL Ratio 2 11/24/2022 10:03 AM EDT [facility] LDL, Calculated 42 <100 mg/dL 10:03 AM EDT [facility] Comment: LDL Cholesterol Reference Range (age >17 years): Optimal: <100 mg/dL Near or above optimal: 100 - 129 mg/dL Borderline high: 130 - 159 mg/dL High: 160 - 189 mg/dL Very high: >189 mg/dL LDL Cholesterol Reference Range (age <18 years): Desirable: <110 mg/dL Borderline: 110 - 129 mg/dL Undesirable: >130 mg/dL LDL Cholesterol is calculated using the Osorio/NIH equation. Fasting greater than or equal to 12 hours? Unknown 11/24/2022 10:03 AM EDT [facility] Blood Venous blood specimen / Unknown Venipuncture / Unknown 11/24/2022 6:57 AM EDT 11/24/2022 7:35 AM EDT Irene FLANNERY LAB BLOOD ORDERABLES Final R esult [facility] [address] [place] [address] * (ABNORMAL) Comprehensive metabolic panel (11/24/2022 6:57 AM EDT) Glucose, Plasma 199(H) 74 - 99 mg/dL 11/24/2022 10:03 AM EDT [facility] BUN, Plasma 8 7 - 21 mg/dL 11/24/2022 10:03 AM EDT [facility] Creatinine, Plasma 0.57(L) 0.60 - 1.10 mg/dL 11/24/2022 10:03 AM EDT [facility] BUN/Creatinine Ratio 14 11/24/2022 10:03 AM EDT [facility] Sodium, Plasma 141 136 - 145 mmol/L 11/24/2022 10:03 AM EDT [facility] Potassium, Plasma 4.6 3.7 - 4.8 mmol/L 11/24/2022 10:03 AM EDT [facility] Chloride, Plasma 108(H) 97 - 107 mmol/L 11/24/2022 10:03 AM EDT [facility] CO2, Plasma 24 22 - 29 mmol/L 11/24/2022 10:03 AM EDT [facility] Anion Gap 9 6 - 16 mmol/L 11/24/2022 10:03 AM EDT [facility] Total Calcium, Plasma 9.8 8.9 - 10.2 mg/dL 11/24/2022 10:03 AM EDT [facility] Total Protein 6.9 6.3 - 7.9 g/dL 11/24/2022 10:03 AM EDT [facility] Albumin, Plasma 4.1 3.5 - 5.2 g/dL 11/24/2022 10:03 AM EDT [facility] AST, Plasma 24 11 - 32 U/L 11/24/2022 10:03 AM EDT [facility] ALT, Plasma 21 8 - 33 U/L 11/24/2022 10:03 AM EDT [facility] Alkaline Phosphatase, Plasma 84 35 - 104 U/L 11/24/2022 10:03 AM EDT [facility] Total Bilirubin, Plasma 0.3 0.2 - 1.1 mg/dL 11/24/2022 10:03 AM EDT [facility] eGFRcr 108.8 mL/min/1.7 3m*2 11/24/2022 10:03 AM EDT [facility] Comment: Reported eGFRcr in mL/min/1.73m2 is based the CKD-EPI 202 equation that does not use a race coefficient. Effective 02/10/22 our laboratory changed the eGFR calculation to the CKD-EPI 2021 equation from the previously reported eGFR, based on the MDRD equation. For comparisons between the two equations, please see laboratory website: [email or web address] Blood Venous blood specimen / Unknown Venipuncture / Unknown 11/24/2022 6:57 AM EDT 11/24/2022 7:35 AM EDT Irene FLANNERY LAB BLOOD ORDERABLES Final R esult [facility] [address] [place] [address] * Hepatitis panel, acute (11/24/2022 6:57 AM EDT) Hepatitis B Surf Antigen Negative Negative 11/24/2022 11:29 AM EDT [facility] Hepatitis C Antibody Negative Negative 11/24/2022 11:29 AM EDT [facility] Hepatitis A Antibody IgM Negative Negative 11/24/2022 11:29 AM EDT [facility] Hepatitis B Core Antibody IgM Negative Negative 11/24/2022 11:29 AM EDT [facility] Blood Venous blood specimen / Unknown Venipuncture / Unknown 11/24/2022 6:57 AM EDT 11/24/2022 7:50 AM EDT us Irene FLANNERY LAB BLOOD ORDERABLES Final R esult [facility] [address] [place] [address] documented in this encounter Visit Diagnoses Diagnosis Routine general medical examination at a health care facility documented in this encounter Additional Health Concerns Assessment Noted Time A fall risk assessment has been complete d for the patient 12/21/2021 9:40 AM EDT documented as of this encounter Care Teams Security Project Manager Relationship Specialty Start Date End Date Sushila Mario APRN [address] [place] [place] [address] PCP - General Family Medicine 09/01/21 05/18/23 Art Lorenz MD [address] [place] [address] PCP - General 05/19/23 Jordy Hall MD [address] [facility] [address] [place] [address] Cardiology 05/19/23 documented as of this encounter
--- OUTSIDE RECORDS SUMMARY | 2025-02-26 08:45 | XMS_ITS | Encounter Summary ---
Author Organization Healthcare Address [address] [place] [address] Care Team Providers Care Immigration Attorney Name Role Phone Art Lorenz MD Primary Care Provider [phone] Jordy Hall MD Unavailable [phone] Encounter Details Date Type Department Care Team ([facility] st Contact Info) Description 06/25/2023 Orders Only External Location [address] [place] [address] Mike Perrin MD [facility] [address] [place] [address] Social History Tobacco Use Types Packs/Day Years Used Date Smoking Tobacco: Former Cigarettes Smokeless Tobacco: Never Alcohol Use Standard [...] place to sleep or slept in a care home (including now)? No 05/19/2023 CAGE ASSESSMENT Answer [...] drink first t torsten in the morning (EYE-CLIENT SOLUTIONS SPECIALIST) to steady your nerves or to get rid of a hangover? 0 05/18/2023 CAGE Questionnaire Score 0 023 Utilities Answer Date Recorded In the past 12 months has th e electric, gas, oil, or water company threatened to shut off services in your home? No 05/19/2023 Comments Unknown Sex and Gender Information Value Date Recorded Sex Assigned at Not on file Legal Sex Female 8:18 PM EDT Gender Identity Not on file Sexual Orientation Not on file documented as of this encounter Plan of Treatment Not on file documented as of this encounter Procedures Procedure Name Priority Date/Time Associated Diagnosis Comments CT THORACIC OUTSIDE IMAGES 06/25/2023 10:24 PM EST documented in this encounter Results * CT THORACIC OUTSIDE IMAGES (06/25/2023 10:24 PM EST) Anatomical Region Laterality Modality Computed Tomogra phy 06/25/2023 10:2 4 PM EST us Mike Perrin MD IMG CT PROCEDURES Final Result documented in this encounter Visit Diagnoses Not on filedocumented in this encounter Additional Health Concerns Assessment Noted Time A fall risk assessment has been complete d for the patient 06/22/2023 3:49 PM EST A Body Mass Index follow-up plan has been documented for the patient 07/07/2023 2:34 PM EST documented as of this encounter Care Teams Immigration Attorney Relationship Specialty Start Date End Date Art Lorenz MD [address] [facility] [place] [address] PCP - General 05/19/23 Jordy Hall MD [address] [place] [address] [address] [place] [address] Cardiology 05/19/23 documented as of this encounter
--- OUTSIDE RECORDS SUMMARY | 2025-02-26 08:45 | XMS_ITS | Clinical Summary ---
Author Organization [facility] Address [address] [id number] Care Team Providers Care Machine [employer] Teacher Name Role Phone Art Lorenz MD Primary Care Provider [phone] Jordy Hall MD Unavailable [phone] Allergies Active Allergy Reactions Criticality Noted Date Comments Carisoprodol Unknown - Patient st ates they do not know rxn details Low 11/19/2012 Moxifloxacin Unknown - Patient st ates they do not know rxn details Low 11/19/2012 Penicillins Unknown - Patient st ates they do not know rxn details Low 11/19/2012 Sulfacetamide Unknown - Patient st ates they do not know rxn details Low 11/19/2012 Medications gabapentin (Neurontin) 400 MG capsule Take 1 capsule (400 mg) by mouth 3 (three) times a day if needed. 09/26/19 22 Active ProAir HFA 108 (90 Base) MCG/ACT inhaler Inhale 1 puff every 4 (four) hours if needed. 09/23/19 22 Active atorvastatin (Lipitor) 80 MG tablet Take 1 tablet (80 mg) by mouth 1 (one) time each day. 11/11/19 21 Active dicyclomine (Bentyl) 20 MG tablet Take by mouth 4 (four) times a day if needed. Active nicotine (Nicoderm CQ) 21 MG/24HR patch Place 1 patch on the skin 1 (one) time each day at the same time. Active aspirin 81 MG EC tablet Take 1 tablet (81 mg) by mouth 1 (one) time each day. Active nitroglycerin (Nitrostat) 0.[address] 1 tablet (0.4 mg) under the tongue every 5 (five) minutes if needed for chest pain. Active empagliflozin (Jardiance) 10 MG Take 1 tablet (10 mg) by mouth 1 (one) time each day. Active ticagrelor (Brilinta) 90 MG tablet Take 1 tablet (90 mg) by mouth 2 (two) times a day. Active Continuous Blood Gluc Pusher Operator (Dexcom G6 director acute) device Use as instructed 1 each 05/26/20 Active Continuous Blood Gluc Sensor (Dexcom G6 Sensor) misc Apply one sensor every 10 days. 3 each 1 05/26/20 Active Continuous Blood Gluc Transmit (Dexcom G6 transmitter) misc Use as instructed 1 each 05/26/20 Active cetirizine (ZyrTEC) 10 MG tablet Take 1 tablet (10 mg) by mouth 1 (one) time each day. 30 tablet 05/28/20 Active Additional Information Patient not taking.Reported on 06/22/2023 DULoxetine (Cymbalta) [address] capsule Take 1 capsule (60 mg) by mouth 1 (one) time each day. Do not crush or chew. 30 capsule 05/29/20 Active fenofibrate (Tricor) 48 MG tablet Take 1 tablet (48 mg) by mouth 1 (one) time each day. 30 tablet 2 05/28/20 Active Additional Information Patient not taking.Reported on 07/27/2023 fluticasone (Flonase) 50 MCG/ACT nasal spray Administer 1 spray into each nostril 1 (one) time each day. Shake gently. Before first use, prime pump. After use, clean tip and replace cap. 16 g 05/29/20 Active Additional Information Patient not taking.Reported on 07/27/2023 acetaminophen (Tylenol) 325 MG tablet Take 2 tablets (650 mg) by mouth every 6 (six) hours if needed for pain. 100 tablet 05/28/20 Active Additional Information Patient not taking.Reported on 07/27/2023 furosemide (Lasix) 40 MG tablet Take 1 tablet (40 mg) by mouth 1 (one) time each day for 5 days. 5 tablet 05/29/20 Active metoprolol tartrate (Lopressor) 25 MG tablet Take 1 tablet (25 mg) by mouth 2 (two) times a day. 60 tablet 2 05/28/20 Active Additional Information Patient taking differently: 50 mgOralDaily, Reported on 07/27/2023 mometasone-formote rol (Dulera 200) 200-5 MCG/ACT inhaler Inhale 2 puffs 2 (two) times a day. Rinse mouth with water after use to reduce aftertaste and incidence of candidiasis. Do not swallow. 13 g 05/28/20 Active Additional Information Patient not taking.Reported on 07/27/2023 spironolactone (Aldactone) 25 MG tablet Take 1 tablet (25 mg) by mouth 1 (one) time each day. 30 each 2 05/29/20 Active busPIRone (Buspar) 10 MG tablet Take 1 tablet (10 mg) by mouth 3 (three) times a day. 90 tablet 05/28/20 Active Blood Glucose Monitoring Suppl device Test 4 daily 1 each 05/28/20 Active Lancets misc Test 4 daily 300 each 11 05/28/20 Active Alcohol Sheets (Alcoh-Wipe) sheet Use as directed. 300 each 11 05/28/20 Active Additional Information Patient not taking.Reported on 07/27/2023 Continuous Blood Gluc Transmit (Dexcom G6 transmitter) misc Use as instructed 1 each 3 05/28/20 Active Continuous Blood Gluc Sensor (Dexcom G6 Sensor) misc Apply one censor every 10 days. 3 each 05/28/20 Active Continuous Blood Gluc Pusher Operator (Dexcom G6 director acute) device Use as instructed 1 each 05/28/20 Active pen needle, diabetic 31G X 5 MM misc Use as directed with insulin pen. 100 each 11 05/28/20 Active insulin glargine (Lantus SoloStar) 100 UNIT/ML injection pen Inject 32 Units under the skin every night. 15 mL 3 05/28/20 Active Additional Information Patient not taking.Reported on 07/27/2023 pen needle, diabetic 31G X 5 MM misc Use as directed with insulin pen. 100 each 11 05/28/20 Active insulin lispro 100 UNIT/ML injection pen Inject 12 Units under the skin 3 (three) times a day with meals. Plus correction of 1unit:50>150 15 mL 3 05/28/20 Active tiotropium (Spiriva HandiHaler) [address] 1 capsule (18 mcg) into inhaler and inhale 1 (one) time each day. 30 capsule 05/28/20 Active Additional Information Patient not taking.Reported on 06/22/2023 Glucagon, rDNA, (Glucagon Emergency) 1 MG kit Inject 1 Dose as directed 1 (one) time if needed (hypoglycemia) for up to 1 dose. 1 kit 05/28/20 Active Vraylar 1.5 MG capsule Take 1 capsule (1.5 mg) by mouth 1 (one) time each day. 07/13/20 Active docusate sodium (Colace) 100 MG capsule Take 1 capsule (100 mg) by mouth 2 (two) times a day. Active folic acid (Folvite) 1 MG tablet Take 1 tablet (1 mg) by mouth 1 (one) time each day. Active glipiZIDE XL 10 MG 24 hr tablet Take 1 tablet (10 mg) by mouth 1 (one) time each day. Do not crush, chew, or split. Active lisinopril 10 MG tablet Take 1.5 tablets (15 mg) by mouth 1 (one) time each day. Active pantoprazole (Protonix) 40 MG EC tablet Take 1 tablet (40 mg) by mouth 1 (one) time each day before breakfast. Do not crush, chew, or split. Active polyethylene glycol (Miralax) 17 g packet Take 17 g by mouth 1 (one) time each day. Active thiamine (Vitamin B-1) 100 MG tablet Take 1 tablet (100 mg) by mouth 1 (one) time each day. Active magnesium oxide (Mag-Ox) 400 mg tablet Take 1 tablet (400 mg) by mouth 2 (two) times a day. Active ciprofloxacin (Cipro) 500 MG tablet Take 1 tablet (500 mg) by mouth 2 (two) times a day. Until 07/31/23 Active risperiDONE (RisperDAL M-TAB) 0.5 MG disintegrating tablet Take 1 tablet (0.5 mg) by mouth 2 (two) times a day. 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 Prolonged Q-T interval on ECG 05/20/2023 Hyperglycemia 05/20/2023 Diabetic neuropathy associat ed with type 2 diabetes mellitus 05/20/2023 Ischemic cardiomyopathy 05/20/2023 HFrEF (heart failure with reduced ejection fract ion) 05/20/2023 Cardiac left ventricular ejection fraction 30-35 percent 05/20/2023 Grade I diastolic dysfunction 05/20/2023 CAD, multiple vessel 05/18/2023 Type 2 diabetes mellitus, wi th long-term current use of insulin 05/18/2023 COPD (chronic obstructive pulmonary disease) 07/2022 Tobacco use 05/18/2023 Essential hypertension 05/18/2023 HLD (hyperlipidemia) 05/18/2023 Depression 05/18/2023 Insomnia 05/18/2023 Anxiety 05/18/2023 Resolved Problems Problem Noted Date Diagnosed Date Resolved Date Acute hypoxic respiratory failure 05/23/2023 05/28/2023 Overview (05/24/2023): Immediate post cardiac surgery On Nasal cannula Hyponatremia 05/20/2023 05/28/2023 Non-ST elevation (NSTEMI) my ocardial infarction 05/18/2023 06/02/2023 Abdominal wall abscess 05/18/202305/28 Left leg pain 10/01/2021 06/02/2023 Immunizations Immunization Administration Dates Next Due Influenza, seasonal, injectable 04/15/2021 Pneumococcal Polysaccharide PPV23 05/05/2021 Td (adult), unspecified 03/28/2007 Family History Medical History Relation Name Comments Alcohol abuse Brother Alcohol abuse Father Alcohol abuse Mother Cardiac disorder Mother Colon cancer Mother Anesthesia problems Neg Hx Malig Hyperthermia Neg Hx Relation Name Status Comments Brother Father Mother Social History Tobacco Use Types Packs/Day Years Used Date Smoking Tobacco: Former Cigarettes 0.5 30 Smokeless Tobacco: Never Tobacco Cessation:Counseling Given: Not Answered Comments:Trying to quit Alcohol Use Standard Drinks/Week Comments Yes 0 (1 standard drink = 0.6 oz pure alcohol) 5th or more per day; recent admit / to outside facility for detox Humiliation, Afraid, Rape, and Kick questionnair e [...] place to sleep or slept in a assisted (including now)? No 05/19/2023 CAGE ASSESSMENT Answer [...] drink first t torsten in the morning (EYE-GARAGE CONSTRUCTION EQUIPMENT MECHANIC) to steady your nerves or to get [...] Sign Reading Time Taken Comments Blood Pressure 109/76 07/14/2023 10:56 AM EST Pulse 110 07/14/2023 10:56 AM EST Temperature 36.6 C (97.9 F) 05/30/2023 8:00 PM EST Respiratory Rate 18 05/30/2023 8:00 PM EST Oxygen Saturation 93% 07/14/2023 10:56 AM EST Inhaled Oxygen Concentration - - Weight 77.6 kg (171 lb) 07/27/2023 11:59 AM EST Height 162.6 cm (5' 4 ) 07/27/2023 11:59 AM EST Body Mass Index 29.35 07/27/2023 11:59 AM EST Plan of Treatment Health Maintenance Due Date Last Done Comments [facility]-Depression Screening 1969 [facility]-/Child/Adol SDOH Screenings 1969 Diabetes: Dental Exam 1979 [facility]- SDOH Screenings 1987 [facility]-Adult SDOH Screenings 1987 [facility]-Hepatitis B Vaccines (1 of 3 - 19+ 3-dose series) 02/12/1988 [facility]-Pap Smear 1990 [facility]-Cervical Cancer Screening 1999 [facility]-HPV/Cotest 1999 [facility]-DTaP,Tdap,and Td Vaccine s (1 - Tdap) 03/29/2007 03/28/2007 CT Colonography 2014 [facility]-DNA 2014 FIT 2014 FOBT 2014 Sigmoidoscopy 2014 [facility]-Breast Cancer Screening 2019 [facility]-Zoster Vaccines (1 of 2) 2019 [facility]-Pneumococcal Vaccine: 50 + Years (2 of 2 - PCV) 05/05/2022 05/05/2021 [facility]-Diabetes: Hemoglobin A1C 08/17/202307/2022, 11/24/2022, 09/21/2019 [id number] Vaccine ( season) 2024 10/14/2020, 09/13/2020 [facility]-Influenza Vaccine (#1) 2025 04/15/2021 Colonoscopy 03/31/2025 03/31/2015, 09/27/2014, 10/25/2012 [facility]-Colorectal Cancer Screening 03/31/2025 [facility]-HIV Screening Completed 11/23/2022 [facility]-Hepatitis C Screening Completed 2022, 11/23/2022, 09/21/2019 [facility]-Obesity Intervention Completed 023, 06/22/2023, 05/18/2023 HPV Vaccines Aged Out No longer eligi ble based on patient's age to complete this topic [facility]-HIB Vaccines Aged Out No longer e ligible based on patient's age to complete this topic [facility]-Hepatitis A Vaccines Aged Out No longer eligible based on patient's age to complete this topic [facility]-IPV Vaccines Aged Out No longer e ligible based on patient's age to complete this topic [facility]-Rotavirus Vaccines Aged Out No lo nger eligible based on patient's age to complete this topic Medical Devices Implanted Type Area [employer] [place] Mold Maker Device Identifier Shelf Expiration Date Model / Serial / Lot Plate And Screws Left: Tibia Procedures Procedure Name Priority Date/Time Associated Diagnosis Comments HEMOGLOBIN A1C Routine 05/18/2023 10:38 PM EDT ACUTE HEPATITIS PANEL Routine 11/24/2022 6:57 AM EDT Routine general medical examination at a health care facility [ICD-10-CM] HIV 1/2 ANTIBODY/ANTIGEN SCREEN WITH REFLEX TO HIV I/II DIFFERENTIATION STAT 11/23/2022 5:19 AM EDT COLONOSCOPY 03/31/2015 from Last 3 Months or Most Recently Relevant to Health Maintenance Results * (ABNORMAL) Hemoglobin A1c (05/18/2023 10:38 PM EDT) Hemoglobin A1c 10.7(H) <5.7 % 05/19/2023 12:38 AM EDT [facility] Blood Venous blood specimen / Unknown Venipuncture / Unknown 05/18/2023 10:38 PM EDT 05/18/2023 10:42 PM EDT Narrative [facility] - 05/19/2023 12:38 AM EDT HA1C Interpretive Data: Diagnosis of Diabetes: Diabetic > or = 6.5% Pre-diabetic 5.7 to 6.4% Non-diabetic < or = 5.6% Glycemic Targets for Type I and Type II Diabetics: Non- Adults <7.0% Adults <6.0% Children and Adolescents <7.5% Source: [employer]. Standards of medical care in diabetes,2017. Diabetes Care.2017:40 (suppl 1):S1-S135. HbA1c assay performed by an ion-exchange chromatography method that is certified traceable to the DCCT. Kristi Acosta MD LAB BLOOD ORDERABLES Final Result Performing Organization Address City/[facility] Co de Phone Number [facility] [address] [place] [address] * Hepatitis panel, acute (11/24/2022 6:57 AM EDT) Pathologist [facility] Hepatitis B Surf Antigen Negative Negative 11/24/2022 11:29 AM EDT [facility] Hepatitis C Antibody Negative Negative 11/24/2022 11:29 AM EDT [facility] Hepatitis A Antibody IgM Negative Negative 11/24/2022 11:29 AM EDT [facility] Hepatitis B Core Antibody IgM Negative Negative 11/24/2022 11:29 AM EDT [facility] Blood Venous blood specimen / Unknown Venipuncture / Unknown 11/24/2022 6:57 AM EDT 11/24/2022 7:50 AM EDT Irene FLANNERY LAB BLOOD ORDERABLES Final R esult Performing Organization Address City/[facility] Co de Phone Number [facility] [address] [place] [address] * HIV 1 & 2 Antibody/Antigen Screen (11/23/2022 5:19 AM EDT) HIV 1 & 2 Antibody/Antigen Screen Non Reactive Non Reactive 11/23/2022 5:58 AM EDT [facility] Comment:Screening for HIV 1 & 2 antibodies, and P24 antigen is NONREACTIVE. No confirmatory testing is required. Blood Venous blood specimen / Unknown Venipuncture / Unknown 11/23/2022 5:19 AM EDT 11/23/2022 5:21 AM EDT us Karen Franklin MD LAB BLOOD ORDERABLES Final R esult [facility] [address] [place], [place] [id number] * COLONOSCOPY (03/31/2015) Anatomical Region Laterality Modality Endoscopy Narrative 03/31/2015 Ordered by an unspecified provider. us Historical Provider GI PROCEDURE ORDERABLES F inal Result from Last 3 Months or Most Recently Relevant to Health Maintenance Insurance Advance Directives * Full Code (Latest Code Status on File) Date Activated Date Inactivated Comments 05/23/2023 6:01 PM 05/28/2023 3:13 PM Question Answer Comments Patient has decision-making capacity? Yes * Full Code Date Activated Date Inactivated Comments 05/18/2023 10:10 PM 05/23/2023 6:01 PM Question Answer Comments Patient has decision-making capacity? Yes Care Teams Machine [employer] Teacher Relationship Specialty Start Date End Date Art Lorenz MD [address] [address] PCP - General 05/19/23 Jordy Hall MD [address] [place] [address] [address] [place] [address] Cardiology 05/19/23
--- OUTSIDE RECORDS SUMMARY | 2025-02-26 08:45 | XMS_ITS | Encounter Summary ---
Author Organization Healthcare Address [address] [place] [address] Care Team Providers Care [employer] Employee Name Role Phone Art Lorezn MD Primary Care Provider [phone] Jordy Hall MD Unavailable [phone] Encounter Details Date Type Department Care Team (Late st Contact Info) Description 06/10/2023 Orders Only External Location [address] [place] [address] Provider, External Social History Tobacco Use Types [...] place to sleep or slept in a usp (including now)? No 05/19/2023 CAGE ASSESSMENT Answer [...] drink first t torsten in the morning (EYE-CHIEF ORTHOPTIST) to steady your nerves or to get [...] Associated Diagnosis Comments CT THORACIC OUTSIDE IMAGES 06/10/2023 11:01 AM EST documented in this encounter Results * CT THORACIC OUTSIDE IMAGES (06/10/2023 11:01 AM EST) Anatomical Region Laterality Modality Computed Tomogra phy 06/10/2023 11:0 1 AM EST us External Provider IMG CT PROCEDURES Final Result documented in this encounter Visit Diagnoses Not on filedocumented in this encounter Additional Health Concerns Assessment Noted Time A fall risk assessment has been complete d for the patient 12/21/2021 9:40 AM EDT A Body Mass Index follow-up plan has been documented for the patient 05/28/2023 12:52 PM EST documented as of this encounter Care Teams [employer] Employee Relationship Specialty Start Date End Date Art Lorenz MD [address] [address] PCP - General 05/19/23 Jordy Hall MD [address] [facility] [address] [place] [address] Cardiology 05/19/23 documented as of this encounter
--- NOTE | 2025-02-26 08:46 | PC.NURSE ---
Walked patient to bathroom to obtain a stool sample.
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
[2025-02-26 08:53] LABS: Hematocrit 46.7 % (37.0-47.0); Hemoglobin 15.9 g/dL (12.2-16.2); Immature Granulocytes % 0.3 %; Mean Corpuscular HGB Conc 34.0 g/dL (31.8-35.4); Mean Corpuscular Hemoglobin 31.2 pg (27.0-31.2); Mean Corpuscular Volume 91.6 fl (81-99); Nucleated Red Blood Cells % 0 %; Platelet Count 176 K/mm3 (142-424); Red Blood Count 5.10 M/mm3 (4.20-5.40); Red Cell Distribution Width-SD 42.1 fL; White Blood Count 6.9 K/mm3 (4.8-10.8)
[2025-02-26 09:02] LABS: Lipase 112 U/L (23-300); Magnesium 1.8 mg/dl (1.6-2.3); Phosphorous 2.9 mg/dl (2.5-4.5)
[2025-02-26 09:03] LABS: Alanine Aminotransferase 30 U/L (12-78); Albumin Level 4.7 g/dl (3.5-5.0); Albumin/Globulin Ratio 1.6 (1.1-1.8); Alkaline Phosphatase 119 U/L (38-126); Anion Gap 14.1 mEq/L (5-15); Aspartate Amino Transferase 34 U/L (14-36); Bilirubin,Total 0.8 mg/dl (0.2-1.3); Blood Urea Nitrogen 16 mg/dl (7-17); Calcium 10.1 mg/dl (8.4-10.2); Carbon Dioxide 25 mmol/L (22.0-30.0); Chloride 100 mmol/L (98-107); Creatinine Clearance Estimated 268 mL/min (50-200); Creatinine,Serum 0.30 mg/dl (0.52-1.04); Estimated Glomerular Filt Rate 230 ml/min (>60); GFR (African American) 278 ML/MIN (>60); Globulin 3.0 g/dL (1.3-3.2); Glucose 271 mg/dl (74-100); Potassium 4.1 mmoL/L (3.5-5.1); Sodium 135 mmol/L (136-145); Total Protein,Serum 7.7 g/dl (6.3-8.2)
[2025-02-26] MEDS: LACTATED RINGERS 1000ML 1,000 ML 999 ML IV (09:07)
[2025-02-26] MEDS: MORPHINE 4MG/ML SYRINGE 4 MG IV (09:08)
[2025-02-26] MEDS: ONDANSETRON 4MG/2ML VIAL 4 MG IV (09:08)
--- NOTE | 2025-02-26 09:13 | PC.NURSE ---
Radiology just took patient to get scans.
[2025-02-26] MEDS: SODIUM CHLORIDE 0.9% 10ML SYR (RAD ONLY) 10 ML IV (09:19)
[2025-02-26] MEDS: IOPAMIDOL-370 (76%);100ML BOTTLE 75 ML IV (09:19)
--- NOTE | 2025-02-26 09:24 | PC.NURSE ---
Patient is back from radiology.
[2025-02-26 10:21] LABS: Hepatitis C Ab Qual. W/ RFX NEGATIVE (Negative)
== END 2025-02-26 11:47 | disposition home or self-care (01) ==
PROVIDERS: Emergency Provider Student in an Organized Health Care Education/Training Program; PCP Emergency Medicine
DX: R10.30 Lower abdominal pain, unspecified (principal); R19.7 Diarrhea, unspecified; F17.210 Nicotine dependence, cigarettes, uncomplicated
CPT/HCPCS: 74177; 80053; 83605; 83690; 83735; 84100; 85025; 86803; 87389; 96361; 96374; 96375; 99285; J2270; J2405; J7120; Q9967

== ENCOUNTER 2025-03-16 08:51 | Emergency (ER) | payer OTHER, SELFPAY ==
[2025-03-16 08:57] VITALS: BP 197/118; PULSE 121; O2SAT 98
--- OUTSIDE RECORDS SUMMARY | 2025-03-16 08:59 | XMS_ITS | Encounter Summary ---
Author Organization Healthcare Address [address] [place] [address] Care Team Providers Care Supervisor Filtration Name Role Phone Art Lorenz MD Primary Care Provider [phone] Jordy Hall MD Unavailable [phone] Encounter Details Date Type Department Care Team (Late st Contact Info) Description 06/10/2023 Orders Only External Location [address] [place] [address] Provider, External Social History Tobacco Use Types [...] place to sleep or slept in a custodial (including now)? No 05/19/2023 CAGE ASSESSMENT Answer [...] drink first t torsten in the morning (EYE-ASSIGNMENT DESK ASSISTANT) to steady your nerves or to get [...] documented as of this encounter Care Teams Supervisor Filtration Relationship Specialty Start Date End Date Art Lorenz MD [address] [place] [address] PCP - General 05/19/23 Jordy Hall MD [address] [facility] [address] [place] [address] Cardiology 05/19/23 documented as of this encounter
--- OUTSIDE RECORDS SUMMARY | 2025-03-16 08:59 | XMS_ITS | Clinical Summary ---
Author Organization [facility] Address [address] [place] [address] Care Team Providers Care Crop Specialist Name Role Phone Art Lorenz MD Primary Care Provider [phone] Allergies Active Allergy Reactions Criticality Noted Date [...] Type Department Care Team Description 01/04/[address] [facility] [address] Devan Dickinson MD from Last 3 Months Family History Medical [...] 07/20/2024 9:55 AM EST Plan of Treatment Upcoming Encounters Date Type Department Care Team (Late st Contact Info) Description 07/04/2025 11:30 AM EST Office Visit [facility] [address] [address] Devan Dickinson MD [address] [address] Health Maintenance Due Date Last Done Comments [...] Hemoglobin A1C 10.8(A) 4.5 - 5.7 % [facility] Lot Number [id number] [facility] Expiration Date 04/27/2026 [facility] Blood 07/20/2024 10:1 0 AM EST Devan Dickinson MD POINT OF CARE TEST ORD ERABLES Final Result [facility]
[address] [place] [address], from Last 3 Months or Most Recently Relevant to Health Maintenance Insurance Care Teams Crop Specialist Relationship Specialty Start Date End Date Art Lorenz MD [address] [place] [address] (work) PCP - General Emergency Medicine 01/03/24
--- OUTSIDE RECORDS SUMMARY | 2025-03-16 08:59 | XMS_ITS | Encounter Summary ---
Author Organization Healthcare Address [address] [place] [address] Care Team Providers Care Relations Mgr Name Role Phone Art Lorenz MD Primary Care Provider [phone] Jordy Hall MD Unavailable [phone] Encounter Details Date Type Department Care Team (Late st Contact Info) Description 06/25/2023 Orders Only External Location [address] [place] [address] Mike Perrin MD [facility] [address] [place] [address] Social History Tobacco Use Types Packs/Day Years [...] place to sleep or slept in a correction (including now)? No 05/19/2023 CAGE ASSESSMENT Answer [...] drink first t torsten in the morning (EYE-CHARCOAL KILN BURNER) to steady your nerves or to get [...] documented as of this encounter Care Teams Relations Mgr Relationship Specialty Start Date End Date Art Lorenz MD [address] [facility] [address] [place] [address] PCP - General 05/19/23 Jordy Hall MD [address] [place] [address] [address] [place] [address] Cardiology 05/19/23 documented as of this encounter
--- OUTSIDE RECORDS SUMMARY | 2025-03-16 08:59 | XMS_ITS | Encounter Summary ---
Author Organization Healthcare Address [address] [place] [address] Care Team Providers Care Fly Maker Name Role Phone Art Lorenz MD Primary Care Provider [phone] Jordy Hall MD Unavailable [phone] Encounter Details Date Type Department Care Team (Late st Contact Info) Description 06/10/2023 Orders Only External Location [address] [place] [address] Provider, External Social History Tobacco Use Types [...] place to sleep or slept in a skilled nursing (including now)? No 05/19/2023 CAGE ASSESSMENT Answer [...] drink first t torsten in the morning (EYE-NEW CLIENT BANKING SERVICES CLERK) to steady your nerves or to get [...] documented as of this encounter Care Teams Fly Maker Relationship Specialty Start Date End Date Art Lorenz MD [address] [address] PCP - General 05/19/23 Jordy Hall MD [address] [facility] [address] [place] [address] Cardiology 05/19/23 documented as of this encounter
[2025-03-16 09:00] VITALS: BP 207/107; PULSE 120; O2SAT 98
--- OUTSIDE RECORDS SUMMARY | 2025-03-16 09:00 | XMS_ITS | Clinical Summary ---
Author Organization [facility] Address [address] [place] [id number] Care Team Providers Care Hospital Technician Name Role Phone Art Lorenz MD Primary Care Provider [phone] Jordy Hall MD Unavailable [phone] Allergies Active Allergy Reactions Criticality Noted Date [...] times a day. Active Continuous Blood Gluc Investigations Manager ([employer] G6 campus president) device Use as instructed 1 each 05/26/20 [...] 3 each 05/28/20 Active Continuous Blood Gluc Investigations Manager (Dexcom G6 campus president) device Use as instructed 1 each 05/28/20 [...] place to sleep or slept in a half-way (including now)? No 05/19/2023 CAGE ASSESSMENT Answer [...] drink first t torsten in the morning (EYE-MASTER GLAZIER) to steady your nerves or to get [...] 05/05/2021 [facility]-Diabetes: Hemoglobin A1C 08/17/202307/2022, 11/24/2022, 09/21/2019 [id number] Vaccine ( season) 2024 10/14/2020, 09/13/2020 [facility]-Influenza [...] this topic Medical Devices Implanted Type Area Cylinder Machine Operator Device Identifier Shelf Expiration Date Model / [...] 10.7(H) <5.7 % 05/19/2023 12:[address] [facility] Blood Venous blood specimen / Unknown [...] Adults <6.0% Children and Adolescents <7.5% Source: Citizen Of [place] Diabetes Association. Standards of medical care in diabetes,2017. Diabetes Care.2017:40 (suppl 1):S1-S135. HbA1c assay performed by an ion-exchange chromatography method that is certified traceable to the DCCT. Kristi Acosta MD LAB BLOOD ORDERABLES Final Result Performing Organization Address [facility] Co de Phone Number [facility] [address] [place] [address] * Hepatitis panel, acute (11/24/2022 6:57 AM EDT) Pathologist [facility] Hepatitis B Surf Antigen Negative Negative 11/24/2022 11:[address] [facility] Hepatitis C Antibody Negative Negative 11/24/2022 11:[address] [facility] Hepatitis A Antibody IgM Negative Negative 11/24/2022 11:[address] [facility] Hepatitis B Core Antibody IgM Negative Negative 11/24/2022 11:[address] [facility] Blood Venous blood specimen / Unknown Venipuncture / Unknown 11/24/2022 6:57 AM EDT 11/24/2022 7:50 AM EDT Irene FLANNERY LAB BLOOD ORDERABLES Final R esult Performing Organization Address [facility] Co de Phone Number [facility] [address] [place] [address] * HIV 1 & 2 Antibody/Antigen Screen [...] BLOOD ORDERABLES Final R esult [facility] [address] [place], [place] [id number] * COLONOSCOPY (03/31/2015) Anatomical Region Laterality Modality Endoscopy Narrative 03/31/2015 Ordered by an unspecified provider. us Historical Provider GI PROCEDURE ORDERABLES Little l Result from Last 3 Months or Most [...] Patient has decision-making capacity? Yes Care Teams Hospital Technician Relationship Specialty Start Date End Date Art Lorenz MD [address] [address] PCP - General 05/19/23 Jordy Hall MD [address] [place] [address] [address] [place] [address] Cardiology 05/19/23
--- OUTSIDE RECORDS SUMMARY | 2025-03-16 09:00 | XMS_ITS | Encounter Summary ---
Author Organization Healthcare Address [address] [place] [address] Care Team Providers Care Marble Cutter Name Role Phone Shelbi Sushila Franklin APRN Primary Care Provider Art Lorenz MD Primary Care Provider [phone] Jordy Hall MD Unavailable [phone] Encounter Details Date Type Department Care Team (Late st Contact Info) Description 11/24/[address] [facility] [address] [place] [id number] Irene Hester, PA [address] [place] [address] Routine general medical examination at [...] drink first t torsten in the morning (EYE-INSIDE WIRER) to steady your nerves or to get [...] - 4.20 uIU/mL 11/24/2022 10:03 AM EDT [facility] Blood Venous blood specimen / Unknown Venipuncture / Unknown 11/24/2022 6:57 AM EDT 11/24/2022 7:35 AM EDT Narrative [facility] - 11/24/2022 10:03 AM EDT Trimester Specific Ranges TSH ( IU/mL) 1st Trimester 0.1 - 3.0 2nd Trimester 0.19 - 4.06 3rd Trimester 0.3 - 3.7 Irene Hester IN LAB BLOOD ORDERABLES Final R esult Performing Organization Address [facility] de Phone Number [facility] [address] [place] [address] * hCG, Total Beta, Quantitative, Plasma (11/24/2022 6:57 AM EDT) hCG, Total Beta <1 <5 mIU/mL 11/24/2022 10:03 AM EDT [facility] Blood Venous blood specimen / Unknown Venipuncture / Unknown 11/24/2022 6:57 AM EDT 11/24/2022 7:35 AM EDT Narrative [facility] - 11/24/2022 10:03 AM EDT Patients: [...] ORDERABLES Final R esult Performing Organization Address [facility] Co de Phone Number [facility] [address] [place] [address] * CBC and Differential (11/24/2022 6:57 AM EDT) WBC Count 6.46 3.70 - 10.30 10*3/uL LAB HEMATOLOGY METHOD 11/24/2022 9:27 AM EDT [facility] RBC Count 4.42 3.90 - 5.20 10*6/uL LAB HEMATOLOGY METHOD 11/24/2022 9:27 AM EDT [facility] HGB 13.4 11.2 - 15.7 g/dL LAB HEMATOLOGY METHOD 11/24/2022 9:27 AM EDT [facility] HCT 41.5 34.0 - 45.0 % LAB HEMATOLOGY METHOD 11/24/2022 9:27 AM EDT [facility] Platelet Count 214 155 - 369 10*3/uL LAB HEMATOLOGY METHOD 11/24/2022 9:27 AM EDT [facility] MCV 94 79 - 98 fL LAB HEMATOLOGY METHOD 11/24/2022 9:27 AM EDT [facility] MCH 30.3 26.0 - 32.0 pg LAB HEMATOLOGY METHOD 11/24/2022 9:27 AM EDT [facility] MCHC 32.3 30.7 - 35.5 g/dL LAB HEMATOLOGY METHOD 11/24/2022 9:27 AM EDT [facility] RDW 12.8 11.5 - 14.5 % LAB HEMATOLOGY METHOD 11/24/2022 9:27 AM EDT [facility] MPV 12.0 8.8 - 12.5 fL LAB HEMATOLOGY METHOD 11/24/2022 9:27 AM EDT [facility] nRBC 0.0 <=0.0 per 100 WBCs LAB HEMATOLOGY METHOD 11/24/2022 9:27 AM EDT [facility] Differential Type Automated LAB HEMATOLOGY METHOD 11/24/2022 9:27 AM EDT [facility] Neutrophils % 47.0 % LAB HEMATOLOGY METHOD 11/24/2022 9:27 AM EDT [facility] Lymphocytes % 43.0 % LAB HEMATOLOGY METHOD 11/24/2022 9:27 AM EDT [facility] Monocytes % 7.0 % LAB HEMATOLOGY METHOD 11/24/2022 9:27 AM EDT [facility] Eosinophils % 2.0 % LAB HEMATOLOGY METHOD 11/24/2022 9:27 AM EDT [facility] Basophils % 1.0 % LAB HEMATOLOGY METHOD 11/24/2022 9:27 AM EDT [facility] Immature Granulocytes % 0.0 % LAB [...] ORDERABLES Final R esult [facility] [address] [place] [id number] * (ABNORMAL) Hemoglobin A1c (11/24/2022 6:57 AM [...] Adults <6.0% Children and Adolescents <7.5% Source: [place] [employer]. Standards of medical care in diabetes,2017. Diabetes Care.2017:40 (suppl 1):S1-S135. HbA1c assay performed by an ion-exchange chromatography method that is certified traceable to the DCCT. Irene FLANNERY LAB BLOOD ORDERABLES Final R esult [facility] [address] [place] [address] * (ABNORMAL) Lipid panel (11/24/2022 6:57 AM [...] 12 hours? Unknown 11/24/2022 10:03 AM EDT [facility] Blood Venous blood specimen / Unknown Venipuncture / Unknown 11/24/2022 6:57 AM EDT 11/24/2022 7:35 AM EDT Irene FLANNERY LAB BLOOD ORDERABLES Final R esult [facility] [address] [place] [address] * (ABNORMAL) Comprehensive metabolic panel (11/24/2022 6:57 AM EDT) Glucose, Plasma 199(H) 74 - 99 mg/dL 11/24/2022 10:03 AM EDT [facility] BUN, Plasma 8 7 - 21 mg/dL 11/24/2022 10:03 AM EDT [facility] Creatinine, Plasma 0.57(L) 0.60 - 1.10 mg/dL 11/24/2022 10:03 AM EDT [facility] BUN/Creatinine Ratio 14 11/24/2022 10:03 AM EDT [facility] Sodium, Plasma 141 136 - 145 mmol/L 11/24/2022 10:03 AM EDT [facility] Potassium, Plasma 4.6 3.7 - 4.8 mmol/L 11/24/2022 10:03 AM EDT [facility] Chloride, Plasma 108(H) 97 - 107 mmol/L 11/24/2022 10:03 AM EDT [facility] CO2, Plasma 24 22 - 29 mmol/L 11/24/2022 10:03 AM EDT [facility] Anion Gap 9 6 - 16 mmol/L 11/24/2022 10:03 AM EDT [facility] Total Calcium, Plasma 9.8 8.9 - 10.2 mg/dL 11/24/2022 10:03 AM EDT [facility] Total Protein 6.9 6.3 - 7.9 g/dL 11/24/2022 10:03 AM EDT [facility] Albumin, Plasma 4.1 3.5 - 5.2 g/dL 11/24/2022 10:03 AM EDT [facility] AST, Plasma 24 11 - 32 U/L 11/24/2022 10:03 AM EDT [facility] ALT, Plasma 21 8 - 33 U/L 11/24/2022 10:03 AM EDT [facility] Alkaline Phosphatase, Plasma 84 35 - 104 U/L 11/24/2022 10:03 AM EDT [facility] Total Bilirubin, Plasma 0.3 0.2 - 1.1 mg/dL 11/24/2022 10:03 AM EDT [facility] eGFRcr 108.8 mL/min/1.7 3m*2 11/24/2022 10:03 AM EDT [facility] Comment: Reported eGFRcr in mL/min/1.73m2 is based the CKD-EPI 202 equation that does not use a race coefficient. Effective 02/10/22 our laboratory changed the eGFR calculation to the CKD-EPI 2021 equation from the previously reported eGFR, based on the MDRD equation. For comparisons between the two equations, please see laboratory website: [email or web address] Blood Venous blood specimen / Unknown Venipuncture / Unknown 11/24/2022 6:57 AM EDT 11/24/2022 7:35 AM EDT Irene FLANNERY LAB BLOOD ORDERABLES Final R esult [facility] [address] [place] [address] * Hepatitis panel, acute (11/24/2022 6:57 AM EDT) Hepatitis B Surf Antigen Negative Negative 11/24/2022 11:29 AM EDT [facility] Hepatitis C Antibody Negative Negative 11/24/2022 11:29 AM EDT [facility] Hepatitis A Antibody IgM Negative Negative 11/24/2022 11:29 AM EDT [facility] Hepatitis B Core Antibody IgM Negative Negative 11/24/2022 11:29 AM EDT [facility] Blood Venous blood specimen / Unknown Venipuncture / Unknown 11/24/2022 6:57 AM EDT 11/24/2022 7:50 AM EDT us Irene FLANNERY LAB BLOOD ORDERABLES Final R esult [facility] [address] [place] [address] documented in this encounter Visit Diagnoses Diagnosis Routine general medical examination at a health care facility documented in this encounter Additional Health Concerns Assessment Noted Time A fall risk assessment has been complete d for the patient 12/21/2021 9:40 AM EDT documented as of this encounter Care Teams Marble Cutter Relationship Specialty Start Date End Date Sushila Mario APRN [address] [place] [address] PCP - General Family Medicine 09/01/21 05/18/23 Art Lorenz MD [address] [place] [address] PCP - General 05/19/23 Jordy Hall MD [address] [facility] [address] [place] [address] Cardiology 05/19/23 documented as of this encounter
--- NOTE | 2025-03-16 09:01 | PC.NURSE ---
Rounded on the pt. no new complaints at this time. no needs voiced. call emery in reach.
[2025-03-16 09:03] VITALS: BP 197/118; PULSE 119; RESP 15; TEMP 36.9; O2SAT 98; BMI 30.7
[2025-03-16 09:24] VITALS: BP 178/105; PULSE 110; O2SAT 95
[2025-03-16 09:30] VITALS: BP 180/103; PULSE 111; O2SAT 97
[2025-03-16] MEDS: TETRACAINE 0.5% OPTH SOL 15ML OP (09:48)
[2025-03-16] MEDS: FLUORESCEIN SODIUM 1MG STRIP 1 MG OP (09:49)
--- NOTE | 2025-03-16 09:50 | PC.NURSE ---
I rounded on the pt and took her a cup of coffee. no other needs voiced. no new complaints. call emery in reach.
--- NOTE | 2025-03-16 10:11 | PC.NURSE ---
bedside assessing pts eyes with slit lamp.
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
[2025-03-16 10:36] VITALS: BP 166/109; PULSE 110; RESP 16; TEMP 37.1; O2SAT 97
== END 2025-03-16 10:41 | disposition home or self-care (01) ==
PROVIDERS: Emergency Provider Student in an Organized Health Care Education/Training Program; PCP Emergency Medicine
DX: H11.31 Conjunctival hemorrhage, right eye (principal); F10.929 Alcohol use, unspecified with intoxication, unspecified; I50.20 Unspecified systolic (congestive) heart failure; Z72.0 Tobacco use
CPT/HCPCS: 99284